=== PATIENT | female | born 1955 | race Caucasian/White ===

== ENCOUNTER 2017-06-29 10:12 | Day surgery (SDC) | payer BC ==
[~2017-06-29 10:12] MED LIST: ASPI81CH PO; ASPI81EC PO; AZIT250; Anaspaz0.125 MG PO; BENZ100A PO; BUPR150ER PO; Bentyl10 MG; D3-20002000 UNIT PO; DILT120 PO; DILT180 PO; DILTIAZEM 24HR180 MG PO; FOLI1 PO; HYDCHL12.5 PO; HYDCHL25 PO; HYDMOR2 PO; Hydromet Syrup473 ML; LISI5 PO; MELO7.5 PO; OMEP20ER PO; Omeprazole20 M1 PO; PRED20 PO; PROC10 PO; RXHYDMOR2 PO; SIMV40 PO
[2018-01-03] MEDS ORDERED: HYOS.125 (11:09)
[2018-01-03] MEDS ORDERED: Ranitidine HCl150 M1 (11:09)
== END 2017-06-29 11:58 | disposition home or self-care (01) ==
LOC: ATC 10:12
DX: G43.011 Migraine without aura, intractable, with status migrainosus (principal); N17.9 Acute kidney failure, unspecified; E83.52 Hypercalcemia; E66.9 Obesity, unspecified; R07.89 Other chest pain; I10 Essential (primary) hypertension; F17.210 Nicotine dependence, cigarettes, uncomplicated; Z79.899 Other long term (current) drug therapy; Z86.73 Personal history of transient ischemic attack (TIA), and cerebral infarction without residual deficits; Z91.040 Latex allergy status
CPT/HCPCS: 96374; 96375; J1200; J2765

== ENCOUNTER 2017-10-23 19:00 | Emergency (ER) | payer BC ==
[~2017-10-23] VITALS: Ht 162.6 cm; Wt 81.2 kg
[2017-10-23] MEDS ORDERED: HYDCHL25 PO (19:22)
[2017-10-23] MEDS ORDERED: ASPI81CH PO (19:22)
[2017-10-23] MEDS ORDERED: Omeprazole20 M1 PO (19:23)
[2017-10-23] MEDS ORDERED: CYAN500 PO (19:23)
[2017-10-23 19:24] LABS: BASOPHILS ABSOLUTE AUTO 0.05 K/mm3 (0.00-0.23); BASOPHILS PERCENT AUTO 0 % (0-2); EOSINOPHILS ABSOLUTE AUTO 0.24 K/mm3 (0.00-0.68); EOSINOPHILS PERCENT AUTO 2 % (0-6); Hematocrit 39.5 % (33.0-51.0); Hemoglobin 13.7 g/dL (11.5-16.0); IMMATURE GRAN ABSOLUTE AUTO 0.07 K/mm3 (0.00-0.10); IMMATURE GRAN PERCENT AUTO 1 % (0-1); LYMPHOCYTES ABSOLUTE AUTO 2.24 K/mm3 (0.84-5.20); LYMPHOCYTES PERCENT AUTO 20 % (21-46); MONOCYTES ABSOLUTE AUTO 1.11 K/mm3 (0.16-1.47); MONOCYTES PERCENT AUTO 10 % (4-13); Mean Corpuscular HGB 35.3 pg (26.0-34.0); Mean Corpuscular HGB Conc 34.7 g/dL (31.5-36.5); Mean Corpuscular Volume 102 fL (80-100); Mean Platelet Volume 11.9 fL (9.1-12.4); NEUTROPHILS ABSOLUTE AUTO 7.64 K/mm3 (1.96-9.15); NEUTROPHILS PERCENT AUTO 67 % (41-73); Platelet Count 274 K/mm3 (150-400); RDW Coefficient Variation 12.2 % (11.7-14.2); RDW Standard Deviation 45.8 fL (35.1-46.3); Red Blood Cell Count 3.88 M/mm3 (3.80-5.20); White Blood Cell Count 11.35 K/mm3 (4.00-11.30)
[2017-10-23] MEDS ORDERED: QUDEXY XR100 MG PO (19:24)
[2017-10-23] MEDS ORDERED: DILT180 PO (19:24)
[2017-10-23] MEDS ORDERED: TIZANIDINE HCL4 MG PO (19:24)
[2017-10-23] MEDS ORDERED: LISI5 PO (19:25)
[2017-10-23] MEDS ORDERED: VITAMIN D32000 UNIT PO (19:25)
[2017-10-23] MEDS ORDERED: FOLI400 PO (19:26)
[2017-10-23 19:44] LABS: Alanine Aminotransfer (ALT/SGP 151 U/L (12-78); Albumin, Blood 3.5 g/dL (3.4-5.0); Albumin/Globulin Ratio 1.1 (0.8-1.8); Alk Phos 84 U/L (50-136); Anion Gap 7 mmol/L (6-16); Aspartate Aminotrans (AST/SGOT 97 U/L (12-37); Bilirubin, Total 0.3 mg/dL (0.1-1.0); Blood Urea Nitrogen 32 mg/dL (8-24); Bun/Creatinine Ratio 21.5 (12.0-20.0); CO2, Blood 23 mmol/L (21-32); Calcium, Blood 10.1 mg/dL (8.5-10.1); Chloride, Blood 113 mmol/L (98-108); Creatinine, Blood 1.49 mg/dL (0.40-1.00); Globulin, Blood 3.3 g/dL (2.2-4.0); Glomerular Filtration Rate 38 (60-); Glucose, Blood 90 mg/dL (70-99); Potassium, Blood 3.5 mmol/L (3.5-5.5); Sodium, Blood 143 mmol/L (136-145); Total Protein, Blood 6.8 g/dL (6.4-8.2); Troponin I <0.015 ng/mL (0.000-0.040)
[2017-10-23] MEDS ORDERED: Percocet 7.5-31 EACH PO (21:56)
== END 2017-10-23 22:12 | disposition home or self-care (01) ==
LOC: ER 19:00
PROVIDERS: Emergency Medicine
DX: R07.81 Pleurodynia (principal); Z91.040 Latex allergy status; Z88.5 Allergy status to narcotic agent; Z79.899 Other long term (current) drug therapy; Z79.82 Long term (current) use of aspirin; I10 Essential (primary) hypertension; F17.210 Nicotine dependence, cigarettes, uncomplicated
CPT/HCPCS: 36415; 71046; 80053; 84484; 85025; 85379; 93005; 93010; 96374; 96375; 96376; 99284; J1885; J2405; J3010

== ENCOUNTER → 2018-06-07 | Outpatient (CLI) | payer BC ==
[~2018-06-07] MED LIST changes: +ALBU90OI6 INH; +CYAN500 PO; +FOLI400 PO; +HYOS.125; +LISI20 PO; +PANT40 PO; +PROBIOTIC1 EAC1 PO; +Percocet 7.5-31 EACH PO; +QUDEXY XR100 MG PO; +Ranitidine HCl150 M1; +TIZANIDINE HCL4 MG PO; +VITAMIN D32000 UNIT PO
[2018-06-07 11:29] LABS: BASOPHILS ABSOLUTE AUTO 0.03 K/mm3 (0.00-0.23); BASOPHILS PERCENT AUTO 0 % (0-2); EOSINOPHILS PERCENT AUTO 0 % (0-6); Hematocrit 41.1 % (33.0-51.0); Hemoglobin 14.4 g/dL (11.5-16.0); IMMATURE GRAN ABSOLUTE AUTO 0.08 K/mm3 (0.00-0.10); IMMATURE GRAN PERCENT AUTO 1 % (0-1); LYMPHOCYTES ABSOLUTE AUTO 0.18 K/mm3 (0.84-5.20); LYMPHOCYTES PERCENT AUTO 2 % (21-46); MONOCYTES ABSOLUTE AUTO 0.64 K/mm3 (0.16-1.47); MONOCYTES PERCENT AUTO 8 % (4-13); Mean Corpuscular Volume 100 fL (80-100); Mean Platelet Volume 11.5 fL (9.1-12.4); NEUTROPHILS ABSOLUTE AUTO 7.08 K/mm3 (1.96-9.15); NEUTROPHILS PERCENT AUTO 88 % (41-73); Platelet Count 229 K/mm3 (150-400); RDW Coefficient Variation 13.9 % (11.7-14.2); RDW Standard Deviation 50.8 fL (35.1-46.3); Red Blood Cell Count 4.12 M/mm3 (3.80-5.20); White Blood Cell Count 8.01 K/mm3 (4.00-11.30)
[2018-06-07 11:43] LABS: Albumin, Blood 3.4 g/dL (3.4-5.0); Bilirubin, Total 0.3 mg/dL (0.1-1.0); Bun/Creatinine Ratio 17.3 (12.0-20.0); Creatinine, Blood 1.04 mg/dL (0.40-1.00); Globulin, Blood 3.5 g/dL (2.2-4.0); Potassium, Blood 4.1 mmol/L (3.5-5.5); Total Protein, Blood 6.9 g/dL (6.4-8.2)
== END | disposition home or self-care (01) ==
LOC: LAB EV 11:17 → LAB SHORT 11:17
PROVIDERS: General Practice
DX: E86.0 Dehydration (principal)
CPT/HCPCS: 80053; 85025

== ENCOUNTER 2018-06-08 09:34 | Inpatient (IN) | payer BC ==
[~2018-06-08] VITALS: Ht 162.6 cm; Wt 68.8 kg
[~2018-06-08 09:34] MED LIST changes: -ALBU90OI6 INH; -PANT40 PO; -PROBIOTIC1 EAC1 PO
[2018-06-08] MEDS ORDERED: PANT40 PO (10:41)
[2018-06-08 10:59] LABS: Hematocrit 41.9 % (33.0-51.0); Hemoglobin 14.1 g/dL (11.5-16.0); Mean Corpuscular HGB 34.6 pg (26.0-34.0); Mean Corpuscular HGB Conc 33.7 g/dL (31.5-36.5); Mean Platelet Volume 11.7 fL (9.1-12.4); Platelet Count 157 K/mm3 (150-400); RDW Coefficient Variation 13.6 % (11.7-14.2); RDW Standard Deviation 51.8 fL (35.1-46.3); Red Blood Cell Count 4.07 M/mm3 (3.80-5.20); White Blood Cell Count 8.36 K/mm3 (4.00-11.30)
[2018-06-08 11:03] LABS: Mean Corpuscular Volume 103 fL (80-100)
[2018-06-08 11:33] LABS: BAND PERCENT MAN 4 % (0-8); BASOPHILS PERCENT MAN 0 % (0-2); EOSINOPHILS PERCENT MAN 0 % (0-6); LYMPHOCYTES % ATYPICAL MANUAL 3 % (0-0); LYMPHOCYTES ABSOLUTE MAN 0.33 K/mm3 (0.84-5.20); LYMPHOCYTES PERCENT MAN 1 % (21-46); MONOCYTES ABSOLUTE MAN 0.08 K/mm3 (0.16-1.47); MONOCYTES PERCENT MAN 1 % (4-13); NEUTROPHILS ABSOLUTE MAN 7.94 K/mm3 (1.96-9.15); SEG NEUTROPHILS PERCENT MAN 91 % (41-73); TOTAL CELLS COUNTED 100
[2018-06-08 11:52] LABS: Influenza A Positive (NEGATIVE); Influenza B Negative (NEGATIVE)
[2018-06-08] MEDS ORDERED: ALBU90OI6 INH (15:47)
[2018-06-08] MEDS ORDERED: PROBIOTIC1 EAC1 PO (15:47)
--- NOTE | 2018-06-08 19:32 | NUR ---
PHYSICIAN CORRESPONDENCE STATED HEADACHE RATED 8/10. GIVEN A DOSE OF TYLENOL @ 1634 AND TORADOL @ 1737 WHICH WAS RATED 5/10. APPEARS TO BE IN WORSE PAIN. DOES HAVE AN ALLERGY TO CODEINE. PHYSICIAN WILL PLACE NEW ORDERS.
--- NOTE | 2018-06-09 05:14 | NUR ---
0451 PHYSICIAN CORRESPONDENCE WAS MADE AWARE TO THIS NURSE BY ROSIBEL THAT SHE WAS UNABLE TO GET AN OXYGEN READING HIGHER THAN 81% THIS AM. WHEN EXAMINED BY THIS NURSE IT WAS APPARENT THAT SHE WAS HAVING A DIFFICULT TIME TAKING IN A DEEP BREATH; THIS WAS ALSO STATED DURING THE SHIFT ASSESSMENT AT WHICH TIME PT LUNG SOUNDS WHERE DIMINISHED IN ALL DO. DURING LUNG ASSESSMENT @ 0430 PT HAD MOIST CRACKLES AT THE BASES. ABLE TO SPEAK IN FULL SENTENCES AND DID NOT APPEAR ANXIOUS OR HAVE ANY PAIN/DISCOMFORT. PHYSICIAN ORDERED A STAT CXR AND TO DC FLUIDS. PHYSICIAN ALSO STATED THAT HE WOULD BE UP TO VISIT WITH PATIENT. RT GAVE A BREATHING TREATMENT AND PLACED PT ON 10L VIA OXYMIZER WHICH WAS INCREASED FROM 3L VIA NC. WCTM.
[2018-06-09 05:21] LABS: Hematocrit 40.9 % (33.0-51.0); Hemoglobin 13.6 g/dL (11.5-16.0); Mean Corpuscular HGB 33.9 pg (26.0-34.0); Mean Corpuscular HGB Conc 33.3 g/dL (31.5-36.5); Mean Corpuscular Volume 102 fL (80-100); Mean Platelet Volume 12.1 fL (9.1-12.4); Platelet Count 137 K/mm3 (150-400); RDW Coefficient Variation 13.5 % (11.7-14.2); RDW Standard Deviation 51.4 fL (35.1-46.3); Red Blood Cell Count 4.01 M/mm3 (3.80-5.20); White Blood Cell Count 7.83 K/mm3 (4.00-11.30)
--- NOTE | 2018-06-09 05:31 | NUR ---
PHYSICIAN UP TO VISIT WITH PT STATED WANTS TO BE CONTACTED AFTER CXR IS COMPLETED. PHYSICIAN AWARE THAT CXR MAY NOT BE COMPLETE PRIOR TO HIS SHIFT ENDING. X-RAY TECH CALLED THIS NURSE AND MADE AWARE THAT HE WAS BACKED UP IN THE ED AND DID NOT KNOW WHEN HE WOULD BE ABLE TO COMPLETE X-RAY. AFTER EXAMINING PT PHYSICIAN STATED THERE IS NOTABLE RHONCHI WITH CRACKLES TO THE BASES. NEW ORDER OF 1 DOSE OF SOLU-MEDROL 125 MG. WCTM.
[2018-06-09 05:46] LABS: BAND PERCENT MAN 11 % (0-8); BASOPHILS PERCENT MAN 0 % (0-2); EOSINOPHILS PERCENT MAN 0 % (0-6); LYMPHOCYTES ABSOLUTE MAN 0.15 K/mm3 (0.84-5.20); LYMPHOCYTES PERCENT MAN 2 % (21-46); MONOCYTES ABSOLUTE MAN 0.07 K/mm3 (0.16-1.47); MONOCYTES PERCENT MAN 1 % (4-13); NEUTROPHILS ABSOLUTE MAN 7.59 K/mm3 (1.96-9.15); SEG NEUTROPHILS PERCENT MAN 86 % (41-73); TOTAL CELLS COUNTED 100
--- NOTE | 2018-06-09 05:46 | NUR ---
SHIFT SUMMARY A/O X4, ABLE TO MAKE NEEDS KNOWN. COOPERATIVE WITH CARE. ANSWERS QUESTIONS APPROPRIATLEY. C/O PAIN THROUGHOUT SHIFT. RECEIVED NEW ORDER FOR NORCO Q6H PRN. MEDICATED PER EMAR FOR PAIN. INCREASED O2 NEED THIS AM (SEE PREV ANY NOTE). VSS/SLIGHT FEVER @ 99.0. INDEPENDENT IN THE ROOM. BED IN LOWEST POSITION. CALL LIGHT AND BELONGINGS WITHIN REACH. WCTM. REPOR TO ONCOMING RN.
[2018-06-09 06:07] LABS: Albumin, Blood 2.6 g/dL (3.4-5.0); Albumin/Globulin Ratio 0.9 (0.8-1.8); Bilirubin, Total 0.9 mg/dL (0.1-1.0); Bun/Creatinine Ratio 19.6 (12.0-20.0); Calcium, Blood 7.9 mg/dL (8.5-10.1); Creatinine, Blood 1.12 mg/dL (0.40-1.00); Globulin, Blood 2.9 g/dL (2.2-4.0); Magnesium, Blood 1.4 mg/dL (1.6-2.4); Potassium, Blood 4.1 mmol/L (3.5-5.5); Total Protein, Blood 5.5 g/dL (6.4-8.2)
--- NOTE | 2018-06-09 06:43 | NUR ---
IMAGING DOWN TO IMAGINING @ 5434; BACK @ 2678. IMAGE NOT READ YET.
--- NOTE | 2018-06-09 06:58 | NUR ---
4813 PHYSICIAN CORRESPONDENCE LET PHYSICIAN AWARE THAT X-RAY HAD BEEN COMPLETED BUT NO IMAGE OR IMPRESSION HAS BEEN MADE. INFORMED THIS NURSE THAT HE WAS THE ATTENDING PHYSICIAN TO BE NOTIFIED SOON POSSIBLE TO REVIEW THE IMAGE. WILL POSSIBLY START ON BROAD SPECTRUM ABX. POSSIBLY MOVE PATIENT TO PCU. PHYSICIAN IS SUSPICIOUS OF ARDS. DAY SHIFT RN AWARE.
--- NOTE | 2018-06-09 09:08 | NUR ---
PATIENT ARRIVED PER WHEELCHAIR TO ICU4. PATIENT IS PCU STATUS.' ANTIBIOTICS STARTED IVPB. VERY TIRED AND ASLEEP WHEN BACK IN BED. LUNGS VERY COARSE T/O AND DIM IN LOWER LOBE BASES. ON 10 OXYMIZER
[2018-06-09 10:16] LABS: PO2 Arterial 72.7 mmHg (80-100); pH Blood Arterial 7.32 (7.35-7.45)
--- NOTE | 2018-06-09 14:50 | NUR ---
1445: SPO2 DECREASED TO 87% ON 10L OXYGEN, UNABLE TO INCREASE SPO2 WITH INCREASED O2, RT NOTIFIED. HR 38, BP 69/56, MAP 61. PT STATES SHE FEELS TIRED AND MODERATELY SOB, LS COARSE IN BASES AND ON RIGHT SIDE, DIM IN KATHY. PATIENT DENIES DIZZINESS OR CHEST PAIN AT THIS TIME. BIPAP PLACED BY RT, RN'S AT BEDSIDE.
--- NOTE | 2018-06-09 17:03 | NUR ---
ECHO BEING DONE NOW. CATIE MCKEON, PATIENT'S SO CALLED WITH AN UPDATE ON HER CONDITION.
--- NOTE | 2018-06-09 17:27 | NUR ---
Echocardiogram completed.
[2018-06-09 18:00] LABS: Source, Urine Catheter
[2018-06-09 18:03] LABS: Bilirubin, Urine Neg (Neg); Blood, Urine 3+ (Neg); Glucose Qualitative, Urine 2+ (Neg); Ketones, Urine 1+ (Neg); Leukocyte Esterase, Urine 1+ (Neg); Nitrite, Urine Neg (Neg); Protein, Urine 3+ (Neg); Urobilinogen, Urine 1+ (Normal)
--- NOTE | 2018-06-09 18:09 | NUR ---
CHANGED HER TO AN ADULT NASAL BIPAP MASK. STATES IT IS MUCH MORE COMFORTABLE' DOWN TO 70% O2. 03/15 WITH BUR 12. #14 TODD CATH INSERTED WITH 150 DARK BROWN URINE. SPEC SENT OT LAB. REMAINS IN DROPLET ISOLATION. VERY SICK. MADE ICU STATUS.
[2018-06-09 18:20] LABS: Appearance, Urine Turbid (Clear); Color, Urine Yellow (P-Yellow)
[2018-06-09 18:27] LABS: Bacteria Mod /hpf; Red Blood Cells, Urine Not Seen /hpf (0-2); Squamous Epithelial Cells Few /hpf (Few)
[2018-06-09 19:14] LABS: PCO2 Arterial 34.4 mmHg (35-45); PO2 Arterial 66.2 mmHg (80-100)
[2018-06-09 19:15] LABS: pH Blood Arterial 7.28 (7.35-7.45)
--- NOTE | 2018-06-09 19:27 | NUR ---
START OF SHIFT: REPORT FROM MIKAELA YOUNG. PT LYING IN BED SUPINE SEMI-FOWLERS HOB 30'. PT AWAKE A+O BUT ANXIOUS. PT SAT UP TO HIGH FOWLERS WITH ASSIST. LS CLEAR BUT DIM IN BILATERAL UPPER LOBES; RML COARSE, RLL COARSE DIMINISHED; LLL COARSE DIM. HR BRADYCARDIA 34-42 bpm. PT BECAME ANXIOUS AND DEMANDED BIPAP OFF. OXYMIZER PLACED AND IS ON 15L. PT PRACTICED EFFECTIVE BREATHING WITH SATS GOING FROM 89% TO 93%. PT NEEDING COACHING WITH THIS T/O ASSESSMENT. PT C/O LÓPEZ PAIN OFF AND ON "SINCE THIS WHOLE THING STARTED THREE OR FOUR DAYS AGO". PT DESCRIBES LÓPEZ PAIN STARTING ABOVE THE RIGHT EYES AND SHOOTING DOWN TO RIGHT EAR. SKIN WARM, BACK SLIGHTLY MOIST, PULSES STRONG X4 EXT. PT DENIES NUMBNESS OR TINGLING. DENIES NAUSE CURRENLTY. PT S/O TO SIDE OF BED AND HAS TAKEN PT'S WEDDING RING AND GOLD ANCHOR NECKLACE AND STATED WILL TAKE THEM HOME. PT CURRENTLY SIPPING ON WATER AND CONVERSING ([id number] SENTENCES) TO S/O. SATS REMAINING 92-94%. HR GOING DOWN TO 35-40 DURING ASSESSMENT. PT DENYING CHEST PAIN, DIZZINESS, LIGHT HEADEDNESS, OR NAUSEA. ABD OBTAINED AT START OF SHIFT. RT AURE STATED SHOWN DR. SUTHERLAND (WHO IS IN DEPARTMENT) THE RESULTS. DAIRY FARMWORKER HAS BROUGHT THE ZOLL TO PT'S ROOM. PT TEACHING DONE. PT WITH VERBAL UNDERSTANDING.
--- NOTE | 2018-06-09 21:15 | NUR ---
TOLERATED FOOD WELL: PT REQEUSTED HER DINNER. PT GIVEN HALF SANDWICH, JUICE, AND FRUIT CUP. PT TOLERATED WELL. CURRENT VITAL BP 125/71, HR 52, RR 22, SATS 91-94% OXYMIZER 15L. PT WATCHING TV. S/O HAS GONE HOME. CALL LIGHT WITHIN REACH.
[2018-06-09 22:58] LABS: Magnesium, Blood 2.5 mg/dL (1.6-2.4)
[2018-06-09 23:01] LABS: Bun/Creatinine Ratio 18.6 (12.0-20.0); Calcium, Blood 8.4 mg/dL (8.5-10.1); Creatinine, Blood 2.04 mg/dL (0.40-1.00); Potassium, Blood 4.1 mmol/L (3.5-5.5)
--- NOTE | 2018-06-09 23:15 | NUR ---
DR. SUTHERLAND NOTIFIED: GIVEN 2230 LAB RESULTS. ALL QUESTIONS ANSWERED. NEW ORDER: ATIVAN 0.5mg IVP Q8' PRN FOR ANXIETY.
--- NOTE | 2018-06-09 23:19 | NUR ---
BIPAP ON: AURE MOCK PLACED PT ON BIPAP. PT TOLERATING WELL THUS FAR WITHOUT ATIVAN. WILL CONTINUE TO MONITOR.
--- NOTE | 2018-06-10 00:40 | NUR ---
ANXIOUS: AT APPROX 0012 PT TOOK OFF BIPAP WITHOUT USING CALL LIGHT. OXYMIZER 15L PLACED. PT AGREED TO USE OF ATIVAN TO HELP WITH ANXIETY. ATIVAN 0.5 mg IVP GIVEN. PT CURRENLTY TOLERATING BIPAP: 10/5 FiO2 TITRATED UP TO 65% TO KEEP SATS >92% SATS CURRENLTY AT 93%. PT FALLING IN AND OUT OF SLEEP WATCHING TV WHEN AWAKE. HR RHYTHM CURRENTLY JUNCTIONAL BRADYCARDIA IN THE LOW 40'S. PT ASYMPTOMATIC. WILL CONTINUE TO MONITOR.
--- NOTE | 2018-06-10 02:12 | NUR ---
0150 PT REQUESTED BIPAP OFF FOR BREAK. PT HAS BEEN AWAKE WATCHING TV AND ON CELL PHONE SINCE. PT CALM AND STATES IS COMFORTABLE. PT DESATS WITH ACTIVITY AND NEEDS COACHING FOR EFFECTIVE BREATHING. CURRENTLY PT SATS ARE 93% ON 15L VIA OXYMIZER. SEE VITALS. CALL LIGHT WITHIN REACH.
--- NOTE | 2018-06-10 02:26 | NUR ---
BIPAP ON. PT TRYING TO GO BACK TO SLEEP.
--- NOTE | 2018-06-10 03:29 | NUR ---
AGITATION: PT GROWING MORE AGITATED THIS AM. PT REQUESTED THAT BIPAP BE TAKEN OFF. PT ASKED WHEN THE CATHETER (TODD) CAN BE TAKEN OUT SO SHE COULD GET UP AND WALK. PT TEACHING RE: HYPOXIA WITH ACTIVITY AND REST UNTIL ATIVITY BETTER TOLERATED. PT CURRENLTY WITH OXYMIZER 15L ON, WATCHING TV AND ON CELL PHONE. RESEARCH SCIENTIST AT BEDSIDE.
[2018-06-10 03:48] LABS: BASOPHILS ABSOLUTE AUTO 0.03 K/mm3 (0.00-0.23); BASOPHILS PERCENT AUTO 0 % (0-2); EOSINOPHILS PERCENT AUTO 0 % (0-6); Hematocrit 40.1 % (33.0-51.0); Hemoglobin 13.8 g/dL (11.5-16.0); IMMATURE GRAN ABSOLUTE AUTO 0.07 K/mm3 (0.00-0.10); IMMATURE GRAN PERCENT AUTO 1 % (0-1); LYMPHOCYTES ABSOLUTE AUTO 0.39 K/mm3 (0.84-5.20); LYMPHOCYTES PERCENT AUTO 3 % (21-46); MONOCYTES ABSOLUTE AUTO 0.17 K/mm3 (0.16-1.47); MONOCYTES PERCENT AUTO 1 % (4-13); Mean Corpuscular HGB 34.4 pg (26.0-34.0); Mean Corpuscular HGB Conc 34.4 g/dL (31.5-36.5); Mean Corpuscular Volume 100 fL (80-100); Mean Platelet Volume 12.2 fL (9.1-12.4); NEUTROPHILS ABSOLUTE AUTO 13.04 K/mm3 (1.96-9.15); NEUTROPHILS PERCENT AUTO 95 % (41-73); Platelet Count 116 K/mm3 (150-400); RDW Coefficient Variation 12.9 % (11.7-14.2); RDW Standard Deviation 47.8 fL (35.1-46.3); Red Blood Cell Count 4.01 M/mm3 (3.80-5.20)
[2018-06-10 04:13] LABS: Albumin, Blood 2.3 g/dL (3.4-5.0); Albumin/Globulin Ratio 0.9 (0.8-1.8); Bilirubin, Total 0.8 mg/dL (0.1-1.0); Bun/Creatinine Ratio 18.3 (12.0-20.0); Calcium, Blood 7.8 mg/dL (8.5-10.1); Creatinine, Blood 2.18 mg/dL (0.40-1.00); Globulin, Blood 2.7 g/dL (2.2-4.0); Magnesium, Blood 2.2 mg/dL (1.6-2.4)
[2018-06-10 04:44] LABS: PCO2 Arterial 33.1 mmHg (35-45); PO2 Arterial 76.7 mmHg (80-100); pH Blood Arterial 7.28 (7.35-7.45)
--- NOTE | 2018-06-10 05:02 | NUR ---
PT ON BIPAP. PT TOLERATING FOR SHORT PERIODS OF TIME. PT C/O NOT ABLE TO GET TO SLEEP THIS NOC AND STATES WANTS TO SHOWER TODAY. PT DOES APPEAR TIRED. WILL CONTINUE TO MONIOR.
--- NOTE | 2018-06-10 05:40 | NUR ---
AUDITORY HALLUCINATIONS: PT AWAKENED AND PULLED HER BIPAP OFF STATING THAT SHE COULDN'T STAND IT ANY LONGER. PT STATED, "DID YOU HEAR THAT VOICE THAT KEPT SAYING, 'ARE YOU OKAY?'. IT MUST OF HAVE SAID IT FIFTY TIMES". PT, AGAIN, ON 15L VIA OXYMIZER.
--- NOTE | 2018-06-10 08:00 | NUR ---
AWAKE ALERT, POLO AT THIS TIME. HAS TAKEN OFF HER BIPAP MASK AND IS STATING IT IS JUST TOO CLAUSTRAPHOBIC. 16L OXYMIZER NOW ON. SOME NEW POSTERIOR BREATH SOUNDS PRESENT. STATES SHE WANTS TO LEAVE, THAT SHE CANNOT STAND IT HERE ANY LONGER. THREW HER BREAKFAST TRAY TO THE FLOOR. DR SMILEY WENT IN TO EXPLAIN TO PATIENT THAT IF SHE LEAVES THE HOSPITAL SHE MAY . AIRVO BEING SET UP FOR PATIENT AND PRECEDEX STARTED AT 0.7MICS/KG/HR. PATIENT TRYING TO REMAIN CALM.
[2018-06-10 09:36] LABS: CPK Creatine Kinase 242 U/L (26-193)
--- NOTE | 2018-06-10 11:00 | NUR ---
AIRVO DOWN FROM 80% TO 70% AND FLOW AT 50L. PRECEDEX DRIP DOWN TO 0.5MICS/KG/HOUR. SLEEPING QUIETLY.
[2018-06-10 16:33] LABS: Albumin, Blood 2.4 g/dL (3.4-5.0); Albumin/Globulin Ratio 0.8 (0.8-1.8); Bilirubin, Total 0.9 mg/dL (0.1-1.0); Bun/Creatinine Ratio 16.2 (12.0-20.0); Calcium, Blood 8.3 mg/dL (8.5-10.1); Creatinine, Blood 2.59 mg/dL (0.40-1.00); Globulin, Blood 3.1 g/dL (2.2-4.0); Potassium, Blood 4.2 mmol/L (3.5-5.5); Total Protein, Blood 5.5 g/dL (6.4-8.2)
--- NOTE | 2018-06-10 16:44 | NUR ---
DR SMILEY CALLED WITH LAB RESULTS. D5W WITH 150 MEQ OF SODIUM BICARB AT 100ML/HOUR. PATIENT DOES AWAKEN TO NAME. STILL ON PRECEDEX AT 0.3MICS/KG/MIN
--- NOTE | 2018-06-10 17:58 | NUR ---
PATIENT AWAKE. HAS PULLED OFF HER O2 AND BED ALARM RINGING. REPOSITIONED AGAIN AND PULLED UP IN BE. STILL HALLUCINATING. TRYING TO REACH FOR A COOKIE IN HER BED THAT IS NOT THERE. SPO2 DOWN TO 77%. AIRVO REAPPLIED AT 50L AND 60% O2. REFUSED ANY DINNER. PRECEDEX ELEVATED TO 0.5MICS/KG/MIN.
--- NOTE | 2018-06-10 19:15 | NUR ---
ASSUMED CARE REPORT AND ASSESSMENT COMPLETED. PT WAKES TO VOICE BUT IS CONFUSED TO ALL BUT SELF AND RESTLESS. PT REORIENTS BRIEFLY BUT IS ATTEMPTING TO GET OOB TO LOCATE THE PHONE BOOK AND STATES, "IT'S A SHAME ABOUT ALL THAT MONEY." CURRENT CIWA OF 18. HIGH FLOW HUMIDIFIED NC VIA AIRVO IN PLACE AT 50L/M AND FIO2 AT 88%. PER AM REPORT, IF PT REQUIRES INTUBATION, [facility] CONSULTED FOR POSSILBE ECMO. PRECEDEX AT 0.5MCG/KG/HR, D5W W/ BICARB AT 100ML/HR AND NS TKO. SBP ELEVATED, PLAN TO MEDICATE WITH ATIVAN, EKG SHOWS SR 50-53 AND O2 SATS 98-99%.
--- NOTE | 2018-06-10 21:03 | NUR ---
CALL TO DR SMILEY UPDATED ON PT BP SLOWLY INCREASING, PO ANTI-HYPERTENISIVES STOPPED D/T INITIAL LOW BP AND NOW HR IN THE 50'S. ORDER FOR HYDRALAZINE OBTAINED.
--- NOTE | 2018-06-11 | NUR ---
UPDATE PT CONTINUES TO MUMBLE WORDS WHEN AWAKE BUT HAS BEEN ABLE TO TOLERATE PRECEDEX AND DOWNWARD TITRATION OF FIO2 ON AIRVO TO 70% FROM 90%. PT HAS BEEN MEDICATED X 2 WITH ATIVAN D/T DIAPHORESIS AND AGITATION. ZOLL REMOVED FROM ROON, HR HAS CONSISTENTLY INCREASED TO LOW 60'S THROUGH SHIFT. UOP AT 650ML SO FAR. PRECEDEX CONTINUES AT 0.5, D5 W/ BICARB AT 100ML/HR.
[2018-06-11 03:48] LABS: BASOPHILS ABSOLUTE AUTO 0.04 K/mm3 (0.00-0.23); BASOPHILS PERCENT AUTO 0 % (0-2); EOSINOPHILS PERCENT AUTO 0 % (0-6); Hematocrit 41.2 % (33.0-51.0); Hemoglobin 14.6 g/dL (11.5-16.0); IMMATURE GRAN ABSOLUTE AUTO 0.21 K/mm3 (0.00-0.10); IMMATURE GRAN PERCENT AUTO 2 % (0-1); LYMPHOCYTES ABSOLUTE AUTO 0.68 K/mm3 (0.84-5.20); LYMPHOCYTES PERCENT AUTO 5 % (21-46); MONOCYTES ABSOLUTE AUTO 0.46 K/mm3 (0.16-1.47); MONOCYTES PERCENT AUTO 3 % (4-13); Mean Corpuscular HGB 34.6 pg (26.0-34.0); Mean Corpuscular HGB Conc 35.4 g/dL (31.5-36.5); Mean Corpuscular Volume 98 fL (80-100); Mean Platelet Volume 12.3 fL (9.1-12.4); NEUTROPHILS ABSOLUTE AUTO 12.58 K/mm3 (1.96-9.15); NEUTROPHILS PERCENT AUTO 90 % (41-73); Platelet Count 117 K/mm3 (150-400); RDW Coefficient Variation 12.8 % (11.7-14.2); Red Blood Cell Count 4.22 M/mm3 (3.80-5.20); White Blood Cell Count 13.97 K/mm3 (4.00-11.30)
[2018-06-11 04:01] LABS: International Normalized Ratio 1.09; Prothrombin Time Results 11.2 Sec (9.7-11.5)
[2018-06-11 04:11] LABS: Magnesium, Blood 2.4 mg/dL (1.6-2.4)
[2018-06-11 04:12] LABS: Albumin, Blood 2.2 g/dL (3.4-5.0); Albumin/Globulin Ratio 0.7 (0.8-1.8); Bilirubin, Total 0.8 mg/dL (0.1-1.0); Bun/Creatinine Ratio 15.9 (12.0-20.0); Creatinine, Blood 2.7 mg/dL (0.40-1.00); Globulin, Blood 3.1 g/dL (2.2-4.0); Phosphorus, Blood 3.1 mg/dL (2.5-4.9); Potassium, Blood 3.9 mmol/L (3.5-5.5); Total Protein, Blood 5.3 g/dL (6.4-8.2)
--- NOTE | 2018-06-11 06:37 | NUR ---
SHIFT SUMMARY PT REMAINS ON AIRVO AT 50L/M AND FIO2 TITRATED DOWN FROM 90% TO 72%. PT IS CONFUSED TO ALL BUT SELF AND OCCASIONALLY FOLLOWS COMMANDS. PT HAS BEEN INCREASINGLY MORE DIFFICULT TO UNDERSTAND VERBALLY. PT HAS MADE MULTIPLE ATTEMPTS TO SIT UP AND GET OOB. PRECEDEX AT 0.5MCG/KG/HR WITH FOUR 1MG DOSES OF ATIVAN GIVEN OVERNIGHT FOR INCREASED AGITATION/AIRVO INTOLERANCE. D5 W/ 3 AMPS BICARB AT 100ML/HR AND NS TKO. BP HAS BEEN ELEVATED AND TWO DOSES OF HYDRALAZINE GIVEN FOR SBP >160, HR INCREASED FROM LOW 50'S TO LOW 60'S NOW AND O2 SATS MAINTAINING 94-98%.
--- NOTE | 2018-06-11 07:41 | NUR ---
ASSUMED CARE ASSUMED CARE OF PATIENT. PATIENT RESTING. CURRENTLY ON AIRVO O2. PRECEDEX GTT INFUSING. PATIENT AROUSES WITH STIMULATION. CONFUSED AND PULLING AT THINGS WHEN AWAKE. EASILY AGITATED WHEN AWAKE. PLAN TO CONTINUE TO TITRATE PRECEDEX NEEDED. WILL CONTINUE TO MONITOR RESPITORY STATUS AND TITRATE FI02 NEEDED. WILL CONTINUE TO MEDICATE FOR PAIN NEEDED. WILL CONTINUE TO MONITOR CIWA AND MEDICATE PER ORDERS. WILL PROVIDE ORAL CARE AND SUCTIONING. WILL CONTINUE TO TURN PATIENT FREQUENTLY AND PROVIDE SKIN CARE. WILL NOTIFY PHYSICIANS OF ANY CHANGES.
[2018-06-11 10:06] LABS: Vancomycin, Trough 20.2 ug/mL (5.0-10.0)
--- NOTE | 2018-06-11 14:15 | NUR ---
TRANSFER OF CARE REPORT GIVEN TO OC YOUNG. PATIENT CONTINUES TO BE ON HIGH FLOW AIRVO O2. EASILY DESATING WHEN AWAKE. PATIENT CONFUSED AND AGITATED WHEN AWAKE.
--- NOTE | 2018-06-11 14:32 | NUR ---
REPORT TAKEN AND CARE OF PT ASSUMED
--- NOTE | 2018-06-11 15:18 | NUR ---
PT MEDICATED W ATIVAN 2MG FOR SEVERE AGITATION THAT CAUSED PT TO DESATURATE DOWN TO 85%. PRECEDEX AT 0.7MCG. RT AT BEDSIDE, HIGH FLOW INCREASED TO 60%. PT MUMBULING INCOHERENTLY
--- NOTE | 2018-06-11 16:05 | NUR ---
DR SMILEY CALLED AND GIVEN UPDATE ON PT. SATS RUNNING BETWEEN 87-92% ON 60L/FIO2 VARIES AROUND 80%. PT HTN AT 172/103, HYDRALAZINE IV GIVEN. FAMILY AT BEDSIDE; GIVEN UPDATE.
[2018-06-11 16:33] LABS: Creatinine, Blood 2.64 mg/dL (0.40-1.00); Vancomycin, Random 17.6 ug/mL
--- NOTE | 2018-06-11 17:07 | NUR ---
DR SMILEY IN TO SPEAK WITH PT'S FAMILY AND EVALUATE PT. OKAY TO HOLD PO MEDS TODAY, WILL HOLD PLACEMENT OF NG TUBE FOR NOW. PT MAY NEED TO BE INTUBATED IF O2 REQUIREMENTS CONT TO RISE.
--- NOTE | 2018-06-11 18:58 | NUR ---
RESP 40'S, SATS 87%. RT CALLED. FIO2 INCREASED TO 85. SATS NOW 91%, REPORT TO BE GIVEN TO ONCOMING RN
--- NOTE | 2018-06-11 19:15 | NUR ---
ASSUMED CARE ASSUMED CARE OF PATIENT. SEDATED WITH PRECEDEX @ 0.7MCG/KG/HR. OPENS EYES SLIGHTLY TO VERBAL STIMULI. BECOMES RESTLESS AND AGITATED WHEN AWAKE. MOANING, SPEECH IS INCOMPREHENSIBLE. NOT FOLLOWING COMMANDS AT THIS TIME, BUT MOVING ALL EXTREMITIES SPONTANEOUSLY. BILATERAL SOFT WRIST RESTRAINTS REMAIN IN PLACE D/T PT PULLING OUT IVs EARLIER. ELEN, 4MM. SCLERAL EDEMA NOTED. PT IS ON HFNC/AIRVO @ 60L/85-87% FIO2 AT THIS TIME. RESPIRATIONS ARE LABORED AND TACHYPNEIC, RATE 28-32. MONITOR SHOWS NSR, RATE 70s. ABBEY STABLE AT THIS TIME. TODD PATENT AND DRAINING CLEAR YELLOW URINE. NPO D/T SEDATION AND LEVEL OF RESPONSIVENESS. D5 WITH 3AMPS OF SODIUM BICARB INFUSING @ 100CC/HR PER ORDER. REMAINS IN DROPLET/CONTACT ISOLATION FOR POSITIVE INFLUENZA. SEE SHIFT ASSESSMENT FOR FULL ASSESSMENT.
--- NOTE | 2018-06-11 20:20 | NUR ---
AGITATION/DECREASED O2 SATS PT WITH INCREASED AGITATION AND RESTLESSNESS. PULLING AGAINST RESTRAINTS AND KICKING LEGS. YELLING OUT- SPEECH REMAINS DIFFICULT TO UNDERSTAND. NOT FOLLOWING ANY COMMANDS. O2 SATS DROPPED TO 70%, RESPIRATORY RATE INCREASED TO MID-40s. MEDICATED WITH ATIVAN 2MG IV AT THIS TIME. PRECEDEX CONTINUES @ 0.7MCG/KG/HR.
--- NOTE | 2018-06-11 20:30 | NUR ---
O2 SATS/AGITATION PT RESTING QUIETLY NOW AFTER ATIVAN. RESP RATE NOW 30-32. O2 SATS ARE 91%. CONTINUED USE OF ACCESSORY MUSCLES NOTED WITH BREATHING.
--- NOTE | 2018-06-11 20:45 | NUR ---
AGITATION/CALL TO PT WITH IMCREASED AGITATION. ATTEMPTING TO SIT UP AND CLIMB OUT OF BED. PULLING AGAINST RESTRAINTS. O2 SATS DECREASED TO 80%, RESP RATE 45-50. CALL TO DR. SMILEY FOR EVENT/STATUS UPDATE- NEW ORDERS RECEIVED.
--- NOTE | 2018-06-12 01:20 | NUR ---
DESATURATIONS DR. SMILEY NOTIFIED OF CONTINUED DESATURATIONS WITH ANY MOVEMENT/AGITATION. PT MEDICATED WITH ATIVAN 2-4MG IV APPROXIMATELY EVERY HOUR D/T INCREASED AGITATION AND RESTLESSNESS. SATS DECREASE TO LOW TO MID-80s AND TAKES APPROXIMATELY 15-20 MINUTES TO RECOVER AFTER MEDS GIVEN. NEW ORDERS RECEIVED FOR BIPAP 25/03 AT THIS TIME. IF BIPAP IS UNSUCCESSFUL, PLAN IS TO INTUBATE PATIENT.
[2018-06-12 04:09] LABS: BASOPHILS ABSOLUTE AUTO 0.05 K/mm3 (0.00-0.23); BASOPHILS PERCENT AUTO 1 % (0-2); EOSINOPHILS PERCENT AUTO 0 % (0-6); Hematocrit 39.3 % (33.0-51.0); Hemoglobin 13.9 g/dL (11.5-16.0); IMMATURE GRAN ABSOLUTE AUTO 0.69 K/mm3 (0.00-0.10); IMMATURE GRAN PERCENT AUTO 8 % (0-1); LYMPHOCYTES ABSOLUTE AUTO 0.86 K/mm3 (0.84-5.20); LYMPHOCYTES PERCENT AUTO 10 % (21-46); MONOCYTES ABSOLUTE AUTO 0.31 K/mm3 (0.16-1.47); MONOCYTES PERCENT AUTO 4 % (4-13); Mean Corpuscular HGB 34.1 pg (26.0-34.0); Mean Corpuscular HGB Conc 35.4 g/dL (31.5-36.5); Mean Corpuscular Volume 96 fL (80-100); Mean Platelet Volume 12.2 fL (9.1-12.4); NEUTROPHILS ABSOLUTE AUTO 7.03 K/mm3 (1.96-9.15); NEUTROPHILS PERCENT AUTO 79 % (41-73); NRBC ABSOLUTE 0.04 K/mm3 (0.00-0.02); NRBC Auto 0.4 /100 WBC (0.0-0.2); Platelet Count 134 K/mm3 (150-400); RDW Coefficient Variation 13.3 % (11.7-14.2); RDW Standard Deviation 47.5 fL (35.1-46.3); Red Blood Cell Count 4.08 M/mm3 (3.80-5.20); White Blood Cell Count 8.94 K/mm3 (4.00-11.30)
[2018-06-12 04:28] LABS: BAND PERCENT MAN 2 % (0-8); BASOPHILS PERCENT MAN 0 % (0-2); EOSINOPHILS PERCENT MAN 0 % (0-6); LYMPHOCYTES ABSOLUTE MAN 0.62 K/mm3 (0.84-5.20); LYMPHOCYTES PERCENT MAN 7 % (21-46); METAMYELOCYTE ABSOLUTE MAN 0.08 K/mm3 (0.00-0.00); METAMYELOCYTE PERCENT MAN 1 % (0-0); MONOCYTES ABSOLUTE MAN 0.44 K/mm3 (0.16-1.47); MONOCYTES PERCENT MAN 5 % (4-13); NEUTROPHILS ABSOLUTE MAN 7.77 K/mm3 (1.96-9.15); SEG NEUTROPHILS PERCENT MAN 85 % (41-73); TOTAL CELLS COUNTED 100
[2018-06-12 04:31] LABS: Albumin, Blood 1.9 g/dL (3.4-5.0); Albumin/Globulin Ratio 0.7 (0.8-1.8); Bilirubin, Total 0.7 mg/dL (0.1-1.0); Bun/Creatinine Ratio 13.3 (12.0-20.0); Creatinine, Blood 2.63 mg/dL (0.40-1.00); Globulin, Blood 2.9 g/dL (2.2-4.0); Magnesium, Blood 2.2 mg/dL (1.6-2.4); Phosphorus, Blood 2.7 mg/dL (2.5-4.9); Potassium, Blood 3.5 mmol/L (3.5-5.5); Total Protein, Blood 4.8 g/dL (6.4-8.2)
[2018-06-12 05:10] LABS: PO2 Arterial 65.7 mmHg (80-100)
[2018-06-12 05:11] LABS: pH Blood Arterial 7.48 (7.35-7.45)
--- NOTE | 2018-06-12 05:55 | NUR ---
SHIFT SUMMARY PT CHANGED FROM HFNC TO BIPAP AT APPROXIMATELY 0200. BIPAP 15/10, BUR 14, FIO2 NOW 90%. RESP RATE 22-28. MEDICATED WITH ATIVAN IV Q1-2 HOURS DURING NOC FOR AGITATION AND RESTLESSNESS. ALSO MEDICATED WITH FENTANYL IV X 2 AN ADJUNCT TO SEDATION. PRECEDEX INFUSED @ 0.7MCG/KG/HR T/O SHIFT. BILATERAL SOFT WRIST RESTRAINTS REMAIN IN PLACE D/T PT PULLING AT IV LINES/TODD/GOWN. PT OCCASIONALLY ATTEMPTS TO CLIMB OUT OF BED. ORIENTED TO SELF ONLY. DOES NOT FOLLOW DIRECTIONS. SPEECH IS MOSTLY INCOMPREHENSIBLE. MEDICATED WITH HYDRALAZINE X 1 DURING NOC FOR SBP >160. TODD PATENT AND DRAINING CLEAR YELLOW URINE. BICARB GTT CONTINUES AT 100CC/HR PER ORDER. REMAINS NPO UNTIL MORE AWAKE AND ALERT. DROPLET ISOLATION CONTINUES. WILL REPORT TO DAY SHIFT RN WHEN AVAILABLE.
--- NOTE | 2018-06-12 07:44 | NUR ---
Recieved report from Liborio Magana. Patient is currently resting on BIPAP 15/10 FiO2 90% with backup rate 14 and sats 94%. She arouses to painful stimuli and with turning and little response r/t seditive Precedex. She has 18ga IV LFA and 20ga IV LW, both dressings intact and sites WNL's. She also has 20ga IV RFA dressing intact and site WNL and is infusing D5 with bicarb at 100ml/hr and Precedex at 0.07 mg/kg/hr. Her 4t IV is in RH and drtessing intact and site WNL's infusing NS TKO. She has 14Fr Ramirez draining to gravity light maureen urine. He HR 69 systolic 133 with MAP >65, RR 30 and Temp 96.9. She is in restyraints and she was pulling at lines and tubes, restraints checked for skin and circulation and reapplied. Dr Cardenas is her and in room and evealuating patient. Dr Antonio wrote orders to change Fluids to D5LR. Dr Cardenas has requested Dobhoff tube be placed for medications.
--- NOTE | 2018-06-12 09:00 | NUR ---
Patient placed on AirVo during dobhoff procedure and dropped as low as 83% for several minutes, performed 2nd Oral care and place BIPAP back on, Notified Dr Cardenas of desat. She is currently back to 92%. Dobhoff went in pretty easy and is at 85cm in left nares. Running Banana bag at per Dr Cardenas will await to run D5LR until its done. Awaiting results chest xray to push meds.
--- NOTE | 2018-06-12 11:35 | NUR ---
She has been reduced to 80% FiO2 and sats 92-93% and continues to rest with Precedex at 0.07mg/kg/hr, VSS. Restraint remian in place. Dobhoff was verified by radiologist. No significant changes over the last few hours. Significant other called and gave update. Banana Bag continues at 200ml/hr.
--- NOTE | 2018-06-12 14:33 | NUR ---
FiO2 reduced again to 75% and remains 15/10 and sats 92%. Medicated for agitation and is resting currently. Started Vital high Protien TF at 20ml/hr with 30ml/Q4 flushes. Continue Oral care and repositioning. VSS
--- NOTE | 2018-06-12 15:33 | NUR ---
Patient continues to rest and no changes to BIPAP. Started new Precedex and D5LR and cleaned patient up a little. VSS Sats at current settings 91%.
--- NOTE | 2018-06-12 17:45 | NUR ---
Patient started to desat into the mid 80%'s ans increased FiO2 to 80% without success and called RT. They came and gave updraft and she started to increase slowly and is currently 90%. and resting quietly. Her VSS with RR 37. She has maureen urine and had 550 out for shift and Discussed all with Dr Cardenas and no new orders.
--- NOTE | 2018-06-12 20:24 | NUR ---
START OF SHIFT: BEDSIDE REPORT FROM CRISTIANA YOUNG. PT QUIET AND CALM AT THAT TIME. PT ON BIPAP 15/10, 14, FiO2 80% AT THAT TIME. VSS. DURING INITIAL ASSESSMENT, PT BECAME RESTLESS AND AGITATED TRYING TO REACH UP WITH HANDS AND RR UP INTO THE 40'S SATS DROPPED DOWN TO 86-88%. PT MEDICATED WITH FENTANYL AND FiO2 INCREASED TO 90%. CURRENTLY PT REMAINS CALM WITH SATS 90-92%. THIS SEEMS COMPARIBLE TO PREVIOUS NOC SHIFT. NOTED WAS NURSES NOTE REGARDING INTUBATION. WILL NOTIFY DR. SMILEY THIS SHIFT IF PT DECLINES.
--- NOTE | 2018-06-12 21:27 | NUR ---
PT WAS PLACED IN HIGH FOWLERS. OXYMIZER 15L PLACED AFTER REMOVING BIPAP MASK. PT TRIED OPENING EYES AT THAT TIME BUT WOULD NOT FOLLOW COMMANDS. ORAL CARE PROVIDED. PT DESAT TO 85%. BIPAP PLACED BACK ONTO PT. PT REPOSITIONED TO RIGHT SIDE WITH SATS UP TO 94% REDUCED FiO2 TO 85%. WILL CONTINUE TO MONITOR.
--- NOTE | 2018-06-12 21:30 | NUR ---
TF FLUSHED WITH 30mL H2O. RATE INCREASED PER ORDER BY 15mL/hr AND IS NOW AT 35mL/HOUR. GOAL 45mL/HOUR.
--- NOTE | 2018-06-13 01:00 | NUR ---
2325 PT REPOSITIONED TO SUPINE AND HIGH FOWLERS. PT BECAME VERY RESTLESS AND RR UP TO 50. PT WAS MEDICATED WITH ATIVAN 2mg PRIOR BUT APPEARED TO BE VERY UNCOMFORTABLE ON HER BACK. PT REPOSITIONED TO THE LEFT AND MEDICATED WITH FENTANYL 50mcg AND SINCE HAS BEEN RESTING QUIETLY WITH RR 28-34 SATS 91% ON 85% FiO2. BP AND HR STABLE.
--- NOTE | 2018-06-13 01:13 | NUR ---
MEDICATED WITH FENTANYL 50mcg. ORAL CARE PROVIDED WITH OXYMIZER 15L PLACED PRIOR TO ORAL CARE, HOWEVER, PT DESAT TO 79% BEFORE COMPLETE ORAL CARE DONE. BIPAP PLACED BACK ON PT. 15/10, 14, 85%. WILL CONTINUE TO MONITOR.
[2018-06-13 03:10] LABS: HBSAG SCREEN Negative (Negative); HEP A AB, IGM Negative (Negative); HEP B CORE AB, IGM Negative (Negative); HEP C VIRUS AB <0.1 (0.0-0.9)
[2018-06-13 04:09] LABS: Hematocrit 35.2 % (33.0-51.0); Hemoglobin 11.9 g/dL (11.5-16.0); Mean Corpuscular HGB 34.3 pg (26.0-34.0); Mean Corpuscular HGB Conc 33.8 g/dL (31.5-36.5); Mean Platelet Volume 11.9 fL (9.1-12.4); NRBC ABSOLUTE 0.05 K/mm3 (0.00-0.02); NRBC Auto 0.5 /100 WBC (0.0-0.2); Platelet Count 115 K/mm3 (150-400); RDW Coefficient Variation 13.8 % (11.7-14.2); RDW Standard Deviation 51.1 fL (35.1-46.3); Red Blood Cell Count 3.47 M/mm3 (3.80-5.20); White Blood Cell Count 9.88 K/mm3 (4.00-11.30)
[2018-06-13 04:10] LABS: Mean Corpuscular Volume 101 fL (80-100)
[2018-06-13 04:32] LABS: BAND PERCENT MAN 6 % (0-8); BASOPHILS PERCENT MAN 0 % (0-2); EOSINOPHILS PERCENT MAN 0 % (0-6); LYMPHOCYTES ABSOLUTE MAN 0.39 K/mm3 (0.84-5.20); LYMPHOCYTES PERCENT MAN 4 % (21-46); METAMYELOCYTE ABSOLUTE MAN 0.09 K/mm3 (0.00-0.00); METAMYELOCYTE PERCENT MAN 1 % (0-0); MONOCYTES ABSOLUTE MAN 0.19 K/mm3 (0.16-1.47); MONOCYTES PERCENT MAN 2 % (4-13); MYELOCYTE ABSOLUTE MAN 0.29 K/mm3 (0.00-0.00); MYELOCYTE PERCENT MAN 3 % (0-0); NEUTROPHILS ABSOLUTE MAN 8.89 K/mm3 (1.96-9.15); SEG NEUTROPHILS PERCENT MAN 84 % (41-73); TOTAL CELLS COUNTED 100
[2018-06-13 04:36] LABS: Albumin, Blood 1.6 g/dL (3.4-5.0); Albumin/Globulin Ratio 0.6 (0.8-1.8); Alk Phos 163 U/L (50-136); Anion Gap 8 mmol/L (6-16); Aspartate Aminotrans (AST/SGOT 368 U/L (12-37); Bilirubin, Total 0.8 mg/dL (0.1-1.0); Blood Urea Nitrogen 36 mg/dL (8-24); Bun/Creatinine Ratio 14.7 (12.0-20.0); CO2, Blood 29 mmol/L (21-32); Calcium, Blood 7.9 mg/dL (8.5-10.1); Chloride, Blood 107 mmol/L (98-108); Creatinine, Blood 2.45 mg/dL (0.40-1.00); Globulin, Blood 2.9 g/dL (2.2-4.0); Glomerular Filtration Rate 21 (60-); Glucose, Blood 164 mg/dL (70-99); Phosphorus, Blood 1.8 mg/dL (2.5-4.9); Potassium, Blood 3.6 mmol/L (3.5-5.5); Sodium, Blood 144 mmol/L (136-145); Total Protein, Blood 4.5 g/dL (6.4-8.2); Vancomycin, Random 17.8 ug/mL
[2018-06-13 04:41] LABS: Alanine Aminotransfer (ALT/SGP 1324 U/L (12-78)
[2018-06-13 04:46] LABS: PCO2 Arterial 45.4 mmHg (35-45); pH Blood Arterial 7.44 (7.35-7.45)
[2018-06-13 04:47] LABS: PO2 Arterial 63.5 mmHg (80-100)
--- NOTE | 2018-06-13 05:01 | NUR ---
PT FOLLOWING COMMANDS. TRIES TO OPEN EYES WHEN ASKED TO AND MUMBLES, "UH-HUH" WHEN ASKED IF SHE CAN OPEN HER EYES. PT GRUNTING WITH BREATHS AND RR UP TO THE 40'S. PT MEDICATED WITH ATIVAN 2mg. PT CURRENTLY CALM AND RESTING. VSS.
--- NOTE | 2018-06-13 07:55 | NUR ---
ASSUMED CARE OF PT PT. CURRENTLY ON BIPAP 15, RR HIGH 30S, SPO2 91%. PT. ATTEMPTS TO OPEN EYES TO VERBAL STIMULI, DOES NOT FOLLOW COMMANDS. MODERATE AMOUNT OF SCLERAL EDEMA MAKING IT DIFFICULT FOR PT TO OPEN EYES. PT. MED FREQUENTLY WITH FENTANYL AND ATIVAN T/O NIGHT FOR AGGITATION. PT. LS CRACKLES T/O. PT. HAS DOPHOFF IN PLACE WITH TF RUNNING AT 45ML/HR AT GOAL. PT. ABD SOFT. PT. HAS TODD IN PLACE DRAINING TO GRAVITY. BILAT WRIST RESTRAINTS IN PLACE TO PROTECT TUBES AND LINES. VSS THIS AM.
--- NOTE | 2018-06-13 09:32 | NUR ---
PROVIDER AT BEDSIDE IV FLUIDS STOPPED AT THIS TIME. BIPAP SETTINGS CHANGED TO 15/12, 75% FIO2. PT SPO2 90% AT THIS TIME.
--- NOTE | 2018-06-13 14:46 | NUR ---
ORAL CARE/ UPDATE PT. CLAMPS MOUTH SHUT WHEN ATTEMPTING ORAL CARE. ABLE TO GET SPONGE SWAB IN ONCE; HOWEVER PT CONTINUES TO CLOSE MOUTH TIGHTLY WHEN ATTEMPTING ORAL CARE. PT BECOMES RESTLESS IN BED WITH REPOSITIONING, RR INCREASES TO 40S. PT REMAINS ON BIPAP 15/12 AT 75% FIO2. SPO2 MAINTAINING AT 91%. GOOD OUTPUT POST LASIX ADMIN
--- NOTE | 2018-06-13 17:50 | NUR ---
SHIFT SUMMARY PT. RESPONDING TO PAINFUL STIMULI T/O SHIFT. OCCASIONALLY ATTEMPTS TO OPEN EYES TO STIMULI; HOWEVER HAS MODERATE SCLERAL EDEMA. PT. REMAINS BIPAP DEPENDENT, CLAMPING MOUTH DOWN WHEN ATTEMPTING ORAL CARE T/O SHIFT. PT. CURRENT BIPAP SETTINGS 15/12, 75% FIO2. PT. TOLERATING WELL. DOBHOFF REMAINS IN PLACE, TF INCREASED TO 60ML/HR THIS SHIFT, WHICH IS GOAL. PT. CONTINUES WITH TODD IN PLACE, DRAINING TO GRAVITY. GOOD URINE OUTPUT THIS SHIFT POST LASIX ADMIN. PT. REMAINS ON PRECEDEX GTT AT 0.7MCG/KG/MIN. VSS T/O SHIFT. REPORT TO ONCOMING RN.
--- NOTE | 2018-06-14 00:26 | NUR ---
CARE ASSUMED ASSUMED CARE AT 1900. PT ON BIPAP, SEE RESP ASSESSMENT FOR SETTINGS. O2 SAT IN 90'S. BP/HR STABLE. PT AFEBRILE. SEE FLOWSHEET. PT MINIMALLY RESPONSIVE. NOT FOLLOWING COMMANDS. DOES AROUSE AND BEGIN REACHING/PULLING AT LINES AND CORDS. BILAT WRIST RESTRAINTS FOR LINE/CORD PROTECTION. PT ALSO BEGINS MOANING LOUDLY BUT UNABLE TO COMMUNICATE NEEDS. MEDICATED FOR PAIN/ANXIETY PER EMAR AND PT RELAXES. SEE ASSESSMENTS.
[2018-06-14 04:12] LABS: Hematocrit 31.2 % (33.0-51.0); Hemoglobin 10.5 g/dL (11.5-16.0); Mean Corpuscular HGB 34.2 pg (26.0-34.0); Mean Corpuscular HGB Conc 33.7 g/dL (31.5-36.5); Mean Corpuscular Volume 102 fL (80-100); Mean Platelet Volume 11.8 fL (9.1-12.4); NRBC ABSOLUTE 0.02 K/mm3 (0.00-0.02); NRBC Auto 0.2 /100 WBC (0.0-0.2); Platelet Count 104 K/mm3 (150-400); RDW Coefficient Variation 13.8 % (11.7-14.2); RDW Standard Deviation 51.8 fL (35.1-46.3); Red Blood Cell Count 3.07 M/mm3 (3.80-5.20); White Blood Cell Count 11.25 K/mm3 (4.00-11.30)
--- NOTE | 2018-06-14 04:12 | NUR ---
ORAL CARE PT TOLERATING ORAL CARE WITH USE OF TONGUE DEPRESSOR AND ARVO AT 45%. PT DID DESATURATE TO 82% AFTER A FEW MINUTES OF CARE. PT NOTED TO HAVE DRIED BLOOD AROUND BACK OF THROAT. ABLE TO CLEAN OFF PARTIALLY WITH ORAL CARE.
[2018-06-14 04:31] LABS: Bun/Creatinine Ratio 15.3 (12.0-20.0); Calcium, Blood 8.3 mg/dL (8.5-10.1); Creatinine, Blood 2.48 mg/dL (0.40-1.00); Magnesium, Blood 1.7 mg/dL (1.6-2.4); Potassium, Blood 3.5 mmol/L (3.5-5.5)
[2018-06-14 05:05] LABS: BAND PERCENT MAN 1 % (0-8); BASOPHILS PERCENT MAN 0 % (0-2); EOSINOPHILS PERCENT MAN 0 % (0-6); LYMPHOCYTES ABSOLUTE MAN 0.67 K/mm3 (0.84-5.20); LYMPHOCYTES PERCENT MAN 6 % (21-46); MONOCYTES ABSOLUTE MAN 0.56 K/mm3 (0.16-1.47); MONOCYTES PERCENT MAN 5 % (4-13); MYELOCYTE ABSOLUTE MAN 0.11 K/mm3 (0.00-0.00); MYELOCYTE PERCENT MAN 1 % (0-0); SEG NEUTROPHILS PERCENT MAN 87 % (41-73); TOTAL CELLS COUNTED 100
--- NOTE | 2018-06-14 06:13 | NUR ---
SUMMARY PT'S VITAL SIGNS CONTINUE TO BE STABLE. PT CONTINUES TO AROUSE INTERMITTENTLY, REACHING FOR CORDS/LINES AND MOANING. MEDICATED PER EMAR. TOLERATING REPOSITIONING. PT NOTED TO BE FEBRILE, BLANKETS REMOVED. SEE REPEAT ASSESSMENTS. SEE VITALS FLOWSHEET.
--- NOTE | 2018-06-14 07:52 | NUR ---
ASSUMED CARE THIS AM PT. REACHING UP WITH ARMS AND MOVING LEGS IN BED. GRUNTING INTO BIPAP MASK. PT DOES NOT FOLLOW COMMANDS, APPEARS THOUGH ATTEMPTING TO OPEN EYES; HOWEVER UNABLE TO DUE TO MODERATE AMOUNT OF SCLERAL EDEMA. PT. DOES NOT SQUEEZE HANDS TO COMMANDS. PT. REMAINS ON BIPAP THIS AM SETTINGS OF 1512, 75%. LS COARSE T/O. CONTINUES TO HAVE RR IN THE 30S. PT.CONTINUES ON PRECEDEX GTT AT 0.7MCG/KG/MIN. PT. HAS TEMP OF 101.5 THIS AM. TYLENOL GIVEN PER DOBHOFF AND FAN PLACED AT BEDSIDE. PT. TF RUNNING AT GOAL OF 60ML/HR VIA DOBHOFF, VITAL HIGH PROTEIN. PT. HAS TODD IN PLACE DRAINING TO GRAVITY. VSS AT THIS TIME.
--- NOTE | 2018-06-14 08:52 | NUR ---
PICC NURSES AT BEDSIDE TO PLACE LINE DUE TO POOR PERIPHERAL IV ACCESS
[2018-06-14 11:49] LABS: Vancomycin, Random 11.3 ug/mL
--- NOTE | 2018-06-14 15:32 | NUR ---
PICC LINE INSERTED TO LEFT UPPER ARM. 3CM EXPOSED. PLACEMENT VERIFIED VIA CHEST XRAY.
--- NOTE | 2018-06-14 17:51 | NUR ---
SHIFT SUMMARY PT. REMAINS ON BIPAP T/O SHIFT WITH VERY SHORT BREAKS FOR ORAL CARE. PT. CONTINUES TO NOT FOLLOW COMMANDS BUT DOES OPEN EYES WHEN REPOSITIONED, DOES NOT TRACK, ONEAL. PT. REMAINS IN BILAT WRIST RESTRAINTS FOR SAFETY. PT. CONTINUES ON TUBE FEEDING AT 60ML/HR GOAL. PT. MED FREQUENTLY FOR PAIN AND AGGITATION TODAY. PICC LINE PLACED TODAY TO SHAQ. PT. CONTINUES WITH TODD IN PLACE DRAINING TO GRAVITY. VSS T/O SHIFT. REMAINS ON PRECEDEX GTT AND NS TKO. REPORT TO ONCOMING RN.
--- NOTE | 2018-06-14 21:24 | NUR ---
CARE ASSUMED REPORT RECEIVED, CARE ASSUMED. PT CONTINUES TO BE ON BIPAP. FIO2 NEEDS DECREASED. SEE SHIFT ASSESSMENT. PT CONTINUES TO BE MINIMALLY RESPONSIVE. DID WAKE UP APPROX 2000 GRUNTING, MOVING ARMS AND LEGS, PULLING AT RESTRAINTS WITH ELEVATED RESPIRATIONS. MEDICATED PER EMAR FOR ANXIETY/PAIN/AGITATION. PRECEDEX CONTINUES TO INFUSE. PICC LINE TO LEFT UPPER ARM INFUSING. VITALS STABLE. SEE FLOWSHEET.
[2018-06-15 03:43] LABS: BASOPHILS ABSOLUTE AUTO 0.02 K/mm3 (0.00-0.23); BASOPHILS PERCENT AUTO 0 % (0-2); EOSINOPHILS ABSOLUTE AUTO 0.14 K/mm3 (0.00-0.68); EOSINOPHILS PERCENT AUTO 1 % (0-6); Hematocrit 28.4 % (33.0-51.0); Hemoglobin 9.3 g/dL (11.5-16.0); IMMATURE GRAN ABSOLUTE AUTO 0.62 K/mm3 (0.00-0.10); IMMATURE GRAN PERCENT AUTO 6 % (0-1); LYMPHOCYTES ABSOLUTE AUTO 0.84 K/mm3 (0.84-5.20); LYMPHOCYTES PERCENT AUTO 8 % (21-46); MONOCYTES ABSOLUTE AUTO 0.46 K/mm3 (0.16-1.47); MONOCYTES PERCENT AUTO 4 % (4-13); Mean Corpuscular HGB 33.6 pg (26.0-34.0); Mean Corpuscular HGB Conc 32.7 g/dL (31.5-36.5); Mean Corpuscular Volume 103 fL (80-100); Mean Platelet Volume 11.5 fL (9.1-12.4); NEUTROPHILS ABSOLUTE AUTO 8.71 K/mm3 (1.96-9.15); NEUTROPHILS PERCENT AUTO 81 % (41-73); Platelet Count 101 K/mm3 (150-400); RDW Coefficient Variation 13.9 % (11.7-14.2); Red Blood Cell Count 2.77 M/mm3 (3.80-5.20); White Blood Cell Count 10.79 K/mm3 (4.00-11.30)
[2018-06-15 03:59] LABS: Albumin, Blood 1.3 g/dL (3.4-5.0); Albumin/Globulin Ratio 0.3 (0.8-1.8); Bilirubin, Total 0.8 mg/dL (0.1-1.0); Bun/Creatinine Ratio 18.6 (12.0-20.0); Calcium, Blood 8.7 mg/dL (8.5-10.1); Creatinine, Blood 2.58 mg/dL (0.40-1.00); Magnesium, Blood 1.7 mg/dL (1.6-2.4); Potassium, Blood 3.5 mmol/L (3.5-5.5); Total Protein, Blood 5.3 g/dL (6.4-8.2)
[2018-06-15 05:03] LABS: PCO2 Arterial 46.9 mmHg (35-45); PO2 Arterial 62.8 mmHg (80-100); pH Blood Arterial 7.48 (7.35-7.45)
--- NOTE | 2018-06-15 06:10 | NUR ---
SUMMARY PT CONTINUES TO BE ON BIPAP THROUGHOUT NIGHT, FIO2 TITRATED PER O2 SATURATIONS. SEE ASSESSMENTS. NEURO STATUS CONSISTENT THROUGHOUT NIGHT, PT NOT FOLLOWING COMMANDS OR TRACKING. PT DOES OCCASIONALLY OPEN EYES SPTONATEOUSLY. PT HAS FREQUENT PERIODS OF MOANING AND RESTLESSNESS, MEDICATED FOR ANXIETY/AGITATION/PAIN PER ORDERS. SEE EMAR. PT CONTINUES TO HAVE GENERALIZED EDEMA. URINE OUTPUT ADEQUATE. BP/HR STABLE. PT AFEBRILE THROUGHOUT NIGHT. BOWEL CARE PER EMAR.
--- NOTE | 2018-06-15 07:31 | NUR ---
ASSUMED CARE OF PT THIS AM PT REMAINS ON BIPAP AT THIS TIME SETTINGS OF 15/12, FIO2 75%, RR MID 20S-30S. PT. BECOMES RESTLESS WITH LEGS AND ARMS IN BED AT TIMES. WILL OPEN EYES TO PAIN OR WITH REPOSITIONING BUT DOES NOT FOLLOW COMMANDS, OR TRACK WITH EYES. PT. REMAINS IN BILAT WRIST RESTRAINTS TO PROTECT TUBES AND LINES. PT. CONTINUES WITH TF AT GOAL OF 60ML/HR OF VITAL HIGH PROTEIN. PT. AFEBRILE THIS AM. WITH TODD DRAINING TO GRAVITY. VSS THIS AM.
--- NOTE | 2018-06-15 09:10 | NUR ---
SETTINGS CHANGED ON BIPAP TO CPAP 12, 75% FIO2, PT TOLERATING WELL AT THIS TIME. PER DR. GORDON THE GOAL IS TO TITRATE PT DOWN TO CPAP OF 10 IF TOLERATED TODAY.
[2018-06-15 11:13] LABS: Vancomycin, Random 20.4 ug/mL
--- NOTE | 2018-06-15 13:20 | NUR ---
BRADYCARDIA/INTUBATION PT HR NOTED TO 40'S AND DROPPING QUICKLY IN A JUNCTIONAL RHYTHM, RN AT BEDSIDE, PT. HR 37, PULSE PRESENT, PT DESATING TO THE 80S, BAG OBTAINED AND HOOKED TO OXYGEN WHEN PT BEGAN TAKING TVS IN THE 500S, BIPAP SETTINGS INCREASED TO 100% AND SWITCHED BACK TO BIPAP 15/12. PT. RR 30S, ADDITIONAL RN AT BEDSIDE. PT. DIAPHORETIC, HR REBOUNDED TO THE 130S IRREGULAR THEN QUICKLY CONVERTED TO NSR IN THE 80S. DR. GORDON CALLED; EKG OBTAINED. RT AT BEDSIDE. PT SPO2 MID 80S DESPITE 100% FI02. RSI KIT AND PT PREPARED FOR INTUBATION. 1335- DR. GORDON AT BEDSIDE. PER ORDER 40MG ETOMIDATE AND 100MG ROCURONIUM DRAWN UP. RT AT BEDSIDE TO ASSIST. MEDS GIVEN AT 1340. THICK DRIED BLOOD NOTED IN AIRWAY WITH GLIDESCOPE; 2 ATTEMPTS FOR INTUBATION BY DR. GORDON, CODE CALLED FOR RAPID RESPONSE BY ER DOC FOR INTUBATION. 1400- DR. AGUILAR AT BEDSIDE FROM ER WITH SUCCESSFUL INTUBATION, POSITIVE COLOR CHANGE AND POSITIVE BREATH SOUNDS BILAT. ETT 7.5, 21@ THE LIP. OG TUBE INSERTED PER DR. GORDON AND CHEST XRAY OBTAINED FOR TUBE PLACEMENT. PT. VENT SETTINGS AC 16, TV 350, 100% PEEP 12. PT VSS AT THIS TIME. FAMILY AT BEDSIDE AND UPDATED ON PT CONDITION.
[2018-06-15 15:22] LABS: PCO2 Arterial 64.2 mmHg (35-45); PO2 Arterial 106 mmHg (80-100); pH Blood Arterial 7.34 (7.35-7.45)
--- NOTE | 2018-06-15 16:27 | NUR ---
HYPOTENSION CALL TO DR. GORDON REGARDING HYPOTENSION POST INTUBATION. PER DR. GORDON START LEVOPHED GTT AND TITRATE FOR MAP >65. ORDER PLACED.
--- NOTE | 2018-06-15 17:00 | NUR ---
BLOOD WITH ORAL CARE SOME CLOTS AND BRIGHT RED BLOOD NOTED WITH ORAL CARE AND DEEP SUCTIONING.
--- NOTE | 2018-06-15 17:20 | NUR ---
PALLIATIVE CARE CONSULT PLACED PT. FAMILY REQUESTED MEETING WITH PALLIATIVE CARE TOMORROW AT 0900. SPOKE WITH SILVA IN PALLIATIVE CARE REGARDING CONSULT AND PLAN FOR MEETING.
--- NOTE | 2018-06-15 18:48 | NUR ---
SHIFT SUMMARY PT. INTUBATED THIS SHIFT. CURRENTLY ON AC 16, TV 350, 90%, PEEP 12. SEE PREVIOUS NOTE FOR INTUBATION. PT. CURRENTLY ON PROPOFOL GTT AT 25MCG/KG/MIN. PRECEDEX GTT OFF DURING INTUBATION. LEVOPHED STARTED POST INTUBATED TO SUPPORT BP. CURRENTLY AT 5MCG/KG/MIN. OG PLACED,TUBE FEED RESTARTED THROUGH OG TUBE. PT. HAS TODD IN PLACE DRAINING TO GRAVITY. VSS AT THIS TIME. REPORT TO ONCOMING RN.
--- NOTE | 2018-06-15 19:15 | NUR ---
ASSUMED CARE OF PT PT IS SEDATED ON PROPOFOL 25 MCG/KG/MIN AND INTUBATED WITH VENT SETTINGS AC 16/350/12/90%. PT IS UNRESPONSIVE TO VERBAL STIMULI BUT GRIMACES WITH PAINFUL STIMULI. VHP RUNNING AT GOAL RATE OF 60 ML/HR WITH 30 ML FLUSH Q6. VSS. SEE FULL SHIFT ASSESSMENT.
--- NOTE | 2018-06-16 02:47 | NUR ---
PT HAD 500 ML RESIDUALS WITH SCANT AMOUNT OF DRIED BLOOD NOTED. REINSTILLED 250 ML AND TURNED FEEDING OFF FOR AN HOUR.
[2018-06-16 03:47] LABS: Hematocrit 30.1 % (33.0-51.0); Hemoglobin 9.9 g/dL (11.5-16.0); Mean Corpuscular HGB 34.4 pg (26.0-34.0); Mean Corpuscular HGB Conc 32.9 g/dL (31.5-36.5); Mean Corpuscular Volume 105 fL (80-100); Platelet Count 113 K/mm3 (150-400); RDW Coefficient Variation 14.4 % (11.7-14.2); RDW Standard Deviation 54.8 fL (35.1-46.3); Red Blood Cell Count 2.88 M/mm3 (3.80-5.20); White Blood Cell Count 10.73 K/mm3 (4.00-11.30)
[2018-06-16 04:06] LABS: Albumin, Blood 1.3 g/dL (3.4-5.0); Albumin/Globulin Ratio 0.3 (0.8-1.8); Bilirubin, Total 0.8 mg/dL (0.1-1.0); Creatinine, Blood 2.91 mg/dL (0.40-1.00); Globulin, Blood 4.2 g/dL (2.2-4.0); Magnesium, Blood 1.7 mg/dL (1.6-2.4); Potassium, Blood 3.9 mmol/L (3.5-5.5); Total Protein, Blood 5.5 g/dL (6.4-8.2)
[2018-06-16 04:30] LABS: BASOPHILS PERCENT MAN 0 % (0-2); EOSINOPHILS PERCENT MAN 1 % (0-6); LYMPHOCYTES % ATYPICAL MANUAL 1 % (0-0); LYMPHOCYTES ABSOLUTE MAN 1.07 K/mm3 (0.84-5.20); LYMPHOCYTES PERCENT MAN 9 % (21-46); METAMYELOCYTE PERCENT MAN 1 % (0-0); MONOCYTES ABSOLUTE MAN 0.75 K/mm3 (0.16-1.47); MONOCYTES PERCENT MAN 7 % (4-13); MYELOCYTE ABSOLUTE MAN 0.21 K/mm3 (0.00-0.00); MYELOCYTE PERCENT MAN 2 % (0-0); NEUTROPHILS ABSOLUTE MAN 8.47 K/mm3 (1.96-9.15); SEG NEUTROPHILS PERCENT MAN 79 % (41-73); TOTAL CELLS COUNTED 100
--- NOTE | 2018-06-16 04:48 | NUR ---
TUBE FEED RESIDUALS 70 ML, RESTARTED TF AT 1/2 RATE, 30 ML/HR PER PROTOCOL
[2018-06-16 05:17] LABS: PCO2 Arterial 49.7 mmHg (35-45); PO2 Arterial 63.4 mmHg (80-100); pH Blood Arterial 7.47 (7.35-7.45)
--- NOTE | 2018-06-16 06:14 | NUR ---
SHIFT SUMMARY PT INTUBATED AND SEDATED. PROPOFOL 30 MCG/KG/HR. VENT SETTINGS AC 18/350/12/85%. PT'S PUPILS SLUGGISH AND POINTED UP BILATERALLY WITH NO MOVEMENT. PT FAILS TO FOLLOW COMMANDS AND HAS NO PURPOSEFUL MOVEMENT. PT'S VITALS SIGNS HAVE REMAINED STABLE WITH EXCEPTION TO MOMENTS OF TACHYCARDIA. LEVOPHED WAS PLACED ON STANDBY AT 0600. VITAL TANJA PROTEIN RUNNING AT 30 ML/HR (1/2 THE GOAL RATE). WILL REPORT TO DAYSHIFT NURSE.
--- NOTE | 2018-06-16 08:00 | NUR ---
FEMALE PATIENT WITH ORAL ET TO VENT, TV 350. AC 18, PEEP 12, AND FIO2 85%. LUNGS COARSE T/O. SUCTIONONG MOD AMTS OF PALE PALE YELLOW MUCOUS. HAS THRUSH AND DR ROBLES NOTIFIED. S.O. HERE AND WENT WITH PALLIATIVE CARE FOR A LONG DISCUSSION. HAD A LARGE LIQ BROWN STOOL. LARGE OG RESIDUAL AND DR WOULD LIKE THE FEEDINGS HELD TODAY. TURNED TO LEFT SIDE. BP DOWN TO 70S AND LEVOPHED RESTARTED. TRYING SLOWLY TO DECREASE THE FIO2. STILL VERY EDEMATOUS. REMAINS IN DROPLET ISOLATION.
--- NOTE | 2018-06-16 10:00 | NUR ---
TIME SPENT WITH PT'S SPOUSE, CATIE AND HER FAMILY FRIEND, LYSSA IN PRIVATE CONSULT ROOM TO ALLOW THEM TO ASK QUESTIONS AND DISCUSS OVERALL PLAN OF CARE FOR SANJAY WHO IS CURRENTLY ON A VENTILATOR SINCE YESTERDAY, SEDATED AND NONRESPONSIVE. CATIE UNDERSTANDS THAT THE DRS ARE HOPEFUL FOR SOME IMPROVEMENT IN THE NEXT 24-48 HOURS AND THAT WE ARE IN A WAITING PERIOD. MUCH ENCOURAGEMENT AND SUPPORT OFFERED TO FAMILY. REVIEWED CONVERSATION WITH PT'S RN, HOSPITALIST AND TIRE ROOM SUPERVISOR AFTERWARDS. SPENT TIME IN PT'S ROOM WITH FAMILY AND ENCOURAGED THEM TO CONTINUE TALKING TO SANJAY, PLAY MUSIC OR TV SHOWS SHE LIKED AND TO TAKE BREAKS FOR REST/RESPITE FOR THEMSELVES WHEN NEEDED. WILL PLAN FOR PALLIATIVE CARE TO SEE FAMILY DAILY IF POSSIBLE. THEY WILL CONTINUE TO NEED SUPPORT AND INFORMATION ABOUT THE PROCESS REGARDLESS OF WHETHER PT IMPROVES OR DECLINES. CATIE HAD QUESTIONS ABOUT ADDICTION REHAB, DC PLANNING, PT AND PHYSICAL REHAB, INSURANCE COVERAGE OF MEDICAL AND CARE NEEDS AND WE TOUCHED BRIEFLY ON ALL OF THAT BUT I ENCOURAGED THEM TO FOCUS MORE ON SANJAY'S HEALTH AND THEIR OWN FOR TODAY. WILL REQUEST CARE MANAGEMENT FOLLOW UP LATER IN THE WEEK PT'S NEEDS BECOME MORE CLEAR.
[2018-06-16 13:15] LABS: Hematocrit 26.2 % (33.0-51.0); Hemoglobin 8.6 g/dL (11.5-16.0)
[2018-06-16 13:36] LABS: Vancomycin, Random 25.5 ug/mL
--- NOTE | 2018-06-16 18:19 | NUR ---
CONTS TO BE SEDATED WITH PROPOFOL. GRIMACES ONLY WHEN SUCTIONED OR TURNED.COARSE BREATH SOUNDS ORA. PEEP STILL ELEVATED AT 12 AND FIO2 AT 70% NOW. GOOD URINE O/P IN TODD CATH. TF RESIDUALS DECREASING SINCE OG CLAMPED THIS AM.
--- NOTE | 2018-06-16 19:15 | NUR ---
ASSUMED CARE OF PT PT INTUBATED AND SEDATED. VENT SETTINGS AC 18/350/12/65%. PROPOFOL AT 30 MCG/KG/MIN, LEVOPHED AT 1 MCG/MIN, AND NS TKO. PT IS FAILS TO FOLLOW COMMANDS, PUPILS SLUGGISH WITH NYSTAGMUS, FACIAL GRIMACING WHEN COUGHING. PT HAS HAD MULTIPLE LOOSE STOOLS DURING DAYSHIFT. TODD PATENT AND DRAINING. SEE FULL SHIFT ASSESSMENT.
[2018-06-17 05:12] LABS: PCO2 Arterial 47.2 mmHg (35-45); PO2 Arterial 57.9 mmHg (80-100); pH Blood Arterial 7.49 (7.35-7.45)
[2018-06-17 05:47] LABS: BASOPHILS ABSOLUTE AUTO 0.02 K/mm3 (0.00-0.23); BASOPHILS PERCENT AUTO 0 % (0-2); EOSINOPHILS ABSOLUTE AUTO 0.36 K/mm3 (0.00-0.68); EOSINOPHILS PERCENT AUTO 3 % (0-6); Hematocrit 24.1 % (33.0-51.0); Hemoglobin 7.9 g/dL (11.5-16.0); IMMATURE GRAN PERCENT AUTO 3 % (0-1); LYMPHOCYTES ABSOLUTE AUTO 0.86 K/mm3 (0.84-5.20); LYMPHOCYTES PERCENT AUTO 8 % (21-46); MONOCYTES ABSOLUTE AUTO 0.82 K/mm3 (0.16-1.47); MONOCYTES PERCENT AUTO 7 % (4-13); Mean Corpuscular HGB 34.3 pg (26.0-34.0); Mean Corpuscular HGB Conc 32.8 g/dL (31.5-36.5); Mean Corpuscular Volume 105 fL (80-100); Mean Platelet Volume 11.4 fL (9.1-12.4); NEUTROPHILS ABSOLUTE AUTO 8.81 K/mm3 (1.96-9.15); NEUTROPHILS PERCENT AUTO 79 % (41-73); Platelet Count 161 K/mm3 (150-400); RDW Coefficient Variation 14.6 % (11.7-14.2); RDW Standard Deviation 56.1 fL (35.1-46.3); White Blood Cell Count 11.17 K/mm3 (4.00-11.30)
--- NOTE | 2018-06-17 06:07 | NUR ---
SHIFT SUMMARY NO ACUTE CHANGES OVERNIGHT. PT SEDATED ON 25 MCG/KG/MIN PROPOFOL AND INTUBATED WITH VENT SETTINGS AC 18/350/12/65%. LEVOPHED HAS BEEN PLACED ON STANDBY SINCE 444 AND PT HAS MAINTAINED APPROPRIATE BP. PT HAS BEEN UNABLE TO FOLLOW COMMANDS OR MAKE ANY PURPOSEFUL MOVEMENTS. DURING SEDATION VACATION PT PARTIALLY OPENED EYES IN RESPONSE TO STERNAL RUB. NYSTAGMUS NOTED. OG TUBE REMAINS CLAMPED. TODD AND RECTAL TUBE PATENT AND DRAINING. WILL REPORT TO DAYSHIFT NURSE.
[2018-06-17 06:11] LABS: Alanine Aminotransfer (ALT/SGP 176 U/L (12-78); Albumin, Blood 1.3 g/dL (3.4-5.0); Albumin/Globulin Ratio 0.3 (0.8-1.8); Alk Phos 112 U/L (50-136); Anion Gap 7 mmol/L (6-16); Aspartate Aminotrans (AST/SGOT 36 U/L (12-37); Bilirubin, Total 0.8 mg/dL (0.1-1.0); Blood Urea Nitrogen 65 mg/dL (8-24); Bun/Creatinine Ratio 21.5 (12.0-20.0); CO2, Blood 34 mmol/L (21-32); Chloride, Blood 107 mmol/L (98-108); Creatinine, Blood 3.03 mg/dL (0.40-1.00); Globulin, Blood 4.2 g/dL (2.2-4.0); Glomerular Filtration Rate 17 (60-); Glucose, Blood 94 mg/dL (70-99); Phosphorus, Blood 3.4 mg/dL (2.5-4.9); Potassium, Blood 3.9 mmol/L (3.5-5.5); Sodium, Blood 148 mmol/L (136-145); Total Protein, Blood 5.5 g/dL (6.4-8.2); Vancomycin, Random 21.1 ug/mL
--- NOTE | 2018-06-17 07:50 | NUR ---
ASSUMED CARE: PT INTUBATION, PROPOFOL AT 25 MCG/KG. SEE ASSESSMENT FOR VENT SETTINGS. DOES NOT APPEAR TO BE IN ANY ACUTE DISTRESS AT THIS TIME
--- NOTE | 2018-06-17 09:15 | NUR ---
DR SMILEY IN ROOM, CHANGING VENT SETTINGS. DURING SEDATION VACATION, MUSCLES AROUND EYES MOVED, DID NOT FOLLOW COMMANDS, APPEARED TO BE COUGHING SOME. NO FURTHER RESPONSE. DR SMILEY AWARE. PROPOFOL OFF AT THIS TIME.
--- NOTE | 2018-06-17 18:38 | NUR ---
pt weaning on vent. marline follow up
--- NOTE | 2018-06-17 18:38 | NUR ---
SHIFT SUMMARY: PT HAS BEEN OFF PROPOFOL SINCE THIS AM. SHE WILL MOVE ARMS AND WINCE FACIALLY. SHE ALSO MOVES JAW AND TONGUE AROUND ET TUBE. DOES NOT FOLLOW INSTRUCTIONS. RECTAL TUBE IN PLACE, SCANT OUTPUT THROUGH IT. VISITOR AT BEDSIDE AT THIS TIME. NO FURTHER NEEDS OR CONCERNS NOTED
--- NOTE | 2018-06-17 19:10 | NUR ---
ASSUMED CARE BEDSIDE REPORT RECIEVED. UPON ENTERING ROOM PT IS FOUND TO BE HYPERTENSIVE SBP 180-200'S AND TACHY WITH HR 130'S. PT APPEARS RESTLESS AND IS ATTEMPTING TO REACH FOR ETT. DAY SHIFT RN RECIEVED ORDERS FOR LABETALOL IV. PT IS HAS NOT BEEN ON ANY SEDATION THROUGHOUT THE DAY. PT IS NOT OPENING EYES TO VERBAL STIMULI, BUT PT IS WITHDRAWING TO NOXIOUS STIMULI AND COUGH/GAG IS PRESENT. PT MEDICATED WITH ATIVAN AND LABETALOL PER EMAR, AND PROPOFOL RESTARTED AT 10 MCG/KG/MIN THEN INCREASED TO 20 MCG/KG/MIN. AFTER SOME TIME PT APPEARS MUCH MORE CALM AND HR AND BP HAVE DECREASED. VENT SETTINGS AC 18, TV 350, PEEP 12, FIO2 50%. PICC TO SHAQ C/D/I, NS INFUSING TKO. OGT IN PLACE WITH TF AT 30 ML/HR. TODD IN PLACE WITH YELLOW OUTPUT NOTED. RECTAL TUBE IN PLACE WITH BROWN LIQUID OUTPUT NOTED. SBW RESTRAINTS IN PLACE. CALL PLACED TO DR. SMILEY TO INFORM OF PT BEING PLACED BACK ON SEDATION DUE TO VITAL SIGNS/AGITATION. WILL CONTINUE TO MONITOR.
--- NOTE | 2018-06-17 19:19 | NUR ---
NOTED THAT PT'S BP TRENDING UP AND HR INCREASING. DISCUSSED WITH DR JULIO SINCE HYDRALAZINE IS ALL THAT WAS CURRENTLY ORDERED. SEE NEW ORDERS. ALSO AWARE THAT S.O. STATES THAT HOME SMELLS LIKE PROPANE AND WAS CURIOUS IF SHE MAY HAVE CARBON MANOXIDE OR PROPANE POISENING. DISCUSSED WITH METAL TREATER TO PASS ON. METAL TREATER AWARE OF NEW BP MEDS AVAILABLE. RN IN ROOM WITH PT NOW.
[2018-06-18 04:08] LABS: BASOPHILS ABSOLUTE AUTO 0.04 K/mm3 (0.00-0.23); BASOPHILS PERCENT AUTO 0 % (0-2); EOSINOPHILS ABSOLUTE AUTO 0.31 K/mm3 (0.00-0.68); EOSINOPHILS PERCENT AUTO 2 % (0-6); Hematocrit 26.2 % (33.0-51.0); Hemoglobin 8.5 g/dL (11.5-16.0); IMMATURE GRAN ABSOLUTE AUTO 0.25 K/mm3 (0.00-0.10); IMMATURE GRAN PERCENT AUTO 2 % (0-1); LYMPHOCYTES ABSOLUTE AUTO 0.96 K/mm3 (0.84-5.20); LYMPHOCYTES PERCENT AUTO 6 % (21-46); MONOCYTES ABSOLUTE AUTO 0.96 K/mm3 (0.16-1.47); MONOCYTES PERCENT AUTO 6 % (4-13); Mean Corpuscular HGB 34.6 pg (26.0-34.0); Mean Corpuscular HGB Conc 32.4 g/dL (31.5-36.5); Mean Corpuscular Volume 107 fL (80-100); Mean Platelet Volume 11.5 fL (9.1-12.4); NEUTROPHILS ABSOLUTE AUTO 12.48 K/mm3 (1.96-9.15); NEUTROPHILS PERCENT AUTO 83 % (41-73); Platelet Count 216 K/mm3 (150-400); RDW Coefficient Variation 14.5 % (11.7-14.2); Red Blood Cell Count 2.46 M/mm3 (3.80-5.20)
[2018-06-18 04:35] LABS: Anion Gap 7 mmol/L (6-16); Blood Urea Nitrogen 66 mg/dL (8-24); Bun/Creatinine Ratio 23.3 (12.0-20.0); CO2, Blood 32 mmol/L (21-32); Calcium, Blood 9.5 mg/dL (8.5-10.1); Chloride, Blood 110 mmol/L (98-108); Creatinine, Blood 2.83 mg/dL (0.40-1.00); Glomerular Filtration Rate 18 (60-); Glucose, Blood 123 mg/dL (70-99); Phosphorus, Blood 3.6 mg/dL (2.5-4.9); Potassium, Blood 3.6 mmol/L (3.5-5.5); Sodium, Blood 149 mmol/L (136-145)
[2018-06-18 04:41] LABS: Vancomycin, Random 14.7 ug/mL
--- NOTE | 2018-06-18 05:55 | NUR ---
SHIFT SUMMARY NO ACUTE CHANGES THIS SHIFT. PT REMAINS ON LIGHT SEDATION ON VENT. SETTINGS AC 18, TV 350, PEEP 12, FIO2 55%. PROPOFOL HAS REMAINED AT 30 MCG/KG/MIN WITH GOOD EFFECT. PT HAS REMAINED CALM AND VITAL SIGNS HAVE REMAINED STABLE WITHOUT NEED FOR FURTHER ANTIHYPERTENSIVES THIS SHIFT. OGT REMAINS IN PLACE WITH TF AT 30 ML/HR. TODD REMAINS IN PLACE WITH GOOD URINE OUTPUT THIS SHIFT. RECTAL TUBE REMAINS IN PLACE WITH LOOSE BROWN OUTPUT NOTED. SBW RESTRAINTS REMAIN IN PLACE. WILL CONTINUE TO MONITOR AND REPORT OFF TO ONCOMING RN.
--- NOTE | 2018-06-18 07:58 | NUR ---
ASSUMED CARE: PT RESTING IN BED, PROPOFOL RUNNING AT 30 MCG/KG/HR. VSS. TUBE FEED RUNNING. RESTRAINTS IN PLACE. VENT SETTINGS 18/350/12/50%. NO FURTHER NEEDS OR CONCERNS AT THIS TIME
--- NOTE | 2018-06-18 08:50 | NUR ---
SEDATION VACATION ATTEMPTED. PT DID NOT FOLLOW INSTRUCTIONS BUT WAS NOTED TO START COUGHING AND STRUGGLING AGAINST RESTRAINTS MORE. PROPOFOL RESTARTED AFTER 20 MINUTES. FRIENDS AT BEDSIDE. NO FURTHER NEEDS NOTED AT THIS TIME
--- NOTE | 2018-06-18 10:33 | NUR ---
DR SMILEY ENTERED ROOM TO SEE PT AND INFORMED FAMILY OF PROGRESS. INSTRUCTED THIS RN TO TURN PROPOFOL OFF DURING THE DAY ABLE. VSS. FAMILY JUST LEFT. NO FURTHER NEEDS OR CONCERNS AT THIS TIME
--- NOTE | 2018-06-18 10:50 | NUR ---
PT REMAINS WITHOUT PURPOSEFUL MOVEMENT. SHE DOES WORK THE ET TUBE WITH HER TONGUE AND ATTEMPT TO BITE AT IT. HR INCREASING SINCE PROPOFOL OFF. DOSE OF ATIVAN GIVEN TO ASSIST WITH RELAXATION. VSS AT THIS TIME. FIO2 TURNED DOWN TO 45% PER DR SMILEY
--- NOTE | 2018-06-18 13:15 | NUR ---
REPORT GIVEN TO HECTOR ASCENCIO. ENTERED ROOM WITH PT LIFTING ARMS. PT OPENED EYES SLIGHTLY WHEN ASKED AND WIGGLED TOES OF RIGHT FOOT. DID NOT SQUEEZE FINGERS WHEN ASKED. NO FURTHER NEEDS OR CONCERNS AT THIS TIME
--- NOTE | 2018-06-18 13:34 | NUR ---
ASSUMED CARE ASSUMED CARE OF PT. REPORT RECEIVED FROM HECTOR OCHOA. PT INTUBATED, SEDATION ON STANDBY. PT APPEARS RESTLESS IN BED, TURNING HEAD SIDE TO SIDE, PULLING AGAINST RESTRAINTS, RR 30-40'S. PT DOES WIGGLE TOES TO COMMANDS X1, HAS NOT FOLLOWED ANY ADDITIONAL COMMANDS. VENT SETTINGS AC 18, TV 350, PEEP 12, FiO2 45%, SPO2 90%. LUNG SOUNDS COARSE IN BASES, DIMINISHED. MONITOR SHOWS SINUS TACH, HR 105. BP STABLE AT THIS TIME. PT HAS OG TUBE IN PLACE WITH VITAL HP AT 40ML/HR. PLAN TO ADVANCE TO GOAL OF 45ML/HR. PT HAS TODD CATH IN PLACE DRAINING DARK YELLOW URINE TO GRAVITY. RECTAL TUBE IN PLACE DRAINING TO GRAVITY. PT HAS PICC TO SHAQ WITH NS TKO. ORA SOFT WRIST RESTRAINTS IN PLACE TO PROTECT LINES, ET TUBES. WILL CONTINUE TO MONITOR PT.
--- NOTE | 2018-06-18 14:15 | NUR ---
TUBE FEED CHANGED TO PIVOT 1.5 AT 45ML/HR PER ORDERS. H2O FLUSH 150ML Q4H.
--- NOTE | 2018-06-18 15:49 | NUR ---
PT AGITATED, RESP RATE UP TO 40'S, HR AND BP ELEVATED. PULLING AGAINST RESTRAINTS. MED c 1MG ATIVAN TO NO EFFECT. MED c 50MCG FENTANYL. PT BEGINS TO CALM, RESP 22 CURRENTLY. WILL CONTINUE TO MONITOR.
--- NOTE | 2018-06-18 17:28 | NUR ---
PEEP/SEDATION PEEP DECREASED FROM 12 TO 1O BY RT. PT MAINTAINING SPO2 >90% AT THIS TIME. PT AGITATED, HOWEVER, RR UP TO HIGH 30'S, HR AND BP ELEVATED, PT COUGHING AND PULLING AGAINST RESTRAINTS. PT HAS RECEIVED FENTANYL AND ATIVAN IVP. PROPOFOL RE-STARTED AT 15MCG/KG AT THIS TIME. WILL CONTINUE TO MONITOR.
--- NOTE | 2018-06-18 18:48 | NUR ---
SHIFT SUMMARY PT REMAINS INTUBATED, VENT SETTINGS AC 18, TV 350, PEEP 10, FIO2 50%. SPO2 MID 90'S. PT MORE CALM WITH PROPOFOL AT 15MCG. PT TOLERATING TUBE FEED, AT GOAL OF 45ML/HR. FREE WATER INCREASED THIS SHIFT TO 150ML Q4H. RECTAL TUBE REMAINS IN PLACE DRAINING LIQUID STOOL TO GRAVITY. ORA SOFT WRIST RESTRAINTS REMAIN IN PLACE TO PROTECT LINES, TUBES. WILL GIVE HANDOFF REPORT TO ONCOMING RN WHEN AVAILABLE.
--- NOTE | 2018-06-18 19:15 | NUR ---
ASSUMED PT CARE PT IS INTUBATED WITH VENT SETTINGS: AC 18; TV 350; FIO2 50%; PEEP 10 WITH OXYGEN SATURATIONS MAINTAINING MID 90'S. PT IS SEDATED ON 15MCG OF PROPOFOL, BUT CONTINUES TO PULL ON BILATERAL WRIST RESTRAINTS; PER REPORT PT HAS BEEN MEDICATED WITH BOTH PRN ATIVAN AND FENTANYL FOR AGITATION/RESTLESSNESS. PT IS IN SINUS TACH WITH HR 105; BP ELEVATED WITH SBP >160. RESP RATE 25-30'S. TUBE FEEDING CURRENTLY INFUSING CONTINUOUSLY WITH PIVOT 1.5 AT GOAL OF 45MLS/HR WITH WATER FLUSHES Q4HRS OF 150CC.
[2018-06-19 03:39] LABS: BASOPHILS ABSOLUTE AUTO 0.02 K/mm3 (0.00-0.23); BASOPHILS PERCENT AUTO 0 % (0-2); EOSINOPHILS ABSOLUTE AUTO 0.38 K/mm3 (0.00-0.68); EOSINOPHILS PERCENT AUTO 3 % (0-6); Hematocrit 22.3 % (33.0-51.0); Hemoglobin 7.1 g/dL (11.5-16.0); IMMATURE GRAN ABSOLUTE AUTO 0.29 K/mm3 (0.00-0.10); IMMATURE GRAN PERCENT AUTO 2 % (0-1); LYMPHOCYTES ABSOLUTE AUTO 1.41 K/mm3 (0.84-5.20); LYMPHOCYTES PERCENT AUTO 12 % (21-46); MONOCYTES PERCENT AUTO 7 % (4-13); Mean Corpuscular HGB Conc 31.8 g/dL (31.5-36.5); Mean Corpuscular Volume 107 fL (80-100); Mean Platelet Volume 11.7 fL (9.1-12.4); NEUTROPHILS ABSOLUTE AUTO 9.35 K/mm3 (1.96-9.15); NEUTROPHILS PERCENT AUTO 76 % (41-73); Platelet Count 278 K/mm3 (150-400); RDW Coefficient Variation 14.6 % (11.7-14.2); RDW Standard Deviation 56.5 fL (35.1-46.3); Red Blood Cell Count 2.09 M/mm3 (3.80-5.20); White Blood Cell Count 12.25 K/mm3 (4.00-11.30)
[2018-06-19 03:54] LABS: Bun/Creatinine Ratio 26.7 (12.0-20.0); Calcium, Blood 9.5 mg/dL (8.5-10.1); Creatinine, Blood 2.47 mg/dL (0.40-1.00); Magnesium, Blood 2.3 mg/dL (1.6-2.4); Phosphorus, Blood 3.7 mg/dL (2.5-4.9); Potassium, Blood 3.7 mmol/L (3.5-5.5)
[2018-06-19 03:58] LABS: PCO2 Arterial 47.2 mmHg (35-45); PO2 Arterial 71.3 mmHg (80-100); pH Blood Arterial 7.46 (7.35-7.45)
--- NOTE | 2018-06-19 04:23 | NUR ---
SEDATION VACATION PROPOFOL TURNED OFF AT 0330 AND REMAINED OFF FOR 45 MINUTES. PT ATTEMTPED TO OPEN EYES WHEN ASKED, BUT WASN'T ABLE TO FOLLOW ANY COMMANDS. PROPOFOL RESTARTED AT 15MCG/MIN
--- NOTE | 2018-06-19 05:52 | NUR ---
END OF SHIFT SUMMARY PT REMAINS INTUBATED WITH VENT SETTINGS: AC 18; TV 350; FIO2 50%; PEEP 10 WITH OXYGEN SATURATIONS 93%. SEDATED WITH PROPOFOL INFUSING AT 15MCG VIA LEFT UPPER ARM PICC LINE. PT DOES NOT FOLLOW COMMANDS AND ONLY OPENS EYES TO PRESSURE/PAINFUL STIMULI; WITHDRAWALS FROM PAIN. PT HAS BEEN TITRATED UP AND DOWN ON PROPOFOL T/O NIGHT; D/T RESP RATE IN 40'S WITH HIGH PEAK PRESSURES. PT WAS EVENTUALLY ABLE TO BE TITRATED OFF THE PROPOFOL AND ABLE TO TOLERATE SEDATION VACATION FOR 45 MINUTES. LUNG SOUNDS REMAIN CLEAR TO BILATERAL UPPER LOBES WITH CRACKLES NOTED TO BILATERAL LOWER LOBES. PT HAS BEEN IN NSR WELL SINUS TACH T/O NIGHT. TF RESIDUALS WERE >200 ALL SHIFT; TF TURNED OFF AT 0400 AND REMAINS OFF D/T 0500 RESIDUAL CHECK REMAINING AT 225. PT APPEARS COMFORTABLE AT THIS TIME; RESP RATE 20-30'S WITH PROPOFOL AT 15MCG
--- NOTE | 2018-06-19 07:44 | NUR ---
ASSUMED CARE: PT RESTING IN BED, LIFTING ARMS AGAINST RESTRAINTS. TACHYCARDIC AND BP SLIGHTLY ELEVATED. PROPOFOL GTT AT 15 MKG/KG/MIN. VENT SETTINGS AT 18/350/10/50%. WILL MEDICATE FOR FURTHER COMFORT.
--- NOTE | 2018-06-19 08:26 | NUR ---
ATIVAN GIVEN TO HELP WITH ANXIOUSNESS. PT WINCES AROUND EYES WITH PRESSURE AND PULLS AT RESTRAINTS. MOVES HEAD BACK AND FORTH AT TIMES. NO PURPOSEFUL MOVEMENT NOTED HOWEVER, DOES NOT FOLLOW INSTRUCTIONS AT THIS TIME
--- NOTE | 2018-06-19 11:21 | NUR ---
PT CONTINUES TO APPEAR AGGITATED, WRITHING IN BED, BENDING NECK BACKWARD, PULLING AT RESTRAINTS. PROPOFOL CURRENTLY AT 20 MCG/KG/MIN. DISCUSSED WITH ASH WORKER AND DR GORDON. DR GORDON CHANGED FENTANYL ORDER AND DISCOURAGES ATIVAN. FEELS PT IS STILL ENCEPHALOPATHIC. WILL ATTEMPT TO KEEP PROPOFOL DOWN AND USE OTHER OPTIONS. WILL ALSO ATTEMPT FURTHER MOVEMENT AND REPOSITIONING TO ASSIST WITH DISCOMFORT AND STRENGTH BUILDING.
--- NOTE | 2018-06-19 13:00 | NUR ---
PT HAS BEEN UP IN CHAIR FOR AN HOUR. PT IS STARTING TO FOLLOW DIRECTIONS. OPENS EYES WHEN ASKED, WIGGLES TOES WHEN ASKED BUT DOES NOT SQUEEZE FINGERS. APPEARS TO BE NODDING HEAD WHEN ASKED QUESTIONS. SEDATION OFF AT THIS TIME TO ATTEMPT TO SEE IF PT CAN WAKE FURTHER
--- NOTE | 2018-06-19 16:10 | NUR ---
PT'S HR INCREASING AND BP STARTING TO INCREASE WELL. PROPOFOL RESTARTED. PEEP TURNED DOWN TO 8. BACK IN BED AT THIS TIME
--- NOTE | 2018-06-19 16:14 | NUR ---
pt back in bed on sedation. review with nursing of progress. family has not been in yet today.
--- NOTE | 2018-06-19 18:30 | NUR ---
SHIFT SUMMARY: PT RESTING IN BED AT THIS TIME. PROPOFOL BACK ON DUE TO INCREASE IN HR AND BP. RESTING QUIETLY. MEDICATED A FEW TIMES WITH FENTANYL FOR COMFORT. SEEMS 100MCG FENTANYL WORKED BETTER FOR RELAXATION. DR GORDON REQUESTS TO AVOID ATIVAN. PT HAD MORE PURPOSEFUL MOVEMENT WHILE UP IN CHAIR. CURRENTLY VENT SETTINGS 18/350/8/45%. PROPOFOL GTT AT 20MCG/KG/MIN. NO FURTHER NEEDS OR CONCERNS AT THIS TIME
--- NOTE | 2018-06-19 19:15 | NUR ---
ASSUMED CARE OF PT. PT SEDATED AND INTUBATE. VENT SETTINGS AC 18/350/8/45%. PROPOFOL 20 MCG/KG/MIN RUNNING FOR SEDATION. PT IS UNABLE TO FOLLOW DIRECTIONS, PUPILS 3MM BILATERALLY AND SLUGGISH WITH NYSTAGMUS. PT PULLING ON BUE SOFT RESTRAINTS. PIVOT 1.5 AT GOAL RATE OF 45/HR. TODD AND RECTAL TUBE PATENT AND DRAINING. SEE FULL SHIFT ASSESSMENT.
--- NOTE | 2018-06-19 23:09 | NUR ---
PT THRASHING HEAD BACK AND FORTH AND ARCHING BACK WITH RESPIRATORY RATE IN THE MID 40'S. INCREASED SEDATION TO 30 MCG/KG/MIN AND GAVE FENTANYL PER PHYSICIAN ORDER FOR ADJUNCT TO SEDATION.
[2018-06-20 04:11] LABS: Bun/Creatinine Ratio 30.3 (12.0-20.0); Calcium, Blood 9.2 mg/dL (8.5-10.1); Creatinine, Blood 2.31 mg/dL (0.40-1.00)
--- NOTE | 2018-06-20 04:38 | NUR ---
HIGH TUBE FEED RESIDUALS. 320 ML RESIDUALS, 250 ML REFED. TUBE FEED TURNED OFF. WILL RECHECK RESIDUALS IN ONE HOUR.
--- NOTE | 2018-06-20 06:48 | NUR ---
SHIFT SUMMARY PT INTUBATED WITH VENT SETTINGS AC 18/350/8/45%. PROPOFOL @30 MCG/KG/MIN. PT OPENS EYES TO VERBAL AND PAINFUL STIMULI BUT FAILS TO FOLLOW COMMANDS. PT CONTINUES TO PULL AT RESTRAINTS AND MOVE HER LEGS RESTLESSLY. PT HAD HIGH RESIDUALS, TUBE FEED TURNED OFF FOR 1 HOUR AND RESTARTED AT 25 ML. WILL REPORT TO DAYSALFT NURSE.
--- NOTE | 2018-06-20 08:20 | NUR ---
ASSUMED CARE OF PT THIS AM PT. REMAINS SEDATED AND INTBUATED. OPENES EYES WITH REPOSITIONING HOWEVER DOES NOT TRACK. PT. HAS COUGH WITH DEEP SUCTION AND GAG WITH ORAL CARE. PT. VENT SETTINGS CURRENTLY AC 18, TV 350, PEEP 8, 45%. PT. APPEARS TO BE RESTING COMFORTABLY CNVI 0. PT. HAS TUBE FEEDING PIVOT 1.5 RUNNING WITH RESIDUAL OF 110 REINSTILLED. TF CURRENTLY RUNNING AT 25ML/HR WIHT 250 FLUSH Q4. PT. HAS RECTAL TUBE AND TODD IN PLACE, DRAINING TO GRAVITY. VSS AT THIS TIME.
--- NOTE | 2018-06-20 12:03 | NUR ---
UPDATE PT. UP TO BEDSIDE CHAIR WITH LIFT. DR. GORDON AT BEDSIDE. PT PLACED ON SPONT BREATHING MODE FOR 30 MIN, WITH PRESSURE SUPPORT OF 10. DISCUSSED HIGH RESIDUALS AND REGLAN TO BE ORDERED BY DR. GORDON. PT. TOLERATED SPONT. WELL, WITH VOLUMES OF 350S, RR 30S. NADN. VSS.
--- NOTE | 2018-06-20 13:50 | NUR ---
SEDATION VACATION PROPOFOL PLACED ON STAND BY AT THIS TIME. FAMILY AT BEDSIDE.
--- NOTE | 2018-06-20 14:29 | NUR ---
PT TOLERATED SEDATION VACATION WELL OPENING EYES SPONT. TRACKING WITH EYES. PT NOT FOLLOWING COMMANDS. REMAINED CALM, BUT DID BECOME RESTLESS. FAMILY AT BEDSIDE. PLACED BACK ON 35MCG/KG/MIN OF PROPOFOL.
--- NOTE | 2018-06-20 17:58 | NUR ---
SHIFT SUMMARY PT. REMAINS SEDATED AND INTBUATED.PER DR. GORDON PEEP TITRATED DOWN TO 5 THIS SHIFT. PT TOLERATED WELL. PT UP IN CHAIR FOR MAJORITY OF THE DAY. TOLERATED SEDATION VACATION WELL, PT. CONTINUES WITH TODD AND RECTAL TUBE DRAINING TO GRAVITY. VSS. REPORT TO ONCOMING RN.
--- NOTE | 2018-06-20 18:45 | NUR ---
ASSUMED CARE OF PT. PT SEDATED AND INTUBATED. PT DOES NOT FOLLOW COMMANDS BUT HAS FACIAL GRIMACING WITH NOXIOUS STIMULI. PT PULLS AT RESTRAINTS AND MOVES LEGS WHEN RESTLESS. TODD PATENT AND DRAINIG. RECTAL TUBE PATENT WITH LITTLE OUTPUT. PIVOT 1.5 RUNNING AT 25 ML/HR WITH 250 ML Q4 FLUSHES. PROPOFOL RUNNING AT 40 MCG/KG/MIN AND NS TKO. SEE FULL SHIFT ASSESSMENT.
--- NOTE | 2018-06-20 22:00 | NUR ---
SPOKE WITH DR GORDON REGARDING PT'S CONTINUED HIGH RESIDUALS. INPUT ORDERS TO START 5 MG REGLAN QID.
--- NOTE | 2018-06-21 04:52 | NUR ---
SEDATION PLACED ON STANBY FOR 45 MINS FOR SBT. PT WAS TRACKING MOVEMENT AND WAS ABLE TO FOLLOW COMMANDS BY SQUEEZING WITH HER RIGHT HAND. WHEN RT ASKED IF HER NAME WAS SANJAY, PT NODDED HEAD YES IN RESPONSE. SEDATION TURNED BY ON AFTER 10 MINUTES OF SPONTANEOUS BREATHING TRIAL.
[2018-06-21 05:33] LABS: Bun/Creatinine Ratio 32.2 (12.0-20.0); Calcium, Blood 9.6 mg/dL (8.5-10.1); Creatinine, Blood 2.27 mg/dL (0.40-1.00); Potassium, Blood 4.5 mmol/L (3.5-5.5)
--- NOTE | 2018-06-21 06:02 | NUR ---
SHIFT SUMMARY PT SEDATED AND INTUBATED. VENT SETTINGS AC 18/350/5/45%. PROPOFOL AT 40 MCG/KG/MIN. TODD AND RECTAL TUBE PATENT AND DRAINING. PIVOT 1.5 RUNNING AT 25 ML/HR WITH 250 ML FLUSH Q 4. PT'S RESIDUALS HAVE BEEN DECREASING SINCE STARTING REGLAN. VITAL SIGNS REMAINED STABLE THROUGHOUT SHIFT. PT EXHIBITED PURPOSEFUL MOVEMENT DURING SEDATION VACATION. PT SQUEEZED HER RIGHT HAND ON COMMAND AND PUSHED BACK WITH HER RIGHT LEG. PT WAS ABLE TO TRACK MOVEMENT AND NOD HEAD IN RESPONSE TO QUESTIONS. WILL REPORT TO DAYSHIFT NURSE.
--- NOTE | 2018-06-21 07:48 | NUR ---
ASSUMED CARE PT. REMAINS ON SEDATED AND INTUBATED. PT VENT SETTINGS OF AC 18, TV 350, 45%, PPEP 5. PT. RR INCREASES WITH SIMULATION. PT. OPENS EYES TO VERBAL STIMULI AND IS NOW TRACKING WITH EYES. ONEAL. OCCASIONALLY LEGS BECOME RESTLESS IN BED AND PT PULLS AT BILAT WRIST RESTRAINTS. PT VSS THIS AM. TF REMAINS AT 25ML/HR WITH 250 Q4 FLUSH. RESIDUAL THIS AM OF 50ML. REGLAN STARTED LAST NOC. PT. CONTINUES WITH RECTAL TUBE DRAINING TO GRAVITY WELL TODD CATHETER. NADN. VSS.
--- NOTE | 2018-06-21 09:27 | NUR ---
SEDATION VACATION PROPOFOL PLACED ON SB AT THIS TIME. PLANS FOR SPONT BREATHING TRIAL THIS AM PT TOLERATES. VSS AT THIS TIME.
--- NOTE | 2018-06-21 10:44 | NUR ---
SPONT. BREATHING TRIAL PT. SEDATION TURNED OFF AT 0930 AND WAS PLACED ON SPONT. PRESSURE SUPPORT 10, PEEP 5. PT ABLE TO TOLERATE FOR 1 HOUR, THEN BECAME INCREASINGLY AGGITATED AND DIFFICULT TO REDIRECT. WITH SEDATION OFF PT FOLLOWING SOME COMMANDS PT. ABLE TO TRACK WITH EYES THIS RN MOVED AROUND ROOM. PT. KIMMY. PULLING AT RESTRAINTS AND KICKING LEGS IN BED. PT RR IN THE 40S, WITH HR IN LOW 100S, PT SWITCHED BACK TO PREVIOUS VENT SETTINGS AND PLACED ON SEDATION.
--- NOTE | 2018-06-21 11:55 | NUR ---
UPDATE PT. RESTING COMFORTABLY BACK ON AC SETTINGS ON VENT AND ON 40 MCG/KG/MIN OF SEDATION. OCCASIONALLY BECOMES RESTLESS WITH GRIMACE AND KICKS LEGS IN BED, MED FOR PAIN VIA DR. VIDAL. PT RESIDUAL OF 20ML REINSTILLED AND TF INCREASED TO 35ML/HR AT THIS TIME. LASIX GIVEN THIS AM, GOOD RESPONSE. 850ML OF URINE OUT. VSS.
--- NOTE | 2018-06-21 12:44 | NUR ---
AGGITATION DIFFICUTLY GETTING PT COMFORTABLE AND SEDATED. PROPOFOL TITRATED UP TO 50MCG/KG/MIN, PT RR IN THE 30S-40S, WITH FACIAL GRIMACE. DR. GORDON NOTIFIED, PRECEDEX GTT TO BE RESTARTED.
--- NOTE | 2018-06-21 17:15 | NUR ---
review with nursing pt progress. Will have chaplian help with supportive plan for family and discharge.
--- NOTE | 2018-06-21 18:20 | NUR ---
SHIFT SUMMARY PT. REMAINS SEDATED AND INTUBATED, PRECEDEX GTT STARTED IN ADDITION TO PROPOFOL FOR SEDATION. PT. DID SPONT. BREATHING TRIAL FOR 1 HOUR TODAY, BEFORE BECOMING AGGITATED AND RESTLESS IN BED, WITH RR IN THE 40S. NO ACUTE CHANGES T/O SHIFT. REPORT TO ONCOMING RN
--- NOTE | 2018-06-21 19:02 | NUR ---
ASSUMED PT CARE PT REMAINS INTUBATED WITH VENT SETTINGS:AC 18; TV 350; FIO2 45%; PEEP 5. SEDATED WITH PRECEDEX INFUSING AT 0.5MCG/KG/HR, AND PROPOFOL INFUSING AT 40MCG/KG/MIN. NS TKO. PICC LINE TO LEFT UPPER EXTREMITY. TF PIVOT 1.5 INFUSING AT 35MLS/HR WITH H20 FLUSHES AT 250MLS Q4HRS. BILATERAL WRIST RESTRAINTS CONTINUE. PT APPEARS COMFORTABLE AT THIS TIME.
[2018-06-22 04:38] LABS: BASOPHILS ABSOLUTE AUTO 0.05 K/mm3 (0.00-0.23); BASOPHILS PERCENT AUTO 1 % (0-2); EOSINOPHILS ABSOLUTE AUTO 0.43 K/mm3 (0.00-0.68); EOSINOPHILS PERCENT AUTO 5 % (0-6); Hematocrit 21.4 % (33.0-51.0); Hemoglobin 6.9 g/dL (11.5-16.0); IMMATURE GRAN PERCENT AUTO 2 % (0-1); LYMPHOCYTES ABSOLUTE AUTO 1.47 K/mm3 (0.84-5.20); LYMPHOCYTES PERCENT AUTO 15 % (21-46); MONOCYTES ABSOLUTE AUTO 0.47 K/mm3 (0.16-1.47); MONOCYTES PERCENT AUTO 5 % (4-13); Mean Corpuscular HGB 33.8 pg (26.0-34.0); Mean Corpuscular HGB Conc 32.2 g/dL (31.5-36.5); Mean Corpuscular Volume 105 fL (80-100); Mean Platelet Volume 11.6 fL (9.1-12.4); NEUTROPHILS ABSOLUTE AUTO 6.98 K/mm3 (1.96-9.15); NEUTROPHILS PERCENT AUTO 73 % (41-73); Platelet Count 402 K/mm3 (150-400); RDW Coefficient Variation 14.1 % (11.7-14.2); RDW Standard Deviation 54.2 fL (35.1-46.3); Red Blood Cell Count 2.04 M/mm3 (3.80-5.20)
[2018-06-22 04:56] LABS: Albumin, Blood 1.6 g/dL (3.4-5.0); Albumin/Globulin Ratio 0.3 (0.8-1.8); Bilirubin, Total 0.6 mg/dL (0.1-1.0); Bun/Creatinine Ratio 32.6 (12.0-20.0); Calcium, Blood 9.5 mg/dL (8.5-10.1); Creatinine, Blood 2.33 mg/dL (0.40-1.00); Globulin, Blood 4.7 g/dL (2.2-4.0); Magnesium, Blood 2.5 mg/dL (1.6-2.4); Phosphorus, Blood 5.3 mg/dL (2.5-4.9); Potassium, Blood 4.7 mmol/L (3.5-5.5); Total Protein, Blood 6.3 g/dL (6.4-8.2)
--- NOTE | 2018-06-22 05:00 | NUR ---
SEDATION VACATION/SBT MAINTAINED PT ON PRECEDEX 0.5MCG WHILE PLACING PROPOFOL ON STANDBY, WELL ADMINISTERING 50MCG OF FENTANYL. PT WAS ABLE TO OPEN EYES UPON VERBAL STIMULI; FOLLOW COMMANDS, WELL TRACK WITH EYES. PT MAINTAINED RESP RATE 30-35'S WITH OCCASIONAL EPISODES OF ANXIETY AND RAPID BREATHING >35. TV MAINTAINED GREATER THAN 300. PT WAS ABLE TO LISTEN TO COMMANDS WELL WHEN SHE WAS TOLD TO SLOW DOWN HER BREATHING; QUICK TO RECOVER FROM A HIGH RESP RATE BACK TO HER BASELINE OF 30. PT TOLERATED WELL FOR THE FIRST 15 MINUTES OF THE TRIAL AND PT BECAME VERY AGITATED WITH RESTLESS LEGS, AND MAKING PURPOSEFUL MOVEMENT TO THE TUBE; PT WAS ABLE TO BE TALKED DOWN, BUT ALSO INCREASED PRECEDEX TO 0.7MCG AND ADMINISTERED ANOTHER DOSE OF FENTANYL 50MCG.
--- NOTE | 2018-06-22 06:39 | NUR ---
END OF SHIFT SUMMARY VENT SETTINGS REMAIN WITH AC 18; TV 350; PEEP 5; FIO2 45% WITH OXYGEN SATURATIONS >91%. PT REMAINS SEDATED WITH PRECEDEX AT 0.5MCG, AND PROPOFOL AT 35MCG. SEE NOTED REGARDING MENTATION DURING SEDATION VACATION. NS INFUSING TKO. PIVOT 1.5 INITIALLY WAS INFUSING AT 35MLS/HR; AT 200 RESIDUALS WERE 100CC; REINSTILLED. AT APPROXIMATELY 2100 TF WAS INCREASED TO GOAL OF 45MLS/HR. AT 0000 RESIDUALS WERE 250CC; REINSTILLED. TURNED TF OFF FOR APPROXIMATELY AN HOUR AND A HALF; RESTARTED AT 35MLS/HR; INFUSED FOR APPROXIMATELY AN HOUR. SOAKERS SUPERVISOR STATED TO TURN TF DOWN TO 25MLS/HR. AT 0400 RESIDUALS WERE GREATER THAN 300. TURNED TF OFF COMPLETELY FOR ONE HOUR; CHECKED RESIDUALS AGAIN AT 0500 MEASURING 125CC OF RESIDUAL; REINSTILLED AND STARTED TF AT 25MLS/HR. PT CONTINUES ON 5MG OF REGLAN QID. TODD CATH IS PATENT AND DRAINING CLEAR, YELLOW URINE WITH A TOTAL OF 800 OUT THIS SHIFT. RECTAL TUBE ALSO REMAINS PATENT AND DRAINING TO GRAVITY WITH A TOTAL OF 100CC OUT THIS SHIFT. PT APPEARS COMFORTABLE AT THIS TIME.
--- NOTE | 2018-06-22 07:34 | NUR ---
ASSUMED CARE THIS AM PT. REMAINS SEDATED AND INTUBATED. PT. VSS T/O NOC. REMAINS ON PROPFOL AND PRECEDEX FOR SEDATION. PT. CONTINUES WITH TUBE FEEDING AT 25ML/HR WITH THE 250ML Q4 FLUSH. RESIDUAL OF 100ML THIS AM REINSTILLED. PT. ONEAL. BILAT WRIST RESTRAINTS REMAIN IN PLACE. TODD AND RECTAL TUBE DRAINING TO GRAVITY.
--- NOTE | 2018-06-22 09:23 | NUR ---
SEDATION PLACED ON SB WILL SWITCH TO PRESSURE SUPPORT WHEN MORE ALERT.
--- NOTE | 2018-06-22 10:48 | NUR ---
DR. SUTHERLAND AT BEDSIDE TO ASSESS PT. PT CURRENTLY ON PS 10, PEEP 5, 40%. PT. SIGNIFICANT OTHER AT BEDSIDE. UPDATED ON PT. CONDITION. ASSISTING IN KEEPING PT CALM DURING SPONT BREATHING TRIAL. PLANS TO DECREASE FREE WATER TO 125ML Q4H. VSS.
--- NOTE | 2018-06-22 11:51 | NUR ---
PT SWITCHED BACK TO AC MODE AND SEDATION RESTARTED PT. TOLERATED SEDATION VACATION BETTER TODAY. REDIRECTABLE AND FOLLOWING COMMANDS. ROM DONE, PT ABLE TO LIFT AND MOVE ALL EXTREMITIES. PT. RR UP TO THE 50S AND BECOMING INCREASINGLY AGGITATED AT THIS TIME AND WAS SWITCHED BACK TO PREVIOUS VENT SETTINGS AND PROPOFOL STARTED AT 40MCG/KG/MIN TO BE TITRATED. VSS AT THIS TIME.
--- NOTE | 2018-06-22 18:00 | NUR ---
SHIFT SUMMARY PT. REMAINS UP IN BEDSIDE CHAIR THIS AFTERNOON. PT. REMAINS SEDATED AND INTUBATED. TOLERATED PS 10, PEEP 5 FOR LONGER TODAY AND WAS ABLE TO DO SOME ROM DURING SPONT. BREATHING TRIAL. PT. VSS T/O SHIFT. NO ACUTE CHANGES. REPORT TO ONCOMING RN.
--- NOTE | 2018-06-22 19:15 | NUR ---
ASSUMED PT CARE PT UP IN CHAIR. VENTILATOR SETTINGS REMAIN AT AC 18; TV 350; PEEP 5; FIO2 45%; WITH RR 30'S. SEDATION CONTINUES WITH PRECEDEX AT 0.6MCG AND PROPOFOL AT 45MCG. PIVOT 1.5 TF CONTINUOUSLY INFUSING AT 30MLS/HR WITH WATER FLUSHES 125CC Q4HRS. BILATERAL SOFT WRIST RESTRAINTS IN PLACE. TODD CATH IS PATENT AND DRAINING TO GRAVITY, WELL RECTAL TUBE. PT APPEARS COMFORTABLE AT THIS TIME; WILL ASSIST BACK TO BED IN A COUPLE HOURS.
--- NOTE | 2018-06-22 22:00 | NUR ---
PT BACK TO BED FROM CHAIR FOR BED BATH. UTILIZED THE ASSISTANCE OF RESPIRATORY THERAPY, HAND CIGAR MAKER, AND THIS RN.
--- NOTE | 2018-06-23 00:23 | NUR ---
PAIN MED PT AGITATED, RESP RATE 38-40. PULLIING ON RESTRAINTS. MED WITH FENTANYL 50MCQ
[2018-06-23 04:01] LABS: Base Excess Venous 2.2 mmol/L; Bicarbonate Venous 26.1 mmol/L (24.0-30.0); PCO2 Venous 41.6 mmHg (38-42); PO2 Venous 52.6 mmHg (38-42); pH Blood Venous 7.42 (7.34-7.37)
[2018-06-23 04:09] LABS: BASOPHILS ABSOLUTE AUTO 0.07 K/mm3 (0.00-0.23); BASOPHILS PERCENT AUTO 1 % (0-2); EOSINOPHILS ABSOLUTE AUTO 0.47 K/mm3 (0.00-0.68); EOSINOPHILS PERCENT AUTO 5 % (0-6); Hematocrit 23.8 % (33.0-51.0); Hemoglobin 7.7 g/dL (11.5-16.0); IMMATURE GRAN ABSOLUTE AUTO 0.19 K/mm3 (0.00-0.10); IMMATURE GRAN PERCENT AUTO 2 % (0-1); LYMPHOCYTES ABSOLUTE AUTO 1.08 K/mm3 (0.84-5.20); LYMPHOCYTES PERCENT AUTO 11 % (21-46); MONOCYTES ABSOLUTE AUTO 0.47 K/mm3 (0.16-1.47); MONOCYTES PERCENT AUTO 5 % (4-13); Mean Corpuscular HGB Conc 32.4 g/dL (31.5-36.5); Mean Corpuscular Volume 102 fL (80-100); NEUTROPHILS ABSOLUTE AUTO 7.85 K/mm3 (1.96-9.15); NEUTROPHILS PERCENT AUTO 78 % (41-73); Platelet Count 466 K/mm3 (150-400); RDW Standard Deviation 59.9 fL (35.1-46.3); Red Blood Cell Count 2.33 M/mm3 (3.80-5.20); White Blood Cell Count 10.13 K/mm3 (4.00-11.30)
[2018-06-23 04:50] LABS: Bun/Creatinine Ratio 35.5 (12.0-20.0); Calcium, Blood 9.7 mg/dL (8.5-10.1); Creatinine, Blood 2.14 mg/dL (0.40-1.00); Magnesium, Blood 2.5 mg/dL (1.6-2.4); Phosphorus, Blood 5.9 mg/dL (2.5-4.9); Potassium, Blood 5.2 mmol/L (3.5-5.5)
--- NOTE | 2018-06-23 05:30 | NUR ---
SBT/SEDATION VACATION TURNED OFF PROPOFOL; LEFT PRECEDEX AT 0.7MCG. PT ALREADY HAD RESP RATE HIGH 30'S PRIOR TO SBT; ADMINISTERED PRN FENTANYL 50MCG. PT ABLE TO OPEN EYES SPONTANEOUSLY, AND FOLLOW COMMANDS. VENT CHANGED FROM AC TO SPONTANEOUS 12/13; PT MAINTAINED TV GREATER THAN 300 WITH RESP RATE MID 30'S WITH MULTIPLE TIMES RESP RATE >40. UNABLE TO TALK PT DOWN; RESP RATE GOT UP TO 50'S AFTER ABOUT 10 MINUTES INTO SBT; PROPOFOL TURNED BACK ON TO 10MCG; RELAXED PT TEMPORARILY AND THEN RESP RATE INCREASED OVER 40 AGAIN. AT THAT TIME SBT WAS STOPPED AND PT WAS PLACED BACK ON PROPOFOL 35MCG.
--- NOTE | 2018-06-23 06:22 | NUR ---
END OF SHIFT SUMMARY VENT SETTINGS AC 18; TV 350; PEEP 5; FIO2 40% WITH OXYGEN SATURATIONS 92%. PT REMAINS SEDATED WITH PRECEDEX AT 0.7MCG, PROPOFOL AT 50MCG, WELL FENTANYL PRN Q1HR. HOWEVER AFTER SBT PT CONTINUES TO BE AGITATED. PER REPORT FROM HECTOR RUDD; DR. GORDON WANTED TO AVOID GIVING ATIVAN. HOWEVER, PT IS THRASHING HEAD BACK IN FORTH IN BED, WELL HAS RESTLESS LEGS. WILL HAVE DAY RN VERIFY WITH REGARDING ATIVAN ADMINISTRATION IT IS STILL AVAILABLE ON THE EMAR. LUNG SOUNDS REMAIN COARSE RHONCHI T/O. NSR WITH HR 79. PIVOT 1.5 REMAINS TO INFUSE AT 30MLS/HR WITH RESIDUALS AROUND 100-150CC. WATER FLUSHES AT 125CC Q4HRS. TODD CATH IS PATENT AND DRAINING TO GRAVITY DARK, YELLOW/GREEN URINE. RECTAL TUBE PATENT AND DRAINING TO GRAVITY AT WELL. WILL REPORT OFF TO ONCOMING RN.
--- NOTE | 2018-06-23 08:09 | NUR ---
CARE ASSUMED CARE AND REPORT ASSUMED FROM SUDHA YOUNG. PT INTUBATED AND SEDATED. VENT AC 18, 350, PEEP 5, FIO2 40%. RR 40, VENTILATOR CONTINUALLY ALARMING PT IS BREATHING RAPIDLY. APPEARS AGITATED WITH RESTLESSNESS AND GRIMACING. ATIVAN 1 MG IVP GIVEN AND NO IMPROVEMENT OF SYMPTOMS OR RR. PROPOFOL GTT AT 50 MCG AND PRECEDEX GTT AT 0.7 MG. FENTANYL 100 MCG IVP GIVEN AND PT NOW RELAXED WITH LESS GRIMACING, LOWER HR AND RR 20. WILL CONTINUE TO MONITOR RR, PAIN LEVEL, AND HR. LUNG SOUNDS COARSE ON R SIDE; SCANT SECRETIONS FROM ETT AT THIS TIME. TOLERATING TF; 40 CC RESIDUAL. PIVOT 1.5 TF INCREASED TO 40 ML/HR; WILL MONITOR. BUE RESTRAINED TO PROTECT ETT AND LINES. NSR, HR 100-110. BP STABLE. HOB ELEVATED. AFEBRILE. WILL CONTINUE TO MONITOR.
--- NOTE | 2018-06-23 10:42 | NUR ---
BEDSIDE SEDATION OFF FOR 45 MINUTES. MD SUTHERLAND BEDSIDE TO EXAMINE PT. BEDSIDE, HOLDING PTS HAND, AND IS EFFECTIVE WITH CONSOLING HER. PT OPENS EYES SPONTANEOUSLY AND FOLLOWS COMMANDS. C/O PAIN; WILL ADMINISTER PAIN MEDICATIONS.
--- NOTE | 2018-06-23 12:29 | NUR ---
REASSESSMENT PT NOW IN CHAIR AND SEDATED ON VENTILATOR. VSS. SIGNIFICANT OTHER BEDSIDE. TOELRATING TF AT 45 ML/HR WITH 30 ML RESIDUAL. WILL CONTINUE TO MONITOR.
--- NOTE | 2018-06-23 16:13 | NUR ---
REASSESSMENT PT BACK TO BED FROM RECLINER CHAIR. VSS. HR 95-105, BP STABLE. AFEBRILE. CONTINUES TO TOLERATE TF WITH MINIMAL RESIDUAL AT GOAL RATE, 45 ML/HR. PROPOFOL GTT AT 50 MCG/KG/MIN. PRECEDEX GTT AT 0.7 MCG/KG/HR. BUE RESTRAINED. PT APPEARS COMFORTABLE AND CALM AT THIS TIME WITH NO S/S PAIN. WILL CONTINUE TO MONITOR.
--- NOTE | 2018-06-23 18:06 | NUR ---
SHIFT SUMMARY PT HAD SEDATION VACATION WITH AT BEDSIDE. OPENED EYES SPONTANEOUSLY AND WAS ABLE TO FOLLOW COMMANDS. DID EASILY BECOME ANXIOUS AND HAD HIGH RESP RATE. ONCE RESEDATED, PTS HR AND RR DECRASED AND PT WAS LIFTED WITH CEILING LIFT INTO RECLINER CHAIR. TOLERATED SITTING IN CHAIR FOR APPROX 5 HOURS. FENTNAYL IVP GIVNE FEW TIMES DURING SHIFT FOR SIGNS OF PAIN. ATIVAN 1 MG IVP GIVEN X1 IN AM. BP STABLE ENTIRE SHIFT. NSR 80S AT THIS TIME. LUNG SOUNDS COARSE AND CRACKLY MOST OF DAY. TOLERATED TF WITH MINIMAL RESIDUAL EXCEPT FOR LAST ASSESSMENT OF 200 ML. TF UP TO GOAL 1200. BUE REMAIN REMAIN IN RESTRAINTS. WILL GIVE BEDSIDE, HANDOFF REPORT TO EMILY YOUNG.
--- NOTE | 2018-06-23 19:15 | NUR ---
ASSUMED PT CARE PT REMAINS INTUBATED WITH VENT SETTINGS: AC 18; TV 350; PEEP 5; FIO2 40%. SEDATIONS CONTINUES WITH PRECEDEX AT 0.7MCG AND PROPOFOL AT 50MCG WITH PRN FENTANYL. TF PIVOT 1.5 INFUSING AT 45MLS/HR AT GOAL WITH 30CC WATER FLUSHES Q4HRS. TODD IS PATENT AND DRAINING CLEAR, YELLOW URINE. RECTAL TUBE IS PATENT AND DRAINING TO GRAVITY, BROWN, PASTY STOOL NOTED. PT CONTINUES TO BE EDEMATOUS TO BILATERAL HANDS AND FEET/ANKLES. PT APPEARS TO BE COMFORTABLE AT THIS TIME AND DOES NOT APPEAR TO BE AGITATED.
[2018-06-24 03:42] LABS: BASOPHILS ABSOLUTE AUTO 0.07 K/mm3 (0.00-0.23); BASOPHILS PERCENT AUTO 1 % (0-2); EOSINOPHILS ABSOLUTE AUTO 0.28 K/mm3 (0.00-0.68); EOSINOPHILS PERCENT AUTO 3 % (0-6); Hematocrit 23.1 % (33.0-51.0); Hemoglobin 7.5 g/dL (11.5-16.0); IMMATURE GRAN ABSOLUTE AUTO 0.39 K/mm3 (0.00-0.10); IMMATURE GRAN PERCENT AUTO 4 % (0-1); LYMPHOCYTES ABSOLUTE AUTO 1.27 K/mm3 (0.84-5.20); LYMPHOCYTES PERCENT AUTO 13 % (21-46); MONOCYTES ABSOLUTE AUTO 0.52 K/mm3 (0.16-1.47); MONOCYTES PERCENT AUTO 5 % (4-13); Mean Corpuscular HGB 33.6 pg (26.0-34.0); Mean Corpuscular HGB Conc 32.5 g/dL (31.5-36.5); Mean Corpuscular Volume 104 fL (80-100); Mean Platelet Volume 11.5 fL (9.1-12.4); NEUTROPHILS ABSOLUTE AUTO 7.15 K/mm3 (1.96-9.15); NEUTROPHILS PERCENT AUTO 74 % (41-73); Platelet Count 514 K/mm3 (150-400); RDW Coefficient Variation 15.5 % (11.7-14.2); RDW Standard Deviation 58.1 fL (35.1-46.3); Red Blood Cell Count 2.23 M/mm3 (3.80-5.20); White Blood Cell Count 9.68 K/mm3 (4.00-11.30)
[2018-06-24 03:45] LABS: Base Excess Venous 2.2 mmol/L; Bicarbonate Venous 26.2 mmol/L (24.0-30.0); PCO2 Venous 37.6 mmHg (38-42); PO2 Venous 80.8 mmHg (38-42); pH Blood Venous 7.45 (7.34-7.37)
[2018-06-24 03:57] LABS: Bun/Creatinine Ratio 33.6 (12.0-20.0); Calcium, Blood 9.7 mg/dL (8.5-10.1); Creatinine, Blood 2.23 mg/dL (0.40-1.00); Magnesium, Blood 2.5 mg/dL (1.6-2.4); Phosphorus, Blood 4.9 mg/dL (2.5-4.9); Potassium, Blood 4.7 mmol/L (3.5-5.5)
--- NOTE | 2018-06-24 05:52 | NUR ---
SBT/SEDATION VACATION PROPOFOL TURNED OFF AT 0425; PRECEDEX REMAINED AT 0.7MCG. PT WAS ABLE TO OPEN EYES SPONTANEOUSLY AND FOLLOW COMMANDS OFF AND ON ABOUT 5 MINUTES AFTER TURNING OFF SEDATION; HOWEVER, PT WAS STILL DROWSY AND WASN'T CONSISTENTLY FOLLOWING COMMANDS. SBT INTIATED APPROXIMATELY AT 0445 WITH PRESSURE SUPPORT 7/5; TV >300; HOWEVER RESPIRATORY RATE MAINTAINED >35 FOR MOST OF THE TRIAL. PT WAS ABLE TO FOLLOW COMMANDS, BUT UNABLE TO SLOW RESP RATE AND INCREASE TIDAL VOLUMES CONSISTENTLY WHEN INSTRUCTED TO. SBT LASTED APPROXIMATELY 20 MINUTES. PT HAD MULTIPLE PERIODS OF RESTLESSNESS AND APPEARED UNCOMFORTABLE; FENTANYL 100MCG TOTAL WAS GIVEN T/O SBT, BUT IN 25MCG INTERVALS FOR AGITATION/RESTLESSNESS; APPEARED EFFECTIVE AT FIRST, BUT THEN PT WOULD START RESTLESSNESS AGAIN. ROM WAS PERFORMED, PT WAS REPOSITIONED, AND BILATERAL FEET WERE MASSAGED WITH LOTION TO ATTEMPT TO CALM PT AND MAKE HER MORE COMFORTABLE; AGAIN, EFFECTIVE FOR A SHORT TIME PERIOD, BUT THEN RESTLESSNESS AND RESP RATE WOULD INCREASE AGAIN. PT WAS ASKED TO NOD HEAD YES/NO TO QUESTIONS; UNABLE TO CONSISTENTLY NOD HEAD UNLESS VERBALLY DIRECTED TO DO SO. UNSURE IF TYPICAL BODY ACHES AND ANXIETY ARE BOTH CONTRIBUTING TO INCREASED RESP RATE >40'S. PT PLACED BACK ON PROPOFOL 35MCG AFTER TRIAL; RESP RATE STILL MAINTAINED >35; THEN INCREASED TO 45MCG; RESP RATE STILL MAINTAINED >35; TITRATED AGAIN TO 50MCG AND ANOTHER 50MCG OF FENTANYL ADMINISTERED; EFFECTIVE RESP RATE <35.
--- NOTE | 2018-06-24 06:25 | NUR ---
END OF SHIFT SUMMARY VENT SETTINGS: AC 18; TV 350; PEEP 5; FIO2 40%. SEDATION REMAINS WITH PRECEDEX AT 0.7MCG AND PROPOFOL AT 50MCG; ATTEMTED DECREASING PROPOFOL TO 35MCG AFTER SBT; HOWEVER, PT RESP RATE MAINTAINED IN THE 40'S; THEREFORE, PROPOFOL IS AT 50MCG CURRENTLY WITH RESP RATE MAINTAINING IN THE 30'S. TF, PIVOT 1.5, CONTINUOUSLY INFUSING AT 45MLS/HR WITH RESIDUALS 100-200CC; REINSTILLED T/O SHIFT. TODD CATH IS PATENT AND DRAINING TO GRAVITY; CLEAR, YELLOW URINE. RECTAL TUBE IS PATENT AND DRAINING TO GRAVITY. SEE SBT NOTE REGARDING SEDATION VACATION. PT APPEARS COMFORTABLE AT THIS TIME.
--- NOTE | 2018-06-24 08:38 | NUR ---
CARE ASSUMED CARE AND REPORT ASSUMED FROM SUDHA YOUNG. PT INTUBATED AND SEDATED. VENT AC 18, TV 350, PEEP 5, FIO2 40%. LUNG SOUNDS CLEAR AT THIS TIME. NO S/S PAIN CURRENTLY. NSR 80S AND BP STABLE. AFEBRILE. PT TURNED, HOB ELEVATED, AND ROM EXERCISES PERFORMED IN ALL EXTREMITIES. PRECEDEX GTT INFUSING AT 0.7 MCG/KG/HR. PROPOFOL GTT INFUSING AT 50 MCG/KG/MIN. BUE RESTRAINED. RECTAL TUBE SECURED AND PATENT. TODD CATH SECURED AND PATENT. TF AT GOAL RATE, 45 ML/HR. RESIDUAL 250 CC; WILL MONITOR CLOSELY. WILL CONTINUE TO MONITOR PT.
--- NOTE | 2018-06-24 12:12 | NUR ---
REASSESSMENT PT SAT IN CHAIR POSITION FOR 2 HOURS AND SEDATION WAS OFF FOR APPROX 90 MINUTES WHILE WAS BEDSIDE. PT WAS QUITE ALERT, TRACKING AROUND ROOM, FOLLOWING COMMANDS, AND EVEN ATTEMPTING TO TALK OVER ETT AND PULLING AGAINST RESTRAINTS. PROPOFOL AND PRECEDEX GTT NOW BACK ON AND PT TURNED ONTO L SIDE. VENT REMAINS ON AC MODE. VSS. NSR 90S AND BP STABLE. DISCUSSED TF WITH POLYSOMNOGRAPHIC TECHNICIAN AND RATE CHANGED TO 35 ML/HR. ATIVAN PO CRUSHED AND GIVEN DOWN OGT PER MD PETERSON. REMAINS IN BUE RESTRAINTS. WILL CONTINUE TO MONITOR.
--- NOTE | 2018-06-24 15:42 | NUR ---
Visit to pt in ICU #4. , Marci at bedside. Pt awake, alert, tracking and nodding when I introduce myself. Marci is very excited about changes and improvements for past 5 days. She stated Ladan is starting to get more agitated and anxious. She remains vented with og tube feedings and medical economics consultant. She is getting sedation vacations and vent weaning attempts. Spoke with RN and passed on Marci's request for sedation to be resumed. Discussed care and status with Dr and Design Leader. Pt will need extensive physical rehab and etoh rehab after she leaves ICU and hospital. Will remain available for s/s mangement support and advanced care planning as indicated.
--- NOTE | 2018-06-24 16:22 | NUR ---
REASSESSMENT PT REMAINS SITTING UP IN CHAIR POSITION IN BED. BUE RESTRAINED. SEDATED ON PROPOFOL AND PRECEDEX. VSS. NSR 70S. TOLERATING TF AT 35 ML/HR WITH 220 ML RESIDUAL. WILL CONTINUE TO MONITOR.
--- NOTE | 2018-06-24 16:45 | NUR ---
ASSUMED CARE OF PT PT SEDATED ON PROPOFOL 45 MCG/KG/MIN WITH PRECEDEX 0.7 MCG/KG/MIN. VENT SETTINGS AC 18/350/5/35%/ PIVOT 1.5 TF RUNNING AT GOAL RATE OF 35 ML/HR WITH Q4 30 ML FLUSH. RECTAL TUBE AND TODD PATENT AND DRAINING. SEE FULL SHIFT ASSESSMENT.
--- NOTE | 2018-06-24 17:56 | NUR ---
SHIFT SUMMARY PT AWAKE FOR APPROX 90 MINUTES TODAY WHILE WAS AT BEDSIDE. PT ABLE TO FOLLOW COMMANDS, WAS TRACKING AROUND ROOM, BUT DID BECOME ANXIOUS. VSS ENTIRE SHIFT. FENTANYL IVP GIVEN NEEDED FOR S/S PAIN. REMAINS IN BUE. BED IN CHAIR POSITION FOR MULTIPLE HOURS TODAY. REMAINS ON AC MODE WITH PROPOFOL GTT AT 45 MCG/KG/MIN AND PRECEDEX GTT AT 0.7 MCG/KG/HR. WILL GIVE BEDSIDE, HANDOFF REPORT TO NOC RN.
[2018-06-25 04:31] LABS: BASOPHILS ABSOLUTE AUTO 0.11 K/mm3 (0.00-0.23); BASOPHILS PERCENT AUTO 1 % (0-2); EOSINOPHILS ABSOLUTE AUTO 0.45 K/mm3 (0.00-0.68); EOSINOPHILS PERCENT AUTO 4 % (0-6); Hematocrit 24.2 % (33.0-51.0); Hemoglobin 7.6 g/dL (11.5-16.0); IMMATURE GRAN ABSOLUTE AUTO 0.56 K/mm3 (0.00-0.10); IMMATURE GRAN PERCENT AUTO 5 % (0-1); LYMPHOCYTES ABSOLUTE AUTO 1.58 K/mm3 (0.84-5.20); LYMPHOCYTES PERCENT AUTO 14 % (21-46); MONOCYTES ABSOLUTE AUTO 0.91 K/mm3 (0.16-1.47); MONOCYTES PERCENT AUTO 8 % (4-13); Mean Corpuscular HGB 32.2 pg (26.0-34.0); Mean Corpuscular HGB Conc 31.4 g/dL (31.5-36.5); Mean Corpuscular Volume 103 fL (80-100); Mean Platelet Volume 11.2 fL (9.1-12.4); NEUTROPHILS ABSOLUTE AUTO 8.09 K/mm3 (1.96-9.15); NEUTROPHILS PERCENT AUTO 69 % (41-73); Platelet Count 539 K/mm3 (150-400); RDW Standard Deviation 56.1 fL (35.1-46.3); Red Blood Cell Count 2.36 M/mm3 (3.80-5.20)
[2018-06-25 04:48] LABS: Albumin, Blood 1.6 g/dL (3.4-5.0); Anion Gap 8 mmol/L (6-16); Blood Urea Nitrogen 84 mg/dL (8-24); Bun/Creatinine Ratio 39.3 (12.0-20.0); CO2, Blood 25 mmol/L (21-32); Chloride, Blood 111 mmol/L (98-108); Creatinine, Blood 2.14 mg/dL (0.40-1.00); Glomerular Filtration Rate 25 (60-); Glucose, Blood 106 mg/dL (70-99); Phosphorus, Blood 4.9 mg/dL (2.5-4.9); Potassium, Blood 5.1 mmol/L (3.5-5.5); Sodium, Blood 144 mmol/L (136-145)
--- NOTE | 2018-06-25 06:29 | NUR ---
SHIFT SUMMARY PT SEDATED ON PROPOFOL 45MCG/KG/MIN. VENT SETTINGS AC 18/350/5/40%. PT'S VSS THROUGHOUT SHIFT. TODD AND RECTAL TUBE PATENT AND DRAINING. PT ABLE TO TRACK MOVEMENT/FOLLOW COMMANDS/NOD HEAD DURING SEDATION VACATION AND SBT. WILL REPORT TO DAYSHIFT NURSE.
--- NOTE | 2018-06-25 08:00 | NUR ---
INITIAL ASSESSMENT PATIENT RESTING QUIETLY IN BED UPON ENTERING ROOM. PATIENT INTUBATED AND SEDATED. PATIENT RESPONDS TO VERBAL STIMULI BY OPENING EYES. PATIENT LOCALIZING MOVEMENTS. PATIENT WEAK. PATIENT AFEBRILE. NO SIGNS OF PAIN OR DISCOMFORT AT THIS TIME. PATIENT SATTING WELL ON VENT SETTINGS OF AC 18, TV 350, PEEP 5, 40% FIO2. LUNGS ARE COARSE THROUGHOUT, DIMINISHED IN LOWER LOBES. SCANT AMOUNT OF THIN, CLEAR SPUTUM SUCTIONED FROM ETT. PATIENT IN SR, HR IN THE 70S. BP STABLE. PULSES STRONG. TRACE EDEMA NOTED IN BLES. 1+ EDEMA NOTED IN BUES. OG IN PLACE. PIVOT 1.5 INFUSING AT GOAL RATE OF 35 MLS/ HOUR WITH 30 ML H20 FLUSH Q4H. RESIDUAL OF 175 ML OBTAINED AND REINSTILLED. RECTAL TUBE IN PLACE, DRAINING SOFT/ LIQUID, BROWN BM. TODD DRAINING YELLOW URINE. SCATTERED BRUISING NOTED T/O BODY, MEDS BEING GIVEN FOR ORAL THRUSH. PROPOFOL INFUSING AT 45 MCG/ KG/ MINUTE, PRECEDEX INFUSING AT 0.7 MCG/ KG/ HOUR. BED LOW, CALL LIGHT IN REACH. WILL CONTINUE TO MONITOR PATIENT FREQUENTLY THROUGHOUT SHIFT.
--- NOTE | 2018-06-25 11:44 | NUR ---
PATIENT RESTING QUIETLY IN BED WITH NO SIGNS OF PAIN OR DISCOMFORT. VENT SETTINGS REMAIN THE SAME. PATIENT IN NSR, HR IN THE 70S. BP STABLE. ABDOMEN MILDLY DISTENDED, HYPERACTIVE BS NOTED. RESIDUAL OF 80 MLS OBTAINED AND REINSTILLED. NO OTHER CHANGES TO NOTE ON AT THIS TIME. SIGNIFICANT OTHER VISITED FOR A WHILE. BED LOW, CALL LIGHT IN REACH. WILL CONTINUE TO MONITOR.
--- NOTE | 2018-06-25 16:06 | NUR ---
PATIENT RESTING QUIETLY IN BED. PATIENT GIVEN PRN PAIN MEDICATION FOR OCCASIONAL FROWNING AND INCREASED RR. PATIENT REMAINS SATTING WELL ON SAME VENT SETTINGS. PT IN SR, HR IN THE 80S. BP STABLE. TF RESIDUAL OF 140 MLS OBTAINED AND REINSTILLED. NO OTHER CHANGES TO REPORT ON AT THIS TIME. WILL CONTINUE TO MONITOR.
--- NOTE | 2018-06-25 18:17 | NUR ---
SHIFT SUMMARY PATIENT REMAINED INTUBATED AND SEDATED THROUGHOUT SHIFT. PATIENT CONTINUED TO RESPOND TO VERBAL STIMULI AND LOCALIZE MOVEMENT. PATIENT GIVEN SCHEDULED ATIVAN TO HELP WITH AGITATION. PATIENT ALSO GIVEN PRN PAIN MEDICATION. PATIENT REMAINED AFEBRILE. PATIENT REMAINED SATTING WELL ON AC 18, TV 350, PEEP 5, 40% FIO2. LUNGS REMAINED COARSE THROUGHOUT AND DIMINISHED IN LOWER LOBES. PATIENT HAD SCANT AMOUNT OF THIN, CLEAR SPUTUM SUCTIONED THROUGH ETT. PATIENT TACHYPNEIC AT TIMES. PATIENT REMAINED IN SR, HR 70S TO 80S. BP REMAINED STABLE. ABDOMEN MILDLY DISTENDED, SOFT, WITH HYPERACTIVE BS. PATIENT TOLERATING TF AT GOAL RATE OF 35 MLS/ HOUR WITH 30 ML H20 FLUSH Q4H. RESIDUALS 80 TO 175 MLS T/O DAY. RECTAL TUBE DRAINED 130 ML OF LOOSE, BROWN STOOL. TODD REMAINS DRAINING YELLOW URINE- GOOD OUTPUT NOTED. NO CHANGE TO SKIN. PROPOFOL REMAINS INFUSING AT 45 MCG/ KG/ MINUTE AND PRECEDEX AT 0.7 MCG/ KG/ HOUR. SIGNIFICANT OTHER IN THIS AM TO SEE PATIENT. NO OTHER CHANGES TO NOTE ON AT THIS TIME. NO SIGNS OF PAIN CURRENTLY. BED LOW, CALL LIGHT IN REACH. WILL CONTINUE TO MONITOR PATIENT FREQUENTLY UNTIL REPORT GIVEN TO ONCOMING TOOLROOM MACHINIST NURSE SHORTLY.
--- NOTE | 2018-06-25 19:15 | NUR ---
ASSUMED CARE BEDSIDE REPORT RECIEVED. PT IS SEDATED ON VENT. VENT SETTINGS AC 18, TV 350, PEEP 5, FIO2 40%. PICC TO SHAQ C/D/I WITH PROPOFOL AT 45 MCG/KG/MIN, AND PRECEDEX AT 0.7 MCG/KG/MIN. PT APPEARS COMFORTABLE AT THIS TIME. PT GRIMMACES TO ORAL CARE AND MOVES HEAD TO VERBAL STIMULI. VITAL SIGNS STABLE. OGT IN PLACE WITH TF AT 35 ML/HR GOAL RATE. TODD IN PLACE WITH CLEAR YELLOW OUTPUT NOTED. RECTAL TUBE IN PLACE WITH LIQUID BROWN OUTPUT NOTED. SBW RESTRAINTS IN PLACE. NO FAMILY IN ROOM. WILL CONTINUE TO MONITOR.
[2018-06-26 04:29] LABS: BASOPHILS ABSOLUTE AUTO 0.11 K/mm3 (0.00-0.23); BASOPHILS PERCENT AUTO 1 % (0-2); EOSINOPHILS ABSOLUTE AUTO 0.52 K/mm3 (0.00-0.68); EOSINOPHILS PERCENT AUTO 5 % (0-6); Hematocrit 24.5 % (33.0-51.0); Hemoglobin 7.6 g/dL (11.5-16.0); IMMATURE GRAN ABSOLUTE AUTO 0.59 K/mm3 (0.00-0.10); IMMATURE GRAN PERCENT AUTO 5 % (0-1); LYMPHOCYTES ABSOLUTE AUTO 1.53 K/mm3 (0.84-5.20); LYMPHOCYTES PERCENT AUTO 13 % (21-46); MONOCYTES ABSOLUTE AUTO 0.82 K/mm3 (0.16-1.47); MONOCYTES PERCENT AUTO 7 % (4-13); Mean Corpuscular HGB 32.8 pg (26.0-34.0); Mean Platelet Volume 11.2 fL (9.1-12.4); NEUTROPHILS ABSOLUTE AUTO 7.98 K/mm3 (1.96-9.15); NEUTROPHILS PERCENT AUTO 69 % (41-73); Platelet Count 634 K/mm3 (150-400); RDW Coefficient Variation 14.6 % (11.7-14.2); Red Blood Cell Count 2.32 M/mm3 (3.80-5.20); White Blood Cell Count 11.55 K/mm3 (4.00-11.30)
[2018-06-26 04:38] LABS: Mean Corpuscular Volume 106 fL (80-100)
[2018-06-26 04:53] LABS: BAND PERCENT MAN 1 % (0-8); BASOPHILS ABSOLUTE MAN 0.34 K/mm3 (0.00-0.23); BASOPHILS PERCENT MAN 3 % (0-2); EOSINOPHILS ABSOLUTE MAN 0.57 K/mm3 (0.00-0.68); EOSINOPHILS PERCENT MAN 5 % (0-6); LYMPHOCYTES ABSOLUTE MAN 1.03 K/mm3 (0.84-5.20); LYMPHOCYTES PERCENT MAN 9 % (21-46); MONOCYTES PERCENT MAN 7 % (4-13); MYELOCYTE ABSOLUTE MAN 0.11 K/mm3 (0.00-0.00); MYELOCYTE PERCENT MAN 1 % (0-0); NEUTROPHILS ABSOLUTE MAN 8.43 K/mm3 (1.96-9.15); PROMYELOCYTE ABSOLUTE MAN 0.23 K/mm3 (0.00-0.00); PROMYELOCYTE PERCENT MAN 2 % (0-0); SEG NEUTROPHILS PERCENT MAN 72 % (41-73); TOTAL CELLS COUNTED 100
[2018-06-26 05:15] LABS: Albumin, Blood 1.6 g/dL (3.4-5.0); Anion Gap 7 mmol/L (6-16); Blood Urea Nitrogen 92 mg/dL (8-24); Bun/Creatinine Ratio 43.2 (12.0-20.0); CO2, Blood 26 mmol/L (21-32); Calcium, Blood 10.2 mg/dL (8.5-10.1); Chloride, Blood 111 mmol/L (98-108); Creatinine, Blood 2.13 mg/dL (0.40-1.00); Glomerular Filtration Rate 25 (60-); Glucose, Blood 127 mg/dL (70-99); Phosphorus, Blood 5.2 mg/dL (2.5-4.9); Potassium, Blood 4.8 mmol/L (3.5-5.5); Sodium, Blood 144 mmol/L (136-145)
--- NOTE | 2018-06-26 05:54 | NUR ---
SHIFT SUMMARY NO ACUTE CHANGES THIS SHIFT. PT HAS REMAINED SEDATED ON VENTILATOR. VENT SETTINGS UNCHANGED. PRECEDEX REMAINS AT 0.7 MCG/KG/MIN AND PROPOFOL AT 45 MCG/KG/MIN. PT DID WELL DURING SBT THIS AM. PROPOFOL TURNED OFF AND PRECEDEX REDUCED TO 0.4 MCG/KG/MIN. PT ABLE TO OPEN EYES AND FOLLOW COMMANDS. PT NEEDED FREQUENT COACHING TO REDUCE RR. SEDATION RESUMED TO PREVIOUS SETTINGS AT THIS TIME. OGT REMAINS IN PLACE WITH TF AT 35 ML/HR GOAL RATE. LARGE RESIDUALS AT BEGINNING OF SHIFT, MINIMAL RESIDUALS THIS AM. TODD IN PLACE WITH GOOD OUTPUT. RECTAL TUBE REMAINS IN PLACE WITH LIQUID BROWN OUTPUT NOTED. SBW RESTRAINTS REMAIN IN PLACE. VITAL SIGNS HAVE REMAINED STABLE. WILL CONTINUE TO MONITOR AND REPORT OFF TO ONCOMING RN.
--- NOTE | 2018-06-26 09:08 | NUR ---
SEDATION TURNED OFF AT THIS TIME ATTEMPTING MORNING SEDATION VACATION FOR POSSIBLE EXTUBATION THIS AM. TUBE FEEDING PLACED ON HOLD. PRECEDEX GTT TITRATED TO 0.5MCG/KG/MIN
--- NOTE | 2018-06-26 09:09 | NUR ---
ASSUMED CARE PT. REMAINS SEDATED AND INBUTATED THIS AM. NO S/S OF DISTRESS NOTED. PT. CURRENTLY RESTING QUIETLY. BILAT WRIST RESTRAINTS IN PLACE FOR SAFETY. TUBE FEEDING RUNNING AT GOAL THROUGH OG TUBE AT 35ML/HR. RECTAL TUBE AND TODD IN PLACE, DRAINING TO GRAVITY. VSS THIS AM.
[2018-06-26 09:16] LABS: Percent Saturation 15.1 % (15.0-50.0)
--- NOTE | 2018-06-26 10:00 | NUR ---
Brief visit to pt in ICU 4. Pt awake and alert. Nods yes, when I ask her if she remembers me from visit yesterday. Pt's Resp Rate accelerated and RN coached her to slow breath down, which she was able to do. Update on current status obtained from RN and review of EMR. Cont. attempts to wean pt from vent planned for today. Will cont to follow for support as needed. No family present today but I was able to touch bases with them earlier in the week.
--- NOTE | 2018-06-26 10:45 | NUR ---
PT PLACED ON PRESSURE SUPPORT OF 5, WITH PEEP OF 5. TOLERATING WELL.
--- NOTE | 2018-06-26 12:11 | NUR ---
PT RESTARTED ON PREVIOUS AC VENT SETTINGS AND RESEDATED VIA PROPOFOL AT 45MCG/KG/MIN. PT. RR IN THE 30S-40S, BP ELVATED TO 160S SYSTOLIC AND HR INCREASED TO LOW 100S. PER DR. GORDON SWITCH PT BACK TO AC 18, TV 350, PEEP 5, 40%. PT ABLE TO ANSWER YES AND NO TO QUESTIONS BY SHAKING HEAD WHILE OFF OF SEDATION. ONEAL. PT PULLING AGAINST RESTRAINTS WHILE AWAKE.
--- NOTE | 2018-06-26 18:42 | NUR ---
SHIFT SUMMARY PT. REMAINS SEDATED AND INTUBATED. TOLERATED SEDATION VACATION WITH PS 5, PEEP 5 TODAY FOR APPROX 90MIN BEFORE BECOMING AGGITATED. NO ACUTE CHANGES T/O SHIFT. REPORT TO ONCOMING RN.
--- NOTE | 2018-06-27 00:52 | NUR ---
TITRATING PROPOFOL AND PRECEDEX DOWN. ORAL CARE FOLLOWED BY [facility]STAT[facility] SWAB. VSS.
[2018-06-27 04:44] LABS: Hematocrit 24.3 % (33.0-51.0); Hemoglobin 7.6 g/dL (11.5-16.0); Mean Corpuscular HGB 32.6 pg (26.0-34.0); Mean Corpuscular HGB Conc 31.3 g/dL (31.5-36.5); Mean Corpuscular Volume 104 fL (80-100); Mean Platelet Volume 10.8 fL (9.1-12.4); Platelet Count 656 K/mm3 (150-400); RDW Coefficient Variation 14.3 % (11.7-14.2); RDW Standard Deviation 54.4 fL (35.1-46.3); Red Blood Cell Count 2.33 M/mm3 (3.80-5.20); White Blood Cell Count 10.94 K/mm3 (4.00-11.30)
--- NOTE | 2018-06-27 04:54 | NUR ---
SEDATION OFF AT 0430. PT BECAME AGITATED PULLING AT RESTRAINTS. PRECEDEX RESTARTED AT 0.2 mcg/kg/hr.
[2018-06-27 05:04] LABS: Albumin, Blood 1.6 g/dL (3.4-5.0); Anion Gap 6 mmol/L (6-16); Blood Urea Nitrogen 87 mg/dL (8-24); Bun/Creatinine Ratio 43.7 (12.0-20.0); CO2, Blood 25 mmol/L (21-32); Calcium, Blood 10.4 mg/dL (8.5-10.1); Chloride, Blood 112 mmol/L (98-108); Creatinine, Blood 1.99 mg/dL (0.40-1.00); Glomerular Filtration Rate 27 (60-); Glucose, Blood 124 mg/dL (70-99); Magnesium, Blood 2.4 mg/dL (1.6-2.4); Phosphorus, Blood 4.7 mg/dL (2.5-4.9); Potassium, Blood 4.6 mmol/L (3.5-5.5); Sodium, Blood 143 mmol/L (136-145)
[2018-06-27 05:44] LABS: BASOPHILS PERCENT MAN 1 % (0-2); EOSINOPHILS ABSOLUTE MAN 0.43 K/mm3 (0.00-0.68); EOSINOPHILS PERCENT MAN 4 % (0-6); LYMPHOCYTES ABSOLUTE MAN 0.87 K/mm3 (0.84-5.20); LYMPHOCYTES PERCENT MAN 8 % (21-46); METAMYELOCYTE ABSOLUTE MAN 0.21 K/mm3 (0.00-0.00); METAMYELOCYTE PERCENT MAN 2 % (0-0); MONOCYTES ABSOLUTE MAN 0.76 K/mm3 (0.16-1.47); MONOCYTES PERCENT MAN 7 % (4-13); MYELOCYTE PERCENT MAN 1 % (0-0); NEUTROPHILS ABSOLUTE MAN 8.42 K/mm3 (1.96-9.15); SEG NEUTROPHILS PERCENT MAN 77 % (41-73); TOTAL CELLS COUNTED 100
--- NOTE | 2018-06-27 05:44 | NUR ---
BREATHING TRIAL FINISHED AT 0515. PT WAS AGITATED T/O TRIAL. PROPOFOL AND PRECEDEX TITRATED FOR PT COMFORT. VSS. CURRENTLY PRECEDEX 0.7mcg/kg/hr AND PROPOFOL AT 45mcg/kg/min. WILL CONTINUE TO MONITOR AND REDUCE IF TOLERATED BY PT.
--- NOTE | 2018-06-27 08:00 | NUR ---
ASSUMED CARE PT. REMAINS SEDATED AND INTUBATED AT THIS TIME. NO ACUTE CHANGES OVERNIGHT PER FAMILY MEDICINE RESIDENT RN. PT. CONTINUES ON PROPOFOL AT 40MCG/KG/MIN AND PRECEDEX AT 0.5MCG/KG/MIN. PT. HAS TUBE FEED INFUSING AT GOAL OF 35ML/HR WITH Q4H FLUSH OF 30ML. PT VSS THIS AM. RECTAL TUBE AND TODD DRAINING TO GRAVITY.
--- NOTE | 2018-06-27 08:30 | NUR ---
UPDATE PT. REPOSITIONED IN BED, RECTAL TUBE REPLACED AT THIS TIME. PT. PROPOFOL PLACED ON STAND BY AT THIS TIME FOR SEDATION VACATION. DR. PETERSON AT BEDSIDE TO ASSESS PT. PLANS FOR SEDATION VACATION WITH GOAL OF EXTUBATION TODAY. PT. VSS AT THIS TIME.
--- NOTE | 2018-06-27 10:04 | NUR ---
[facility] CALLED PER FAMILY REQUEST WITH QUESTIONS REGARDING POA.
--- NOTE | 2018-06-27 10:29 | NUR ---
EXTUBATION PT ALERT AND FOLLOWING COMMANDS. EXTUBATED PER DR. PETERSON. PT. PLACED ON 4LNC. PT. RR IN THE HIGH 30S-40S AND RESTLESS IN BED, FACIAL GRIMACE AND BRACING. PT HAS STRONG COUGH AND COUGHS TO COMMAND HOWEVER RR REMAINS ELEVATED. SPO2 96% ON 4LNC. PT PLACED ON BIPAP DUE TO WOB WITH SETTINGS OF 12/6, 30%. PT. TOLERATING WELL. BILAT WRIST RESTRAINTS REMOVED AT TIME OF EXTUBATION, PT ONEAL. PT. MED FOR PAIN PER DR. VIDAL; POST PAIN MEAT COOLER PT CALMED IN BED, LESS RESTLESS AND RR DECREASED TO LOW 30S. REMAINS ON PRECEDEX GTT AT THIS TIME.
--- NOTE | 2018-06-27 12:47 | NUR ---
UPDATE PT. REMAINS ON BIPAP AT THIS TIME, 05/16, 35%. PT. RR REMAINS IN THE 30S, BECOMES RESTLESS AND AGGITATED IN BED AT TIMES. PT ANSWERING SOME QUESTIONS AND FOLLOWING SIMPLE COMMANDS. PT. PUT ON 4LNC FOR BREAKS FOR ORAL CARE. DISCUSSED WITH DR. PETERSON REGARDING RR. PER DR. PETERSON CONTINUE TO MEDICATE FOR PAIN AND PRECEDEX GTT CAN BE INCREASED TO 1.4 MCG/KG/MIN.
--- NOTE | 2018-06-27 15:06 | NUR ---
DR. PETERSON AT BEDSIDE PT. BP REMAINS ELVATED. PT. LESS RESPONSIVE AT THIS TIME, ONLY OPENING EYES TO PAINFUL STIMULI. RR REMAINS IN THE HIGH 30S, ACCESSORY MUSCLE USE. ABG DONE AT THIS TIME. ATTEMPT TO CALL [facility] (PT ). PRECEDEX PLACED ON SB AT THIS TIME.
--- NOTE | 2018-06-27 15:20 | NUR ---
INTUBATION ABG RESULTS OBTAINED WITH CRITICAL PH. DR. PETERSON AT BEDSIDE. PT. WAS BAGGED AND 8MG OF VERSED GIVEN PER DR. VIDAL WELL 50MG OF PROPOFOL GIVEN. PT INTUBATED BY DR. PETERSON WITH ETT 7.5, 23 AT THE TEETH. POSITIVE COLOR CHANGE AND BILAT BREATH SOUNDS NOTED. PT. VSS T/O PROCEDURE. PT. RESTARTED ON PROPOFOL GTT PER DR. PETERSON AT 30MCG/KG/MIN. OG TUBE PLACED PER DR. VIDAL. CHEST XRAY OBTAINED TO COMFIRM PLACEMENT. VENT SETTINGS OF AC 18, TV 350, 55%, PEEP 8. PT VSS AT THIS TIME.
--- NOTE | 2018-06-27 15:25 | NUR ---
pt family notified by nichole nevarez. pt intubated. will follow up with family after plan presented.
[2018-06-27 16:43] LABS: PCO2 Arterial 46.3 mmHg (35-45); PO2 Arterial 90.3 mmHg (80-100); pH Blood Arterial 7.33 (7.35-7.45)
--- NOTE | 2018-06-27 18:14 | NUR ---
SHIFT SUMMARY PT WAS EXTUBATED THEN RE INTUBATED THIS SHIFT. SEE NN FOR DETAILS. PT. CURRENTLY SEDATED WITH 45MCG/KG/MIN OF PROPOFOL. VENT SETTINGS OF AC 18,350,45%,PEEP 8. NEW OG TUBE PLACED THIS SHIFT. VSS AT THIS TIME. OTDD AND RECTAL TUBE DRAINING TO GRAVITY. REPORT TO ONCOMING RN.
--- NOTE | 2018-06-28 04:35 | NUR ---
SEDATION OFF AT 0430
[2018-06-28 04:36] LABS: BASOPHILS ABSOLUTE AUTO 0.14 K/mm3 (0.00-0.23); BASOPHILS PERCENT AUTO 1 % (0-2); EOSINOPHILS ABSOLUTE AUTO 0.38 K/mm3 (0.00-0.68); EOSINOPHILS PERCENT AUTO 3 % (0-6); Hemoglobin 8.2 g/dL (11.5-16.0); IMMATURE GRAN ABSOLUTE AUTO 0.57 K/mm3 (0.00-0.10); IMMATURE GRAN PERCENT AUTO 5 % (0-1); LYMPHOCYTES ABSOLUTE AUTO 1.51 K/mm3 (0.84-5.20); LYMPHOCYTES PERCENT AUTO 12 % (21-46); MONOCYTES ABSOLUTE AUTO 0.88 K/mm3 (0.16-1.47); MONOCYTES PERCENT AUTO 7 % (4-13); Mean Corpuscular HGB 32.8 pg (26.0-34.0); Mean Corpuscular HGB Conc 31.5 g/dL (31.5-36.5); Mean Corpuscular Volume 104 fL (80-100); Mean Platelet Volume 10.6 fL (9.1-12.4); NEUTROPHILS ABSOLUTE AUTO 8.79 K/mm3 (1.96-9.15); NEUTROPHILS PERCENT AUTO 72 % (41-73); Platelet Count 729 K/mm3 (150-400); RDW Coefficient Variation 13.8 % (11.7-14.2); RDW Standard Deviation 53.1 fL (35.1-46.3); White Blood Cell Count 12.27 K/mm3 (4.00-11.30)
[2018-06-28 04:55] LABS: Albumin, Blood 1.8 g/dL (3.4-5.0); Anion Gap 10 mmol/L (6-16); Blood Urea Nitrogen 87 mg/dL (8-24); Bun/Creatinine Ratio 45.5 (12.0-20.0); CO2, Blood 23 mmol/L (21-32); Calcium, Blood 10.8 mg/dL (8.5-10.1); Chloride, Blood 115 mmol/L (98-108); Creatinine, Blood 1.91 mg/dL (0.40-1.00); Glomerular Filtration Rate 28 (60-); Glucose, Blood 89 mg/dL (70-99); Phosphorus, Blood 4.6 mg/dL (2.5-4.9); Potassium, Blood 4.3 mmol/L (3.5-5.5); Sodium, Blood 148 mmol/L (136-145)
--- NOTE | 2018-06-28 07:36 | NUR ---
Received report and assumed care of patient. She is intubated and sedated at this time. Propofol at 30, Precedex at 0.4. Vent settings at AC: 18/350/8/35%. Ramirez and Rectal tubes are patent and draining to gravity. Plan to meet with significant other and palliative care staff to discuss regional intermodal truck driver options and possible trach placement.
--- NOTE | 2018-06-28 14:00 | NUR ---
PT'S SIGNIFICANT OTHER AT BEDSIDE. TALKING TO DR. PETERSON REGARDING PLANS OF TRACHEOSTOMY AND PEG PLACEMENT.
--- NOTE | 2018-06-28 16:00 | NUR ---
PT OPENING EYES SPONTANEOUSLY, WENT TO BEDSIDE AND SPOKE TO HER, SHE OPENS EYES AND FOLLOWED SIMPLE INSTRUCTIONS SQUEEZED HAND AND BLINKED ON COMMAND.
--- NOTE | 2018-06-28 17:20 | NUR ---
TUBE FEEDS HAVE BEEN RESUMED AND SET UP PER ORDER. PIVOT 1.5 AT 25 ML/HOUR WITH 30 ML FLUSHES Q4. WILL GIVE INFORMATION TO NOC NURSE TO BE INCREASED TO GOAL OF 35 ML/HOUR AT 0145 ON 06/29.
--- NOTE | 2018-06-28 18:07 | NUR ---
brief meeting with spouse and nursing to review plan of care for patient my need vibra and trach and peg. supportive care given to family.
--- NOTE | 2018-06-28 18:22 | NUR ---
PT CONTINUES TO BE INTUBATED AND SEDATED THROUGHOUT THE SHIFT. PROPOFOL RUNNING AT 30 MCG/KG/HOUR AND PRECEDEX AT 0.4 MCG/KG/HOUR. VENT SETTINGS HAVE STAYED THE SAME TODAY AC: 18/350/8/35%. ALBINA AND A FRIEND CAME TODAY TO VISIT WITH DR. PETERSON AND GET AN UPDATE ON HER CONDITION AND THE PLAN TO PLACE A TRACH AND PEG TUBE ON SUNDAY. RECTAL AND TODD TUBES ARE PATENT AND DRAINING TO GRAVITY. RECTAL TUBE IRRIGATED TODAY FOR PATENCY, 300 ML OF WARM WATER CLEARED TUBE FOR INCREASED FLOW. WILL CONTINUE TO MONITOR AND GIVE REPORT TO NOC RN.
--- NOTE | 2018-06-28 19:45 | NUR ---
ASSUMED CARE REPORT RECIEVED. PT RESTING QUIETLY, SEDATED, ON VENT. VENT AC 18, TV 350, PEEP 8, FIO2 35%. PICC LINE TO SHAQ C/D/I WITH PROPOFOL AT 30 MCG/KG/MIN AND PRECEDEX AT 0.4 MCG/KG/MIN. PT INTERMITENTLY RESPONDS TO VERBAL STIMULI AND FOLLOWS COMMANDS. PT GRIMMACES AND SHAKES HEAD WITH ORAL CARE. PT APPEARS COMFORTABLE OTHERWISE. SBW RESTRAINTS IN PLACE. OGT IN PLACE WITH TF AT 25 ML/HR. WILL INCREASE TO GOAL RATE TOLERATED. TODD IN PLACE WITH YELLOW OUTPUT NOTED. RECTAL TUBE IN PLACE WITH BROWN LIQUID OUTPUT. NO FAMILY AT BEDSIDE. WILL CONTINUE TO MONITOR.
[2018-06-29 04:13] LABS: BASOPHILS ABSOLUTE AUTO 0.18 K/mm3 (0.00-0.23); BASOPHILS PERCENT AUTO 2 % (0-2); EOSINOPHILS ABSOLUTE AUTO 0.78 K/mm3 (0.00-0.68); EOSINOPHILS PERCENT AUTO 8 % (0-6); Hemoglobin 8.4 g/dL (11.5-16.0); IMMATURE GRAN PERCENT AUTO 4 % (0-1); LYMPHOCYTES PERCENT AUTO 16 % (21-46); MONOCYTES ABSOLUTE AUTO 0.79 K/mm3 (0.16-1.47); MONOCYTES PERCENT AUTO 8 % (4-13); Mean Corpuscular HGB 32.8 pg (26.0-34.0); Mean Corpuscular HGB Conc 31.1 g/dL (31.5-36.5); Mean Corpuscular Volume 106 fL (80-100); Mean Platelet Volume 10.3 fL (9.1-12.4); NEUTROPHILS PERCENT AUTO 63 % (41-73); Platelet Count 695 K/mm3 (150-400); RDW Coefficient Variation 13.9 % (11.7-14.2); Red Blood Cell Count 2.56 M/mm3 (3.80-5.20); White Blood Cell Count 10.15 K/mm3 (4.00-11.30)
[2018-06-29 04:28] LABS: Albumin, Blood 1.9 g/dL (3.4-5.0); Anion Gap 9 mmol/L (6-16); Blood Urea Nitrogen 86 mg/dL (8-24); CO2, Blood 25 mmol/L (21-32); Calcium, Blood 10.8 mg/dL (8.5-10.1); Chloride, Blood 115 mmol/L (98-108); Creatinine, Blood 1.79 mg/dL (0.40-1.00); Glomerular Filtration Rate 31 (60-); Glucose, Blood 109 mg/dL (70-99); Sodium, Blood 149 mmol/L (136-145)
--- NOTE | 2018-06-29 05:43 | NUR ---
SHIFT SUMMARY NO ACUTE CHANGES THIS SHIFT. PT REMAINS SEDATED ON VENT. VENT SETTINGS AC 18, TV 350, PEEP 8, AND FIO2 30%. VITAL SIGNS HAVE REMAINED STABLE. PT IS ABLE TO SQUEEZE HANDS UPON COMMAND. PROPOFOL INFUSING AT 40 MCG/KG/MIN, AND PRECEDEX AT 0.6 MCG/KG/HR. PICC TO SHAQ C/D/I. OGT IN PLACE WITH TF AT 35 ML/HR GOAL RATE. TODD REMAINS IN PLACE WITH GOOD URINE OUTPUT. RECTAL TUBE REMAINS IN PLACE WITH LIQUID BROWN OUTPUT NOTED. SBW RESTRAINTS REMAIN IN PLACE. WILL CONTINUE TO MONITOR AND REPORT OFF TO ONCOMING RN.
--- NOTE | 2018-06-29 07:20 | NUR ---
ASSUMED CARE OF PATIENT; SEE ASSESSMENT CHARTING FOR DETAILS. PATIENT REMAINS INTUBATED AND ON SEDATIVE MEDS: PROPOFOL AT 40MCG/KG/MIN AND PRECEDEX AT 0.6MCG/KG/MIN.; PATIENT OPENS EYES TO TACTILE/PAINFUL STIMULI; AND WITH LOUD VOICE PATIENT WILL SOMETIMES TWITCH FINGERS; NO SPONT. MOVEMENTS NOTED. VENT. SETTINGS: A/C 18, TV 350, PEEP 8 AND FIO2 30% WITH BIOX. OF 100%. REMAINS WITH COARSE BREATH SOUNDS T/O BUT MINIMAL SECRETIONS WHEN ET SUCTIONED. GAG AND COUGH REFLEX NOTED WHEN ORAL CARE AND SUCTIONING DONE. TODD DRAINING MOD. AMOUNTS OF MED. YELLOW URINE. FLEXISEAL (RECTAL TUBE) DRAINING LIQUID BROWN FLUID; ACTIVE BOWEL TONES. OGT INFUSING WITH PIVOT 1.5 AT 35ML/HR; RESIDUAL 200ML (COLOR OF TUBE FEEDING). PO MEDS. GIVEN AND FLUSHED WITH WATER. WILL INFORM PHYSICIAN RE: RESIDUAL CONCERN. TENTATIVE PLAN IS FOR PATIENT TO HAVE TRACH. AND PEG TUBE PLACED ON SUNDAY BUT D/T HOLIDAY ON SUNDAY PROCEDURES MAY BE DEFERRED TIL ?SUNDAY.
--- NOTE | 2018-06-29 08:15 | NUR ---
DR. MERCHANT (HOSPITALIST) HERE; NO NEW ORDERS.
--- NOTE | 2018-06-29 08:30 | NUR ---
DR. PETERSON (NONPROFIT FUNDRAISER) HERE; SEE ORDERS. WANTS SBT'S DONE DAILY, EVEN IF PEEP SETTING IS AT 8; WANTS TRIAL DONE TODAY.
--- NOTE | 2018-06-29 09:38 | NUR ---
PROPOFOL AND PRECEDEX DRIPS PLACED ON STANDBY AND THEN PATIENTS' VENT. PLACED ON P/S SETTINGS.
--- NOTE | 2018-06-29 10:10 | NUR ---
SBT COMPLETED (DONE FOR 30/MIN); BP MAINTAINED STABLE; RR WENT FROM TEENS TO MID/HIGH 20'S AND HR WENT FROM 69 TO MID 80'S; TOLERATED WELL. ABLE TO FOLLOW COMMANDS WHEN SEDATIN HELD; WIGGLED TOES, SQUEEZED RN'S FINGERS, EYES TRACKED PER COMMAND, ETC. NODDED YES/NO APPROPRIATELY TO SPECIFIC QUESTIONS. SEDATION RESUMED AND PATIENT PLACED BACK ON A/C VENT SETTINGS PER PREVIOUS.
--- NOTE | 2018-06-29 11:00 | NUR ---
REGLAN 10MG IV GIVEN RECENTLY, PER ORDER OF DR. PETERSON; ABD. SOFT, ETC.; HOPEFUL REGLAN WILL ENCOURAGE MOTILITY.
--- NOTE | 2018-06-29 12:30 | NUR ---
RESIDUAL 195ML AT THIS TIME; NO CHANGES MADE ON RATE ETC; RETURNED ALL OF RESIDUAL. SEE ORDERS RE: RESIDUALS 250 OR >.
--- NOTE | 2018-06-29 18:01 | NUR ---
SUMMARY: NO ACUTE CHANGES; SEDATION TURNED DOWN SLIGHTLY OVER THE PAST 2 HOURS. SBP 90'S TO LOW 100'S THIS AFTERNOON. AFEBRILE; FEELS WARMER THAN TEMP. READS. D5W INFUSING AT 75/HR; PROPOFOL GTT AT 30MCG/KG/MIN AND PRECEDEX GTT AT 0.6 MCG/KG/MIN. VENT. SETTINGS UNCHANGED. 100CC OF LIQUID STOOL FROM RECTAL TUBE. RESIDUALS T/O DAY WERE 200ML/195ML/AND 250ML AT 1600; 1/2 OF RESIDUAL OUTPUT RETURNED TO PATIENT AND THE OTHER HALF (125ML) EMPTIED OUT. RATE OF FEEDING CUT BACK TO 20ML/HR FROM 35ML/HR.; SEE MIXER LEVER OPERATOR ORDERS RE: RESIDUAL AMOUNTS ETC.
--- NOTE | 2018-06-29 20:38 | NUR ---
PT INTUBATED AND SEDATED WITH PROPOFOL AND PRECEDEX. SEE FLOWSHEET. PT WILL TRY TO OPEN EYE'S TO VOICE AND TRYS TO MOUTH WORDS. PT HAD BEEN HAVING HIGH RESIDUALS FROM OG TUBE DURING DAY SHIFT. TF WAS BACKED TO 20ML/HR. WILL KEEP IT AT 20ML FOR NOW AND REASSESS IN 4HRS. NO SIGN OF DISTRESS. SEE ASSESSMENT.
[2018-06-30 04:21] LABS: BASOPHILS PERCENT AUTO 2 % (0-2); EOSINOPHILS ABSOLUTE AUTO 0.98 K/mm3 (0.00-0.68); EOSINOPHILS PERCENT AUTO 8 % (0-6); Hematocrit 25.9 % (33.0-51.0); Hemoglobin 8.2 g/dL (11.5-16.0); IMMATURE GRAN ABSOLUTE AUTO 0.58 K/mm3 (0.00-0.10); IMMATURE GRAN PERCENT AUTO 5 % (0-1); LYMPHOCYTES ABSOLUTE AUTO 1.75 K/mm3 (0.84-5.20); LYMPHOCYTES PERCENT AUTO 15 % (21-46); MONOCYTES ABSOLUTE AUTO 0.87 K/mm3 (0.16-1.47); MONOCYTES PERCENT AUTO 7 % (4-13); Mean Corpuscular HGB 32.7 pg (26.0-34.0); Mean Corpuscular HGB Conc 31.7 g/dL (31.5-36.5); Mean Platelet Volume 10.2 fL (9.1-12.4); NEUTROPHILS PERCENT AUTO 63 % (41-73); NRBC ABSOLUTE 0.02 K/mm3 (0.00-0.02); NRBC Auto 0.2 /100 WBC (0.0-0.2); Platelet Count 637 K/mm3 (150-400); RDW Coefficient Variation 13.5 % (11.7-14.2); RDW Standard Deviation 51.8 fL (35.1-46.3); Red Blood Cell Count 2.51 M/mm3 (3.80-5.20); White Blood Cell Count 11.68 K/mm3 (4.00-11.30)
[2018-06-30 04:23] LABS: Mean Corpuscular Volume 103 fL (80-100)
[2018-06-30 04:42] LABS: Albumin, Blood 1.8 g/dL (3.4-5.0); Anion Gap 10 mmol/L (6-16); Blood Urea Nitrogen 83 mg/dL (8-24); Bun/Creatinine Ratio 53.5 (12.0-20.0); CO2, Blood 23 mmol/L (21-32); Calcium, Blood 10.1 mg/dL (8.5-10.1); Chloride, Blood 112 mmol/L (98-108); Creatinine, Blood 1.55 mg/dL (0.40-1.00); Glomerular Filtration Rate 36 (60-); Glucose, Blood 121 mg/dL (70-99); Phosphorus, Blood 4.5 mg/dL (2.5-4.9); Potassium, Blood 4.1 mmol/L (3.5-5.5); Sodium, Blood 145 mmol/L (136-145)
--- NOTE | 2018-06-30 06:04 | NUR ---
SUMMARY PT INTUBATED AND SEDATED WITH PROPOFOL AND PRECEDEX. DID SEDATION VACATION AND SBT THIS AM. PT WAS IRRITATED AND PULLING ON RESTRAINTS. DENIES PAIN JUST SEEMS IRRITATED WITH BEING RESTRAINED AND INTUBATED. PLACED BACK ON SEDATION. ABLE TO INCREASE TF TO 35ML DURING THE NIGHT. RESIDUALS DOWN TO 5ML AT 0400. NO OTHER CHANGES.
--- NOTE | 2018-06-30 07:30 | NUR ---
ASSUMED CARE OF PATIENT; SEE ASSESSMENT CHARTING FOR DETAILS. PATIENT REMAINS INTUBATED (ETT) WITH VENT SETTINGS: A/C 18, TV 350, PEEP 8 AND FIO2 30%; BIOX MAINTAINING > 97%. LUNGS LESS COARSE THAN YESTERDAY; SMALL AMOUNT OF SECRETIONS SUCTIONED. SEDATION IN PLACE WITH PROPOFOL GTT AT 35MCG/KG/MIN AND PRECEDEX GTT AT 0.6MCG/KG/MIN--GARRETT'S SCALE ABOUT 3. EYES OPEN INTERMITTENTLY TO VERBAL AND TACTILE STIMULI; CLOSE WHEN LEFT ALONE/QUIET. OGT INFUSING WITH PIVOT 1.5 AT 35ML/HR; RESIDUAL 20ML. RECTAL TUBE WITHOUT RECENT OUTPUT; BUT FLATUS "SMELLED". ABD. SOFT AND NON-TENDER TO PALPATION. TODD DRAINING MOD. AMOUNTS OF MED. YELLOW URINE. VSS/AFEBRILE; REMAINS NSR TO ST WITH ISOLATED ECTOPY.
--- NOTE | 2018-06-30 09:15 | NUR ---
DR. MERCHANT HERE; NO NOTED ORDERS.
--- NOTE | 2018-06-30 09:30 | NUR ---
PATIENTS' SPOUSE HERE; RN UPDATED HER ON STATUS AND THEN SPOUSE SAT QUIETLY FOR ABOUT AN HOUR.
--- NOTE | 2018-06-30 10:00 | NUR ---
DR. PETERSON HERE; SEE ORDERS.
--- NOTE | 2018-06-30 12:30 | NUR ---
RESIDUAL (OGT) 185ML; RN RETURNED ALL OF RESIDUAL TO PATIENT AND RESUMED FEEDING AT GOAL RATE, 35ML/HR.
--- NOTE | 2018-06-30 14:38 | NUR ---
NO ACUTE CHANGES; PRECEDEX AND PROPOFOL DRIPS REMAIN PER PREVIOUS SETTINGS.
--- NOTE | 2018-06-30 17:00 | NUR ---
RESIDUAL (OGT) 270ML; RN RETURNED 135ML TO PATIENT AND WASTED REMAINING RESIDUAL; TF RATE REDUCED TO 20ML/HR; UTILITIES AND MAINTENANCE SUPERVISOR TO RECHECK AT 1999.
--- NOTE | 2018-06-30 18:36 | NUR ---
SUMMARY: NO ACUTE CHANGES; OVERALL STATUS UNCHANGED. CONTINUES WITH ISSUES RELATED TO TF TOLERANCE; RESIDUAL WAS 20ML AT 0800 AND MOST RECENT RESIDUAL WAS 270ML. ABD. SOFT WITH ACTIVE BOWEL TONES HEARD. LUNGS CLEARER TODAY; SCANT TO NO SECRETIONS FROM ETT; VENT SETTINGS UNCHANGED. REMAINS ON PROPOFOL DRIP AT 35MCG/KG/MIN AND PRECEDEX DRIP OF 0.6MCG/KG/HR.; RIKERS SCALE STAYING AROUND 3. U.O. 1250ML; NO NOTED DRAINAGE FROM RECTAL TUBE.
--- NOTE | 2018-06-30 20:20 | NUR ---
PT INTUBATED AND SEDATED WITH PROPOFOL AND PRECEDEX SEE FLOWSHEET. PT WILL OPEN EYE'S TO VERBAL, PULLS ON WRIST RESTRAINTS, AND MOVES AWAY FROM NOXIOUS STIMULUS. TF WAS SLOWED TO 20ML/HR DUE TO HIGH RESIDUALS DURING DAY SHIFT. RESIDUAL 150ML REFED TONIGHT. WILL KEEP TF AT 20ML/HR THEN REASSESS IN 4 HR. SEE ASSESSMENT. NO SIGN OF DISTRESS.
[2018-07-01 04:39] LABS: BASOPHILS ABSOLUTE AUTO 0.13 K/mm3 (0.00-0.23); BASOPHILS PERCENT AUTO 1 % (0-2); EOSINOPHILS ABSOLUTE AUTO 0.88 K/mm3 (0.00-0.68); EOSINOPHILS PERCENT AUTO 7 % (0-6); Hematocrit 25.9 % (33.0-51.0); Hemoglobin 8.4 g/dL (11.5-16.0); IMMATURE GRAN ABSOLUTE AUTO 0.65 K/mm3 (0.00-0.10); IMMATURE GRAN PERCENT AUTO 5 % (0-1); LYMPHOCYTES ABSOLUTE AUTO 1.73 K/mm3 (0.84-5.20); LYMPHOCYTES PERCENT AUTO 14 % (21-46); MONOCYTES ABSOLUTE AUTO 0.76 K/mm3 (0.16-1.47); MONOCYTES PERCENT AUTO 6 % (4-13); Mean Corpuscular HGB 32.4 pg (26.0-34.0); Mean Corpuscular HGB Conc 32.4 g/dL (31.5-36.5); Mean Platelet Volume 10.4 fL (9.1-12.4); NEUTROPHILS ABSOLUTE AUTO 8.05 K/mm3 (1.96-9.15); NEUTROPHILS PERCENT AUTO 66 % (41-73); Platelet Count 627 K/mm3 (150-400); RDW Coefficient Variation 13.4 % (11.7-14.2); RDW Standard Deviation 49.6 fL (35.1-46.3); Red Blood Cell Count 2.59 M/mm3 (3.80-5.20)
[2018-07-01 04:50] LABS: Mean Corpuscular Volume 100 fL (80-100)
[2018-07-01 04:53] LABS: Albumin, Blood 1.9 g/dL (3.4-5.0); Anion Gap 8 mmol/L (6-16); Blood Urea Nitrogen 71 mg/dL (8-24); CO2, Blood 24 mmol/L (21-32); Calcium, Blood 10.2 mg/dL (8.5-10.1); Chloride, Blood 109 mmol/L (98-108); Creatinine, Blood 1.45 mg/dL (0.40-1.00); Glomerular Filtration Rate 39 (60-); Glucose, Blood 114 mg/dL (70-99); Phosphorus, Blood 3.6 mg/dL (2.5-4.9); Potassium, Blood 4.1 mmol/L (3.5-5.5); Sodium, Blood 141 mmol/L (136-145)
--- NOTE | 2018-07-01 06:12 | NUR ---
SUMMARY PT INTUBATED AND SEDATED WITH PROPOFOL AND PRECEDEX. PT WILL OPEN EYE'S SPONTANEOUSLY. WOKE EASILY FOR SEDATION VACATION AND FOLLOWED COMMANDS DURING SBT. GETS IRRITABLE DURING SBT. HAS BEEN HAVING HIGH RESIDUALS FROM 150-200ML WITH TF AT 20ML/HR. NO OTHER CHANGES.
--- NOTE | 2018-07-01 13:47 | NUR ---
No family or friends present at time of visit. Ladan appears well cared-for. I will continue to attempt to meet with family i coming days.
--- NOTE | 2018-07-01 18:15 | NUR ---
PT REMAINS UP IN CHAIR ON CURRENT PS -12 SETTINGS AND RR IS 25-3O WITH TV'S 270-300. SATS REMAIN STABLE. PT REMAINS ON PRECEDEX GTT AT 0.5MCG AND PROPOFOL GTT AT 30MCG. PT CONT TO TOERATE T.F. AT 30ML AND RESUDUIALS HAVE BEEN 25, 75, 30 ON THIS SHIFT. PT CONT TO HAVE NO STOOL AFTER R.T. WAS REMOVED. THERE IS YET NO SCHEDULED TIME FOR TRACH OR PEG TUBES THAT ARE ORDERED. I/O IS NOTED.
--- NOTE | 2018-07-01 20:54 | NUR ---
ASSUMING CARE RECEIVED PT REPORT FROM HECTOR RODRIGUES. PT IS VENTED AT THIS TIME. AT THE TIME OF SHIFT REPORT PT IS ON PRESSURE SUPPORT OF 10. AT 1954 PT WAS CHANGED BACK TO AC FOR THE NIGHT. PT VENT SETTINGS AT THIS TIME ARE AC 16, TV 350, FIO2 25%, AND PEEP 8. PT IS MAINTAINING SPO2 IN THE MID 90'S AT THIS TIME. PT LUNG SOUNDS ARE COARSE AND DIMINISHED IN THE BASES. COARSNESS APPEARS TO CLEAR UP WITH SUCTIONING. PT IS ON PROPOFOL FOR SEDATION AT A RATE OF 30MCG/KG/MIN. PT IS ALSO RECEIVING PRECEDEX AT A RATE OF 0.5 MCG/KG/MR. PT IS AROUSABLE AND ABLE TO FOLLOW COMMANDS. PT IS CALM AND DOES NOT APPEAR TO BE IN ANY DISTRESS AT THIS TIME. PT HAS A TODD CATH IN PLACE THAT IS CURRENTLY PATENT AND DRAINING CLEAR YELLOW URINE. RECTAL TUBE WAS REMOVED ON PREVIOUS SHIFT PER REPORT. PT IS RECEIVING TUBE FEEDING OF PIVOT SOLUTION AT A RATE OF 30ML/HR. GOAL RATE OF 35ML/HR WILL MONITOR RESIDUALS AND INCREASE TO GOAL APPROPRIATE. PT BEDBATH WAS PERFORMED ON DAY SHIFT PER REPORT. PT TRANSFERED FROM CHAIR TO BED AT APPROX 0 AND LINENS CHANGED. ASSUMING CARE OF PT AT THE TIME OF SHIFT REPORT. WILL CONTINUE TO MONITOR PT.
[2018-07-02 03:25] LABS: BASOPHILS ABSOLUTE AUTO 0.14 K/mm3 (0.00-0.23); BASOPHILS PERCENT AUTO 1 % (0-2); EOSINOPHILS ABSOLUTE AUTO 0.68 K/mm3 (0.00-0.68); EOSINOPHILS PERCENT AUTO 5 % (0-6); Hemoglobin 8.5 g/dL (11.5-16.0); IMMATURE GRAN ABSOLUTE AUTO 0.71 K/mm3 (0.00-0.10); IMMATURE GRAN PERCENT AUTO 6 % (0-1); LYMPHOCYTES ABSOLUTE AUTO 1.67 K/mm3 (0.84-5.20); LYMPHOCYTES PERCENT AUTO 13 % (21-46); MONOCYTES ABSOLUTE AUTO 0.77 K/mm3 (0.16-1.47); MONOCYTES PERCENT AUTO 6 % (4-13); Mean Corpuscular HGB 32.1 pg (26.0-34.0); Mean Corpuscular HGB Conc 31.5 g/dL (31.5-36.5); Mean Corpuscular Volume 102 fL (80-100); Mean Platelet Volume 10.4 fL (9.1-12.4); NEUTROPHILS ABSOLUTE AUTO 8.96 K/mm3 (1.96-9.15); NEUTROPHILS PERCENT AUTO 69 % (41-73); Platelet Count 602 K/mm3 (150-400); RDW Coefficient Variation 13.7 % (11.7-14.2); RDW Standard Deviation 51.3 fL (35.1-46.3); Red Blood Cell Count 2.65 M/mm3 (3.80-5.20); White Blood Cell Count 12.93 K/mm3 (4.00-11.30)
[2018-07-02 03:27] LABS: Base Excess Venous -0.9 mmol/L; Bicarbonate Venous 23.7 mmol/L (24.0-30.0); PCO2 Venous 38.9 mmHg (38-42); PO2 Venous 135 mmHg (38-42)
[2018-07-02 03:42] LABS: BAND PERCENT MAN 1 % (0-8); BASOPHILS ABSOLUTE MAN 0.25 K/mm3 (0.00-0.23); BASOPHILS PERCENT MAN 2 % (0-2); EOSINOPHILS ABSOLUTE MAN 0.51 K/mm3 (0.00-0.68); EOSINOPHILS PERCENT MAN 4 % (0-6); LYMPHOCYTES ABSOLUTE MAN 1.55 K/mm3 (0.84-5.20); LYMPHOCYTES PERCENT MAN 12 % (21-46); METAMYELOCYTE ABSOLUTE MAN 0.51 K/mm3 (0.00-0.00); METAMYELOCYTE PERCENT MAN 4 % (0-0); MONOCYTES ABSOLUTE MAN 0.64 K/mm3 (0.16-1.47); MONOCYTES PERCENT MAN 5 % (4-13); NEUTROPHILS ABSOLUTE MAN 9.43 K/mm3 (1.96-9.15); SEG NEUTROPHILS PERCENT MAN 72 % (41-73); TOTAL CELLS COUNTED 100
[2018-07-02 03:43] LABS: Albumin, Blood 1.9 g/dL (3.4-5.0); Anion Gap 9 mmol/L (6-16); Blood Urea Nitrogen 66 mg/dL (8-24); Bun/Creatinine Ratio 47.5 (12.0-20.0); CO2, Blood 24 mmol/L (21-32); Calcium, Blood 10.2 mg/dL (8.5-10.1); Chloride, Blood 111 mmol/L (98-108); Creatinine, Blood 1.39 mg/dL (0.40-1.00); Glomerular Filtration Rate 41 (60-); Glucose, Blood 120 mg/dL (70-99); Phosphorus, Blood 3.4 mg/dL (2.5-4.9); Potassium, Blood 4.1 mmol/L (3.5-5.5); Sodium, Blood 144 mmol/L (136-145)
--- NOTE | 2018-07-02 05:48 | NUR ---
SHIFT SUMMARY NOTE PT HAS REMAINED VENTED THROUGH THE NIGHT. AFTER CHANGING VENT OVER TO AC AT APPROX 1955 PT VENT SETTINGS HAVE REMAINED UNCHANGED. PT REMAINS EASILY AROUSABLE AND IS ABLE TO FOLLOW COMMANDS. PT REMAINS ON PROPOFOL AT 30MCG/KG/MIN. PT CONTINUES ON PRECEDEX AT 0.5MCG/KG/HR. PT HAS APPEARED TO REMAINED COMFORTABLE AND EASILY AROUSABLE AT CURRENT GTT RATES AND CHANGES WERE NOT MADE TO GTT RATES THROUGH THE NIGHT. PT CONTINUES TO HAVE TODD CATH IN PLACE AT THIS TIME. TODD IS CURRENTLY PATENT AND DRAINING CLEAR YELLOW URINE TO GRAVITY. PT REMAINS ON TUBE FEEDING. TUBE FEEDING RATE WAS INCREASED TO 35ML/HR. PT HAS HAD APPROX 50ML OF RESIDUALS. PT VITALS HAVE REMAINED STABLE THROUGH THE NIGHT. WILL REPORT OFF TO [facility] DAY SHIFT NURSE.
--- NOTE | 2018-07-02 08:19 | NUR ---
PT IS RESTNG WELL ON PS 10/5 PEEP WITH TV 320-370 AND RR 28-32. PT IS AWAKE AND FOLLOWING COMMANDS, SOMEWHAT TEARFUL, SED REMAINS UNCHANGED FOR NOW DUE TO SEVERE HX OF ANXIETY. RESIDUAL 80 NOW. NO STOOLING NOTED AT THIS TIME.
--- NOTE | 2018-07-02 11:17 | NUR ---
DR SUTHERLAND HAS BEEN IN ROOM AND EXPLAINING TRACH PROCEDURE TO S.O. PT CONT. TO TOLERATE PROPOFOL AT 20MCG AND PRECEDEX AT 0.5MCG.
--- NOTE | 2018-07-02 12:10 | NUR ---
PT RETURNED TO AC 18,350,25%,5 PEEP. PT HR, RR AND AGITAION LEVELS WERE RISING. PLAN TO REST AND THEN GET PT UP TO CHAIR FOR PS TRIAL. CONT TO TOLERATE T.F. AT GOAL RATE.
--- NOTE | 2018-07-02 17:12 | NUR ---
[address] UP IN CHAIR WITH CEILING LIFT. TOLERATING CHAIR AND WILL GIVE TIME TO RELAX BEFORE FURTHER CHANGES. VS HAVE BEEN STABLE AND RR 24-28 AT THIS TIME.
--- NOTE | 2018-07-02 17:41 | NUR ---
PT PLACED ON PS 10/5. WILL MONITOR FOR PT TOLERANCE TO VENT CHANGES.
--- NOTE | 2018-07-02 18:00 | NUR ---
PT REMAINS ON PS-/ WITH TV 270+ AND IN NO CURRENT DISTRESS. WILL MONITOR WITH RT FOR FEW MORE MINUTES. NO DISTRESS NOTED WITH HR 76 AND RR29-31.
--- NOTE | 2018-07-02 18:43 | NUR ---
ATTEMPTS TO RAISE TV BY DECREASING PROPOFOL. AFTER 10-20MINUTES AFTER DECRESE, TV SL ELEVATED BUT REMAIN 270-285 MOST OF TIME. WILL RETURN TO AC FOR NOW RT NOTIFIED.
--- NOTE | 2018-07-02 20:23 | NUR ---
START OF SHIFT: BEDSIDE REPORT FROM RAVI RN. PT SITTING IN CHAIR WITH EYES OPEN APPEARING TO BE WATCHING TV AND TRACKS SEEMINGLY TO WATCH RNS AT CHAIR SIDE. VSS. PT LS COARSE T/O RIGHT AND L UPPER; VENT ON AC OF 18; Vt 350; PEEP 5; FiO2 25%. SEE CHART FOR FULL ASSESSMENT. TF AT GOAL OF 35%; RESIDUAL 85cc REINSTILLED; ABDOMEN SOFT AND APPEARS TO BE NON-TENDER TO PALP AND WITH ACTIVE BT X4 QUAD. PT REPOSITIONED, ORAL CARE PROVIDED. PT BECAME SLIGHTLY AGITATTED WITH ORAL CARE BUT CALMED. PT REMAINS IN CHAIR WATCING TV (APPEARS TO BE). PT CONTINUES TO TURN HEAD AND LOOKS AT PERSON WALKING INTO ROOM. WILL CONTINUE TO MONITOR.
[2018-07-03 03:41] LABS: BASOPHILS PERCENT AUTO 1 % (0-2); EOSINOPHILS ABSOLUTE AUTO 0.56 K/mm3 (0.00-0.68); EOSINOPHILS PERCENT AUTO 4 % (0-6); Hematocrit 26.8 % (33.0-51.0); Hemoglobin 8.7 g/dL (11.5-16.0); IMMATURE GRAN ABSOLUTE AUTO 0.56 K/mm3 (0.00-0.10); IMMATURE GRAN PERCENT AUTO 4 % (0-1); LYMPHOCYTES ABSOLUTE AUTO 1.84 K/mm3 (0.84-5.20); LYMPHOCYTES PERCENT AUTO 13 % (21-46); MONOCYTES ABSOLUTE AUTO 0.97 K/mm3 (0.16-1.47); MONOCYTES PERCENT AUTO 7 % (4-13); Mean Corpuscular HGB 32.7 pg (26.0-34.0); Mean Corpuscular HGB Conc 32.5 g/dL (31.5-36.5); Mean Corpuscular Volume 101 fL (80-100); Mean Platelet Volume 10.4 fL (9.1-12.4); NEUTROPHILS ABSOLUTE AUTO 9.99 K/mm3 (1.96-9.15); NEUTROPHILS PERCENT AUTO 71 % (41-73); Platelet Count 537 K/mm3 (150-400); RDW Coefficient Variation 13.5 % (11.7-14.2); RDW Standard Deviation 50.2 fL (35.1-46.3); Red Blood Cell Count 2.66 M/mm3 (3.80-5.20); White Blood Cell Count 14.02 K/mm3 (4.00-11.30)
[2018-07-03 04:02] LABS: Alanine Aminotransfer (ALT/SGP 13 U/L (12-78); Albumin/Globulin Ratio 0.4 (0.8-1.8); Alk Phos 68 U/L (50-136); Anion Gap 8 mmol/L (6-16); Aspartate Aminotrans (AST/SGOT 10 U/L (12-37); Bilirubin, Direct 0.2 mg/dL (0.0-0.3); Bilirubin, Indirect 0.2 mg/dL (0.1-0.7); Bilirubin, Total 0.4 mg/dL (0.1-1.0); Blood Urea Nitrogen 67 mg/dL (8-24); Bun/Creatinine Ratio 51.5 (12.0-20.0); CO2, Blood 25 mmol/L (21-32); Calcium, Blood 10.7 mg/dL (8.5-10.1); Chloride, Blood 111 mmol/L (98-108); Glomerular Filtration Rate 44 (60-); Glucose, Blood 105 mg/dL (70-99); Phosphorus, Blood 3.7 mg/dL (2.5-4.9); Potassium, Blood 4.1 mmol/L (3.5-5.5); Sodium, Blood 144 mmol/L (136-145)
--- NOTE | 2018-07-03 06:49 | NUR ---
Called Pt's to inform of needed informed consent for Dr. Maria Del Carmen hardwick. Nelly stated that she was told by day Rn that it could be verbal over the phone. Will pass on to day RN.
--- NOTE | 2018-07-03 06:51 | NUR ---
Shift Summary: PT WITH NO EVENTS T/O NOC. PT AWAKENED EASILY EACH TIME RN AT BEDSIDE. SEDATION INCREASED T/O NOC FOR PT COMFORT AND REST. VITALS REMAINED STABLE T/O NOC. PT CURRENTLY RESTING QUIETLY WITH EYES CLOSED. VSS. WILL GIVE REPORT TO ONCOMING RN.
--- NOTE | 2018-07-03 08:00 | NUR ---
INITIAL ASSESSMENT PATIENT INTUBATED AND ON SEDATION. PATIENT FOLLOWING COMMANDS AND ANSWERING YES AND NO QUESTIONS WITH NODDING AND SHAKING OF HEAD. PATIENT WEAK. PATIENT AFEBRILE. PATIENT DENIES PAIN. PATIENT SATTING WELL ON AC 18, TV 350, PEEP 5, 25% FIO2. LUNGS CLEAR THROUGHOUT. PATIENT HAS OCCASIONAL COUGH. SMALL AMOUNT OF CLEAR, THIN SPUTUM BEING SUCTIONED FROM ETT. PATIENT IN SR, HR IN THE 80S. BP STABLE. PULSES STRONG. NO EDEMA NOTED. OG IN PLACE- CLAMPED. 0 RESIDUAL. ABDOMEN SOFT, NONTENDER, WITH NORMOACTIVE BS. LAST BM ON THE . TODD DRAINING YELLOW URINE. SCATTERED BRUISES NOTED, OTHERWISE SKIN C/D/I. PROPOFOL INFUSING AT 35 MCG/ KG/ MINUTE, PRECEDEX AT 0.5 MCG/ KG/ HOUR, NS TKO. BED LOW, CALL LIGHT IN REACH. WILL CONTINUE TO MONITOR PATIENT FREQUENTLY THROUGHOUT SHIFT.
--- NOTE | 2018-07-03 08:10 | NUR ---
DR. SUTHERLAND AND DR. MERCHANT IN TO SEE PATIENT.
--- NOTE | 2018-07-03 08:18 | NUR ---
CALLED AND INFORMED TO BE HERE AT [address] BRAGA ABOUT TRACH PROCEDURE. ALSO CALLED DR. SMILEY TO UPDATE ON PATIENT AND TRACH PROCEDURE. STATED THAT IF HE DOES THE PEG TUBE THAT IT WOULD PROBABLY BE TOMORROW OR THE DAY AFTER.
--- NOTE | 2018-07-03 10:32 | NUR ---
, CATIE, CALLED TO INFORM THAT TRACH PLACEMENT PROCEDURE WENT WELL. APPRECIATIVE AND STATED SHE WILL CALL LATER TO CHECK UP ON PATIENT AGAIN.
--- NOTE | 2018-07-03 10:58 | NUR ---
[address]30 DR[address] AND DR[address] BRAGA IN ROOM TO BEGIN TRACH PLACEMENT PROCEDURE. RT IN ROOM WELL NURSES ASSISTING DR. BRAGA. 0944 100 MCG FENTANYL GIVEN, 2 MG VERSED GIVEN AND PROPOFOL INCREASED TO 60 MCG/ KG/ MINUTE PER DR. SUTHERLAND INSTRUCTION. OG TUBE REMOVED BY DR. SUTHERLAND. 0949 2 MG VERSED GIVEN, 100 MCG FENTANYL GIVEN, 3 MG VECURONIUM GIVEN, 500 MG NS BOLUS STARTED PER DR. SUTHERLAND INSTRUCTION. 1031 250 NS BOLUS STARTED. PROPOFOL DECREASED TO 35 MCG/ KG/ MINUTE PER DR. SUTHERLAND INSTRUCTION. 0958 TRACH PLACEMENT PROCEDURE COMPLETE. 6.0 NONFENESTRATED, CUFFED TRACH IN PLACE.
--- NOTE | 2018-07-03 11:05 | NUR ---
07/03/18 1105 Franco Cisneros History, Chart, Medications and Allergies reviewed before start of procedure.MONITOR INTACT WITH CONTINUOUS PULSE OXIMETRY AND INTERMITTENT BP.3-LEAD EKG REVIEWED WITH PHYSICIAN PRIOR TO START OF PROCEDURE.NPO status.PT VENTILATED AND SEDATED WITH PROPOFOL GTT.
--- NOTE | 2018-07-03 11:55 | NUR ---
PATIENT RESTING QUIETLY IN BED. PATIENT INTUBATED AND SEDATED. PATIENT RESPONDING TO NURSING CARE AND PAINFUL STIMULI. PATIENT SATTING WELL ON SAME VENT SETTINGS ATTACHED TO NEW TRACH. SITE WNL. SMALL AMOUNT OF THIN, PINK SPUTUM BEING SUCTIONED FROM ETT. PATIENT IN SR, HR IN THE 70S. BP STABLE. NO SIGNS OF PAIN NOTED AT THIS TIME. WILL CONTINUE TO MONITOR.
--- NOTE | 2018-07-03 13:31 | NUR ---
NG PLACED. DR. SUTHERLAND LOOKED AT CHEST XRAY AND STATED THAT NG IS GOOD TO USE.
--- NOTE | 2018-07-03 15:24 | NUR ---
PATIENT'S BACK IN TO VISIT.
--- NOTE | 2018-07-03 16:26 | NUR ---
pt tolerated trach. ng in place family in to visit. will continue as resource to family for supportive care and monitor pt symptoms ans she rehabs. pt will need and advance directive.
--- NOTE | 2018-07-03 16:39 | NUR ---
PATIENT RESTING IN BED QUIETLY, WATCHING TV. PATIENT RESPONDS TO VERBAL COMMAND AND FOLLOWS SIMPLE DIRECTIONS. PATIENT SHAKES HEAD "NO" WHEN ASKED IF IN ANY PAIN. PATIENT AGITATED WITH ORAL/ NURSING CARE. PATIENT TRACHEALLY INTUBATED- REMAINS SATTING WELL ON SAME VENT SETTINGS. PATIENT REMAINS IN SR, HR IN THE 90S. BP STABLE. PATIENT REMAINS ON SEDATION AND PRECEDEX. NO OTHER ACUTE CHANGES TO NOTE ON AT THIS TIME. WILL CONTINUE TO MONITOR.
[2018-07-03 17:45] LABS: Source, Urine Catheter
[2018-07-03 17:54] LABS: Bilirubin, Urine Neg (Neg); Blood, Urine Neg (Neg); Glucose Qualitative, Urine Neg (Neg); Ketones, Urine Neg (Neg); Leukocyte Esterase, Urine 1+ (Neg); Nitrite, Urine Pos (Neg); Protein, Urine Neg (Neg); Urobilinogen, Urine NORM (Normal)
--- NOTE | 2018-07-03 18:20 | NUR ---
SHIFT SUMMARY PATIENT REMAINED INTUBATED AND SEDATED THROUGHOUT SHIFT. PATIENT FOLLOWING COMMANDS AND RESPONDS TO VERBAL STIMULI. ANSWERING QUESTIONS WITH NODDING AND SHAKING OF HEAD. PATIENT REMAINS WEAK. AFEBRILE. 6.0 CUFFED, NONFENESTRATED TRACH INSERTED THIS AM AROUND 1000- PATIENT HAS REMAINED SATTING WELL ON AC 18, TV 350, PEEP 5, FIO2 25%. LUNGS HAVE BEEN CLEAR THROUGHOUT. PATIENT HAD CLEAR SPUTUM THIS MORNING; AFTER PROCEDURE, MODERATE AMOUNT OF THIN, PINK SPUTUM BEING SUCTIONED THROUGH TRACH. PATIENT HAS REMAINED IN SR, HR 70S TO 90S. BP HAS REMAINED STABLE. DOBHOFF INSERTED THIS AFTERNOON. JEVITY 1.5 INFUSING AT 35 MLS/ HOUR WITH 30 ML WATER FLUSH Q4H. ABDOMEN REMAINS SOFT WITH NORMOACTIVE BS. TODD REMAINS DRAINING ADEQUATE AMOUNT OF YELLOW URINE. URINE CULTURE SENT TO LAB. NO CHANGE TO SKIN. PROPOFOL INFUSING AT 40 MCG/ KG/ MINUTE, PRECEDEX INFUSING AT 0.5 MCG/ KG/ HOUR, AND NS TKO. NO SIGNS OF PAIN NOTED AT THIS TIME. BED LOW, CALL LIGHT IN REACH. WILL CONTINUE TO MONITOR PATIENT FREQUENTLY UNTIL REPORT GIVEN TO ONCOMING FRONT EDGER NURSE SHORTLY.
[2018-07-03 18:42] LABS: Appearance, Urine Hazy (Clear); Color, Urine Yellow (P-Yellow)
[2018-07-03 18:49] LABS: Amorphous Light ({null, 0-Heavy}); Bacteria Many /hpf; Red Blood Cells, Urine 0-2 /hpf (0-2); Squamous Epithelial Cells Few /hpf (Few)
--- NOTE | 2018-07-03 19:45 | NUR ---
ASSUMED CARE BEDSIDE REPORT RECIEVED. PT IS RESTING QUIETLY, SEDATED WITH NEW TRACH ON VENT. VENT SETTINGS AC 18, TV 350, PEEP 5, FIO2 25%. NEW TRACH IS C/D/I, SMALL AREAS OF DRYED BLOOD NOTED TRACH COLLAR. SWELLING PRESENT AROUND NEW TRACH SITE. PT WITH THICK, FROTHY, PINK SECRETIONS SUCTIONED FROM TRACH. PT SEDATED WITH PROPOFOL AT 40 MCG/KG/MIN AND PRECEDEX AT 0.5 MCG/KG/HR. PT AWAKENS TO VERBAL STIMULI AND IS ABLE TO FOLLOW COMMANDS APPROPRIATELY. PICC TO SHAQ C/D/I. DOBHOFF IN PLACE WITH TF AT 35 ML/HR GOAL RATE. TODD IN PLACE WITH YELLOW OUTPUT NOTED. SBW RESTRAINTS IN PLACE. VITAL SIGNS STABLE AT THIS TIME. WILL CONTINUE TO MONITOR.
[2018-07-04 04:14] LABS: BASOPHILS ABSOLUTE AUTO 0.11 K/mm3 (0.00-0.23); BASOPHILS PERCENT AUTO 1 % (0-2); EOSINOPHILS ABSOLUTE AUTO 0.26 K/mm3 (0.00-0.68); EOSINOPHILS PERCENT AUTO 1 % (0-6); Hematocrit 27.4 % (33.0-51.0); Hemoglobin 8.6 g/dL (11.5-16.0); IMMATURE GRAN ABSOLUTE AUTO 0.48 K/mm3 (0.00-0.10); IMMATURE GRAN PERCENT AUTO 3 % (0-1); LYMPHOCYTES ABSOLUTE AUTO 1.57 K/mm3 (0.84-5.20); LYMPHOCYTES PERCENT AUTO 8 % (21-46); MONOCYTES ABSOLUTE AUTO 1.17 K/mm3 (0.16-1.47); MONOCYTES PERCENT AUTO 6 % (4-13); Mean Corpuscular HGB 31.4 pg (26.0-34.0); Mean Corpuscular HGB Conc 31.4 g/dL (31.5-36.5); Mean Corpuscular Volume 100 fL (80-100); Mean Platelet Volume 10.9 fL (9.1-12.4); NEUTROPHILS ABSOLUTE AUTO 15.29 K/mm3 (1.96-9.15); NEUTROPHILS PERCENT AUTO 81 % (41-73); Platelet Count 502 K/mm3 (150-400); RDW Coefficient Variation 13.7 % (11.7-14.2); Red Blood Cell Count 2.74 M/mm3 (3.80-5.20); White Blood Cell Count 18.88 K/mm3 (4.00-11.30)
[2018-07-04 04:36] LABS: Bun/Creatinine Ratio 51.2 (12.0-20.0); Calcium, Blood 10.7 mg/dL (8.5-10.1); Creatinine, Blood 1.27 mg/dL (0.40-1.00); Potassium, Blood 3.9 mmol/L (3.5-5.5)
[2018-07-04 04:59] LABS: PCO2 Arterial 28.8 mmHg (35-45); PO2 Arterial 65.4 mmHg (80-100); pH Blood Arterial 7.47 (7.35-7.45)
--- NOTE | 2018-07-04 06:09 | NUR ---
SHIFT SUMMARY NO ACUTE CHANGES THIS SHIFT. PT REMAINS ON VENT TO TRACH. VENT SETTINGS UNCHANGED. TRACH REMAINS C/D/I, SCANT BLEEDING AT TRACH SITE THROUGHOUT THE SHIFT. PT HAS REMAINED ALERT AND ORIENTED WITH PROPOFOL AT 35 MCG/KG/MIN AND PRECEDEX AT 0.5 MCG/KG/HR. PICC TO SHAQ C/D/I. NS TKO. DOBHOFF REMAINS IN PLACE WITH TF AT 35 ML/HR GOAL RATE. SBW RESTRAINTS REMAIN IN PLACE. PT PULLING AT RESTRAINTS AT TIMES. PT MED FOR PAIN WITH FENTANYL PRN, PT ABLE TO NOD HEAD YES OR NO TO PAIN. TODD IN PLACE WITH GOOD URINE OUTPUT. VITAL SIGNS HAVE REMAINED STABLE. WILL CONTINUE TO MONITOR AND REPORT OFF TO ONCOMING RN.
--- NOTE | 2018-07-04 07:45 | NUR ---
INITIAL ASSESSMENT PATIENT INTUBATED AND ON SEDATION. PATIENT FOLLOWING SIMPLE COMMANDS AND NODS/ SHAKES HEAD TO ANSWER YES AND NO QUESTIONS. PATIENT IS ANXIOUS AT TIMES WELL AGITATED WITH NURSING CARE. PATIENT AFEBRILE. PRN PAIN MEDICATION GIVEN FOR COMPLAINT OF PAIN. PATIENT WEAK BUT ABLE TO MOVE ALL EXTREMITIES. PATIENT TRACHEALLY INTUBATED, SATTING WELL ON AC 18, TV 350, PEEP 5, 25% FIO2. LUNG SOUNDS COARSE THROUGHOUT. SMALL AMOUNT OF THIN, CLEAR SPUTUM SUCTIONED FROM TRACH. RR 30S BEFORE PAIN MEDICATION; NOW IN 20S. PATIENT IN SR TO ST, HR 90S TO LOW 100S. BP STABLE. PULSES STRONG. NO EDEMA NOTED. ABDOMEN SOFT, NONTENDER, WITH NORMOACTIVE BS. JEVITY 1.5 INFUSING AT GOAL RATE OF 35 MLS/ HOUR WITH 100 ML WATER FLUSH Q4H. PATIENT TOLERATING WELL. TODD DRAINING YELLOW URINE. PATIENT HAS SOME SCATTERED BRUISES. TRACH SITE SLIGHTLY REDDENED, TENDER, WITH SMALL AMOUNT OF SANGUINEOUS DRAINAGE. SUTURES INTACT. PROPOFOL INFUSING AT 35 MCG/ KG/ MINUTE, PRECEDEX INFUSING AT 0.7 MCG/ KG/ HOUR, NS TKO. BED LOW, CALL LIGHT IN REACH. WILL CONTINUE TO MONITOR PATIENT FREQUENTLY THROUGHOUT SHIFT.
--- NOTE | 2018-07-04 08:00 | NUR ---
DR. MERCHANT IN TO SEE PATIENT.
--- NOTE | 2018-07-04 10:00 | NUR ---
DR. SUTHERLAND IN TO SEE PATIENT. INFORMED ABOUT NITRITES, LEUKOCYTES AND BACTERIA PRESENT ON URINE CULTURE LAB.
--- NOTE | 2018-07-04 12:05 | NUR ---
PATIENT SITTIN IN CHAIR WATCHING TV. PATIENT DENIED PAIN WHEN ASKED. PATIENT AGITATED SO 1 MG PRN ATIVAN GIVEN- EFFECTIVE. PATIENT AFEBRILE. PATIENT SATTING WELL ON PS 8/5, 25% FIO2. LUNGS CLEAR IN UPPER LOBES AND COARSE IN LOWER LOBES. RR IN THE 30S. PATIENT IN SR, HR 80S TO 90S. BP STABLE. SEDIMENT NOTED IN URINE. BLOOD SUGAR OF 139. NO OTHER ACUTE CHANGES TO NOTE ON AT THIS TIME. CALL LIGHT IN REACH. WILL CONTINUE TO MONITOR.
--- NOTE | 2018-07-04 14:38 | NUR ---
SHIFT SUMMARY PATIENT REMAINED FOLLOWING SIMPLE COMMANDS. PATIENT REMAINS AGITATED WITH NURSING CARE. PATIENT BEING GIVEN PRN PAIN MEDICATIONS FOR SIGNS OF PAIN. PATIENT REMAINED AFEBRILE. PATIENT UP TO CHAIR WITH LIFT FROM 0800 TO 1400. PATIENT CHANGED OVER FROM AC TO SPONTANEOUS PS 8/5, 25% AND CONTINUES TO DO WELL ON. PATIENT HAS REMAINED SR TO ST, HR 80S TO LOWS 100S. BP HAS REMAINED STABLE. TF REMAINS INFUSING AT GOAL. DOCUSATE GIVEN PT THIS AM PATIENT HAS NOT HAD BM IN SEVERAL DAYS. TODD REMOVED AND ATTENDS PLACED. NO CHANGE TO SKIN. PROPOFOL AT 15 MCG/ KG/ MINUTE, PRECEDEX AT 0.7 MCG/ KG/ HOUR AND NS TKO. ZOSYN STARTED PER DR. SUTHERLAND. PATIENT RESTING QUIETLY WITH NO SIGNS OF PAIN AT THIS TIME. BED LOW, CALL LIGHT IN REACH. REPORT GIVEN TO ASSUMING NURSE, DON CONNOR.
--- NOTE | 2018-07-04 15:06 | NUR ---
ASSUMED CARE: PT RESTING IN BED WITH PROPOFOL AT 15 MCG/KG/HR AND PRECEDEX AT 0.7 MCG/KG/HR. PT NOT FOLLOWING COMMANDS WITH THIS. VENT ON SPONTANEOUS AT TF 350, FIO2 25%, PEEP OF 5. RESTRAINTS IN PLACE. TRACH NOTED WITH SCANT BLOOD. NO FURTHER NEEDS OR CONCERNS AT THIS TIME
--- NOTE | 2018-07-04 18:11 | NUR ---
SHIFT SUMMARY: PT BACK ON AC, SETTINGS 18/350/25%/5. RESTING QUIETLY. PROPOFOL AND PRECEDEX DRIPS CONTINUE. FAMILY CAME BY TO VISIT ONCE THIS SHIFT. PLAN IS TO WAIT FOR 1-2 DAYS FOR FURTHER IMPROVEMENT AND CONSIDER PEG TUBE. NO FURTHER NEEDS OR CONCERNS AT THIS TIME
--- NOTE | 2018-07-04 19:31 | NUR ---
ASSUMED CARE BEDSIDE REPORT RECIEVED. PT IS LAYING IN BED RESTING QUIELTY AT THIS TIME. PT OPENS EYES TO VERBAL STIMULI AND SHAKES HEAD YES OR NO TO QUESTIONS. PT SEDATED WITH PROPOFOL AT 30 MCG/KG/MIN AND PRECEDEX AT 0.5 MCG/KG/HR. ZOSYN INFUSING WELL. PICC TO SHAQ C/D/I. PT WITH RECENT TRACH PLACEMENT, SITE IS C/D/I, SCANT DRAINAGE NOTED AT BASE OF SITE. VENT SETTINGS AC 18, TV 350, PEEP 5, FIO2 25%. VITAL SIGNS STABLE. DOBHOFF IN PLACE WITH TF AT 35 ML/HR GOAL RATE. SBW RESTRAINTS IN PLACE. PEYTON WEBBER'D DURING DAY SHIFT, PT INCONTINENT AND WITH ATTENDS IN PLACE AT THIS TIME. WILL CONTINUE TO MONITOR.
[2018-07-05 03:38] LABS: BASOPHILS ABSOLUTE AUTO 0.08 K/mm3 (0.00-0.23); BASOPHILS PERCENT AUTO 1 % (0-2); EOSINOPHILS ABSOLUTE AUTO 0.53 K/mm3 (0.00-0.68); EOSINOPHILS PERCENT AUTO 4 % (0-6); Hematocrit 31.5 % (33.0-51.0); Hemoglobin 10.1 g/dL (11.5-16.0); IMMATURE GRAN ABSOLUTE AUTO 0.25 K/mm3 (0.00-0.10); IMMATURE GRAN PERCENT AUTO 2 % (0-1); LYMPHOCYTES ABSOLUTE AUTO 0.79 K/mm3 (0.84-5.20); LYMPHOCYTES PERCENT AUTO 6 % (21-46); MONOCYTES ABSOLUTE AUTO 0.53 K/mm3 (0.16-1.47); MONOCYTES PERCENT AUTO 4 % (4-13); Mean Corpuscular HGB 32.3 pg (26.0-34.0); Mean Corpuscular HGB Conc 32.1 g/dL (31.5-36.5); Mean Corpuscular Volume 101 fL (80-100); Mean Platelet Volume 10.8 fL (9.1-12.4); NEUTROPHILS ABSOLUTE AUTO 12.08 K/mm3 (1.96-9.15); NEUTROPHILS PERCENT AUTO 85 % (41-73); Platelet Count 398 K/mm3 (150-400); RDW Coefficient Variation 13.7 % (11.7-14.2); RDW Standard Deviation 50.2 fL (35.1-46.3); Red Blood Cell Count 3.13 M/mm3 (3.80-5.20); White Blood Cell Count 14.26 K/mm3 (4.00-11.30)
[2018-07-05 03:54] LABS: Albumin, Blood 1.8 g/dL (3.4-5.0); Anion Gap 8 mmol/L (6-16); Blood Urea Nitrogen 61 mg/dL (8-24); Bun/Creatinine Ratio 47.7 (12.0-20.0); CO2, Blood 22 mmol/L (21-32); Calcium, Blood 10.7 mg/dL (8.5-10.1); Chloride, Blood 115 mmol/L (98-108); Creatinine, Blood 1.28 mg/dL (0.40-1.00); Glomerular Filtration Rate 45 (60-); Glucose, Blood 147 mg/dL (70-99); Phosphorus, Blood 2.6 mg/dL (2.5-4.9); Potassium, Blood 3.8 mmol/L (3.5-5.5); Sodium, Blood 145 mmol/L (136-145)
--- NOTE | 2018-07-05 05:42 | NUR ---
SHIFT SUMMARY NO ACUTE CHANGES THIS SHIFT. PT REMAINS SEDATED ON VENT TO TRACH. PT SEDATED WITH PRECEDEX AT 0.6 MCG/KG/HR AND PROPOFOL AT 30 MCG/KG/MIN. PICC TO SHAQ C/D/I. VENT SETTINGS AC 18, TV 350, PEEP 5, FIO2 25%. PT SWITCHED TO PRESSURE SUPPORT OF 10/5, FIO2 25% AT THIS TIME. PT TOLERATING WELL. PT HAS CONTINUED TO OPEN EYES SPONTANEOUSLY AND TO VERBAL COMMANDS. PT REMAINS IN SBW RESTRAINTS. DOBHOFF REMAINS IN PLACE WITH TF AT 35 ML/HR GOAL RATE. ATTENDS IN PLACE, PT INCONTINENT OF URINE MULTIPLE TIMES THIS SHIFT. VITAL SIGNS HAVE REMAINED STABLE. WILL CONTINUE TO MONITOR AND REPORT OFF TO ONCOMING RN.
--- NOTE | 2018-07-05 07:30 | NUR ---
ASSUMED CARE PT. OPENS EYES TO VERBAL STIMULI. FOLLOWS SOME COMMANDS, AND ANSWERS SOME QUESTIONS BY SHAKING HEAD YES AND NO. TRACH IN PLACE. PT CURRENTLY ON PS 10, PEEP 5, 25%. PT. TOLERATING WELL AT THIS TIME. WITH STIMULATION RR INCREASES TO 30S. PT. SHAKES HEAD NO TO PAIN THIS AM. CURRENTLY ON LOW DOSE OF PROPOFOL AT 30MCG/KG/MIN AND PRECEDEX AT 0.5MCG/KG/MIN. PT. HAS DOBHOFF IN PLACE WITH TF RUNNING AT 35ML/HR, Q4HR 100ML FLUSH. PT. VSS THIS AM. BILAT WRIST RESTRAINTS REMAIN IN PLACE TO PROTECT TUBES AND LINES.PT. ATTENDS CDI.
--- NOTE | 2018-07-05 10:53 | NUR ---
SWITCHED BACK TO AC AC 18, 350, 25%, PEEP5. PT. TVS 240S ON SPONT WITH RR 35-40. WILL ATTEMPT PS AGAIN THIS AFTERNOON.
--- NOTE | 2018-07-05 11:45 | NUR ---
SEDATION PLACED ON STAND BY AT THIS TIME PRECEDEX GTT DISCONTINUED
--- NOTE | 2018-07-05 14:00 | NUR ---
SPONT MODE, PS 10, PEEP 5, 25% FIO2 PT MORE ALERT AND FOLLOWING COMMANDS AT THIS TIME. MOUTHING WORDS AND FOLLOWING COMMANDS. PT. TO REMAIN OFF SEDATION TOLERATED. VSS.
--- NOTE | 2018-07-05 18:01 | NUR ---
SHIFT SUMMARY PT. REMAINED ON SPONT. T/O REMAINDER OF SHIFT. C/O PAIN FREQUENTLY, KICKING LEGS WITH GRIMACE, WHEN ASKED LOCATIONS PT. SHAKES HEAD YES TO BACK. PT. ANSWERING QUESTIONS WITH SHAKING HEAD YES AND NO. FOLLOWING COMMANDS. PT HAD MULTIPLE BM WITH LARGE AMOUNT OF INCONT. VOIDING T/O DAY. ATTENDS CHECKED AND CHANGED FREQUENTLY. PT. PUSHES AGAINST STAFF WHEN TRYING TO ROLL. PT ORDERED FOR EVAL. VSS T/O SHIFT. PRECEDEX GTT DC'D. REPORT TO ONCOMING RN.
--- NOTE | 2018-07-05 21:25 | NUR ---
ASSUMED PT CARE AT 1915 PT SLEEPING SOUNDLY. TF RUNNING VIA DOBHOFF AT 35MLS/HR WITH WATER FLUSHES 100CC Q4HRS. NS RUNNING TKO. PICC LINE NOTED TO LEFT UPPER ARM. PT HAS ATTENDS ON AND HAS BEEN NOTED TO BE INCONTINENT PER REPORTING RN. VENT SETTINGS: SPONTANEOUS PRESSURE SUPPORT OF 10/5; FIO2 25% WITH TV MAINTAINING GREATER THAN 300.
--- NOTE | 2018-07-05 21:40 | NUR ---
PT HAS BEEN RESTLESS C/O PAIN TO BACK AND RIGHT SHOULDER. RELEASED FROM RESTRAINT AND PERFORMED ROM AND ALLOW PT TO STRETCH ARM; PT UNDERSTANDING TO NOT REACH TOWARD TUBE. PT SCRATCHED FACE AND WAS ABLE TO BE CALM AND COOPERATIVE WITH CARE ONCE SHE WAS ABLE TO BE RELEASED FROM RESTRAINTS. PT ASKED IF SHE COULD GET UP; UP TO CHAIR. WITH ASSISTANCE PT WAS TRANSFERRED TO CHAIR. PT CONTINUES TO BE RESTLESS AND STATE SHE IS IN PAIN; CALLED DR. SMILEY AND RECEIVED ORDERS FOR FENTANYL PATCH 25MCG, WELL INCREASED FREQUENCY OF FENTANYL 25-50MCG PRN FROM Q2HRS TO Q1HR. DR. SMILEY ALSO STATED HE WOULD LIKE HER TO REST TONIGHT BECAUSE THEY ARE PLACING A TRACH COLLAR IN THE MORNING; THEREFORE, HE STATED LOW DOSE SEDATION CAN BE PLACED BACK ON FOR TONIGHT IF PT DOESN'T GET ANY REST/RELIEF FROM NEW FENTANYL ORDERS.
[2018-07-06 03:50] LABS: BASOPHILS ABSOLUTE AUTO 0.09 K/mm3 (0.00-0.23); BASOPHILS PERCENT AUTO 1 % (0-2); EOSINOPHILS ABSOLUTE AUTO 1.13 K/mm3 (0.00-0.68); EOSINOPHILS PERCENT AUTO 8 % (0-6); Hematocrit 24.9 % (33.0-51.0); Hemoglobin 7.9 g/dL (11.5-16.0); IMMATURE GRAN ABSOLUTE AUTO 0.26 K/mm3 (0.00-0.10); IMMATURE GRAN PERCENT AUTO 2 % (0-1); LYMPHOCYTES ABSOLUTE AUTO 1.18 K/mm3 (0.84-5.20); LYMPHOCYTES PERCENT AUTO 8 % (21-46); MONOCYTES ABSOLUTE AUTO 0.94 K/mm3 (0.16-1.47); MONOCYTES PERCENT AUTO 6 % (4-13); Mean Corpuscular HGB 31.3 pg (26.0-34.0); Mean Corpuscular HGB Conc 31.7 g/dL (31.5-36.5); Mean Corpuscular Volume 99 fL (80-100); Mean Platelet Volume 10.9 fL (9.1-12.4); NEUTROPHILS ABSOLUTE AUTO 11.15 K/mm3 (1.96-9.15); NEUTROPHILS PERCENT AUTO 76 % (41-73); Platelet Count 450 K/mm3 (150-400); RDW Coefficient Variation 13.8 % (11.7-14.2); RDW Standard Deviation 49.8 fL (35.1-46.3); Red Blood Cell Count 2.52 M/mm3 (3.80-5.20); White Blood Cell Count 14.75 K/mm3 (4.00-11.30)
[2018-07-06 04:04] LABS: Creatinine, Blood 1.13 mg/dL (0.40-1.00); Phosphorus, Blood 2.4 mg/dL (2.5-4.9); Potassium, Blood 3.6 mmol/L (3.5-5.5)
--- NOTE | 2018-07-06 05:10 | NUR ---
RESTLESS JUST SWITCHED PT BACK TO SPONTANEOUS WITH PRESSURE SUPPORT 10/5 WITH FIO2 AT 25% AND TV GREATER THAN 300. ORDERS FROM DR. SMILEY TO PLACE PT ON LOW DOSE SEDATION IF PT CONTINUED TO BE RESTLESS AND AGITATED AFTER NEW FENTANYL ORDERS. PT WAS PLACED ON AC MODE AROUND 2330 WITH LOW DOSE PROPOFOL STARTED D/T RESTLESSNESS/AGITATION. PROPOFOL SLOWLY INCREASED TO 30MCG WITH NO CHANGE IN MENTATION. PROPOFOL TURNED OFF AT 0500 AND PT PLACED BACK ON SPONTANEOUS D/T PROPOFOL BEING UNEFFECTIVE R/T RESTLESSNESS/AGITATION. PT HAS BEEN NON-STOP UNABLE TO STOP MOVING HER LEGS; THRASHING AROUND IN BED; AND TEARFUL. PT HAS BEEN REPOSITIONED EVERY HOUR AND ASSESSED FOR ATTENDS CHANGES FREQUENTLY. PT HAS BEEN MEDICATED WITH PRN FENTANYL ORDERED, WELL HAS FENTANYL PATCH IN PLACE.
--- NOTE | 2018-07-06 06:07 | NUR ---
END OF SHIFT SUMMARY PT REMAINS WITH VENTILATOR SETTINGS ON SPONTANEOUS WITH PRESSURE SUPPORT 10/5; FIO2 25%; AND TV GREATER THAN 300. SEE PREVIOUS NOTE REGARDING SWITCHING TO AC MODE AND STARTING PROPOFOL. PT HAS REMAINED ALERT AND ORIENTED; ABLE TO FOLLOW COMMANDS. VERY AGITATED AND RESTLESS T/O MOST OF NIGHT. WHEN ASKED IF PT IS IN PAIN; SHE SHAKES HER HEAD NO. SHE STATES, "EVERYWHERE BOTHERS HER." PT IS GENERALLY UNCOMFORTABLE. GOT PT UP TO CHAIR AT BEGINNING OF SHIFT FOR A COUPLE OF HOURS, WHICH TENDED TO HELP A LITTLE. RECEIVED ORDERS FROM DR. SMILEY ON FENTANYL PATCH, WELL INCREASING FREQUENCLY OF PRN FENTANYL TO Q1HR. DOESN'T SEEM TO BE EFFECTIVE IN THE SLIGHTEST. PT GENERALLY APPEARS TO HAVE RESTLESS LEGS; NON-STOP MOVING T/O ENTIRE SHIFT. AT ONE POINT PT WAS TEARFUL AND STATED, "I CAN'T DO THIS ANYMORE". PT APPEARS TO BE GENERALLY UNCOMFORTABLE WITH NO RELIEF. LUNG SOUNDS CLEAR/ DIMINISHED T/O WITH RESP RATE 30-40'S. NSR TO SINUS TACH WITH HR 90-105. TF CONTINUES AT 35MLS/HR WITH WATER FLUSHES 100CC Q4HRS. PT REMAINS INCONTINENT OF BOWEL AND BLADDER; REQUIRING CHANGES EVERY 3-4 HOURS. PT IS UNCOMFORTABLE AT THIS TIME PULLING ON RESTRAINTS, THRASHING IN BED, AND TEARFUL. PRN FENTANYL WAS UNEFFECTIVE.
--- NOTE | 2018-07-06 08:45 | NUR ---
NURSING SUMMARY ALERT, ANXIOUS, MEDICATED WITH ATIVAN 2MG WITH MINIMAL RELIEF, FORGETFUL, INTERMITTENTLY ANSWERS YES/NO QUESTIONS WITH SHAKING HER HEAD, INTERMITTENTLY FOLLOWS COMMANDS. SINUS TACH ON MONITOR, HR 120'S, BP 177/88, MEDICATED WITH HYDRALAZINE 10 MG, BP 159/74. ADVISED DR. TELLO REGARDING SEVERE ANXIETY AND RESTLESS LEGS PT HAD NOW AND THROUGHOUT THE BOOSTER PLANT OPERATOR. ALSO ADIVSED ON ELEVATED HR AND BLOOD PRESSURE, TEMP 99.8, COOLING MEASURES STARTED, REMOVED BLANKETS. NEW ORDERS PROVIDED FOR REQUIP AND REMERON. WILL GIVE THIS AM. BILATERAL SOFT WRIST RESTRAINTS IN PLACE. PT ATTEMPTS TO REACH UP AND PULL AT HER TRACH/VENTILATOR TUBING AND DOBHOFF TUBING. VENTILATOR SETTINGS AT 10/5 AND FIOD OF 25%, TV OVER 300 SPONTANEOUS. PT INCONTINENT OF URINE AND STOOL, MYSELF AND CRISTIANA/RN, CLEANED PT, CHANGED HER ATTENDS, AND REPOSITIONED HER TO HER RIGHT SIDE WITH PILLOWS. NOTED REDDENED SPOTS ON RIGHT INNER BUTTOCK, APPLIED CREAM. BILATERAL HANDS MILDLY EDEMETOUS, ELEVATED ON PILLOWS. PROVIDED ORAL CARE PER ORDERS. NPO, DOBHOFF FEEDINGS OF PIVOT 1.5 AT 35 ML/HR WHICH IS GOAL RATE. BRUISING THROUGHOUT BODY AND ABDOMEN (LOVENOX INJECTIONS). DENIES PAIN AND DOES NOT APPEAR TO BE EXPERIENCING PAIN.. LEFT UPPER ARM PICC LINE TRIPLE INFUSING NS AT TKO AND ZOSYN.
--- NOTE | 2018-07-06 09:30 | NUR ---
PHYSICAL THERAPY AT BEDSIDE TO WORK WITH PT. PT REMAINS MILDLY ANXIOUS, HR 120'S, BP 157/87, WITH RESTLESS LEGS. MEDICATING WITH NEWLY ORDERED REMERON AND REQUIP AND FENTANYL FOR C/O RIGH SHOULDER PAIN WITH ROM EXERCISES.
--- NOTE | 2018-07-06 10:15 | NUR ---
TEMP 100.8, MEDICATED WITH TYLENOL. RESTLESS LEGS AND ANXIETY REDUCED.
--- NOTE | 2018-07-06 11:00 | NUR ---
NURSING SUMMARY PT IN AFIB WITH RVR, HR 180'S - 200, HAD PT BEAR DOWN WITHOUT RESULTS, CALLED DR. MERCHANT, NEW ORDER FOR CARDIZEM GTT.
--- NOTE | 2018-07-06 11:05 | NUR ---
NURSING SUMMARY AFIB WITH RVR, HR 170'S - 200, NEW ORDER FROM DR. MERCHANT FOR EKG AND CARDIZEM GTT. EKG CONFIRMED AFIB WITH RVR. AWAITING CARDIZEM TO START.
--- NOTE | 2018-07-06 11:20 | NUR ---
DR. SMILEY AT BEDSIDE FOR EVALUATION, CHANGED VENTILATOR SETTINGS TO 18/7/350-25%, NEW ORDER TO TRACH TRIAL, KATRINA FROM RESPIRATORY THERAPY AWARE, AWAITING STABILIZATION OF HEART RATE AND WILL TRY TRACH TRIAL.
--- NOTE | 2018-07-06 11:23 | NUR ---
CARDIZEM GTT STARTED AT 5 MG/HR.
--- NOTE | 2018-07-06 11:23 | NUR ---
PT REMAINS IN AFIB WITH RVR, HR 170'S, STARTED CARDIZEM GTT AT 15 MG/HR.
--- NOTE | 2018-07-06 11:28 | NUR ---
CONVERTED TO SINUS TACH IN 130'S, REDUCED CARDIZEM RATE TO 10 MG/HR. VSS.
--- NOTE | 2018-07-06 12:00 | NUR ---
SINUS TACH, HR 106-117, REDUCED CARDIZEM GTT RATE TO 5 MG/HR.
--- NOTE | 2018-07-06 14:58 | NUR ---
CALLED DR. MERCHATN TO REPORT SINUS RHYTHM 90'S AND ASKED IF WE COULD DC THE CARDIZEM GTT AND START PER DOBHOFF TUBE. NEW ORDERS PROVIDED.
[2018-07-06 17:10] LABS: Hemoglobin 8.2 g/dL (11.5-16.0)
--- NOTE | 2018-07-06 17:55 | NUR ---
NURSING SUMMARY SR-ST 95-110, CARDIZEM GTT DC'D, STARTED CARDIZEM PER DOBHOFF TUBE. REMOVED PT FROM TRACH VENTILATOR TO TRACH COLLAR AT 35% FIO2, SATS 98%, RR 22, VSS. PT SLEEPY, WAKES TO VOICE, INTERMITTENTLY FOLLOWS COMMANDS AND ATTEMPTS TO SHAKE HER HEAD YES/NO TO QUESTIONS, ATTEMPTS TO REACH UP TO THE DOBHOFF AND COLLAR WHEN RESTRAINTS REMOVED TO REPOSITION PT. ATTENDS DRY AT THIS TIME. APPEARS COMFORTABLE AND NO LONGER WITH RESTLESS LEG MOVEMENTS. GAVE ATIVAN FOR AGITATION X 2 TODAY. GAVE FENTANYL FOR PAIN X 2 TODAY. BLOOD SUGARS Q6H WNL.
--- NOTE | 2018-07-06 18:18 | NUR ---
CALLED DR. SMILEY WITH LAB RESULTS
--- NOTE | 2018-07-06 19:33 | NUR ---
ASSUMED PT CARE AT 1915 PT RESTING COMFORTABLY IN BED; NO RESTLESS LEGS OR AGITATION NOTED. PT ABLE TO OPEN EYES TO VERBAL STIMULI, TRACK WITH EYES, AND FOLLOW SIMPLE COMMANDS. PT IS ON AIRVO WITH FIO2 AT 28% VIA TRACH COLLAR. OXYGEN SATURATIONS ARE 97%. NSR WITH HR 96. BP 119/73. RR 24. NS INFUSING TKO VIA SHAQ PICC. TF CONTINUES VIA DOBHOFF: PIVOT 1.5 REMAINS AT GOAL OF 35MLS/HR WITH 100CC WATER FLUSHES Q4HRS. DOBHOFF MEASURES 55CM AT THE NARE. PT APPEARS COMFORTABLE AT THIS TIME.
--- NOTE | 2018-07-06 23:04 | NUR ---
RESPIRATORY THERAPY PLACING PT BACK ON VENTILATOR ON AC MODE. PT TOLERATED AIRVO WITH FIO2 AT 28% WITH OXYGEN SATURATIONS 97% AND RESP RATE 25. BILATERAL SOFT WRIST RESTRAINTS REMAIN IN PLACE
[2018-07-07 03:33] LABS: BASOPHILS ABSOLUTE AUTO 0.12 K/mm3 (0.00-0.23); BASOPHILS PERCENT AUTO 1 % (0-2); EOSINOPHILS ABSOLUTE AUTO 0.91 K/mm3 (0.00-0.68); EOSINOPHILS PERCENT AUTO 6 % (0-6); Hematocrit 25.1 % (33.0-51.0); Hemoglobin 7.8 g/dL (11.5-16.0); IMMATURE GRAN PERCENT AUTO 2 % (0-1); LYMPHOCYTES ABSOLUTE AUTO 1.65 K/mm3 (0.84-5.20); LYMPHOCYTES PERCENT AUTO 11 % (21-46); MONOCYTES ABSOLUTE AUTO 1.02 K/mm3 (0.16-1.47); MONOCYTES PERCENT AUTO 7 % (4-13); Mean Corpuscular HGB 31.2 pg (26.0-34.0); Mean Corpuscular HGB Conc 31.1 g/dL (31.5-36.5); Mean Corpuscular Volume 100 fL (80-100); Mean Platelet Volume 10.9 fL (9.1-12.4); NEUTROPHILS ABSOLUTE AUTO 10.98 K/mm3 (1.96-9.15); NEUTROPHILS PERCENT AUTO 73 % (41-73); Platelet Count 448 K/mm3 (150-400); RDW Standard Deviation 51.4 fL (35.1-46.3); White Blood Cell Count 14.98 K/mm3 (4.00-11.30)
[2018-07-07 03:49] LABS: Bun/Creatinine Ratio 47.5 (12.0-20.0); Calcium, Blood 11.2 mg/dL (8.5-10.1); Creatinine, Blood 1.01 mg/dL (0.40-1.00); Potassium, Blood 3.7 mmol/L (3.5-5.5)
--- NOTE | 2018-07-07 04:07 | NUR ---
CHANGED PT BACK TO AIRVO D/T VENTILATOR BECOMING DISLODGED FROM TRACH SITE AND LANDING ON THE GROUND. NOTIFIED RT OF VENT TUBING NEEDING REPLACED.
--- NOTE | 2018-07-07 05:55 | NUR ---
END OF SHIFT SUMMARY PT HAS BEEN ABLE TO REST COMFORTABLY T/O NIGHT. RESPIRATORY THERAPY SWITCHED PT BACK TO VENTILATOR AT 2305 WITH PRESSURE SUPPORT 7/5 WITH FIO2 25% TO MONITOR TV MORE CLOSELY T/O NIGHT. PT MAINTAINED GREATER THAN 300 TV UNTIL PT WAS BEING REPOSITIONED FOR ATTENDS MANAGEMENT AROUND 0000 AND VENTILATOR TUBING KEPT COMING DISCONNECTED. PT THEN BECAME VERY ANXIOUS WITH INCREASED RESPIRATORY RATE AND BARELY PULLING GREATER THAN 250 TV; PT THEN SWITCHED BACK TO AC MODE OF 18; TV 350; FIO2 25%; PEEP 5. OXYGEN SATURATIONS HAVE MAINTAINED GREATER THAN 91% T/O ENTIRE SHIFT. AROUND 0400 PT WAS SWITCHED BACK TO AIRVO WITH FIO2 OF 28% D/T VENTILATOR TUBING COMING DISCONNECTED AGAIN, BUT FALLING TO THE FLOOR; RT NOTIFIED TO CHANGE OUT VENTILATOR TUBING. PT APPEARS MORE COMFORTABLE ON AIRVO THAN ON VENTILATOR. PT CONTINUES TO BE ANXIOUS/RESTLESS DURING REPOSITIONING AND ATTEND CHANGES. AYDEE/BUTTOCK REGION IS VERY TENDER; CALAZIME CREAM APPLIED AFTER EACH INCONTINENT EPISODE. PT WAS GIVEN 1MG OF ATIVAN, WELL 50MCG OF FENTANYL AROUND 0500 D/T PT THRASHING IN BED AND CONSTANT RESTLESSNESS; APPEARED TO BE EFFECTIVE. LUNG SOUNDS REMAIN CLEAR TO BILATERAL UPPERS AND DIMINISHED TO BILATERAL LOWER LOBES. PT HAS REMAINED IN NSR TO SINUS TACHYCARDIA T/O ENTIRE SHIFT; NO RUNS OF AFIB WITH RVR. DOBHOFF REMAINS PATENT; HOWEVER, BANANA FLAKES WERE HELD D/T POTENTIAL CLOGGING OF DOBHOFF SINCE FLAKES DIDN'T DISSOLVE ALL THE WAY; WILL REPORT OFF TO ONCOMING RN TO SEE ABOUT CHANGING TO SOMETHING THAT DISSOLVES BETTER. PT HAS BEEN INCONTINENT OF BLADDER X3 THIS SHIFT; AND INCONTINENT OF STOOL X1 THIS SHIFT. PT HAS HAD A LOW GRADE FEVER OF 99 WITH A TMAX THIS SHIFT OF 99.8. PT HAS BEEN MEDICATED PRN FOR PAIN WITH 50MCG OF FENTANYL ORDERED. TRACH CARE PERFORMED AND SUCTIONING NEEDED. PT APPEARS COMFORTABLE AT THIS TIME; CALL LIGHT IN REACH WITH SOFT MUSIC PLAYING IN THE BACKGROUND.
--- NOTE | 2018-07-07 10:10 | NUR ---
USED CEILING LIFT TO GET PT OUT OF BED INTO THE BEDSIDE RECLINER. TOLERATED WELL. REMAINS ON TRACH COLLAR HUMIDIFED OXYGEN AT 7L/28% FIO2, RR 24, SATS 97-99%. RESTRAINTS REMOVED. STARTED UNIT OF PRBC'S.
--- NOTE | 2018-07-07 10:27 | NUR ---
PT SITTING IN RECLINER DOING ROM EXERCISES INDEPENDENTLY. PT IS NOT PULLING AT HER LINES AND TUBES, DOES OCCASSIONALLY REACH UP TO SCRATCH HER FACE, INSTRUCTED TO BE CAREFUL SOMETIMES HER FINGERS CATCH ON THE DOBHOFF. ASSURED DOBHOFF SECURED WELL AND WILL CONTINUE TO REINFORCE EDUCATION.
--- NOTE | 2018-07-07 10:30 | NUR ---
CATIE, PT'S , AT BEDSIDE FOR A VISIT.
--- NOTE | 2018-07-07 12:45 | NUR ---
AMADOU, FRIEND, AT BEDSIDE FOR A VISIT.
--- NOTE | 2018-07-07 15:27 | NUR ---
BP ELEVATED 172/90, MEDICATED WITH HYDRALAZINE 10 MG IVP, BP DECREASED TO 146/85, HR REMAINED IN THE 80'S.
--- NOTE | 2018-07-07 18:12 | NUR ---
NURSING SUMMARY ALERT, ANXIOUS, MEDICATING WITH PRN ATIVAN, NON-VERBAL, OCCASSIONALLY WILL SHAKE HEAD YES/NO TO QUESTIONS, FOLLOWS WITH HER EYES, DOES NOT FOLLOW COMMANDS MOST OF THE TIME. SR ON MONITOR, HR IN THE 80'S & 90'S, ELEVATED BP'S, MEDICATED ONCE WITH HYDRALAZINE FOR SUSTAINED SBP IN THE 170'S. LUNGS WITH CRACKLES, MODERATE AMOUNT OF SPUTUM PT COUGHING OUT VIA TRACH TUBE WELL TRACH SUCTIONING. TRACH COLLAR IN PLACE AT 28% FIO2. HAS NOT NEEDED TO USE THE VENTILATOR TODAY. SATS REMAINING IN THE HIGH 90%'S. DOBHOFF TO RIGHT NARES INFUSING JEVITY 1.5 HC AT 35 ML/HR. GOAL RATE IS 45 ML/HR. FEEDINGS CAN BE INCREASED TO 45 ML/HR AT 1999. FREE WATER FLUSHES INCREASED TO 200 ML EVERY 4 HOURS. INCONTINENT OF URINE AND STOOL MULTIPLE TIMES TODAY. LAST CHANGED AND REPOSITIONED AT 1810. REMOVED BILATERAL SOFT WRIST RESTRAINTS TODAY AT 1000. PT DOES REACH UP TO HER FACE AND STRETCHES HER ARMS HERSELF FOR ROM BUT DOES NOT PULL AT HER TUBES. USED THE CEILING LIFT AND GOT PT OUT OF BED TO THE RECLINER TODAY FOR 4 HOURS. CATIE, PT'S , CAME TO VISIT TODAY. SHAQ PICC TRIPLE LUMEN SALINE LOCKED. PATIENT RECEIVED 1 UNIT OF PRBC'S TODAY.
--- NOTE | 2018-07-07 21:11 | NUR ---
ASSUMED PT CARE AT 1915 PT RESTING IN BED COMFORTABLY WITH TRACH COLLAR IN PLACE WITH AIRVO AT 25% FIO2; OXYGEN SATURATIONS >93%. PT ABLE TO RESPOND TO YES/NO QUESTIONS BY NODDING HEAD; HOWEVER, PT HAS BEEN CHOOSING NOT TO PARTICPATE IN CARE; THEREFORE, DIFFICULT TO ASSESS BASELINE MENTATION AT THIS TIME. PT REMAINS INCONTINENT OF BOWEL AND BLADDER WITH ATTENDS MANAGEMENT AND SKIN CARE PERFORMED AFTER EACH EPISODE. AYDEE/GROIN/BUTTOCK REGION ARE BECOMING RED, INFLAMED, AND VERY TENDER; CALAZIME CREAM IS BEING USED FOR SKIN PROTECTION. PT CONTINUES TO HAVE LOOSE STOOL. PER REPORT PT WAS CHANGED FROM PIVOT 1.5 TO JEVITY 1.5 WITH NO FIBER SUBSTITUTES NEEDED PER RECREATION COUNSELOR. PER REPORTING RN; PT RECEIVED ONE UNIT OF PRBC'S TODAY AND A GUAIAC STOOL SAMPLE WAS SENT TO LAB; RESULTS ARE STILL PENDING. DOBHOFF IN PLACE WITH TAPE AT 64CM. TF: JEVILY 1.5 INFUSING AT 35MLS/HR AT START OF SHIFT; INCREASED TO 45MLS/HR AT 1999. FREE WATER FLUSHES ARE AT 200ML Q4HRS. BOWEL TONES REMAIN ACTIVE. PT APPEARS COMFORTABLE AT THIS TIME; NO NONVERBAL S/SX OF PAIN.
[2018-07-08 04:09] LABS: BASOPHILS PERCENT AUTO 1 % (0-2); EOSINOPHILS PERCENT AUTO 2 % (0-6); Hematocrit 30.2 % (33.0-51.0); Hemoglobin 9.7 g/dL (11.5-16.0); IMMATURE GRAN ABSOLUTE AUTO 0.29 K/mm3 (0.00-0.10); IMMATURE GRAN PERCENT AUTO 2 % (0-1); LYMPHOCYTES ABSOLUTE AUTO 2.38 K/mm3 (0.84-5.20); LYMPHOCYTES PERCENT AUTO 12 % (21-46); MONOCYTES ABSOLUTE AUTO 1.31 K/mm3 (0.16-1.47); MONOCYTES PERCENT AUTO 7 % (4-13); Mean Corpuscular HGB 31.8 pg (26.0-34.0); Mean Corpuscular HGB Conc 32.1 g/dL (31.5-36.5); Mean Corpuscular Volume 99 fL (80-100); Mean Platelet Volume 10.7 fL (9.1-12.4); NEUTROPHILS ABSOLUTE AUTO 15.43 K/mm3 (1.96-9.15); NEUTROPHILS PERCENT AUTO 77 % (41-73); Platelet Count 461 K/mm3 (150-400); RDW Standard Deviation 54.5 fL (35.1-46.3); Red Blood Cell Count 3.05 M/mm3 (3.80-5.20); White Blood Cell Count 19.91 K/mm3 (4.00-11.30)
[2018-07-08 04:29] LABS: Alanine Aminotransfer (ALT/SGP 39 U/L (12-78); Albumin, Blood 2.1 g/dL (3.4-5.0); Albumin/Globulin Ratio 0.4 (0.8-1.8); Alk Phos 179 U/L (50-136); Anion Gap 8 mmol/L (6-16); Aspartate Aminotrans (AST/SGOT 16 U/L (12-37); Bilirubin, Total 0.7 mg/dL (0.1-1.0); Blood Urea Nitrogen 43 mg/dL (8-24); Bun/Creatinine Ratio 48.5 (12.0-20.0); CO2, Blood 24 mmol/L (21-32); Calcium, Blood 11.7 mg/dL (8.5-10.1); Chloride, Blood 113 mmol/L (98-108); Creatinine, Blood 0.89 mg/dL (0.40-1.00); Globulin, Blood 5.2 g/dL (2.2-4.0); Glomerular Filtration Rate >60 (60-); Glucose, Blood 113 mg/dL (70-99); Potassium, Blood 3.9 mmol/L (3.5-5.5); Sodium, Blood 145 mmol/L (136-145); Total Protein, Blood 7.3 g/dL (6.4-8.2)
[2018-07-08 04:48] LABS: PCO2 Arterial 37.1 mmHg (35-45); pH Blood Arterial 7.42 (7.35-7.45)
--- NOTE | 2018-07-08 05:28 | NUR ---
END OF SHIFT SUMMARY PT HAS REMAINED CALM AND COOPERATIVE T/O ENTIRE SHIFT; NO NEED FOR PRN ATIVAN OR FENTANYL. VERY DROWSLY, BUT EASILY AROUSED BY VERBAL STIMULI. PT IS ABLE TO ANSWER YES/NO QUESTIONS BY NODDING HEAD; HOWEVER, TONIGHT PT HAS BEEN VERY RESISTANCE TO PARTICIPATING IN HER CARE. PT REMAINS ON AIRVO VIA TRACH COLLAR AT 28% FIO2; OXYGEN SATURATIONS HAVE MAINTAINED GREATER THAN 91%. LUNG SOUNDS ARE COARSE AT TIMES, BUT CLEAR WITH COUGH; BILATERAL LOWER LOBES ARE DIMINISHED. PT HAS PRODUCTIVE COUGH WITH MODERATE AMOUNTS OF THICK, CLEAR SPUTUM. TRACH CARE PERFORMED USING STERILE TECHNIQUE. PT WAS ALSO DEEP SUCTIONED USING STERILE TECHNIQUE MULITPLE TIMES T/O SHIFT. HOWEVER, PT IS ABLE TO COUGH MOST SECRETIONS UP ON HER OWN. DOBHOFF CONTINUES WITH JEVITY 1.5 TF AT GOAL OF 45MLS/HR. 200CC FREE WATER FLUSHES CONTINUE Q4HRS. PT HAS HAD MULTIPLE LIQUID, LOOSE STOOLS, WELL MULTIPLE INCONTINENT/UNMEASURED VOIDS. SKIN CARE PERFORMED AFTER EACH EPISODE. BUTTOCKS CONTINUE TO HAVE REDDENED AREAS WITH MOISTURE ASSOCIATED SKIN DAMAGE NOTED TO RIGHT INNER BUTTOCK; CALAZIME CREAM APPLIED. ROM PERFORMED; PT VERY CONTRACTED AND TENSE. PT NOTED TO HAVE FACIAL GRIMACING NOTED WITH EACH ROM EXERCISE PERFORMED. PT IS ABLE TO ONEAL, BUT IS VERY WEAK. PT APPEARS COMFORTABLE AT THIS TIME. NO NONVERBAL S/SX OF PAIN NOTED. NO RESTLESSNESS NOTED THIS SHIFT.
--- NOTE | 2018-07-08 07:30 | NUR ---
NURSING SUMMARY SLEEPING, WAKES EASILY TO VOICE, MORE ALERT TODAY, FOLLOWING COMMANDS. AGREEABLE TO LETTING [facility] CHANGE MANAGEMENT COORDINATOR, BE IN THE ROOM AND ASSIST WITH CARE. LUNGS COARSE UPPER/DIMINISHED LOWER, ON AIRVO HEATED OXYGEN AT 28% FIO2, TRACH COLLAR, SUCTIONED VIA TRACH AND MOUTH FOLLOWING AM MOUTH CARE. ST ON MONITOR, R 107, VSS, AFEBRILE. DOBHOFF WITH JEVITY 1.5 AT 45 ML/HR AND WATER FLUSHES 200 CC EVERY 4 HOURS, HYPERACTIVE BOWEL SOUNDS, INCONTINENT OF URINE AND STOOL, ATTENDS CURRENTLY DRY. REPOSITIONED PT FOR COMFORT. DENIES PAIN AND DOES NOT APPEAR TO BE IN ANY DISTRESS, MILD ANXIETY NOTED. CATIE, AT BEDSIDE. SHAQ PICC TRIPLE LUMEN.
[2018-07-08 12:19] LABS: Stool Occult Blood Guaiac 1 Neg (Neg)
--- NOTE | 2018-07-08 13:00 | NUR ---
STRAIGHT CATH TO COLLECT URINE CULTURE AND DRAINED 400 CC CLEAR YELLOW URINE.
[2018-07-08 13:32] LABS: Source, Urine Catheter
[2018-07-08 13:36] LABS: Appearance, Urine Clear (Clear); Bilirubin, Urine Neg (Neg); Blood, Urine Neg (Neg); Color, Urine Yellow (P-Yellow); Glucose Qualitative, Urine Neg (Neg); Ketones, Urine Neg (Neg); Leukocyte Esterase, Urine Neg (Neg); Nitrite, Urine Neg (Neg); Protein, Urine 2+ (Neg); Specific Gravity, Urine 1.015 (1.003-1.022); Urobilinogen, Urine NORM (Normal)
[2018-07-08 14:14] LABS: Bacteria Few /hpf; Calcium Oxalate Crystals Rare /hpf; Red Blood Cells, Urine 0-2 /hpf (0-2); Squamous Epithelial Cells Few /hpf (Few); White Blood Cells, Urine 0-2 /hpf (0-5)
[2018-07-08 16:07] LABS: A/G RATIO 0.6 (0.7-1.7); ALBUMIN 2.1 g/dL (2.9-4.4); ALPHA-1-GLOBULIN 0.5 g/dL (0.0-0.4); GAMMA GLOBULIN 1.4 g/dL (0.4-1.8); GLOBULIN, TOTAL 3.8 g/dL (2.2-3.9); M-SPIKE Not Observed g/dL (Not Observed); PROTEIN, TOTAL, SERUM 5.9 g/dL (6.0-8.5)
--- NOTE | 2018-07-08 17:50 | NUR ---
NURSING SUMMARY ALERT, ORIENTED X4, ATTEMPTING TO TALK WITH TRACH NOW, ANSWERING QUESTIONS AND SHAKING HEAD TO YES/NO QUESTIONS, MUCH MORE INTERACTIVE TODAY. SR - ST, HR 80'S - 110, VSS, AFEBRILE. LUNGS COARSE UPPER, COUGHING, TRACH WITH TRACH COLLAR AIRVO AT 7L/28% FIO2, SUCTIONING. INCONTINENT OF URINE AND STOOL, WEARING ATTENDS, ATTENDS DRY AT THIS TIME. STRAIGHT CATH DONE TO COLLECT URINE CULTURE AND DRAINED 400 CC YELLOW URINE. TURNING Q2H. DOBHOFF TO RIGHT NARES FEEDING JEVITY 1.5 AT 45 ML/HR WHICH IS GOAL RATE. TRACE EDEMA TO HANDS MUCH BETTER THAN THE LAST COUPLE OF DAYS. C/O ALL OVER BODY PAIN, MEDICATD WITH FENTANYL 50 MCG. SHAQ PICC TRIPLE LUMEN INFUSING NS AT TKO AND ANTIBIOTICS.
--- NOTE | 2018-07-08 19:00 | NUR ---
ASSUMED CARE OF PT TRACH PLACED, AIRVO 28%. PT COUGHING MODERATE AMOUNT OF THICK CLEAR SECRETIONS. JEVITY 1.5 RUNNING AT GOAL RATE OF 40 ML/HR WITH 200 ML FLUSH Q4 TO DOBHOFF. PT INCONTINENT OF URINE/BOWEL WITH ATTENDS IN PLACE. SEE FULL SHIFT ASSESSMENT.
--- NOTE | 2018-07-08 20:00 | NUR ---
NEURO CHANGE PT ALERT AND MOUTHING QUESTIONS ABOUT HER SITUATION. PT WANTED TO KNOW HOW LONG SHE HAD BEEN AT [facility] AND WHAT HAPPENED. PT GIVEN POINTER BOARD, PAPER AND A MARKER TO FACILITATE COMMUNICATION AND WAS ABLE TO WRITE THE FIRST 4 NUMBERS OF A PHONE NUMBER AND MOUTHED THE WORDS "". I ASKED THE PT IF SHE WANTED ME TO CALL HER AND SHE NODDED YES. PT CONTINUES TO MOUTH WORDS AND USE POINTER BOARD TO COMMUNICATE NEEDS. ADDITIONALLY PT ABLE TO FOLLOW COMMANDS AND IS ASSISTING IN REPOSITIONING SELF IN BED.
--- NOTE | 2018-07-08 20:30 | NUR ---
PT'S AT BEDSIDE. PT COMMUNICATING WITH SPOUSE BY MOUTHING WORDS, USING POINTER BOARD AND ANSWERING YES/NO QUESTIONS.
--- NOTE | 2018-07-09 02:37 | NUR ---
MIDSHIFT ASSESSMENT PT IS ALERT AND ABLE TO APPROPRIATELY RESPOND TO QUESTIONS AND COMMANDS. PT ATTEMPTING TO ASSIST IN CARE BY USING TISSUE TO WIPE UP SPUTUM, ASSISTING WITH REPOSITIONING, LIFTING HIPS TO ADJUST ATTENDS, AND MOVING ARMS TO PUT ON GOWN.
[2018-07-09 03:47] LABS: BASOPHILS ABSOLUTE AUTO 0.04 K/mm3 (0.00-0.23); BASOPHILS PERCENT AUTO 0 % (0-2); EOSINOPHILS ABSOLUTE AUTO 0.11 K/mm3 (0.00-0.68); EOSINOPHILS PERCENT AUTO 1 % (0-6); Hematocrit 19.8 % (33.0-51.0); Hemoglobin 6.2 g/dL (11.5-16.0); IMMATURE GRAN ABSOLUTE AUTO 0.31 K/mm3 (0.00-0.10); IMMATURE GRAN PERCENT AUTO 1 % (0-1); LYMPHOCYTES ABSOLUTE AUTO 2.75 K/mm3 (0.84-5.20); LYMPHOCYTES PERCENT AUTO 12 % (21-46); MONOCYTES ABSOLUTE AUTO 1.25 K/mm3 (0.16-1.47); MONOCYTES PERCENT AUTO 6 % (4-13); Mean Corpuscular HGB Conc 31.3 g/dL (31.5-36.5); Mean Corpuscular Volume 99 fL (80-100); Mean Platelet Volume 10.7 fL (9.1-12.4); NEUTROPHILS ABSOLUTE AUTO 17.95 K/mm3 (1.96-9.15); NEUTROPHILS PERCENT AUTO 80 % (41-73); Platelet Count 464 K/mm3 (150-400); RDW Coefficient Variation 14.5 % (11.7-14.2); RDW Standard Deviation 52.8 fL (35.1-46.3); White Blood Cell Count 22.41 K/mm3 (4.00-11.30)
[2018-07-09 04:08] LABS: Albumin, Blood 1.9 g/dL (3.4-5.0); Anion Gap 7 mmol/L (6-16); Blood Urea Nitrogen 42 mg/dL (8-24); CO2, Blood 25 mmol/L (21-32); Calcium, Blood 11.1 mg/dL (8.5-10.1); Chloride, Blood 111 mmol/L (98-108); Creatinine, Blood 0.86 mg/dL (0.40-1.00); Glomerular Filtration Rate >60 (60-); Glucose, Blood 125 mg/dL (70-99); Phosphorus, Blood 2.5 mg/dL (2.5-4.9); Potassium, Blood 3.8 mmol/L (3.5-5.5); Sodium, Blood 143 mmol/L (136-145)
--- NOTE | 2018-07-09 05:00 | NUR ---
CALL PLACED TO DR MEADOWS REGARDING PT'S LOW H&H. ORDER TO INFUSE 1 UNIT PRBC.
--- NOTE | 2018-07-09 06:26 | NUR ---
SHIFT SUMMARY PT SLEPT WELL LAST NIGHT, WAS EASILY AROUSED, AND ABLE TO COMMUNICATE NEEDS. PT HAS BEEN ABLE TO HOLD TISSUE IN HER HAND TO WIPE SPUTUM FROM TRACH AREA, ABLE TO REACH UP AND SCRATCH HER HEAD/NOSE, AND WAS ABLE TO BEND BOTH LEGS AT THE KNEE TO ASSIST IN CHANGING HER ATTENDS BY LIFTING HER HIPS. PT'S VITAL SIGNS HAVE BEEN STABLE THROUGHOUT THE SHIFT WITH O2 SATS IN THE MID 90'S AND RR IS THE 20'S. PT HAS CONTINUED TO BE INCONTINENT OF STOOL/URINE BUT ABLE TO COMMUNICATE THE NEED TO GO. PT WAS GIVEN THE CHOICE TO USE BEDPAN BUT SHE DECLINED. PT GIVEN 3 DOSES OF FENTANYL FOR PAIN MANAGEMENT AND 2 DOSES OF ATIVAN NEEDED FOR ANXIETY. PT'S DURAGESIC PATCH LOCATED ON SHAQ. PT SWITCHED FROM JEVITY 1.2 TO JEVITY 1.5 DUE TO SHORTAGE OF TF BAGS, WILL LET DAYSHIFT KNOW.
--- NOTE | 2018-07-09 08:00 | NUR ---
INITIAL ASSESSMENT PATIENT RESTING QUIETLY IN BED, WATCHING TV UPON ENTERING ROOM. PATIENT IS NONVERBAL. FLAT AFFECT NOTED. PATIENT GESTURES WITH HANDS, NODS/ SHAKES HEAD TO QUESTIONS, ATTEMPTS TO MOUTH SOME WORDS. PATIENT IS ORIENTED TO SELF, FAMILY AND SURROUNDINGS. PATIENT FOLLOWS SIMPLE COMMANDS. PATIENT WEAK BUT MOVES ALL EXTREMITIES. PATIENT AFEBRILE. PATIENT HAS NO COMPLAINTS OF PAIN AT THIS TIME. PATIENT HAS TRACH- SUTURED TO SKIN- NO REDNESS OR SWELLING NOTED AT THIS TIME. AIRVO VIA TRACH COLLAR AT 28% FIO2. RUL CLEAR, CRACKLES NOTED IN ALL OTHER LUNG LOBES. PATIENT HAS OCCASIONAL COUGH. SMALL AMOUNT OF THICK, CLEAR SPUTUM SUCTIONED FROM TRACH. PATIENT IN SR, HR 70S TO 80S. BP STABLE. PULSES STRONG. NO EDEMA NOTED. ABDOMEN MILDLY DISTENDED, SOFT, TENDER TO TOUCH, WITH HYPERACTIVE BS. MANAGER [employer] SALES NURSE REPORTED THAT PATIENT HAVING LOOSE STOOLS. ATTENDS IN PLACE FOR INCONTINENCE. DOBHOFF NOTED. JEVITY 1.5 INFUSING AT GOAL RATE OF 45 MLS/ HOUR WITH 200 ML WATER FLUSH Q4H. PATIENT INCONTINENT OF URINE. PATIENT HAS SCATTERED BRUISING. REDDENED SPOT NOTED ON R INNER BUTTOCK. NS INFUSING TKO. BED LOW, CALL LIGHT IN REACH. WILL CONTINUE TO MONITOR PATIENT FREQUENTLY THROUGHOUT SHIFT.
--- NOTE | 2018-07-09 09:40 | NUR ---
DR. PETERSON IN TO SEE PATIENT.
[2018-07-09 11:13] LABS: Hematocrit 29.3 % (33.0-51.0); Hemoglobin 9.4 g/dL (11.5-16.0)
--- NOTE | 2018-07-09 12:04 | NUR ---
PATIENT RESTING QUIETLY IN CHAIR, WATCHING TV. PATIENT HAS NO COMPLAINTS OF PAIN AT THIS TIME. PATIENT AFEBRILE. PATIENT REMAINS SATTING WELL ON SAME AIRVO SETTINGS. LUNGS COARSE THROUGHOUT. SMALL AMOUNT OF THIN, PALE YELLOW SECRETIONS BEING SUCTIONED FROM TRACH. PATIENT IN SR, HR IN THE 70S. BP STABLE. TONGUE IS WHITE. INFORMED DR. PETERSON. DR. OTT IN ROOM TO SEE PATIENT. HEMOGLOBIN NOW OVER 9.0. DR. PETERSON INFORMED. NO OTHER ACUTE CHANGES TO NOTE ON AT THIS TIME. WILL CONTINUE TO MONITOR.
--- NOTE | 2018-07-09 13:52 | NUR ---
PALLIATIVE CARE IN TO SEE PATIENT.
--- NOTE | 2018-07-09 16:33 | NUR ---
PATIENT REMAINS WATCHING TV IN CHAIR. PATIENT AFEBRILE. PATIENT DOES NOT HAVE ANY COMPLAINTS OF PAIN. PATIENT COMMUNICATED THAT SHE WOULD LIKE TO STAY IN CHAIR INSTEAD OF GETTING INTO BED AT THIS TIME. PATIENT REMAINS SATTING WELL ON SAME AIRVO SETTINGS. PATIENT IN SR, HR IN THE 90S. BP STABLE. TRACH CLEANED WITH STERILE TECHNIQUE. NO OTHER CHANGES TO NOTE ON AT THIS TIME. WILL CONTINUE TO MONITOR.
--- NOTE | 2018-07-09 18:44 | NUR ---
SHIFT SUMMARY PATIENT UP IN CHAIR MOST OF THE DAY. PATIENT IS FOLLOWING COMMANDS AND ANSWERING QUESTIONS WITH NODDING/ SHAKING OF HEAD, MOUTHING OF WORDS, AND HAND GESTURING. PATIENT REMAINS AFEBRILE. PATIENT'S PAIN SEEMS TO BE IMPROVING. PATIENT REMAINS WEAK BUT IS IMPROVING IN STRENGTH. PATIENT LUNG SOUNDS COARSE T/O MUCH OF THE SHIFT. PATIENT REMAINED SATTING WELL ON AIRVO WITH TRACH COLLAR AT 28% FIO2. PATIENT CONTINUES TO COUGH UP MODERATE AMOUNT OF THIN, LIGHT YELLOW SPUTUM. PATIENT HAS REMAINED IN SR, OCCASIONAL PACS NOTED. HR 70S TO 90S. BP HAS REMAINED MOSTLY STABLE. PRN HYDRALAZINE GIVEN ONCE FOR HTN. PATIENT REMAINS TOLERATING TF AT GOAL. PATIENT DID NOT HAVE BM THIS SHIFT. PATIENT INCONTINENT OF URINE AND STOOL- ATTENDS IN PLACE. PATIENT VOIDING YELLOW COLORED URINE. NO CHANGES TO SKIN. TRACH SITE SUTURES REMAIN INTACT, NO REDNESS NOTED. NS INFUSING TKO. PHYSICAL THERAPY WORKED WITH PATIENT TODAY. BED LOW, CALL LIGHT IN REACH. NO COMPLAINTS AT THIS TIME. WILL CONTINUE TO MONITOR PATIENT FREQUENTLY UNTIL REPORT GIVEN TO ONCOMING PASSENGER TRAIN BRAKER NURSE SHORTLY.
--- NOTE | 2018-07-09 20:00 | NUR ---
ASSUMED CARE BEDSIDE REPORT RECIEVED. PT IS LAYING IN BED RESTING QUIETLY AT THIS TIME. PT OPENS EYES TO VERBAL STIMULI AND IS ABLE TO FOLLOW COMMANDS. WEAKNESS NOTED. PT IS ABLE TO MOUTH WORDS TO SPEAK AND SHAKES HEAD YES OR NO TO QUESTIONS. PT WITH TRACH SUTURED IN PLACE, TRACH COLLAR AT 28% FIO2. VITAL SIGNS STABLE. PICC TO SHAQ C/D/I, NS TKO. DOBHOFF IN PLACE WITH TF AT GOAL RATE. PT WITH ATTENDS IN PLACE. NO FAMILY AT BEDSIDE. PT DENIES PAIN AT THIS TIME. WILL CONTINUE TO MONITOR.
[2018-07-10 04:14] LABS: BASOPHILS ABSOLUTE AUTO 0.08 K/mm3 (0.00-0.23); BASOPHILS PERCENT AUTO 0 % (0-2); EOSINOPHILS PERCENT AUTO 1 % (0-6); Hematocrit 30.8 % (33.0-51.0); Mean Corpuscular HGB 31.1 pg (26.0-34.0); Mean Corpuscular HGB Conc 32.5 g/dL (31.5-36.5); Mean Platelet Volume 11.4 fL (9.1-12.4); Platelet Count 458 K/mm3 (150-400); RDW Coefficient Variation 14.5 % (11.7-14.2); RDW Standard Deviation 50.7 fL (35.1-46.3); Red Blood Cell Count 3.22 M/mm3 (3.80-5.20); White Blood Cell Count 18.15 K/mm3 (4.00-11.30)
[2018-07-10 04:20] LABS: IMMATURE GRAN PERCENT AUTO 2 % (0-1); LYMPHOCYTES ABSOLUTE AUTO 3.13 K/mm3 (0.84-5.20); LYMPHOCYTES PERCENT AUTO 17 % (21-46); MONOCYTES ABSOLUTE AUTO 1.18 K/mm3 (0.16-1.47); MONOCYTES PERCENT AUTO 7 % (4-13); Mean Corpuscular Volume 96 fL (80-100); NEUTROPHILS ABSOLUTE AUTO 13.26 K/mm3 (1.96-9.15); NEUTROPHILS PERCENT AUTO 73 % (41-73)
[2018-07-10 04:42] LABS: Albumin, Blood 2.1 g/dL (3.4-5.0); Anion Gap 8 mmol/L (6-16); Blood Urea Nitrogen 40 mg/dL (8-24); CO2, Blood 24 mmol/L (21-32); Calcium, Blood 11.1 mg/dL (8.5-10.1); Chloride, Blood 109 mmol/L (98-108); Glomerular Filtration Rate >60 (60-); Glucose, Blood 97 mg/dL (70-99); Phosphorus, Blood 1.9 mg/dL (2.5-4.9); Potassium, Blood 4.1 mmol/L (3.5-5.5); Sodium, Blood 141 mmol/L (136-145)
--- NOTE | 2018-07-10 05:35 | NUR ---
SHIFT SUMMARY NO ACUTE CHANGES THIS SHIFT. PT HAS BEEN AWAKE THROUGHOUT MOST OF THE NIGHT. PT IS ALERT AND ORIENTED, WITH PERIODS OF CONFUSION AND PULLING AT THINGS IN BED. PT HAS DENIED PAIN THROUGHOUT THE NIGHT. VITAL SIGNS HAVE REMAINED STABLE. PT CONTINUES WITH OXYGEN VIA TRACH COLLAR AT 28% FIO2. PT WITH SECRETIONS FROM TRACH NEEDING FREQUENT SUCTION. PICC TO SHAQ REMAINS C/D/I, NS TKO. ATTENDS IN PLACE, PT INCONTINENT OF URINE. PT MOVING AND REPOSITIONING SELF IN BED INDEPENDENTLY. DOBHOFF REMAINS IN PLACE WITH TF AT 45 ML/HR GOAL RATE. WILL CONTINUE TO MONITOR AND REPORT OFF TO ONCOMING RN.
--- NOTE | 2018-07-10 08:32 | NUR ---
INITIAL ASSESSMENT PATIENT IN BED, WATCHING TV UPON ENTERING ROOM. PATIENT ANXIOUS AND MOUTHING THE WORDS " I WANT TO GO HOME". PATIENT CONTINUES TO GESTURE, MOUTH WORDS AND NOD/ SHAKE HEAD TO COMMUNICATE. PATIENT ORIENTED TO SELF, FAMILY, FOLLOWING DIRECTIONS AND SURROUNDINGS. PATIENT WEAK BUT ABLE TO MOVE ALL EXTREMITIES. PATIENT DENIES PAIN AT THIS TIME. PATIENT AFEBRILE. PATIENT SATTING WELL ON AIRVO VIA TRACH COLLAR AT 28% FIO2. LUNG SOUNDS COARSE THROUGHOUT. PATIENT HAS FREQUENT COUGH- MODERATE AMOUNT OF THIN, WHITE SPUTUM FROM TRACH. PATIENT IN SR, HR IN THE 80S. BP STABLE. NO EDEMA NOTED. ABDOMEN MILDLY DISTENDED, SOFT, NONTENDER, WITH NORMOACTIVE BS NOTED. ATTENDS IN PLACE PATIENT INCONTINENT OF URINE AND STOOL. DOCUSATE GIVEN DOCUMENTED THAT PATIENT HAS NOT HAD BM SINCE THE . DOBHOFF NOTED. JEVITY 1.5 INFUSING AT GOAL RATE OF 45 MLS/ HOUR WITH 200 ML WATER FLUSH Q4H. PATIENT URINE YELLOW IN COLOR. NO REDNESS NOTED AT TRACH SITE. CRUSTY, BROWN DRAINAGE NOTED AT SITE. PATIENT HAS SCATTERED BRUISING. RED SPOT TO R INNER BUTTOCKS. NS INFUSING TKO. BED LOW, CALL LIGHT IN REACH. WILL CONTINUE TO MONITOR PATIENT FREQUENTLY THROUGHOUT SHIFT.
--- NOTE | 2018-07-10 09:11 | NUR ---
DR. PETERSON IN TO SEE PATIENT.
--- NOTE | 2018-07-10 09:16 | NUR ---
INFORMED DR. PETERSON OF PHOSPHORUS LEVEL OF 1.9 THIS AM. ORDER RECEIVED.
--- NOTE | 2018-07-10 10:02 | NUR ---
PHYSICAL THERAPY IN WORKING WITH PATIENT.
--- NOTE | 2018-07-10 10:23 | NUR ---
DR. OTT IN ROOM TO SEE PATIENT.
--- NOTE | 2018-07-10 10:33 | NUR ---
FAMILY HERE TO VISIT PATIENT.
--- NOTE | 2018-07-10 11:41 | NUR ---
SPEECH THERAPY IN WORKING WITH PATIENT.
--- NOTE | 2018-07-10 12:50 | NUR ---
PATIENT BACK TO BED FROM SITTING IN CHAIR. PATIENT TIRED AFTER BEING SEEN BY PHYSICAL THERAPY, SPEECH THERAPY AND HAVING MULTIPLE VISITORS IN ROOM. PATIENT ANXIOUS WHILE AND OTHER VISITORS IN ROOM. PATIENT RESTING QUIETLY IN BED AT THIS TIME WITH NO COMPLAINTS. PATIENT AFEBRILE. PATIENT REMAINS SATTING WELL ON SAME AIRVO SETTINGS. PATIENT REMAINS IN SR, HR IN THE 80S. BP STABLE. SPEECH THERAPY SPOKE TO DR. PETERSON AND ORDER PLACED TO HAVE RT DEFLATE PATIENT'S CUFF 3 TIMES PER SHIFT FOR ONE HOUR INCREMENTS. RT INFORMED. NO OTHER ACUTE CHANGES TO NOTE ON AT THIS TIME. WILL CONTINUE TO MONITOR.
--- NOTE | 2018-07-10 15:40 | NUR ---
DR. PETERSON STATED DOBHOFF OKAY TO USE AFTER VIEWING CHEST XRAY.
--- NOTE | 2018-07-10 15:52 | NUR ---
PATIENT PULLED DOBHOFF OUT. PATIENT VERY AGITATED EARLIER AND WAS PULLING EVERYTHING OFF OF HER. DOBHOFF INSERTED. READ AND NEEDED PULLED OUT 10-15 CC MORE. PULLED OUT MORE. NEW CHEST XRAY PERFORMED. POSITION OKAY'D BY DR. PETERSON. PATIENT GIVEN PRN ZYPREXA.
--- NOTE | 2018-07-10 16:05 | NUR ---
DR. PETERSON, CARE MANAGEMENT, PATIENT ADVOCATE AND PRIMARY NURSE IN PATIENT ROOM WITH PATIENT'S AND A GOOD FRIEND. MEETING IS TO UPDATE FAMILY OF PATIENT'S CARE AND FUTURE CARE/ NEEDS.
--- NOTE | 2018-07-10 16:24 | NUR ---
PATIENT'S AND GOOD FRIEND IN ROOM WITH HER. ALL 3 STILL SPEAKING WITH CASH ON DELIVERY CLERK AND PATIENT ADVOCATE. PATIENT HAS CALMED DOWN MUCH SINCH PRN ZYPREXA GIVEN. NO COMPLAINTS OF PAIN. VSS. WILL CONTINUE TO MONITOR.
--- NOTE | 2018-07-10 17:32 | NUR ---
SHIFT SUMMARY PATIENT ANXIOUS AND AGITATED OFF AND ON THROUGHOUT SHIFT. PATIENT PULLED DOBHOFF OUT THIS SHIFT. DOBHOFF REINSERTED, PATIENT PLACED IN RESTRAINTS AND INFORMED THAT IT IS DANGEROUS TO PULL LINES AND CORDS, AND ZYPREXA ORDERED. PATIENT DOES SEEM MORE RELAXED NOW. PATIENT RESTING IN BED, WATCHING TV. NO SIGNS OF PAIN. PATIENT GIVEN PRN PAIN MEDICATIONS DURING SHIFT FOR COMPLAINT OF PAIN IN TRACH AREA. PATIENT HAS REMAINED AFEBRILE. PATIENT CONTINUES TO COMMUNICATE VIA GESTURES, MOUTHING WORDS AND NODDING/ SHAKING OF HEAD. PATIENT WEAK BUT STRENGTH IMPROVING. PATIENT WORKED WITH PT TODAY. PATIENT ALSO WORKED WITH SPEECH THERAPY TODAY. PATIENT REMAINED SATTING WELL ON AIRVO AT 28% FIO2. LUNGS REMAINED COARSE T/O. PATIENT HAD FREQUENT COUGH, PRODUCING MODERATE AMOUNT OF THIN, WHITE SPUTUM. PATIENT REMAINED IN SR, HR 80S. BP STABLE. TF REMAINS AT GOAL. PATIENT GIVEN COLACE HAS NOT HAD BM SINCE THE . PATIENT REMAINS INCONTINENT AND VOIDING YELLOW COLORED URINE. NO CHANGE TO SKIN. TRACH CARE PERFORMED. NS INFUSING TKO. PATIENT OOB TO CHAIR MOST OF DAY. PATIENT HAD BED BATH. PATIENT HAD 30 MM KPHOS THIS AM FOR LOW PHOSPHORUS LEVEL THIS AM. BED LOW, CALL LIGHT IN REACH. WILL CONTINUE TO MONITOR PATIENT FREQUENTLY UNTIL REPORT GIVEN TO ONCOMING OPERATER NURSE SHORTLY.
--- NOTE | 2018-07-10 17:50 | NUR ---
CHECKED ON PATIENT. HAD LONG CONVERSATION WITH PATIENT. PATIENT MOUTHS THE WORDS " I AM DONE". PATIENT ASKED IF SHE WAS HAPPY BEFORE COMING TO THE HOSPITAL AND SHE MOUTHS "YES". PATIENT THEN MOUTHS " IT'S NOT THE SAME". NURSE LISTENED TO PATIENT AND TRIED TO REASSURE. ALSO SPOKE TO PATIENT ABOUT RESTRAINTS AND PATIENT AGREED THAT IF THEY WERE TAKEN OFF THAT SHE WOULD NOT PULL ANY LINES OR CORDS. RESTRAINTS REMOVED AT THIS TIME. WILL CONTINUE TO MONITOR.
--- NOTE | 2018-07-10 23:10 | NUR ---
ASSUMING CARE RECEIVED PT REPORT FROM HECTOR LOPEZ. PT HAS TRACH COLAR WITH AIRVO. FIO2 IS 25%. PT SPO2 IS MAINTAINING IN THE MID TO HIGH 90'S AT THIS TIME. PT APPEARS TO BE ANXIOUS AND IS PULLING AT GOWN AND SHEETS. PT IS NOT PULLING AT LINES OR TUBES AT THIS TIME. PT PROVIDED FENTANYL AND ZYPREXA SHORTLY AFTER CARE ASSUMED. PT LUNG SOUNDS ARE COARSE THROUGHOUT. PT IS COUGHING UP THIN WHITE TO CLEAR SECRETIONS FROM TRACH. TRACH SUCTIONED WITH SMALL AMOUNT OF SECRETIONS REMOVED. PT IS RECEIVING NS AT TKO. PT IS RECEIVING TUBE FEEDING VIA DOBHOFF. PT IS RECEIVING JEVITY 1.5 TF SOLUTION AT GOAL RATE OF 45ML/HR WITH Q4 200ML H2O FLUSHES. PT APPEARS TO BE ABLE TO ANSWER QUESTIONS APPROPRIATELY. PT WILL ATTEMPT TO MOUTH WORDS IN RESPONSE TO QUESTIONS BUT PT WILL MOUTH WORDS VERY QUICKLY AND IS DIFFICULT TO UNDERSTAND. PT HAS HAD TO BE REMINDED FREQUENTLY TO NOD "YES/NO" IN RESPONSE TO SIMPLE QUESTIONS. PT WILL FOLLOW COMMANDS BUT WILL FREQUENTLY STIFFEN AND/OR PUSH AGAINST TURNS. PT HAS ATTENDS IN PLACE DUE TO INCONTINENCE. ASSUMING CARE OF PT AT THE TIME OF SHIFT REPORT. WILL CONTINUE TO MONITOR PT.
[2018-07-11 04:56] LABS: BASOPHILS ABSOLUTE AUTO 0.09 K/mm3 (0.00-0.23); BASOPHILS PERCENT AUTO 1 % (0-2); EOSINOPHILS ABSOLUTE AUTO 0.26 K/mm3 (0.00-0.68); EOSINOPHILS PERCENT AUTO 2 % (0-6); Hematocrit 29.9 % (33.0-51.0); Hemoglobin 9.7 g/dL (11.5-16.0); IMMATURE GRAN ABSOLUTE AUTO 0.28 K/mm3 (0.00-0.10); IMMATURE GRAN PERCENT AUTO 2 % (0-1); LYMPHOCYTES PERCENT AUTO 19 % (21-46); MONOCYTES ABSOLUTE AUTO 1.36 K/mm3 (0.16-1.47); MONOCYTES PERCENT AUTO 9 % (4-13); Mean Corpuscular HGB 31.2 pg (26.0-34.0); Mean Corpuscular HGB Conc 32.4 g/dL (31.5-36.5); Mean Corpuscular Volume 96 fL (80-100); Mean Platelet Volume 10.5 fL (9.1-12.4); NEUTROPHILS ABSOLUTE AUTO 10.48 K/mm3 (1.96-9.15); NEUTROPHILS PERCENT AUTO 68 % (41-73); Platelet Count 426 K/mm3 (150-400); RDW Coefficient Variation 14.2 % (11.7-14.2); RDW Standard Deviation 49.5 fL (35.1-46.3); Red Blood Cell Count 3.11 M/mm3 (3.80-5.20); White Blood Cell Count 15.47 K/mm3 (4.00-11.30)
--- NOTE | 2018-07-11 05:29 | NUR ---
SHIFT SUMAMRY NOTE PT CONTINUES TO HAVE AIRVO MASK IN PLACE OVER TRACH. PT CONTINUES TO RECEIVE 25% FIO2 WITH HUMIDITY THROUGH AIRVO. PT HAS MAINTAINED SPO2 IN THE 90'S THROUGHOUT THE NIGHT. PT HAS HAD A COUGH AND HAS BEEN COUGHING UP THIN CLEAR TO WHITE SECRETIONS FROM TRACH. SUCTION PERFORMED ON MULTIPLE OCCASIONS FOR MANAGEMENT OF SECRETIONS. PT HAS REMAINED AGITATED THROUGHOUT THE NIGHT. PT ATTEMPTED TO CRAWL OUT OF THE BED APPROX 3 TIMES OVERNIGHT, STATING THAT SHE WANTED TO GET OUT OF BED. PT WAS INSTRUCTED THAT SHE COULD NOT GET OUT OF BED PROPER STAFF FOR SAFELY GETTING HER OUT OF BED WAS NOT AVAILABLE AT NIGHT. PT CONTINUES TO MOUTH WORDS AT A VERY FAST RATE AND IS DIFFICULT TO UNDERSTAND. PT BECAME FRUSTRATED WHEN ASKED TO WRITE. PT WAS OBSERVED TO PULL AT BEDSHEETS AND RAILS. PT MOVING SELF IN BED THROUGHOUT THE NIGHT. PT PROVIDED ZYPREXA X1 AND FENTANYL X2 FOR AGITATION. PT HAS BEEN INCONTINENT OF BLADDER THROUGHOUT THE NIGHT. PT HAS NOT CALLED TO BE CHANGED BUT WILL NOD YES WHEN ASKED IF SHE NEEDS HER ATTENDS CHANGED. PT CONTINUES TO RECEIVE NS AT TKO. PT CONTINUES TO RECEIVE TUBE FEEDING AT GOAL RATE OF 45ML/HR. PT HR HAS REMAINED STABLE THROUGHOUT THE NIGHT. PT WAS HYPERTENSIVE THROUGH PERIODS OF AGITATION. WILL REPORT OFF TO [facility] DAY SHIFT NURSE.
[2018-07-11 05:42] LABS: Albumin, Blood 2.1 g/dL (3.4-5.0); Anion Gap 7 mmol/L (6-16); Blood Urea Nitrogen 34 mg/dL (8-24); Bun/Creatinine Ratio 42.8 (12.0-20.0); CO2, Blood 26 mmol/L (21-32); Calcium, Blood 10.5 mg/dL (8.5-10.1); Chloride, Blood 107 mmol/L (98-108); Glomerular Filtration Rate >60 (60-); Glucose, Blood 96 mg/dL (70-99); Phosphorus, Blood 2.8 mg/dL (2.5-4.9); Sodium, Blood 140 mmol/L (136-145)
--- NOTE | 2018-07-11 12:31 | NUR ---
REASSESSMENT: PT GOT UP TO THE CHAIR THIS MORNING AND HAS BEEN UP FOR ABOUT AN HOUR AND A HALF. SHE WORKED WITH PHYSICAL THERAPY, ATTEMPTED TO STAND TWICE, BUT UNABLE TO AND UNWILLING TO KEEP TRYING. HER TRACH WAS CHANGED OUT BY RT ACCORDING TO DR. BRAGA'S ORDERS. LUNGS REMAIN COARSE AND PT HAS A FREQUENT, IRRITATED SEEMING COUGH THAT BRINGS UP SMALL BITS OF SPUTUM. SUCTIONED PT ONCE, BUT UNABLE TO GET ANYTHING ADDITIONAL TO WHAT PT IS COUGHING UP. PT CONTINUES TO BE VERY ANXIOUS, WIGGLING HER LEGS ALMOST CONSTANTLY. SHE ASKS WHAT SHE IS SUPPOSED TO BE DOING BECAUSE SHE IS BORED. ENCOURAGEMENT ADN REASSURANCE PROVIDED.
--- NOTE | 2018-07-11 16:26 | NUR ---
SHIFT SUMMARY: OTHER THAN GETTING HER TRACH CHANGED OUT TODAY PT HAD NO ACUTE CHANGES. SHE WORKED WITH SPEECH THERAPY BEFORE THE TRACH WAS CHANGED AND HAD SOME DIFFICULTY SPEAKING, BUT AFTER THE TRACH CHANGE SHE HAS BEEN ABLE TO SPEAK EASILY WHEN THE TRACH IS BRIEFLY OCCLUDED BY Jeff GORDON. LUNGS REMAIN COARSE AND PT CONTINUES TO HAVE HER FREQUENT, IRRITATED COUGH. STILL CLEARING HER OWN SECRETIONS. SR, BPS TABLE. INCONTINENT IN THE ATTENDS, BUT CONTINENT OF BOWELS THIS AFTERNOON. CONTINUING TO MONITOR.
--- NOTE | 2018-07-11 23:14 | NUR ---
ASSUMING CARE RECEVIED PT REPORT FROM HECTOR DUONG. PT IS ALERT AND ORIENTED AT THE TIME CARE WAS ASSUMED. PT IS AGITATED AND IS MOVING SELF IN BED AND PULLING AT GOWN AND SHEETS. PT HAS NOT BEEN OBSERVED TO PULL AT LINES OR DOBHOFF. PT HAS TRACH IN PLACE. PT TRACH WAS CHANGED TO 6.0 FENESTRATED WITHOUT A CUFF, PER REPORT. PT HAS AIRVO IN PLACE OVER TRACH AT 25% FIO2 WITH HUMIDITY. PT IS COUGHING MODERATELY THIN SECRETIONS FROM TRACH. SECRETIONS ARE WHITE TO CLEAR. DEEP SUCTIONING PERFORMED WITH ONLY SCANT AMOUNTS OF SECRETIONS REMOVED. PT IS RECEIVING TUBE FEEDING OF JEVITY 1.5 AT GOAL RATE OF 45ML/HR. PT IS RECEIVING 200ML H2O BOLUSES Q4. PT HAS ATTENDS IN PLACE. PT HAS BEEN ABLE TO REQUEST THE USE OF BED MORRISON SO FAR THROUGH THE NIGHT. PT IS ABLE TO REPOSITION SELF IN BED, WILL PROVIDE ASSISTANCE NEEDED. PT IS RECEIVING NS AT TKO AT THIS TIME. ASSUMING CARE OF PT AT THE TIME OF SHIFT REPORT. WILL CONTINUE TO MONITOR PT.
--- NOTE | 2018-07-12 01:21 | NUR ---
CONFUSION PT WAS AWOKEN FOR 0000 ORAL CARE AND TURNING. PT WAS PLACED ON BEDPAN PER REQUEST. PT BEGAN TO ATTEMPT TO CLIMB OUT OF BED. PT WAS REMOVED FROM BEDPAN AND WAS POSITIONED FOR COMFORT. PT THEN BEGAN TO PULL AT SHEETS AND DISROBE. PT BEGAN TO CLIMB OUT OF BED AGAIN. PT WAS ASKED WHERE SHE WAS TRYING TO GO AND STATED THAT SHE "WAS TRYING TO GET READY TO GO." PT WAS ASKED IF SHE REMEMBERED THAT SHE WAS IN THE HOSPITAL. PT STATED THAT SHE DID. PT APPEARED TO TAKE A MOMENT TO THINK AND STATED THAT SHE WAS CONFUSED. PT WAS REPOSITIONED AND WAS REMINDED THAT IT WAS THE MIDDLE OF THE NIGHT AND THAT PT WOULD BE ABLE TO GET HER OUT OF BED IN THE AM. PT IS CALM AND LYING IN BED AT THIS TIME. WILL CONTIUE TO MONITOR PT.
[2018-07-12 03:37] LABS: BASOPHILS ABSOLUTE AUTO 0.06 K/mm3 (0.00-0.23); BASOPHILS PERCENT AUTO 1 % (0-2); EOSINOPHILS ABSOLUTE AUTO 0.32 K/mm3 (0.00-0.68); EOSINOPHILS PERCENT AUTO 2 % (0-6); Hematocrit 30.1 % (33.0-51.0); Hemoglobin 9.6 g/dL (11.5-16.0); IMMATURE GRAN ABSOLUTE AUTO 0.36 K/mm3 (0.00-0.10); IMMATURE GRAN PERCENT AUTO 3 % (0-1); LYMPHOCYTES ABSOLUTE AUTO 2.64 K/mm3 (0.84-5.20); LYMPHOCYTES PERCENT AUTO 20 % (21-46); MONOCYTES ABSOLUTE AUTO 0.97 K/mm3 (0.16-1.47); MONOCYTES PERCENT AUTO 7 % (4-13); Mean Corpuscular HGB 31.4 pg (26.0-34.0); Mean Corpuscular HGB Conc 31.9 g/dL (31.5-36.5); Mean Corpuscular Volume 98 fL (80-100); Mean Platelet Volume 10.2 fL (9.1-12.4); NEUTROPHILS ABSOLUTE AUTO 8.73 K/mm3 (1.96-9.15); NEUTROPHILS PERCENT AUTO 67 % (41-73); Platelet Count 394 K/mm3 (150-400); RDW Standard Deviation 50.4 fL (35.1-46.3); Red Blood Cell Count 3.06 M/mm3 (3.80-5.20); White Blood Cell Count 13.08 K/mm3 (4.00-11.30)
[2018-07-12 03:56] LABS: Anion Gap 6 mmol/L (6-16); Blood Urea Nitrogen 34 mg/dL (8-24); Bun/Creatinine Ratio 40.3 (12.0-20.0); CO2, Blood 28 mmol/L (21-32); Calcium, Blood 10.4 mg/dL (8.5-10.1); Chloride, Blood 107 mmol/L (98-108); Creatinine, Blood 0.84 mg/dL (0.40-1.00); Glomerular Filtration Rate >60 (60-); Glucose, Blood 94 mg/dL (70-99); Potassium, Blood 4.2 mmol/L (3.5-5.5); Sodium, Blood 141 mmol/L (136-145)
--- NOTE | 2018-07-12 06:11 | NUR ---
SHIFT SUMMARY NOTE PT CONTINUES TO HAVE AIRVO TO TRACH. AIRVO IS AT 25% FIO2 WITH HUMIDITY. PT CONTINUES TO HAVE WHITE TO CLEAR SECRETIONS FROM TRACH. PT HAS MAINTAINED SPO2 THROUGH THE NIGHT. PT HAS BEEN BETTER ABLE TO ASSIST WITH TURNS AND REPOSITIONING THROUGH THE NIGHT. PT WAS FOUND TO HAVE TURNED SELF ON OCCASION THROUGH THE NIGHT WELL. PT HAS BEEN INTERMITTENTLY CONFUSED. AND HAS ATTEMPTED TO PULL AT SHEETS AND DISROBE. PT HAS NOT BEEN OBSERVED TO PULL AT IV LINES OR DOBHOFF WHICH REMAINS IN PLACE AT THIS TIME. PT HAS BEEN ABLE TO STATE WHEN SHE NEEDS TO BE PLACED ON BEDPAN MOST TIMES THAT PT HAS NEEDED TO VOID. PT CONTINUES TO RECEIVE TUBE FEEDING AT GOAL RATE OF 45ML/HR VIA DOBHOFF. PT IS RECEIVING NS AT TKO. PT VITAL SIGNS HAVE REMAINED STABLE THROUGH THE NIGHT. [facility]
--- NOTE | 2018-07-12 09:10 | NUR ---
INITIAL ASSESSMENT PATIENT SITTING UP IN CHAIR. PATIENT HAS ALREADY HAD AM CARE AND BED BATH. PATIENT IS ABLE TO SPEAK WHEN ASSISTED TO COVER UP TRACH. PATIENT IS ALERT AND ORIENTED TO ALL QUESTIONS EXCEPT TO EVENT LEADING TO HOSPITALIZATION AND THE EXACT DATE. PATIENT IS CALM AND COOPERATIVE. PATIENT ABLE TO FOLLOW COMMANDS WELL. PATIENT DENIES PAIN AT THIS TIME. PATIENT HAS TEMP OF 99.6 DEGREES FAHRENHEIT BUT ALSO COVERED BY SEVERAL BLANKETS BY THAT IS IN ROOM. PATIENT SATTING WELL WITH AIRVO ATTACHED TO TRACH COLLAR AT 28% FIO2. PATIENT HAS 6.0, FENESTRATED, NON-CUFFED TRACH. LUNG SOUNDS ARE COARSE THROUGHOUT. PATIENT IS COUGHING UP SMALL AMOUNTS OF THICK, WHITE PHLEGM FROM TRACH TUBE. PATIENT IN SR, HR IN THE 80S. BP STABLE. PULSES STRONG. NO EDEMA NOTED. ABDOMEN SOFT, NONTENDER, WITH NORMOACTIVE BS. TF INFUSING AT GOAL RATE WITH 200 ML H20 FLUSH Q4H. PATIENT HAS ATTENDS ON IS INCONTINENT OF STOOL AND URINE AT TIMES. RECEIVED REPORT THAT PATIENT DOES OCCASIONALLY ASK TO USE BED MORRISON AND DOES BECOME AGITATED AND RESTLESS WHEN NEEDS TO VOID. TRACH SITE WNL. SCATTERED BRUISING NOTED. REDDENED AREA ON BUTTOCK. NS INFUSING TKO. CALL LIGHT IN REACH. WILL CONTINUE TO MONITOR PATIENT FREQUENTLY THROUGHOUT SHIFT.
--- NOTE | 2018-07-12 10:40 | NUR ---
PT/OT IN WORKING WITH PATIENT. REMAINS IN ROOM.
--- NOTE | 2018-07-12 10:47 | NUR ---
DR. OTT IN ROOM TO SEE PATIENT.
--- NOTE | 2018-07-12 11:56 | NUR ---
PATIENT RESTING QUIETLY IN BED. NO COMPLAINTS. AFEBRILE. PATIENT REMAINS ALERT AND ORIENTED. PATIENT REMAINS SATTING WELL ON SAME AIRVO SETTINGS. EXPIRATORY WHEEZE NOTED IN RUL, ALL OTHER LOBES DIMINISHED. PATIENT IN SR, HR IN THE 70S. BP STABLE. NO OTHER ACUTE CHANGES TO NOTE ON AT THIS TIME. WILL CONTINUE TO MONITOR.
--- NOTE | 2018-07-12 12:45 | NUR ---
SPEECH THERAPY IN TO SEE PATIENT.
--- NOTE | 2018-07-12 12:59 | NUR ---
REPORT GIVEN TO ASSUMING NURSE, SYMONE FRIEDMAN.
--- NOTE | 2018-07-12 17:23 | NUR ---
Transfer: Pt transferred at approx 1700. VSS. In no apparent sign of distress. Pt sent with all belongings, chart and medications. Report given to receiving RN Marisel YOUNG. Pt denies any acute events/complaints t/o the day. Denied any further questions or concerns at time of transfer.
--- NOTE | 2018-07-12 20:01 | NUR ---
SHIFT SUMMARY Assumed care of pt at 1635 from Brenda YOUNG. Telephone report received prior to pt arrival. Assessment completed. Bed in lowest position. Call light in reach. Report given to oncoming RNBelle.
--- NOTE | 2018-07-13 05:20 | NUR ---
SHIFT SUMMARY PT A&O X4, CALM AND COOPERATIVE W/ EPISODES OF IRRITABILITY. PT'S AT BEDSIDE BEGINNING OF THIS SHIFT, UPLIFTING AND ENCOURAGING PT. PT LUNG SOUNDS COARSE T/O, SPO2 > 92% ON 8L TRACH COLLAR. PT NPO. SPEECH THERAPY TO SEE PT 07/13/18. JEVITY 1.5 INFUSING CONTINUOUSLY VIA NGT AT GOAL RATE OF 45 ML/HR W/ 200 ML FLUSH Q4H. PT HOB ELEVATED 30-45 DEGREES. PT INCONTINENT, WEARING ATTENDS. PRN AYDEE CARE/ATTENDS CHANGES PROVIDED. WILL CONTINUE TO MONITOR AND PROVIDE CARE UNTIL REPORT OFF TO DAY SHIFT RN.
--- NOTE | 2018-07-13 08:09 | NUR ---
AM NOTE. ASSUMED CARE OF PT APROX 0700. PT IS A&Ox4 PLEASENT AND COOPERATIVE WITH CARE. PT WAS ADMITTED DUE TO FLU. PT IS NO LONGER FLU POSITIVE AT THIS TIME. PT'S TRACH COLLAR/DRESSING IS C/D/I, PT IS >90% ON 7L AND 28%. TELE INTACT, SR IN THE 70'S PER HAT MODEL, PT'S BP 130/73. NO EDEMA NOTED ON ASSESSMENT. L/S COARSE W/WHEEZES T/O, RESPERS EVEN AND UNLABORED. BT PRESENT AND HYPOACTIVE, ABD IS SOFT AND NONTENDER TO PALP. CALL LIGHT IN REACH, BED IS LOCKED AND LOW WITH BEDALARM ON, WILL CONTINUE TO MONITOR.
--- NOTE | 2018-07-13 11:24 | NUR ---
PT UPDATE. SPEECH THERAPIST SAW PT THIS AM, PT PASSED SWALLOW EVAL AND WAS CHANGED FROM NPO TO PUREE W/NECTAR THICK FLUIDS AND 100% SUPERVISION. MEDS ARE TO BE CRUSHED W/PUDDING OR CUSTARD, PT DOES NOT LIKE APPLE SAUCE. WAITING FOR ORDERS TO D/C THE DOBHOFF.
--- NOTE | 2018-07-13 18:26 | NUR ---
SHIFT SUMMARY. NO ACUTE CHANGED NOTED WITH PT THIS SHIFT. PT HAD A SWALLOW EVAL AND WAS CHANGED FROM NPO TO PUREE W/NECTAR THICK FLUIDS AND 100% SUPERVISON WHILE EATING. PT IS TOLERATING PO INTAKE VERY WELL. STEFFEN [employer]SE SUPERVISOR WAS AT THE BEDSIDE THIS AFTERNOON, PT'S INNER CANNULA OF HER TRACH WAS REMOVED AND A BUTTON WAS PLACED OVER THE TRACH, PT HAS TOLERATED THIS WELL. PT'S STATS ARE >90% ON RA AT THIS TIME. PROVIDER WANTS TRACH COLLAR PUT BACK ON WHEN PT IS SLEEPING TONIGHT AND WILL REEVALUATE NEED FOR THE TRACH COLLAR IN THE AM. PROVIDER ALSO ORDERED TO HAVE THE DOBHOFF REMOVED AT THE TIME WELL. DOBOFF WAS REMOVED AT APROX 1600. PT ATE 75% OF HER DINNER AND 120MLS. CALL LIGHT IN REACH, BED IS LOCKED AND LOW WILL CONTINUE TO MONITOR UNTIL REPORT IS GIVEN TO ONCOMING RN.
--- NOTE | 2018-07-14 00:20 | NUR ---
UPDATE PT PREVIOUSLY ON RA W/ TRACH BUTTON IN PLACE. UPON ENTRY TO PT ROOM LATER IN SHIFT, PT'S TRACH SEEN ON FLOOR. WHEN ASKED HOW TRACH CAME OUT PT STATES "I HAVE NO CLUE." PT TOLERATING ABSENCE OF TRACH W/ SPO2 > 92% ON RA. RT CALLED TO ROOM W/ INTENT OF PUTTING TRACH BACK IN. PT REFUSING TRACH REINSERTION. CALL TO MD MEADOWS W/ FIRST STATING TO REINSERT TRACH, THEN UPON ACKNOWLEDGEMENT OF PT REFUSAL MD GAVE ORDERS TO COMPLY W/ WHAT THE PT WANTED. PT REMAINS W/OUT TRACH. WILL CONTINUE TO MONITOR AND PROVIDE CARE.
--- NOTE | 2018-07-14 04:57 | NUR ---
SHIFT SUMMARY PT A&O X4, CALM AND COOPERATIVE W/ EPISODES OF AGITATION AND WORRY. PT CALMED BY PT'S AND MYSELF. PT ANXIOUS ABOUT HER TRACH AT BEGINNING OF SHIFT. TRACH COLLAR WELL FASTENED IN PLACE T/O TIME SPENT W/ PT. TRACH COLLAR AND TRACH THEN FOUND ON FLOOR UPON RENTRY TO PT ROOM WHILE ROUNDING IN EVENING. PT STATES "I HAVE NO CLUE" WHEN ASKED HOW TRACH CAME OUT. CALL TO MD MEADOWS W/ PERMISSION TO NOT REINSERT TRACH. PT TOLERATING RA WELL, SPO2 > 92%. MONITOR SHOWS NSR, HR 60'S-80'S. BED ALARM ON PT D/T PT BEING VERY WEAK AND ATTEMPTING TO GET UP TO USE THE RESTROOM W/OUT USING THE CALL LIGHT. PT MINIMALLY ABLE TO STAND AND PIVOT TO BSC. LEGS STRONGER THAN PREVIOUS SHIFT ATTEMPT TO STAND. PT CURRENTLY IN BED SLEEPING W/ BED IN LOWEST POSITION, SIDE RAILS UP X2, BED ALARM ON AND CALL LIGHT IN REACH. WILL CONTINUE TO MONITOR AND PROVIDE CARE UNTIL REPORT OFF TO DAY SHIFT RN.
[2018-07-14 06:07] LABS: BASOPHILS ABSOLUTE AUTO 0.06 K/mm3 (0.00-0.23); BASOPHILS PERCENT AUTO 0 % (0-2); EOSINOPHILS ABSOLUTE AUTO 0.17 K/mm3 (0.00-0.68); EOSINOPHILS PERCENT AUTO 1 % (0-6); Hematocrit 32.5 % (33.0-51.0); Hemoglobin 10.4 g/dL (11.5-16.0); IMMATURE GRAN ABSOLUTE AUTO 0.28 K/mm3 (0.00-0.10); IMMATURE GRAN PERCENT AUTO 2 % (0-1); LYMPHOCYTES ABSOLUTE AUTO 3.37 K/mm3 (0.84-5.20); LYMPHOCYTES PERCENT AUTO 22 % (21-46); MONOCYTES ABSOLUTE AUTO 0.77 K/mm3 (0.16-1.47); MONOCYTES PERCENT AUTO 5 % (4-13); Mean Corpuscular HGB 30.8 pg (26.0-34.0); Mean Corpuscular Volume 96 fL (80-100); Mean Platelet Volume 10.2 fL (9.1-12.4); NEUTROPHILS ABSOLUTE AUTO 10.38 K/mm3 (1.96-9.15); NEUTROPHILS PERCENT AUTO 69 % (41-73); Platelet Count 418 K/mm3 (150-400); RDW Coefficient Variation 13.7 % (11.7-14.2); RDW Standard Deviation 48.6 fL (35.1-46.3); Red Blood Cell Count 3.38 M/mm3 (3.80-5.20); White Blood Cell Count 15.03 K/mm3 (4.00-11.30)
[2018-07-14 06:22] LABS: Anion Gap 6 mmol/L (6-16); Blood Urea Nitrogen 30 mg/dL (8-24); Bun/Creatinine Ratio 36.2 (12.0-20.0); CO2, Blood 28 mmol/L (21-32); Calcium, Blood 10.9 mg/dL (8.5-10.1); Chloride, Blood 106 mmol/L (98-108); Creatinine, Blood 0.83 mg/dL (0.40-1.00); Glomerular Filtration Rate >60 (60-); Glucose, Blood 81 mg/dL (70-99); Potassium, Blood 4.3 mmol/L (3.5-5.5); Sodium, Blood 140 mmol/L (136-145)
--- NOTE | 2018-07-14 18:11 | NUR ---
SHIFT SUMMARY PT RESTING IN BED THROUGHOUT THE DAY. VSS. ALERT AND ORIENTED X3. C/O 12/18 RIGHT SHOULDER PAIN, MEDICATED WITH PRN PAIN MEDS, SEE EMAR, AQUA K PAD APPLIED TO RIGHT SHOULDER, PT STATES IT IS HELPING. LUNG SOUNDS CLEAR, DIMINISHED BASES. UP TO BEDSIDE COMMODE WITH 1 PERSON ASSIST. PT CONTINUE TO BE WEAK. STATES SHE WANTS TO GO HOME, BUT NEEDS TO GET STRONGER. WILL CONTINUE TO MONITOR.
[2018-07-15 06:17] LABS: BASOPHILS ABSOLUTE AUTO 0.08 K/mm3 (0.00-0.23); BASOPHILS PERCENT AUTO 1 % (0-2); EOSINOPHILS PERCENT AUTO 2 % (0-6); Hematocrit 31.6 % (33.0-51.0); Hemoglobin 10.2 g/dL (11.5-16.0); IMMATURE GRAN ABSOLUTE AUTO 0.22 K/mm3 (0.00-0.10); IMMATURE GRAN PERCENT AUTO 2 % (0-1); LYMPHOCYTES ABSOLUTE AUTO 2.93 K/mm3 (0.84-5.20); LYMPHOCYTES PERCENT AUTO 24 % (21-46); MONOCYTES ABSOLUTE AUTO 0.67 K/mm3 (0.16-1.47); MONOCYTES PERCENT AUTO 6 % (4-13); Mean Corpuscular HGB 31.5 pg (26.0-34.0); Mean Corpuscular HGB Conc 32.3 g/dL (31.5-36.5); Mean Corpuscular Volume 98 fL (80-100); Mean Platelet Volume 10.6 fL (9.1-12.4); NEUTROPHILS ABSOLUTE AUTO 8.06 K/mm3 (1.96-9.15); NEUTROPHILS PERCENT AUTO 66 % (41-73); Platelet Count 406 K/mm3 (150-400); RDW Coefficient Variation 13.6 % (11.7-14.2); RDW Standard Deviation 48.6 fL (35.1-46.3); Red Blood Cell Count 3.24 M/mm3 (3.80-5.20); White Blood Cell Count 12.16 K/mm3 (4.00-11.30)
--- NOTE | 2018-07-15 07:46 | NUR ---
SHIFT SUMMARY PT A&O X4 W/ EPISODES OF CONFUSION. PT STATES BEING "LOST" WHEN SHE WAKES UP, NOT KNOWING WHERE SHE IS, BUT THEN REALIZES. PT CALM AND COOPERATIVE W/ EPISODES OF AGITATION AND ANXIETY. PT EASILY CONSOLABLE W/ TIME SPENT CONVERSING W/ PT. PT EXPRESSES READINESS TO BE "OUT OF HERE." PT GETTING STRONGER W/ GETTING UP TO BSC AND CHAIR, TAKING STEPS, STANDING MORE STRONGLY. PT LUNG SOUNDS CLEAR, SPO2 > 92% ON RA. MONITOR SHOWS NSR, HR 60'S-90'S. EPISODE OF INCONTINENCE THIS SHIFT. PT DENIES WETNESS IN BED TO BE URINE. TIME SPENT ENCOURAGING PT THROUGH HER ILLNESS AND ENCOURAGEMENT TOWARDS RETURNING TO HER BASELINE. PT STILL CONTINUES TO BE WITHDRAWN AT THIS TIME. PT IN BED W/ CALL LIGHT IN REACH. PT STATES WILL BE COMING IN SOON. REPORT OFF TO DAY SHIFT DONE.
--- NOTE | 2018-07-15 16:49 | NUR ---
Called to meet with pt at RN's request. Pt had verbalized to her BEEHIVE KILN CHARCOAL BURNER that she was feeling depressed. Reviewed EMR, Care Mgmt note, PT, ST and DR Progress notes prior to visit. Pt alone in room, side-lying position away from door way. Shades were drawn. I spoke to pt about her current progress and plans. She is alert and oriented, describes disorientation upon waking at night and not knowing where she is. This is anxiety producing to her. I adjusted blinds to her liking that she could see out and see kassidy a little easier. We talked about her dog and the possibility of a visit. Her Marci, has said she will bring her in at some point. Pt denies pain or nausea. She said she has her usual shoulder ache and is getting tylenol for that. Pt states she spoke with a rn transitional care today who is going to check on SNF placement locally, which she is very grateful for. She did not want to go to [place] for rehab. She was up with PT and did very well, walked to door twice and transferred twice this am. She declined PT in the afternoon, feeling very worn out after the morning session. She also did well with ST and was d/c's from ST services. We reviewed the progress she's made in leaps and bounds since 3-4 weeks ago. She stated she wants to get to Rehab as soon as possible and home again. She is very motivated toward that goal. She was encouraged and supported for all that she has been thru since becoming ill with the flu. Pt acknowledged other issues that complicated her recovery. Pt declined anything I could bring her and stated she'd like to nap. Set her up for nap with lights out, music on. Report given to pt's RN on my visit. VM left for rn transitional care to inquire re: dc planning. I will f/u with them tomorrow also.
--- NOTE | 2018-07-15 17:11 | NUR ---
Addendum to prev note: Reviewed med list again. Pt is taking zoloft for depression and has a duragesic patch for bodily pain. Pt is also on Ambien at HS for sleep. This may be contributing to pt's confusion and anxiety at waking up disoriented in the night. Suggested to RN to try holding ambien at hs if pt agreeable. If pt unable to sleep suggested requesting order for OTC dose of Melatonin as a sleep aid instead. Ni Sandoval RN, Palliative Care
--- NOTE | 2018-07-15 17:20 | NUR ---
DISCHARGE NOTE PT STABLE FOR DISCHARGE. IV REMOVED. DISCHARGE MEDICATIONS AND DISCHARGE INSTRUCTIONS REVIEWED WITH PT. PT VERBALIZES UNDERSTANDING AND DENIES QUESTIONS. PERSONAL BELONGINGS RETURNED TO PT FROM SECURITY. PT TO [place]AXI FOR DISCHARGE VIA WHEELCHAIR WITH BELONGINGS.
--- NOTE | 2018-07-15 19:01 | NUR ---
SHIFT SUMMARY PT RESTING IN BED THROUGHOUT THE DAY. VSS. ALERT AND ORIENTED X3 WITH MOMENTS OF CONFUSION. C/O 7/10 RIGHT SHOULDER PAIN, MEDICATED WITH PRN PAIN MEDS. LUNG SOUNDS CLEAR, HEART TONES REGULAR. NSR RATE 49-60s THROUGHOUT THE DAY. UP TO BEDSIDE COMMODE WITH 1 PERSON ASSIST AND FWW. UP TO CHAIR FOR BREAKFAST AND LUNCH. PT WORKED WITH PHYSICAL THERAPY AND AMBULATED TO DOOR TWICE, TOLERATED WELL, BUT WAS EXHAUSTED THIS AFTERNOON. FAMILY AT BEDSIDE THROUGHOUT THE DAY. WILL CONTINUE TO MONITOR.
--- NOTE | 2018-07-15 19:30 | NUR ---
ASSUMED CARE PT RESTING IN ROOM W/ SPOUSE AT BEDSIDE. PT IS AOX4 BRIGHT AFFECT. DENIES PAIN AT THIS TIME. PER DAY SHIFT PT WAS RECENT ICU TRASNFER W/ TRACH. PT NOW ON RA W/ SATS >92%. SOME DYSPNEA W/ AMBULATION. PT IS DECONDITIONED AND NEEDS 2 PERSON SBA TO USE BSC. RESP EVEN UNLBAORED ON RA. SKIN IS PWD. PT HAS GAUZE DRESSING OVER TRACH INSERTION SITE. REPORTS NO PAIN TO SITE. PT REQUESTS BR LIGHT AND DOPOR TO BE LEFT ON AND OPEN T/O NIGHT, REPORTS WHEN SHE WAKES UP IN THE DARK SHE IS DISORIENTED. CALL LIGHT IS IN REACH.
--- NOTE | 2018-07-16 06:15 | NUR ---
SHIFT SUMMARY PT SLEEPING IN ROOM COMFORTABLY. PT HAD NO ACUTE CHANGES IN STATUS T/O NIGHT. PT WOKE TWICE TO USE RESTROOM, PT WAS AOX4 UPON WAKING. REPORTS FEELS MORE ORIENTED WITH BATHROOM LIGHT ON IN ROOM. PT WAS ABLE TO AMBULATE TO RR WITH 4WW. SOME DYSPNEA WITH AMBULATION. RESP EVEN UNLABORED ON RA SATS >93%. SKIN PWD. CALL LIGHT IN REACH. BED ALARM ON FOR SAFETY.
--- NOTE | 2018-07-16 18:46 | NUR ---
END OF SHIFT SUMNMARY; PT FELL TODAY WHEN TRYING TO GET UP IN THE BATHROOM FROM THE TOILET. SHE BRUISED HER LEFT MEI. WAS NOTIFIED AND IRIS WAS FILLED OUT. PT HAS BED ALARM ON BED AT THIS TIME AND YELLOW FALL RISK GOWN ON. PT IS ANXIOUS AND IS WANTING TO GO HOME TOMORROW. HER VITAL SIGNS ARE STABLE AND NO BLEEDING OR DRAINAGE IS NOTED FROM TRACH SITE. SHE IS AO X 4 DURING DAY SHIFT. WILL CONTINUE TO MONITOR THIS PATIENT UNTIL REPORT AND HAND OFF TO NOC SHIFT RN.
[2018-07-17 04:22] LABS: Hematocrit 31.2 % (33.0-51.0); Mean Corpuscular HGB 31.5 pg (26.0-34.0); Mean Corpuscular HGB Conc 32.1 g/dL (31.5-36.5); Mean Corpuscular Volume 98 fL (80-100); Mean Platelet Volume 10.3 fL (9.1-12.4); Platelet Count 366 K/mm3 (150-400); RDW Coefficient Variation 13.6 % (11.7-14.2); RDW Standard Deviation 49.4 fL (35.1-46.3); Red Blood Cell Count 3.17 M/mm3 (3.80-5.20); White Blood Cell Count 12.39 K/mm3 (4.00-11.30)
[2018-07-17 04:38] LABS: Albumin, Blood 2.4 g/dL (3.4-5.0); Anion Gap 6 mmol/L (6-16); Blood Urea Nitrogen 20 mg/dL (8-24); Bun/Creatinine Ratio 22.5 (12.0-20.0); CO2, Blood 27 mmol/L (21-32); Calcium, Blood 10.7 mg/dL (8.5-10.1); Chloride, Blood 107 mmol/L (98-108); Creatinine, Blood 0.89 mg/dL (0.40-1.00); Glomerular Filtration Rate >60 (60-); Glucose, Blood 82 mg/dL (70-99); Phosphorus, Blood 2.3 mg/dL (2.5-4.9); Potassium, Blood 4.1 mmol/L (3.5-5.5); Sodium, Blood 140 mmol/L (136-145)
--- NOTE | 2018-07-17 05:07 | NUR ---
SHIFT SUMMARY PT A&O X4. SBA W/ FWW TO BATHROOM. PT WEARING YELLOW FALL GOWN D/T FALL 07/16/18 DAY SHIFT. PT HAS BRUISE ON L ANTERIOR LOWER LEG THAT SHE STATES TO BE FROM THE FALL. PT ABLE TO SLEEP MAJORITY OF SHIFT. MONITOR SHOWS NSR/SB, HR 50'S-70'S. LUNG SOUNDS CLEAR T/O, DIM IN BASES. SPO2 > 92% ON RA. TRACH SITE DRESSED W/ GAUZE. PT IN BED W/ CALL LIGHT IN REACH, BED ALARM ON. WILL CONTINUE TO MONITOR AND PROVIDE CARE UNTIL REPORT OFF TO DAY SHIFT RN.
--- NOTE | 2018-07-17 19:08 | NUR ---
END OF SHIFT; NO ACUTE CHANGES IN CONDITION NOTED TODAY. PT WALKED WITH PT AROUND UNIT X 1 TODAY. RETURNED TO ROOM SAT IN RECLINER FOR 2 HOURS THEN BACK TO BED. PT VERY ANXIOIUS AND CONCERNED ABOUT GOING TO SNF FACILITY. WOULD LIKE TO GO "RIGHT NOW" WAS TALKING ABOUT GOING AMA TOMORROW IF NOT TRANSFERRED TO SNF.
[2018-07-18 04:53] LABS: BASOPHILS ABSOLUTE AUTO 0.06 K/mm3 (0.00-0.23); BASOPHILS PERCENT AUTO 0 % (0-2); EOSINOPHILS ABSOLUTE AUTO 0.65 K/mm3 (0.00-0.68); EOSINOPHILS PERCENT AUTO 5 % (0-6); Hematocrit 30.7 % (33.0-51.0); Hemoglobin 9.9 g/dL (11.5-16.0); IMMATURE GRAN ABSOLUTE AUTO 0.16 K/mm3 (0.00-0.10); IMMATURE GRAN PERCENT AUTO 1 % (0-1); LYMPHOCYTES ABSOLUTE AUTO 3.54 K/mm3 (0.84-5.20); LYMPHOCYTES PERCENT AUTO 26 % (21-46); MONOCYTES ABSOLUTE AUTO 0.59 K/mm3 (0.16-1.47); MONOCYTES PERCENT AUTO 4 % (4-13); Mean Corpuscular HGB 31.5 pg (26.0-34.0); Mean Corpuscular HGB Conc 32.2 g/dL (31.5-36.5); Mean Corpuscular Volume 98 fL (80-100); Mean Platelet Volume 11.1 fL (9.1-12.4); NEUTROPHILS ABSOLUTE AUTO 8.72 K/mm3 (1.96-9.15); NEUTROPHILS PERCENT AUTO 64 % (41-73); Platelet Count 372 K/mm3 (150-400); RDW Coefficient Variation 13.6 % (11.7-14.2); RDW Standard Deviation 48.5 fL (35.1-46.3); Red Blood Cell Count 3.14 M/mm3 (3.80-5.20); White Blood Cell Count 13.72 K/mm3 (4.00-11.30)
[2018-07-18 05:10] LABS: Albumin, Blood 2.4 g/dL (3.4-5.0); Anion Gap 7 mmol/L (6-16); Blood Urea Nitrogen 21 mg/dL (8-24); Bun/Creatinine Ratio 22.4 (12.0-20.0); CO2, Blood 26 mmol/L (21-32); Calcium, Blood 10.4 mg/dL (8.5-10.1); Chloride, Blood 108 mmol/L (98-108); Creatinine, Blood 0.94 mg/dL (0.40-1.00); Glomerular Filtration Rate >60 (60-); Glucose, Blood 79 mg/dL (70-99); Phosphorus, Blood 1.9 mg/dL (2.5-4.9); Potassium, Blood 4.3 mmol/L (3.5-5.5); Sodium, Blood 141 mmol/L (136-145)
--- NOTE | 2018-07-18 05:31 | NUR ---
SHIFT SUMMARY PT A&O X4 NOW CALLING APPROPRIATELY FOR ASSISTANCE TO THE BATHROOM. PT WEARING YELLOW "FALL" GOWN D/T RECENT FALL. PT ABLE TO SLEEP MUCH OF NIGHT. PT TX'D W/ TYLENOL X1 PER EMAR FOR HEADACHE AND BACK PAIN. PT CONTINUES TO EXPRESS READINESS TO DISCHARGE. TIME SPENT ENCOURAGING PT. WILL CONTINUE TO MONITOR AND PROVIDE CARE UNTIL REPORT OFF TO DAY SHIFT RN.
--- NOTE | 2018-07-18 08:09 | NUR ---
Assumed Care: Assumed care of pt at approx 0700. VSS. In no apparent sign of distress. Pt is A&Ox4. Calls appropriately. Denies any pain at this time. Skin is overall CDI. Pt up in chair this AM. States "I will not be staying in the hospital another day". Pt states that she is feeling so much better and feels ready to go home. Plans to work with PT today. Pt currently sitting up and eating breakfast. See shift assessment for detailed assessment. Denies any further questions, complaints or requests at this time.
--- NOTE | 2018-07-18 11:48 | NUR ---
Update: Plan to discharge pt. Pt refuses to wait until [place] consult, and to transfer to SNF for rehab. Dr. Noonan updated and aware and plan is to discharge home with HH. Notified DC inventory control planner. Pt advocate called, because pt called to let her know that pt is discharging home, and was unsure if pt was confused or not. Pt is A&Ox4, and will call her to update. Pt currently resting in bed with call light within reach. Pt has been up and walking in the room today while supervised, and has been tolerating that activity well. Pt denies any further questions, complaints or requests at this time. Will continue to monitor.
[2018-07-18] MEDS ORDERED: METO25 PO (11:56)
[2018-07-18] MEDS ORDERED: MELA3 PO (11:57)
[2018-07-18] MEDS ORDERED: PRED10 PO (11:59)
[2018-07-18] MEDS ORDERED: Zoloft25 MG PO (12:00)
[2018-07-18] MEDS ORDERED: ROPI.25 PO (12:00)
--- NOTE | 2018-07-18 17:50 | NUR ---
Discharge: Pt discharged at approx 1530. VSS. In no apparent sign of distress. Pt discharged via wheelchair with all belongings and DC instructions in hand. Pt was hesitant to allow pt to discharge home, but felt that the pt would have adequate coverage/care if discharged home with HH. Pt refused to dishcarge to a SNF, which closed the opportunity to DC to a SNF with Lucy and insurance. Pt glad to go home, and felt that she is ready. Denies any further questions, complaints or requests at time of discharge.
== END 2018-07-18 15:35 | disposition home or self-care (01) | DRG 4 ==
LOC: ER 09:34 → MEDS 12:43 → ICUE 12:43 → MEDS 14:34 → ICUE 06-09 08:22 → ICUW 07-11 07:20 → PCU 07-12 16:33
PROVIDERS: Family Medicine; Internal Medicine; Internal Medicine Cardiovascular Disease; Internal Medicine Critical Care Medicine; Internal Medicine Pulmonary Disease; Pharmacist; ADMIT Internal Medicine
PROC: 5A1955Z Respiratory Ventilation, Greater than 96 Consecutive Hours (ICD-10-PCS; 2018-06-08)
PROC: 5A09357 Assistance with Respiratory Ventilation, Less than 24 Consecutive Hours, Continuous Positive Airway Pressure (ICD-10-PCS; principal; 2018-06-09)
PROC: 0BH18EZ Insertion of Endotracheal Airway into Trachea, Via Natural or Artificial Opening Endoscopic (ICD-10-PCS; 2018-06-27)
PROC: 0B113F4 Bypass Trachea to Cutaneous with Tracheostomy Device, Percutaneous Approach (ICD-10-PCS; 2018-07-03)
PROC: 0BJ08ZZ Inspection of Tracheobronchial Tree, Via Natural or Artificial Opening Endoscopic (ICD-10-PCS; 2018-07-03)
PROC: 30233N1 Transfusion of Nonautologous Red Blood Cells into Peripheral Vein, Percutaneous Approach (ICD-10-PCS; 2018-07-09)
PROC: 0BH17EZ Insertion of Endotracheal Airway into Trachea, Via Natural or Artificial Opening (ICD-10-PCS; 2018-07-09)
DX: J10.00 Influenza due to other identified influenza virus with unspecified type of pneumonia (principal); J96.01 Acute respiratory failure with hypoxia; K72.00 Acute and subacute hepatic failure without coma; G92 Toxic encephalopathy; N17.0 Acute kidney failure with tubular necrosis; R65.21 Severe sepsis with septic shock; A41.02 Sepsis due to Methicillin resistant Staphylococcus aureus; E87.2 Acidosis; F10.231 Alcohol dependence with withdrawal delirium; E87.0 Hyperosmolality and hypernatremia; J15.211 Pneumonia due to Methicillin susceptible Staphylococcus aureus; Z79.82 Long term (current) use of aspirin; I10 Essential (primary) hypertension; F17.210 Nicotine dependence, cigarettes, uncomplicated; M81.0 Age-related osteoporosis without current pathological fracture; K58.9 Irritable bowel syndrome, unspecified; Z96.653 Presence of artificial knee joint, bilateral; E66.3 Overweight; Z68.29 Body mass index [BMI] 29.0-29.9, adult; Z86.73 Personal history of transient ischemic attack (TIA), and cerebral infarction without residual deficits; I49.8 Other specified cardiac arrhythmias; I95.9 Hypotension, unspecified; R00.1 Bradycardia, unspecified; G25.81 Restless legs syndrome; E83.39 Other disorders of phosphorus metabolism; D63.8 Anemia in other chronic diseases classified elsewhere
CPT/HCPCS: 31500; 31502; 31720; 36415; 36430; 36569; 36600; 51702; 71045; 71046; 80048; 80051; 80053; 80069; 80074; 80202; 81001; 82248; 82272; 82330; 82550; 82565; 82728; 82803; 82947; 83540; 83550; 83690; 83735; 83880; 84100; 84145; 84165; 85014; 85018; 85025; 85027; 85610; 85730; 86850; 86900; 86901; 86923; 87040; 87070; 87077; 87086; 87147; 87186; 87205; 87493; 87804; 90686; 92507; 92526; 92597; 92610; 93005; 93010; 93308; 93321; 94002; 94003; 94640; 94660; 94760; 94762; 96365; 96366; 96375; 97110; 97116; 97163; 97164; 97166; 97530; 97535; 99285-25; C1751; C1769; C9113; J0360; J0456; J0610; J0690; J0696; J0780; J1200; J1650; J1815; J1885; J1940; J2060; J2250; J2543; J2765; J2930; J3010; J3370; J3411; J3475; J7030; J7042; J7050; J7060; J7070; J7120; J7626; P9016

== ENCOUNTER 2018-10-17 23:29 | Inpatient (IN) | payer BC ==
[~2018-10-17] VITALS: Ht 157.5 cm; Wt 78.9 kg
[~2018-10-17 23:29] MED LIST changes: +ALBU90OI6 INH; +MELA3 PO; +METO25 PO; +PANT40 PO; +PRED10 PO; +PROBIOTIC1 EAC1 PO; +ROPI.25 PO; +Zoloft25 MG PO
[2018-10-17 23:54] LABS: BASOPHILS ABSOLUTE AUTO 0.04 K/mm3 (0.00-0.23); BASOPHILS PERCENT AUTO 0 % (0-2); EOSINOPHILS ABSOLUTE AUTO 0.04 K/mm3 (0.00-0.68); EOSINOPHILS PERCENT AUTO 0 % (0-6); Hematocrit 45.6 % (33.0-51.0); Hemoglobin 14.4 g/dL (11.5-16.0); IMMATURE GRAN ABSOLUTE AUTO 0.11 K/mm3 (0.00-0.10); IMMATURE GRAN PERCENT AUTO 1 % (0-1); LYMPHOCYTES ABSOLUTE AUTO 2.22 K/mm3 (0.84-5.20); LYMPHOCYTES PERCENT AUTO 20 % (21-46); MONOCYTES ABSOLUTE AUTO 0.21 K/mm3 (0.16-1.47); MONOCYTES PERCENT AUTO 2 % (4-13); Mean Corpuscular HGB 31.1 pg (26.0-34.0); Mean Corpuscular HGB Conc 31.6 g/dL (31.5-36.5); Mean Corpuscular Volume 99 fL (80-100); Mean Platelet Volume 11.1 fL (9.1-12.4); NEUTROPHILS ABSOLUTE AUTO 8.77 K/mm3 (1.96-9.15); NEUTROPHILS PERCENT AUTO 77 % (41-73); Platelet Count 242 K/mm3 (150-400); RDW Coefficient Variation 13.9 % (11.7-14.2); RDW Standard Deviation 50.5 fL (35.1-46.3); Red Blood Cell Count 4.63 M/mm3 (3.80-5.20); White Blood Cell Count 11.39 K/mm3 (4.00-11.30)
[2018-10-18 00:18] LABS: Salicylate 5.6 mg/dL (2.8-20.0)
[2018-10-18 00:19] LABS: Thyroid Stimulating Hormone 2.15 uIU/mL (0.360-4.800)
[2018-10-18 00:20] LABS: Source, Urine Catheter
[2018-10-18 00:23] LABS: Bilirubin, Urine Neg (Neg); Blood, Urine Neg (Neg); Glucose Qualitative, Urine Neg (Neg); Ketones, Urine Neg (Neg); Leukocyte Esterase, Urine Neg (Neg); Nitrite, Urine Neg (Neg); Protein, Urine Neg (Neg); Specific Gravity, Urine 1.005 (1.003-1.022); Urobilinogen, Urine NORM (Normal)
[2018-10-18 00:24] LABS: Appearance, Urine Clear (Clear); Color, Urine Pale Yellow (P-Yellow)
[2018-10-18 00:30] LABS: PCO2 Arterial 34.3 mmHg (35-45); PO2 Arterial 301 mmHg (80-100); pH Blood Arterial 7.09 (7.35-7.45)
[2018-10-18 00:30] LABS: Acetaminophen, Random 76.1 ug/mL (10.0-30.0); Albumin, Blood 3.3 g/dL (3.4-5.0); Albumin/Globulin Ratio 1.1 (0.8-1.8); Bilirubin, Total 0.2 mg/dL (0.1-1.0); Bun/Creatinine Ratio 16.2 (12.0-20.0); Calcium, Blood 8.9 mg/dL (8.5-10.1); Creatinine, Blood 1.36 mg/dL (0.40-1.00); Globulin, Blood 3.1 g/dL (2.2-4.0); Potassium, Blood 3.9 mmol/L (3.5-5.5); Total Protein, Blood 6.4 g/dL (6.4-8.2)
[2018-10-18 00:37] LABS: U Amphetamine Screen Not Detected; U Barbituate Screen Not Detected; U Benzodiazapine Screen Not Detected; U Buprenorphine Screen Not Detected; U Cannabinoids Screen Not Detected; U Cocaine Screen Not Detected; U Methadone Screen Not Detected; U Methamphetamine Screen Not Detected; U Opiates Screen Not Detected; U Oxycodone Screen Not Detected; U Phencyclidine Screen Not Detected; U Propoxyphene Screen Not Detected
--- NOTE | 2018-10-18 02:10 | NUR ---
ADMIT: PT WAS TRANSFERRED TO ICU 10 VIA GURNEY WITH HEART MONITOR ATTACHED AND RN, RT AND TECH AT BEDSIDE. PT TRANSFERRED TO BED WITHOUT ISSUES. PT UNRESPONSIVE TO VERBAL STIMULI AND PAINFUL STIMULI. PUPILS 7MM BILAT AND SLUGGISH TO RESPOND. NO GAG OR SWALLOW, BUT PT DOES INITIATE A COUGH ON HER OWN FROM TIME TO TIME. BILAT SOFT WRIST RESTRAINTS APPLIED TO PROTECT AIRWAY. LS CLEAR T/O WITH BIOX 92% ON VENT SETTING AC 16, VC 420/60, PEEP 5, FIO2 45%. 6.0 ETT 24 @ LIP. HEART SOUNDS S1 AND S2 AUSCULTATED WITH MONITOR SHOWING ST WITH HR 110. SKIN PINK, WARM AND DRY. BILAT HANDS ARE DUSKY. STRONG RADIAL PULSES BILAT. WEAK, BUT PALPABLE DOSALIS AND POST TIBIAL PULSES BILAT. 18G IV LAC WITH DOPAMINE RUNNIGN @ 20MCG/KG/MIN= 57.8CC/HR WITH LEVOPHED @ 30MCG/MIN= 113CC/HR. 18G IV L HAND WITH VERSED RUNNING @ 0.5MG/HR=1CC/HR. 18G IV RAC S/L. LIJ QUAD LUMEN CENTRAL LINE WITH D10 RUNNING @ 170CC/HR. INSULIN @ 36UNITS/HR=36CC/HR. NAC @ 130CC/HR. ABD R/S WITH HYPO BTX4. OG TO LIS AND DRAINING SCANT AMOUNT OF VELA LIQUID. TODD TEMP PROBE DRAINING CLEAR YELLOW URINE.
[2018-10-18 03:16] LABS: Glucose, Blood 387 mg/dL (70-99)
[2018-10-18 03:43] LABS: Hematocrit 43.3 % (33.0-51.0); Hemoglobin 13.8 g/dL (11.5-16.0); Mean Corpuscular HGB 31.2 pg (26.0-34.0); Mean Corpuscular HGB Conc 31.9 g/dL (31.5-36.5); Mean Corpuscular Volume 98 fL (80-100); Mean Platelet Volume 11.4 fL (9.1-12.4); Platelet Count 258 K/mm3 (150-400); RDW Coefficient Variation 13.7 % (11.7-14.2); RDW Standard Deviation 49.8 fL (35.1-46.3); Red Blood Cell Count 4.43 M/mm3 (3.80-5.20); White Blood Cell Count 21.44 K/mm3 (4.00-11.30)
[2018-10-18 03:55] LABS: Albumin, Blood 3.1 g/dL (3.4-5.0); Bilirubin, Total 0.4 mg/dL (0.1-1.0); Calcium, Blood 8.8 mg/dL (8.5-10.1); Globulin, Blood 3.2 g/dL (2.2-4.0); Potassium, Blood 3.2 mmol/L (3.5-5.5); Total Protein, Blood 6.3 g/dL (6.4-8.2)
[2018-10-18 04:18] LABS: International Normalized Ratio 1.15
[2018-10-18 04:23] LABS: Bun/Creatinine Ratio 20.6 (12.0-20.0); Calcium, Blood 8.8 mg/dL (8.5-10.1); Creatinine, Blood 1.02 mg/dL (0.40-1.00); Potassium, Blood 2.8 mmol/L (3.5-5.5)
--- NOTE | 2018-10-18 04:46 | NUR ---
UPDATE: PT HAS COUGH AND SWALLOW WHEN ORAL CARE DONE. PT ALSO GRIMACES WITH ORAL CARE. BITES HER TONGUE AND LIP ONCE ORAL CARE IS DONE; HAD TO PRY MOUTH OPEN WITH ORAL SUCTION TO GET TONGUE BACK IN MOUTH.
[2018-10-18 05:05] LABS: PCO2 Arterial 35.2 mmHg (35-45); PO2 Arterial 87.4 mmHg (80-100); pH Blood Arterial 7.16 (7.35-7.45)
--- NOTE | 2018-10-18 07:19 | NUR ---
ASSUMED CARE REPORT FROM HECTOR FLANNERY. INTUBATED OD PATIENT. 6.0 ETT D/T PRIOR TRACH SCARRING. 24 ATT. A/C 16 Vt 420 PEEP 5 FIO2 45% BIOX 97% RESTRAINED TO AVOID SELF EXTUBATION. BP AND HR BEING MAINTAIN WITH DOPAMINE AT 20 MCG/KG/MIN AND LEVOPHED AT 30 MCG/MIN. SEDATION BY VERSED AT 0.5 MG/HR. ANTEDOTES OF ACETYLCISTEINE 65 ML/HR, INSULIN 42 UNITS/HR, D10 W/2 AMPS BICARB AT 100/HR. ECHO AND CT OF HEAD SCHEDULAED FOR TODAY.
--- NOTE | 2018-10-18 07:42 | NUR ---
INSULIN GTT TO 43 UNITS/HR FOR CBG 302. VERSED GTT OFF FOR SEDATION VACATION. FIO2 TITRATED TO 40% BY RT KAMERON
--- NOTE | 2018-10-18 07:49 | NUR ---
SEDATION VACATION VERY SHORT PT IS GAGGING ON ETT. OPENS HER EYES TO NAME.
--- NOTE | 2018-10-18 08:33 | NUR ---
MD VISIT DR. LOREDO IN. DISCUSSED CT OF HEAD SCHEDULED. PATIENT IS RESPONDING. WILL CANCEL CT FOR NOW AND REORDER IF DEFICITS NOTED
--- NOTE | 2018-10-18 09:34 | NUR ---
BILL HERE TO COMPLETE ECHO. PATIENT TURNED TO LEFT SIDE. AWAKE, ONEAL. HR TO 126. DOPAMINE OFF. LEVOPHED AT 22
--- NOTE | 2018-10-18 10:23 | NUR ---
POISON CONTROL UPDATED RECOMMENDATIONS TO REPEAT ASPIRIN LEVEL AND TO REPEAT TYLENOL LEVEL, LFT AND INR EVERY [address] LOREDO RECEIVED AND IMPLEMENTED.
--- NOTE | 2018-10-18 10:38 | NUR ---
Echocardiogram completed.
--- NOTE | 2018-10-18 10:48 | NUR ---
PATIENT GAGGING ON ETT. DR. SUTHERLAND ASKED KAMERON, RT, TO PLACE ON SBT AND TEST FOR CUFF LEAK
--- NOTE | 2018-10-18 10:54 | NUR ---
MD VISIT DR. SUTHERLAND IN.
[2018-10-18 11:48] LABS: Bun/Creatinine Ratio 17.5 (12.0-20.0); Creatinine, Blood 1.2 mg/dL (0.40-1.00); Potassium, Blood 2.7 mmol/L (3.5-5.5)
[2018-10-18 11:50] LABS: Acetaminophen, Random 42.2 ug/mL (10.0-30.0); Bilirubin, Direct 0.2 mg/dL (0.0-0.3); Bilirubin, Indirect 0.4 mg/dL (0.1-0.7); Bilirubin, Total 0.6 mg/dL (0.1-1.0); International Normalized Ratio 1.27; Prothrombin Time Results 13.2 Sec (9.7-11.5); Salicylate 3.5 mg/dL (2.8-20.0)
--- NOTE | 2018-10-18 12:15 | NUR ---
EMESIS NOTED ON GOWN, EVEN THOUGH PT HAS OGT TO LIS
--- NOTE | 2018-10-18 13:20 | NUR ---
INSULIN GTT TURNED TO 5 UNITS/HR FOR CBG 87
[2018-10-18 13:36] LABS: PCO2 Arterial 32.8 mmHg (35-45); PO2 Arterial 182 mmHg (80-100); pH Blood Arterial 7.39 (7.35-7.45)
--- NOTE | 2018-10-18 13:58 | NUR ---
OGT KINKED OR BLOCKED. PT VOMITTED AROUND ETT, OGT. REPOSITIONED. BED BATH GIVEN. ABG COMPLETED. LOW POTASSIUM ACKNOWLEDGED
--- NOTE | 2018-10-18 16:53 | NUR ---
CONSULT WITH POISON CONTROL FOR INSULIN GTT. CBG'S 70'S. INSULIN OFF AT THIS TIME.
--- NOTE | 2018-10-18 19:19 | NUR ---
POISON CONTROL SPOOL WINDER RECOMMENDS TURNING INSULIN ON THE 35 UNITS/HR, GIVING MORE DEXTROSE AND TITRATING DOPAMINE DOWN WHILE USING LEVOPHED TO MANTAIN BP. DR. SUTHERLAND UPDATED. DOPAMINE TITRATED OFF. LEVOPHED AT 22. PATIENT IS ALERT AND ORIENTED, ASSISTED WITH TURNS. PROPOFOL AT 60 MCG/KG/MIN. REPORT GIVEN TO HECTOR FLANNERY.
[2018-10-18 19:21] LABS: Bun/Creatinine Ratio 17.1 (12.0-20.0); Calcium, Blood 8.1 mg/dL (8.5-10.1); Creatinine, Blood 1.11 mg/dL (0.40-1.00); Potassium, Blood 2.5 mmol/L (3.5-5.5)
--- NOTE | 2018-10-18 19:45 | NUR ---
ASSUMED CARE/ASSESSMENT: PT SEDATED AT JIMBO 3; OPENS EYES TO VERBAL, SQUEEZES BILAT HANDS TO COMMAND BUT WEAK. ATTEMPTS TO REACH TOWARD ETT WHEN ORAL CARE DONE. BILAT SOFT WRIST RESTRAINTS ON. PUPILS 5MM BILAT AND SLUGGISH TO REACT. PT HAS GAG, COUGH AND SWALLOW WITH ORAL CARE. LS COARSE WITH END INSPIRATORY WHEEZE IN RUL, RML , DIMINISHED BILAT BASES. COARSE KATHY. VENT SETTINGS AC 16, VC 420/60 PEEP 5, FIO2 35% WITH BIOX 100%. SUCTIONING SCANT, THIN FROTHY WHITE SPUTUM FROM ETT. ORAL CARE DONE. HEART SOUNDS S1 AND S2 AUSCULTATED WITH MONITOR SHOWING SR WITH HR 82. SKIN PINK, WARM AND DRY. PPP 1+ BILAT. BILAT RADIAL PULSES 2+. 18G IV RAC S/L. 18G IV LH S/L. 18G IV LAC WITH PROPOFOL @ 27CC/HR= 60MCG/KG/MIN. LIJ QUAD LUMEN CENTRAL LINE WITH LEVOPHED @ 82.5CC/HR= 22MCG/MIN, DOPAMIN ON STANDBY. NAC @ 65CC/HR. D20 @ 100CC/HR, D10 WITH 2 AMPS BICARB @ 100CC/HR AND INSULIN @ 35CC/HR=35 UNITS/HR. ABD R/S WITH HYPO BTX4. OG TO LIS AND DRAINING BROWNINSH GREEN LIQUID. TODD TEMP PROBE DRAINING YELLOW URINE. TEMP 100.6
[2018-10-18 23:47] LABS: International Normalized Ratio 1.39; Prothrombin Time Results 14.3 Sec (9.7-11.5)
[2018-10-18 23:51] LABS: Acetaminophen, Random 5.6 ug/mL (10.0-30.0); Albumin, Blood 2.3 g/dL (3.4-5.0); Bilirubin, Direct 0.6 mg/dL (0.0-0.3); Bilirubin, Indirect 0.2 mg/dL (0.1-0.7); Bilirubin, Total 0.8 mg/dL (0.1-1.0); Globulin, Blood 2.3 g/dL (2.2-4.0); Total Protein, Blood 4.6 g/dL (6.4-8.2)
[2018-10-18 23:53] LABS: Potassium, Blood 2.3 mmol/L (3.5-5.5)
--- NOTE | 2018-10-19 05:25 | NUR ---
SUMMARY: SEDATED AT JIMBO 3; OPENS EYES TO VERBAL STIMULI. ABLE TO FOLLOW COMMANDS. WEAK T/O. BILAT SOFT WRIST RESTRAINTS ON. LS CLEAR T/O AND DIMINISHED INTHE BASES. VOMITTED AROUND ETT ONCE THIS SHIFT. HAS BEEN MEDICATED A COUPLE OF TIME WITH FENTANYL FOR PAIN. CHECKING CBG Q1 HR AND TITRATING INSULIN AND D20 NEEDED.
[2018-10-19 05:53] LABS: Anion Gap 9 mmol/L (6-16); Blood Urea Nitrogen 15 mg/dL (8-24); Bun/Creatinine Ratio 16.4 (12.0-20.0); CO2, Blood 28 mmol/L (21-32); Chloride, Blood 99 mmol/L (98-108); Creatinine, Blood 0.91 mg/dL (0.40-1.00); Glomerular Filtration Rate >60 (60-); Glucose, Blood 134 mg/dL (70-99); Potassium, Blood 2.9 mmol/L (3.5-5.5); Sodium, Blood 136 mmol/L (136-145)
--- NOTE | 2018-10-19 07:09 | NUR ---
ASSUMED CARE REPORT FROM HECTOR FLANNERY. INSULIN OFF. DOPAMINE OFF. LEVOPHED AT 10 MCG/MIN. D20 AT 50 ML/HR. PATIENT IS LIGHTLY SEDATED ON PROPOFOL AT 60 MCG/KG/MIN. OGT TO LIS IS NOW DRAINING RED. INCREASED EDEMA T/O. FIO2 AT 30%
--- NOTE | 2018-10-19 07:32 | NUR ---
NAC CONTINUES AT 65 ML/HR.
--- NOTE | 2018-10-19 08:09 | NUR ---
MD VISIT DR. LOREDO IN. ORDERS FOR BID PPI AND GI CONSULT
--- NOTE | 2018-10-19 08:37 | NUR ---
MD VISIT DR. DONALDSON IN. PATIENT NODDED HEAD YES TO HAVING EGD, BUT BECAUSE OF SEDATION, INFORMED CONSENT WAS OBTAINED BY PHONE FROM HER SPOUSE, CATIE. PLAN IS FOR EGD LATER THIS AM.
--- NOTE | 2018-10-19 10:50 | NUR ---
DAY SURGERY HERE WITH DR. DONALDSON. SHITAL, RN AND HECTOR ALEVS MANAGING SEDATION AND LEVOPHED.
--- NOTE | 2018-10-19 10:51 | NUR ---
10/19/18 1051 Franco Cisneros History, Chart, Medications and Allergies reviewed before start of procedure.MONITOR INTACT WITH CONTINUOUS PULSE OXIMETRY AND INTERMITTENT BP.3-LEAD EKG REVIEWED WITH PHYSICIAN PRIOR TO START OF PROCEDURE.O2 VIA N/C INTACT THROUGHOUT SEDATION/PROCEDURE. Patient confirms NPO status and agrees with scheduled surgery.PATIENT VENTILATED ON PROPOFOL GTT. VERSED IVP WILL BE USED FOR ADDITIONAL SEDATION PER DR DONALDSON.
--- NOTE | 2018-10-19 12:14 | NUR ---
EGD COMPLETED. FAMILY IN. SEDATION LIGHTENED TO 50 MCG/KG/MIN
[2018-10-19 12:37] LABS: BASOPHILS ABSOLUTE AUTO 0.04 K/mm3 (0.00-0.23); BASOPHILS PERCENT AUTO 0 % (0-2); EOSINOPHILS ABSOLUTE AUTO 0.12 K/mm3 (0.00-0.68); EOSINOPHILS PERCENT AUTO 1 % (0-6); Hematocrit 32.2 % (33.0-51.0); Hemoglobin 11.5 g/dL (11.5-16.0); IMMATURE GRAN ABSOLUTE AUTO 0.04 K/mm3 (0.00-0.10); IMMATURE GRAN PERCENT AUTO 0 % (0-1); LYMPHOCYTES ABSOLUTE AUTO 1.57 K/mm3 (0.84-5.20); LYMPHOCYTES PERCENT AUTO 14 % (21-46); MONOCYTES ABSOLUTE AUTO 0.71 K/mm3 (0.16-1.47); MONOCYTES PERCENT AUTO 7 % (4-13); Mean Corpuscular HGB 31.9 pg (26.0-34.0); Mean Corpuscular HGB Conc 35.7 g/dL (31.5-36.5); Mean Platelet Volume 12.4 fL (9.1-12.4); NEUTROPHILS ABSOLUTE AUTO 8.39 K/mm3 (1.96-9.15); NEUTROPHILS PERCENT AUTO 77 % (41-73); Platelet Count 130 K/mm3 (150-400); RDW Coefficient Variation 13.2 % (11.7-14.2); RDW Standard Deviation 43.2 fL (35.1-46.3); Red Blood Cell Count 3.61 M/mm3 (3.80-5.20); White Blood Cell Count 10.87 K/mm3 (4.00-11.30)
[2018-10-19 12:41] LABS: International Normalized Ratio 1.26; Prothrombin Time Results 13.1 Sec (9.7-11.5)
[2018-10-19 12:48] LABS: Mean Corpuscular Volume 89 fL (80-100)
[2018-10-19 12:49] LABS: Albumin, Blood 2.3 g/dL (3.4-5.0); Bilirubin, Direct 0.3 mg/dL (0.0-0.3); Bilirubin, Indirect 0.4 mg/dL (0.1-0.7); Bilirubin, Total 0.7 mg/dL (0.1-1.0); Globulin, Blood 2.4 g/dL (2.2-4.0); Total Protein, Blood 4.7 g/dL (6.4-8.2)
[2018-10-19 13:05] LABS: Anion Gap 8 mmol/L (6-16); Blood Urea Nitrogen 13 mg/dL (8-24); Bun/Creatinine Ratio 14.9 (12.0-20.0); CO2, Blood 27 mmol/L (21-32); Chloride, Blood 97 mmol/L (98-108); Creatinine, Blood 0.87 mg/dL (0.40-1.00); Glomerular Filtration Rate >60 (60-); Glucose, Blood 191 mg/dL (70-99); Potassium, Blood 2.6 mmol/L (3.5-5.5); Sodium, Blood 132 mmol/L (136-145)
--- NOTE | 2018-10-19 13:39 | NUR ---
MD VISIT DR. SUTHERLAND IN. ROSS, RT PLACED ON SPONT WITH PS 7 PEEP 5. PROPOFOL OFF. PLAN IS TO EXTUBATE IN 15 MIN
--- NOTE | 2018-10-19 13:56 | NUR ---
EXTUBATED 1354
--- NOTE | 2018-10-19 14:21 | NUR ---
PT EXTUBATED AT 1354 POST SPO TRIAL AND LEAK TEST, PT ORALLY SX AND DEEP SX PRIOR TO EXTUBATION. PT EXTUBATED TO RA AND SPO REMAINS AT 98-99% ON RA. PT ALERT AND BREATHING WELL POST EXTUBATION. WILL CONTINUE TO MONITOR.
--- NOTE | 2018-10-19 15:05 | NUR ---
POISON CONTROL UPDATED. RECOMMENDS STOP THE NAC GTT
--- NOTE | 2018-10-19 18:58 | NUR ---
SUMMARY PATIENT EXTUBATED AT 1354 TO ROOM AIR. RESTRAINTS REMOVED AND SUICIDE PRECAUTIONS INITIATED WITH NOTIFICATION OF GRISEL SUN, NURSING SUPV TO IMPLEMENT CONTINOUS CAMERA MONITORING. TODD CATHETER REMOVED. PATIENT TO BSC X3. COOPERATIVE. SAYS SHE WISHES SHE WAS SUCCESSFUL IN HER SUICIDE ATTEMPT. D10 IS STILL ON AT 50 ML/HR. ORDERS TO START WITH SIPS OF WATER AND KEEP D10 ON UNTIL PT CAN TOLERATE CLEAR LIQUID. REPORT GIVEN TO HECTOR JIMENEZ
--- NOTE | 2018-10-19 19:45 | NUR ---
ASSUMED CARE BEDSIDE REPORT RECIEVED. PT IS DROWSEY, BUT AWAKENS TO VERBAL STIMULI AND IS ALERT AND ORIENTED. PT IS WITHDRAWN AND SOFT SPOKEN. PT CONTINUES TO REMAIN WITH SUICIDAL INTENTIONS. REMOTE MONITORING AND CAMERA ON IN ROOM. PT AWARE OF THIS AND 2MD HOLD. PT DENIES PAIN OR DISCOMFORT. VITAL SIGNS STABLE, PT ON ROOM AIR. CL TO LIJ C/D/I. NS TKO, AND D10 AT 50 ML/HR INFUSING. PT REPOSITIONING SELF IN BED INDEPENDENTLY. WILL CONTINUE TO MONITOR.
[2018-10-19 23:07] LABS: Anion Gap 10 mmol/L (6-16); Blood Urea Nitrogen 13 mg/dL (8-24); Bun/Creatinine Ratio 14.8 (12.0-20.0); CO2, Blood 27 mmol/L (21-32); Calcium, Blood 8.3 mg/dL (8.5-10.1); Chloride, Blood 96 mmol/L (98-108); Creatinine, Blood 0.88 mg/dL (0.40-1.00); Glomerular Filtration Rate >60 (60-); Glucose, Blood 196 mg/dL (70-99); Potassium, Blood 2.6 mmol/L (3.5-5.5); Sodium, Blood 133 mmol/L (136-145)
[2018-10-20 03:37] LABS: BASOPHILS ABSOLUTE AUTO 0.06 K/mm3 (0.00-0.23); BASOPHILS PERCENT AUTO 1 % (0-2); EOSINOPHILS ABSOLUTE AUTO 0.16 K/mm3 (0.00-0.68); EOSINOPHILS PERCENT AUTO 2 % (0-6); Hematocrit 30.2 % (33.0-51.0); Hemoglobin 10.5 g/dL (11.5-16.0); IMMATURE GRAN ABSOLUTE AUTO 0.04 K/mm3 (0.00-0.10); IMMATURE GRAN PERCENT AUTO 1 % (0-1); LYMPHOCYTES ABSOLUTE AUTO 0.68 K/mm3 (0.84-5.20); LYMPHOCYTES PERCENT AUTO 10 % (21-46); MONOCYTES ABSOLUTE AUTO 0.47 K/mm3 (0.16-1.47); MONOCYTES PERCENT AUTO 7 % (4-13); Mean Corpuscular HGB 31.6 pg (26.0-34.0); Mean Corpuscular HGB Conc 34.8 g/dL (31.5-36.5); Mean Corpuscular Volume 91 fL (80-100); Mean Platelet Volume 11.9 fL (9.1-12.4); NEUTROPHILS ABSOLUTE AUTO 5.52 K/mm3 (1.96-9.15); NEUTROPHILS PERCENT AUTO 80 % (41-73); Platelet Count 123 K/mm3 (150-400); RDW Coefficient Variation 13.5 % (11.7-14.2); RDW Standard Deviation 44.6 fL (35.1-46.3); Red Blood Cell Count 3.32 M/mm3 (3.80-5.20); White Blood Cell Count 6.93 K/mm3 (4.00-11.30)
[2018-10-20 03:49] LABS: International Normalized Ratio 1.05; Prothrombin Time Results 11.1 Sec (9.7-11.5)
[2018-10-20 03:56] LABS: Alanine Aminotransfer (ALT/SGP 76 U/L (12-78); Albumin, Blood 2.2 g/dL (3.4-5.0); Alk Phos 86 U/L (50-136); Anion Gap 4 mmol/L (6-16); Aspartate Aminotrans (AST/SGOT 60 U/L (12-37); Bilirubin, Total 0.7 mg/dL (0.1-1.0); Blood Urea Nitrogen 10 mg/dL (8-24); Bun/Creatinine Ratio 11.1 (12.0-20.0); CO2, Blood 32 mmol/L (21-32); Calcium, Blood 8.5 mg/dL (8.5-10.1); Chloride, Blood 110 mmol/L (98-108); Globulin, Blood 2.3 g/dL (2.2-4.0); Glomerular Filtration Rate >60 (60-); Glucose, Blood 98 mg/dL (70-99); Magnesium, Blood 0.9 mg/dL (1.6-2.4); Potassium, Blood 3.1 mmol/L (3.5-5.5); Sodium, Blood 146 mmol/L (136-145); Total Protein, Blood 4.5 g/dL (6.4-8.2)
[2018-10-20 04:36] LABS: PCO2 Arterial 42.3 mmHg (35-45); PO2 Arterial 112 mmHg (80-100); pH Blood Arterial 7.45 (7.35-7.45)
--- NOTE | 2018-10-20 05:34 | NUR ---
SHIFT SUMMARY NO ACUTE CHANGES THIS SHIFT. PT RESTING QUIETLY THROUGHOUT THE NIGHT. WHEN AWAKE PT IS ALERT AND ORIENTED, BUT REMAINS WITH FLAT/WITHDRAWN AFFECT. PT CONTINUES TO REMAIN WITH SUICIDAL THOUGHTS. 2MD HOLD REMAINS IN PLACE WITH CAMERA AND REMOTE MONITORING. PT HAS REPOSITIONED SELF IN BED INDEPENDENTLY AND HAS BEEN UP TO [facility] WITH STAND BY ASSIST. PT WITH GOOD URINE OUTPUT THIS SHIFT. CL TO LIJ REMAINS C/D/I WITH D10 INFUSING AT 50 ML/HR. CBG HAS REMAINED IN 90'S. NS TKO WITH MAG IVPB AND KPHOS IVPB INFUSING. PT PLACED ON 2L O2 NC WHILE SLEEPING. VSS. WILL CONTINUE TO MONITOR AND REPORT OFF TO ONCOMING RN.
--- NOTE | 2018-10-20 07:30 | NUR ---
ASSUMED CARE OF PATIENT; SEE ASSESSMENT CHARTING FOR DETAILS. LUNGS DIMINISHED IN BASES BUT CLEAR; OXYGEN AT 2L/MIN VIA NC; BIOX HIGH 90'S. ASSISTED IN/OUT OF BED TO BSC; GENERALIZED STIFFNESS OF JOINTS BUT NO ACUTE PAIN. VOIDING MODERATE AMOUNTS WITH MIXED/LOOSE STOOL. D10 INFUSING AT 50ML/HR; CBG READINGS LOW 100'S. ENCOURAGED FLUIDS BUT ONLY TAKING SMALL AMOUNTS; STATES SHE ISN'T HUNGRY. PATIENT WITH FLAT AFFECT AND RARELY MAKES EYE CONTACT. DID TELL RN THAT "LIFE SUCKS".
--- NOTE | 2018-10-20 08:30 | NUR ---
LABS DRAWN AFTER ELECTROLYTE REPLACEMENTS GIVEN; RN CHARIS FROM CENTRAL LINE. PATIENT REMAINS ON SUICIDE PRECAUTIONS AND CAMERA MONITORING IN PLACE, CONTINUOUSLY.
[2018-10-20 09:37] LABS: Magnesium, Blood 1.6 mg/dL (1.6-2.4); Phosphorus, Blood 2.9 mg/dL (2.5-4.9); Potassium, Blood 3.1 mmol/L (3.5-5.5)
--- NOTE | 2018-10-20 10:30 | NUR ---
PATIENTS' SIGNIFICANT OTHER IN TO VISIT; PATIENT AND HER VISITED FOR AWHILE; PATIENT WITH FLAT AFFECT T/O VISITATION.
--- NOTE | 2018-10-20 12:30 | NUR ---
NO ACUTE CHANGES; OXYGEN OFF AND BIOX. STAYING WNL. DRANK SMALL AMOUNTS OF FLUIDS FROM LUNCH TRAY AND THEN WENT TO SLEEP.
--- NOTE | 2018-10-20 18:07 | NUR ---
SUMMARY: PATIENT SLEPT MOST OF DAY; NO ACUTE DISCOMFORT; GROANS SOME WHEN GETTING OOB. UP TO BSC WITH SBA; HAD URINE AND STOOL MIXES THE FIRST 3 VOIDINGS; NO NOTED STOOL THIS AFTERNOON. URINE REMAINS DK YESSENIA COLORED. LUNGS CLEAR; DECREASED IN BASES; EXERTIONAL DYSPNEA NOTED. REMAINS ON D 10% IV AT 50/HR; CBG READINGS LOW 100'S. RN SPOKE WITH DR. SUTHERLAND RE: PATIENTS' LIMITED PO INTAKE AND SHE WANTS D-10% TO CONT. THROUGH THE NIGHT. RN GAVE PATIENT SOME YOGURT AT DINNERTIME AND SHE ATE THAT BETTER THAN THE CL'S. STATES SHE IS ALLERGIC TO "FAKE SUGARS" AND CAN'T EAT JELLO AND OTHER FLUIDS. EMBEDDED SOFTWARE MANAGER PATIENT TO FL DIET FOR AM. (NURSE ORDER GIVEN TO MANSI). TO CONT. Q 2HR CBG CHECKS UNLESS CBG'S BEGIN STAYING HIGHER, CONSISTENTLY; THAN CAN BE REDUCED TO EVERY 6 HOURS. WILL REPORT TO ONCOMING RN.
--- NOTE | 2018-10-20 19:30 | NUR ---
ASSUMED CARE BEDSIDE REPORT RECIEVED. PT IS LAYING IN BED, AWAKE, ALERT, AND ORIENTED. PT IS WITHDRAWN. SPOUSE AT BEDSIDE. PT DENIES PAIN AT THIS TIME, BUT COMPLAINS OF GENERAL FATIGUE AND WEAKNESS. PT WITH CL TO LIJ WITH D10 INFUSING AT 50 ML/HR AND NS TKO. PT TAKING SMALL BITES OF YOGURT AND SOME ICE CHIPS. PT WITH POOR APPETITE. PT REPOSITIONS SELF IN BED. PT CONTINUES TO BE ON 2MD HOLD WITH REMOTE MONITOR CAMERA ON. WILL CONTINUE TO MONITOR.
[2018-10-21 03:27] LABS: BASOPHILS ABSOLUTE AUTO 0.05 K/mm3 (0.00-0.23); BASOPHILS PERCENT AUTO 1 % (0-2); EOSINOPHILS ABSOLUTE AUTO 0.34 K/mm3 (0.00-0.68); EOSINOPHILS PERCENT AUTO 6 % (0-6); Hematocrit 30.8 % (33.0-51.0); Hemoglobin 10.4 g/dL (11.5-16.0); IMMATURE GRAN ABSOLUTE AUTO 0.03 K/mm3 (0.00-0.10); IMMATURE GRAN PERCENT AUTO 1 % (0-1); LYMPHOCYTES ABSOLUTE AUTO 1.14 K/mm3 (0.84-5.20); LYMPHOCYTES PERCENT AUTO 19 % (21-46); MONOCYTES ABSOLUTE AUTO 0.51 K/mm3 (0.16-1.47); MONOCYTES PERCENT AUTO 9 % (4-13); Mean Corpuscular HGB 31.3 pg (26.0-34.0); Mean Corpuscular HGB Conc 33.8 g/dL (31.5-36.5); Mean Corpuscular Volume 93 fL (80-100); Mean Platelet Volume 11.1 fL (9.1-12.4); NEUTROPHILS ABSOLUTE AUTO 3.91 K/mm3 (1.96-9.15); NEUTROPHILS PERCENT AUTO 65 % (41-73); Platelet Count 142 K/mm3 (150-400); RDW Coefficient Variation 14.1 % (11.7-14.2); RDW Standard Deviation 47.4 fL (35.1-46.3); Red Blood Cell Count 3.32 M/mm3 (3.80-5.20); White Blood Cell Count 5.98 K/mm3 (4.00-11.30)
[2018-10-21 03:41] LABS: Anion Gap 7 mmol/L (6-16); Blood Urea Nitrogen 8 mg/dL (8-24); Bun/Creatinine Ratio 9.4 (12.0-20.0); CO2, Blood 30 mmol/L (21-32); Calcium, Blood 8.9 mg/dL (8.5-10.1); Chloride, Blood 112 mmol/L (98-108); Creatinine, Blood 0.85 mg/dL (0.40-1.00); Glomerular Filtration Rate >60 (60-); Glucose, Blood 91 mg/dL (70-99); Magnesium, Blood 1.5 mg/dL (1.6-2.4); Phosphorus, Blood 2.2 mg/dL (2.5-4.9); Potassium, Blood 3.5 mmol/L (3.5-5.5); Sodium, Blood 149 mmol/L (136-145)
--- NOTE | 2018-10-21 06:06 | NUR ---
SHIFT SUMMARY PT DOING BETTER THIS SHIFT. PT HAS SLEPT OFF AND ON THROUGHOUT THE NIGHT. WHEN AWAKE PT IS ALERT AND ORIENTED. VITAL SIGNS HAVE REMAINED STABLE. PT ON ROOM AIR. CBG'S HAVE REMAINED STABLE AND D10 GTT HAS BEEN OFF SINCE 2200. PT WITH IMPROVING APPETITE. CL TO LIJ WITH NS TKO. PT UP TO BSC TO VOID WITH SBA. REMOTE MONITORING CAMERA REMAINS ON. WILL CONTINUE TO MONITOR AND REPORT OFF TO ONCOMING RN.
--- NOTE | 2018-10-21 07:05 | NUR ---
ASSUMED CARE: RECEIVED REPORT FROM NOC RN. PT APPEARS TO BE SLEEPING UPON ENTERING THE ROOM. NO ACUTE DISTRESS NOTED ON THE MONITOR OR IN THE ROOM AT THIS TIME. WILL REVIEW ORDERS, ASSESS FURTHER AND CONTINUE TO MONITOR.
--- NOTE | 2018-10-21 09:30 | NUR ---
PSYCH AT BEDSIDE: RALPH PACHECO OVEN WORKER OUT OF ROOM AFTER ASSESSING PT, STATES PT IS BEING RECOMENDED FOR HOLD TO BE DROPPED.
--- NOTE | 2018-10-21 11:11 | NUR ---
POISON CONTROL: RECEIVED A CALL TO CHECK UP ON PT. POISON CONTROL SIGHING OFF ON PT AT THIS TIME.
--- NOTE | 2018-10-21 14:48 | NUR ---
TRANSFER: REPORT GIVEN TO MED FLOOR RN CIRO Ramos PT OUT THE DOOR AT THIS TIME BY WHEELCHAIR. CENTRAL LINE REMOVED PRIOR TO TRANSFER. CLEAR DRESSING WITH GAUZE IN PLACE. PT EDUCATED ON S/S OF BLEEDING. SCANT RED DRAINAGE NOTED ON THE GAUZE DRESSING PRIOR TO TRANSFER. PT TO 324
--- NOTE | 2018-10-21 18:39 | NUR ---
SHIFT SUMMARY ICU TRANSFER THIS AFTERNOON. PATIENT SETTLED INTO ROOM. DENIES PAIN, NAUSEA, AND SHORTESS OF BREATH. SBA TO BATHROOM. SI PRECAUTIONS LIFTED. CALL LIGHT IN REACH, WILL CONTINUE TO MONITOR.
[2018-10-22 04:21] LABS: BASOPHILS ABSOLUTE AUTO 0.04 K/mm3 (0.00-0.23); BASOPHILS PERCENT AUTO 1 % (0-2); EOSINOPHILS ABSOLUTE AUTO 0.22 K/mm3 (0.00-0.68); EOSINOPHILS PERCENT AUTO 3 % (0-6); Hematocrit 31.2 % (33.0-51.0); Hemoglobin 10.3 g/dL (11.5-16.0); IMMATURE GRAN ABSOLUTE AUTO 0.05 K/mm3 (0.00-0.10); IMMATURE GRAN PERCENT AUTO 1 % (0-1); LYMPHOCYTES ABSOLUTE AUTO 1.68 K/mm3 (0.84-5.20); LYMPHOCYTES PERCENT AUTO 26 % (21-46); MONOCYTES ABSOLUTE AUTO 0.51 K/mm3 (0.16-1.47); MONOCYTES PERCENT AUTO 8 % (4-13); Mean Corpuscular HGB 30.8 pg (26.0-34.0); Mean Corpuscular Volume 93 fL (80-100); Mean Platelet Volume 10.9 fL (9.1-12.4); NEUTROPHILS ABSOLUTE AUTO 4.03 K/mm3 (1.96-9.15); NEUTROPHILS PERCENT AUTO 62 % (41-73); Platelet Count 161 K/mm3 (150-400); RDW Coefficient Variation 13.8 % (11.7-14.2); RDW Standard Deviation 46.6 fL (35.1-46.3); Red Blood Cell Count 3.34 M/mm3 (3.80-5.20); White Blood Cell Count 6.53 K/mm3 (4.00-11.30)
[2018-10-22] MEDS ORDERED: AMLO5 PO (09:39)
[2018-10-22] MEDS ORDERED: METR500 PO (09:40)
[2018-10-22] MEDS ORDERED: CEFU500T30 PO (09:40)
--- NOTE | 2018-10-22 11:01 | NUR ---
DISCHARGE DISCHARGE MEDICATIONS AND INSTRUCTIONS EXPLAINED TO PATIENT AND PATIENT'S PARTNER. THEY STATED UNDERSTANDING. FOLLOW UP APPPOINTMENT SCHEDULED WITH PATIENT'S PCP FOR 10AM TOMORROW. HOME MEDICATIONS RETRIEVED FROM PHARMACY AND RETURNED TO PATIENT. IV REMOVED WITHOUT DIFFICULTY. BELONGINGS WITH PATIENT. PATIENT AMBULATED TO PRIVATE VEHICLE.
== END 2018-10-22 11:04 | disposition home or self-care (01) | DRG 917 ==
LOC: ER 23:29 → ICUW 10-18 02:22 → MEDS 10-21 15:00 → ENPENDDIS 10-22 10:18 → MEDS 10-22 11:04
PROVIDERS: Emergency Medicine; Hospitalist; Internal Medicine Critical Care Medicine; ADMIT Internal Medicine
PROC: 0BH17EZ Insertion of Endotracheal Airway into Trachea, Via Natural or Artificial Opening (ICD-10-PCS; principal; 2018-10-18)
PROC: 5A1945Z Respiratory Ventilation, 24-96 Consecutive Hours (ICD-10-PCS; 2018-10-18)
PROC: 02HV33Z Insertion of Infusion Device into Superior Vena Cava, Percutaneous Approach (ICD-10-PCS; 2018-10-18)
PROC: B548ZZA Ultrasonography of Superior Vena Cava, Guidance (ICD-10-PCS; 2018-10-18)
PROC: 3E043XZ Introduction of Vasopressor into Central Vein, Percutaneous Approach (ICD-10-PCS; 2018-10-18)
PROC: 3E0G8GC Introduction of Other Therapeutic Substance into Upper GI, Via Natural or Artificial Opening Endoscopic (ICD-10-PCS; 2018-10-19)
PROC: 0W3P8ZZ Control Bleeding in Gastrointestinal Tract, Via Natural or Artificial Opening Endoscopic (ICD-10-PCS; 2018-10-19)
DX: T46.1X2A Poisoning by calcium-channel blockers, intentional self-harm, initial encounter (principal); G92 Toxic encephalopathy; R57.8 Other shock; K25.4 Chronic or unspecified gastric ulcer with hemorrhage; J69.0 Pneumonitis due to inhalation of food and vomit; J96.00 Acute respiratory failure, unspecified whether with hypoxia or hypercapnia; N17.9 Acute kidney failure, unspecified; E87.2 Acidosis; E87.1 Hypo-osmolality and hyponatremia; T40.2X2A Poisoning by other opioids, intentional self-harm, initial encounter; T39.1X2A Poisoning by 4-Aminophenol derivatives, intentional self-harm, initial encounter; R00.1 Bradycardia, unspecified; K20.9 Esophagitis, unspecified; K29.80 Duodenitis without bleeding; R73.9 Hyperglycemia, unspecified; F17.210 Nicotine dependence, cigarettes, uncomplicated; F32.9 Major depressive disorder, single episode, unspecified; I10 Essential (primary) hypertension; E83.42 Hypomagnesemia; F10.129 Alcohol abuse with intoxication, unspecified; E83.39 Other disorders of phosphorus metabolism; R13.10 Dysphagia, unspecified; D63.8 Anemia in other chronic diseases classified elsewhere; I48.91 Unspecified atrial fibrillation; R79.89 Other specified abnormal findings of blood chemistry; G47.00 Insomnia, unspecified; G25.81 Restless legs syndrome; E87.6 Hypokalemia; Z88.5 Allergy status to narcotic agent; Z91.040 Latex allergy status; Z79.82 Long term (current) use of aspirin; Z79.52 Long term (current) use of systemic steroids; Z79.899 Other long term (current) drug therapy
CPT/HCPCS: 31500; 31720; 36415; 36556; 36600; 51702; 71045; 80048; 80053; 80076; 81003; 81025; 82803; 82947; 83605; 83735; 84100; 84132; 84145; 84443; 84484; 85025; 85027; 85610; 87070; 87205; 93005; 93010; 93308; 93321; 94002; 94003; 96365-59; 96366-59; 96367-59; 96368; 96375-59; 99291-25; 99292; C1751; C9113; G0480; J0132; J0171; J0330; J0610; J1265; J1610; J1650; J1815; J2250; J2370; J2405; J2543; J2704; J3010; J3475; J3480; J7030; J7040; J7050; J7060; J7070

== ENCOUNTER → 2019-03-20 | Outpatient (CLI) | payer BC ==
[~2019-03-20] MED LIST changes: +AMLO5 PO; +CEFU500T30 PO; +METR500 PO
[2019-03-20 19:12] LABS: Influenza A Negative (NEGATIVE); Influenza B Negative (NEGATIVE)
== END | disposition home or self-care (01) ==
LOC: LAB SHORT 15:02 → LAB 15:02
PROVIDERS: Nurse Practitioner Family
DX: R05 Cough (principal)
CPT/HCPCS: 87804

== ENCOUNTER 2019-04-24 17:37 | Emergency (ER) | payer BC ==
[~2019-04-24] VITALS: Ht 162.6 cm; Wt 68.0 kg
[2019-04-24 17:54] LABS: Source, Urine Clean Catch
[2019-04-24 18:01] LABS: Bilirubin, Urine Neg (Neg); Blood, Urine 5+ (Neg); Glucose Qualitative, Urine Neg (Neg); Ketones, Urine 2+ (Neg); Leukocyte Esterase, Urine Neg (Neg); Nitrite, Urine Neg (Neg); Protein, Urine 4+ (Neg); Urobilinogen, Urine NORM (Normal); pH, Urine 6.5 (5.0-8.0)
[2019-04-24 18:03] LABS: BASOPHILS ABSOLUTE AUTO 0.06 K/mm3 (0.00-0.23); BASOPHILS PERCENT AUTO 0 % (0-2); EOSINOPHILS ABSOLUTE AUTO 0.12 K/mm3 (0.00-0.68); EOSINOPHILS PERCENT AUTO 1 % (0-6); Hematocrit 38.7 % (33.0-51.0); Hemoglobin 13.3 g/dL (11.5-16.0); IMMATURE GRAN ABSOLUTE AUTO 0.05 K/mm3 (0.00-0.10); IMMATURE GRAN PERCENT AUTO 0 % (0-1); LYMPHOCYTES ABSOLUTE AUTO 1.12 K/mm3 (0.84-5.20); LYMPHOCYTES PERCENT AUTO 8 % (21-46); MONOCYTES ABSOLUTE AUTO 0.82 K/mm3 (0.16-1.47); MONOCYTES PERCENT AUTO 6 % (4-13); Mean Corpuscular HGB 36.3 pg (26.0-34.0); Mean Corpuscular HGB Conc 34.4 g/dL (31.5-36.5); Mean Corpuscular Volume 106 fL (80-100); Mean Platelet Volume 11.5 fL (9.1-12.4); NEUTROPHILS ABSOLUTE AUTO 11.31 K/mm3 (1.96-9.15); NEUTROPHILS PERCENT AUTO 84 % (41-73); Platelet Count 266 K/mm3 (150-400); RDW Coefficient Variation 12.7 % (11.7-14.2); RDW Standard Deviation 50.2 fL (35.1-46.3); Red Blood Cell Count 3.66 M/mm3 (3.80-5.20); White Blood Cell Count 13.48 K/mm3 (4.00-11.30)
[2019-04-24 18:15] LABS: Appearance, Urine Bloody (Clear); Color, Urine Red (P-Yellow)
[2019-04-24 18:18] LABS: Red Blood Cells, Urine TNTC /hpf (0-2)
[2019-04-24 18:19] LABS: Bacteria Many /hpf; Squamous Epithelial Cells Few /hpf (Few)
[2019-04-24 18:26] LABS: Albumin, Blood 3.5 g/dL (3.4-5.0); Albumin/Globulin Ratio 1.1 (0.8-1.8); Bilirubin, Total 0.4 mg/dL (0.1-1.0); Bun/Creatinine Ratio 18.2 (12.0-20.0); Calcium, Blood 9.7 mg/dL (8.5-10.1); Creatinine, Blood 1.48 mg/dL (0.40-1.00); Globulin, Blood 3.3 g/dL (2.2-4.0); Potassium, Blood 3.7 mmol/L (3.5-5.5); Total Protein, Blood 6.8 g/dL (6.4-8.2)
[2019-04-24] MEDS ORDERED: CEPH500 PO (20:11)
== END 2019-04-24 20:45 | disposition home or self-care (01) ==
LOC: ER 17:37
PROVIDERS: Physician Assistant
DX: N13.2 Hydronephrosis with renal and ureteral calculous obstruction (principal); D72.829 Elevated white blood cell count, unspecified; F17.200 Nicotine dependence, unspecified, uncomplicated; Z91.040 Latex allergy status; Z88.5 Allergy status to narcotic agent; Z91.018 Allergy to other foods; Z79.899 Other long term (current) drug therapy; Z79.82 Long term (current) use of aspirin
CPT/HCPCS: 36415; 74176; 80053; 81001; 83690; 85025; 87077; 87086; 87186; 96361; 96365; 96375; 99284-25; A9270; A9270-GY; J0696; J1630; J1885; J2405; J3010; J7030

== ENCOUNTER 2020-10-26 22:13 | Emergency (ER) | payer BC ==
[~2020-10-26] VITALS: Ht 160 cm; Wt 68.0 kg
[~2020-10-26 22:13] MED LIST changes: +CEPH500 PO
[2020-10-27] MEDS ORDERED: MONT10T PO (01:31)
[2020-10-27] MEDS ORDERED: DOXA1 PO ×2 (01:31→01:32)
[2020-10-27] MEDS ORDERED: LISI20 PO (01:32)
[2020-10-27] MEDS ORDERED: ASPI81CH PO (01:34)
[2020-10-27] MEDS ORDERED: ZYRTEC10 M2 PO (01:34)
[2020-10-27] MEDS ORDERED: Bystolic2.5 MG PO (01:34)
[2020-10-27] MEDS ORDERED: TRAZ50 PO (01:35)
[2020-10-27] MEDS ORDERED: FOLI1 PO (01:35)
[2020-10-27] MEDS ORDERED: B-121000 MC7 PO (01:35)
[2020-10-27] MEDS ORDERED: PRAM.5 PO (01:36)
[2020-10-27] MEDS ORDERED: TIZA4 PO (01:36)
[2020-10-27] MEDS ORDERED: B-1100 M1 PO (01:37)
== END 2020-10-27 02:44 | disposition home or self-care (01) ==
LOC: ER 22:13
DX: M54.42 Lumbago with sciatica, left side (principal); M54.41 Lumbago with sciatica, right side; F17.210 Nicotine dependence, cigarettes, uncomplicated; Z79.899 Other long term (current) drug therapy; Z79.82 Long term (current) use of aspirin; Z88.5 Allergy status to narcotic agent; Z91.040 Latex allergy status
CPT/HCPCS: 72100; 96372; 99283-25; J1885

== ENCOUNTER 2021-04-11 12:25 | Emergency (ER) | payer BC ==
[~2021-04-11] VITALS: Ht 162.6 cm; Wt 70.3 kg
[~2021-04-11 12:25] MED LIST changes: +B-1100 M1 PO; +B-121000 MC7 PO; +Bystolic2.5 MG PO; +DOXA1 PO; +MONT10T PO; +PRAM.5 PO; +TIZA4 PO; +TRAZ50 PO; +ZYRTEC10 M2 PO
== END 2021-04-11 15:39 | disposition home or self-care (01) ==
LOC: ER 12:25
DX: U07.1 COVID-19 (principal); F17.210 Nicotine dependence, cigarettes, uncomplicated; Z88.5 Allergy status to narcotic agent; Z91.040 Latex allergy status; Z79.899 Other long term (current) drug therapy
CPT/HCPCS: 99284-25; Q0243

== ENCOUNTER 2021-05-08 11:38 | Emergency (ER) | payer BC ==
[~2021-05-08] VITALS: Ht 162.6 cm; Wt 70.3 kg
[2021-05-08 12:38] LABS: BASOPHILS ABSOLUTE AUTO 0.03 K/mm3 (0.00-0.23); BASOPHILS PERCENT AUTO 0 % (0-2); EOSINOPHILS ABSOLUTE AUTO 0.02 K/mm3 (0.00-0.68); EOSINOPHILS PERCENT AUTO 0 % (0-6); Hematocrit 39.8 % (33.0-51.0); Hemoglobin 13.3 g/dL (11.5-16.0); IMMATURE GRAN ABSOLUTE AUTO 0.05 K/mm3 (0.00-0.10); IMMATURE GRAN PERCENT AUTO 1 % (0-1); LYMPHOCYTES ABSOLUTE AUTO 0.53 K/mm3 (0.84-5.20); LYMPHOCYTES PERCENT AUTO 6 % (21-46); MONOCYTES ABSOLUTE AUTO 0.36 K/mm3 (0.16-1.47); MONOCYTES PERCENT AUTO 4 % (4-13); Mean Corpuscular HGB Conc 33.4 g/dL (31.5-36.5); Mean Corpuscular Volume 105 fL (80-100); Mean Platelet Volume 11.6 fL (9.1-12.4); NEUTROPHILS ABSOLUTE AUTO 7.89 K/mm3 (1.96-9.15); NEUTROPHILS PERCENT AUTO 89 % (41-73); Platelet Count 148 K/mm3 (150-400); RDW Coefficient Variation 13.2 % (11.7-14.2); RDW Standard Deviation 50.4 fL (35.1-46.3); White Blood Cell Count 8.88 K/mm3 (4.00-11.30)
[2021-05-08 13:07] LABS: Albumin, Blood 3.2 g/dL (3.4-5.0); Albumin/Globulin Ratio 0.9 (0.8-1.8); Bilirubin, Total 0.6 mg/dL (0.1-1.0); Bun/Creatinine Ratio 16.8 (12.0-20.0); Calcium, Blood 9.8 mg/dL (8.5-10.1); Creatinine, Blood 1.19 mg/dL (0.40-1.00); Globulin, Blood 3.5 g/dL (2.2-4.0); Potassium, Blood 4.3 mmol/L (3.5-5.5); Total Protein, Blood 6.7 g/dL (6.4-8.2)
[2021-05-08] MEDS ORDERED: ONDA4 PO (14:20)
[2021-05-08] MEDS ORDERED: Norco 5-325 Ta1 EACH PO (14:20)
[2021-05-08] MEDS ORDERED: BACTRIM DS TAB1 EAC3 PO (14:20)
== END 2021-05-08 14:40 | disposition home or self-care (01) ==
LOC: ER 11:38
PROVIDERS: Physician Assistant
DX: A09 Infectious gastroenteritis and colitis, unspecified (principal); Z91.040 Latex allergy status; Z88.5 Allergy status to narcotic agent; Z79.899 Other long term (current) drug therapy; Z79.82 Long term (current) use of aspirin; F17.210 Nicotine dependence, cigarettes, uncomplicated
CPT/HCPCS: 36415; 74176; 80053; 85025; 86850; 86900; 86901; 93005; 93010; 96374; 96375; 99284-25; A9270; J2270; J2405; J7030

== ENCOUNTER → 2021-05-10 | Outpatient (CLI) | payer BC ==
[~2021-05-10] MED LIST changes: +BACTRIM DS TAB1 EAC3 PO; +LYRICA75 M1 PO; +Norco 5-325 Ta1 EACH PO; +ONDA4 PO
[2021-05-11 00:02] LABS: Campylobacter Sp Not Detected (NOT DETECT)
[2021-05-11 00:03] LABS: Adenovirus F 40/41 Not Detected (NOT DETECT); Astrovirus Not Detected (NOT DETECT); Cryptosporidium Not Detected (NOT DETECT); Cyclospora Cayetanensis Not Detected (NOT DETECT); E. Coli O157 Not Detected (NOT DETECT); Entamoeba Histolytica Not Detected (NOT DETECT); Enteroaggregative E. coli-EAEC Not Detected (NOT DETECT); Enteropathogenic E. coli-EPEC Not Detected (NOT DETECT); Enterotoxigenic E. coli-ETEC Not Detected (NOT DETECT); Giardia Lamblia Not Detected (NOT DETECT); Norovirus GI/GII Not Detected (NOT DETECT); Plesiomonas Shigelloides Not Detected (NOT DETECT); Rotavirus A Not Detected (NOT DETECT); Salmonella Sp Not Detected (NOT DETECT); Sapovirus Not Detected (NOT DETECT); Shiga Toxin-prod E. coli-STEC Not Detected (NOT DETECT); Shigella/Enteroin E. coli-EIEC Not Detected (NOT DETECT); Vibrio Cholerae Not Detected (NOT DETECT); Vibrio Sp Not Detected (NOT DETECT); Yersinia Enterocolitica Not Detected (NOT DETECT)
== END | disposition home or self-care (01) ==
LOC: LAB SHORT 14:00 → LAB 14:00
PROVIDERS: Physician Assistant
DX: K62.5 Hemorrhage of anus and rectum (principal); R19.7 Diarrhea, unspecified
CPT/HCPCS: 0097U

== ENCOUNTER 2021-10-23 13:08 | Emergency (ER) | payer BC ==
[~2021-10-23] VITALS: Ht 162.6 cm; Wt 70.3 kg
[~2021-10-23 13:08] MED LIST changes: +Amoxicillin875 MG PO; +ONDA4ODT MM; +Zithromax250 MG PO
[2021-10-23 14:04] LABS: Source, Urine Clean Catch
[2021-10-23 14:09] LABS: Appearance, Urine Clear (Clear); Bilirubin, Urine Neg (Neg); Blood, Urine Neg (Neg); Color, Urine Yellow (P-Yellow); Glucose Qualitative, Urine Neg (Neg); Ketones, Urine Neg (Neg); Leukocyte Esterase, Urine 1+ (Neg); Nitrite, Urine Neg (Neg); Protein, Urine 1+ (Neg); Specific Gravity, Urine 1.025 (1.003-1.022); Urobilinogen, Urine NORM (Normal)
[2021-10-23 14:17] LABS: Red Blood Cells, Urine 0-2 /hpf (0-2); Squamous Epithelial Cells Mod /hpf (Few)
[2021-10-23 14:18] LABS: Bacteria Mod /hpf; Hyaline Casts 0-2 /lpf (0-2)
[2021-10-23 14:35] LABS: BASOPHILS ABSOLUTE AUTO 0.05 K/mm3 (0.00-0.23); BASOPHILS PERCENT AUTO 1 % (0-2); EOSINOPHILS ABSOLUTE AUTO 0.11 K/mm3 (0.00-0.68); EOSINOPHILS PERCENT AUTO 1 % (0-6); Hematocrit 37.1 % (33.0-51.0); IMMATURE GRAN ABSOLUTE AUTO 0.04 K/mm3 (0.00-0.10); IMMATURE GRAN PERCENT AUTO 1 % (0-1); LYMPHOCYTES ABSOLUTE AUTO 1.07 K/mm3 (0.84-5.20); LYMPHOCYTES PERCENT AUTO 13 % (21-46); MONOCYTES ABSOLUTE AUTO 0.81 K/mm3 (0.16-1.47); MONOCYTES PERCENT AUTO 10 % (4-13); Mean Corpuscular Volume 103 fL (80-100); Mean Platelet Volume 11.1 fL (9.1-12.4); NEUTROPHILS ABSOLUTE AUTO 6.45 K/mm3 (1.96-9.15); NEUTROPHILS PERCENT AUTO 76 % (41-73); Platelet Count 174 K/mm3 (150-400); RDW Coefficient Variation 12.3 % (11.7-14.2); RDW Standard Deviation 46.5 fL (35.1-46.3); Red Blood Cell Count 3.61 M/mm3 (3.80-5.20); White Blood Cell Count 8.53 K/mm3 (4.00-11.30)
[2021-10-23 15:17] LABS: Albumin, Blood 3.4 g/dL (3.4-5.0); Albumin/Globulin Ratio 1.1 (0.8-1.8); Bilirubin, Total 0.4 mg/dL (0.1-1.0); Bun/Creatinine Ratio 19.7 (12.0-20.0); Calcium, Blood 9.8 mg/dL (8.5-10.1); Creatinine, Blood 1.17 mg/dL (0.40-1.00); Globulin, Blood 3.1 g/dL (2.2-4.0); Potassium, Blood 4.2 mmol/L (3.5-5.5); Total Protein, Blood 6.5 g/dL (6.4-8.2)
[2021-10-23] MEDS ORDERED: HYDR1TAB94 PO (16:07)
[2021-10-23] MEDS ORDERED: SULTRIDS PO (16:07)
== END 2021-10-23 16:25 | disposition home or self-care (01) ==
LOC: ER 13:08
PROVIDERS: Emergency Medicine
DX: K52.9 Noninfective gastroenteritis and colitis, unspecified (principal); N18.30 Chronic kidney disease, stage 3 unspecified; F17.210 Nicotine dependence, cigarettes, uncomplicated; I48.91 Unspecified atrial fibrillation; Z79.899 Other long term (current) drug therapy; Z79.82 Long term (current) use of aspirin; Z88.5 Allergy status to narcotic agent; Z91.02 Food additives allergy status; Z91.040 Latex allergy status
CPT/HCPCS: 36415; 74177; 80053; 81001; 85025; A9270; J2270; J2405; Q9967

== ENCOUNTER 2021-11-02 14:11 | Emergency (ER) | payer BC ==
[~2021-11-02] VITALS: Ht 162.6 cm; Wt 70.3 kg
[~2021-11-02 14:11] MED LIST changes: +ACET500 PO; +HYDR1TAB94 PO; +Morphine Sulfat30 M1 PO; +PROM25 PO; +SULTRIDS PO
[2021-11-02 14:33] LABS: BASOPHILS ABSOLUTE AUTO 0.05 K/mm3 (0.00-0.23); BASOPHILS PERCENT AUTO 1 % (0-2); EOSINOPHILS PERCENT AUTO 2 % (0-6); Hematocrit 35.9 % (33.0-51.0); Hemoglobin 12.6 g/dL (11.5-16.0); IMMATURE GRAN ABSOLUTE AUTO 0.05 K/mm3 (0.00-0.10); IMMATURE GRAN PERCENT AUTO 1 % (0-1); LYMPHOCYTES ABSOLUTE AUTO 0.78 K/mm3 (0.84-5.20); LYMPHOCYTES PERCENT AUTO 12 % (21-46); MONOCYTES ABSOLUTE AUTO 0.39 K/mm3 (0.16-1.47); MONOCYTES PERCENT AUTO 6 % (4-13); Mean Corpuscular HGB 35.8 pg (26.0-34.0); Mean Corpuscular HGB Conc 35.1 g/dL (31.5-36.5); Mean Corpuscular Volume 102 fL (80-100); NEUTROPHILS ABSOLUTE AUTO 4.95 K/mm3 (1.96-9.15); NEUTROPHILS PERCENT AUTO 78 % (41-73); Platelet Count 192 K/mm3 (150-400); RDW Coefficient Variation 12.4 % (11.7-14.2); RDW Standard Deviation 46.1 fL (35.1-46.3); Red Blood Cell Count 3.52 M/mm3 (3.80-5.20); White Blood Cell Count 6.32 K/mm3 (4.00-11.30)
[2021-11-02 14:48] LABS: Albumin, Blood 3.1 g/dL (3.4-5.0); Albumin/Globulin Ratio 1.1 (0.8-1.8); Bilirubin, Total 0.3 mg/dL (0.1-1.0); Bun/Creatinine Ratio 14.3 (12.0-20.0); Calcium, Blood 9.6 mg/dL (8.5-10.1); Creatinine, Blood 2.38 mg/dL (0.40-1.00); Globulin, Blood 2.7 g/dL (2.2-4.0); Potassium, Blood 4.4 mmol/L (3.5-5.5); Total Protein, Blood 5.8 g/dL (6.4-8.2)
[2021-11-02 17:27] LABS: Source, Urine Clean Catch
[2021-11-02 17:34] LABS: Appearance, Urine Clear (Clear); Bilirubin, Urine Neg (Neg); Blood, Urine Neg (Neg); Color, Urine Amber (P-Yellow); Glucose Qualitative, Urine Neg (Neg); Ketones, Urine Neg (Neg); Leukocyte Esterase, Urine 1+ (Neg); Nitrite, Urine Neg (Neg); Protein, Urine Neg (Neg); Urobilinogen, Urine NORM (Normal)
[2021-11-02 18:03] LABS: Bacteria Many /hpf; Calcium Oxalate Crystals Rare /hpf; Red Blood Cells, Urine Not Seen /hpf (0-2); Squamous Epithelial Cells Mod /hpf (Few); White Blood Cells, Urine Rare /hpf (0-5)
[2021-11-02] MEDS ORDERED: ONDA4ODT MM (19:50)
== END 2021-11-02 20:09 | disposition home or self-care (01) ==
LOC: ER 14:11
PROVIDERS: Student in an Organized Health Care Education/Training Program
DX: N17.9 Acute kidney failure, unspecified (principal); N18.30 Chronic kidney disease, stage 3 unspecified; E86.0 Dehydration; K52.9 Noninfective gastroenteritis and colitis, unspecified; I95.9 Hypotension, unspecified; F17.210 Nicotine dependence, cigarettes, uncomplicated; Z91.040 Latex allergy status; Z88.5 Allergy status to narcotic agent; Z91.018 Allergy to other foods; Z79.82 Long term (current) use of aspirin; Z79.899 Other long term (current) drug therapy; Z96.653 Presence of artificial knee joint, bilateral
CPT/HCPCS: 80053; 81001; 83735; 83880; 84484; 85025; 93005; 93010; 96374; 96375; 99284-25; J1170; J2765; J3475; J7120; P9612

== ENCOUNTER 2021-12-21 10:16 | Emergency (ER) | payer BC ==
[~2021-12-21] VITALS: Ht 162.6 cm; Wt 70.3 kg
== END 2021-12-21 10:30 | disposition home or self-care (01) ==
LOC: ER 10:16
DX: U07.1 COVID-19 (principal); N18.30 Chronic kidney disease, stage 3 unspecified; F17.210 Nicotine dependence, cigarettes, uncomplicated; Z88.5 Allergy status to narcotic agent; Z91.02 Food additives allergy status; Z91.040 Latex allergy status; Z79.899 Other long term (current) drug therapy
CPT/HCPCS: 99283

== ENCOUNTER 2022-01-01 18:36 | Emergency (ER) | payer BC ==
[~2022-01-01] VITALS: Ht 162.6 cm; Wt 70.3 kg
[2022-01-01 19:03] LABS: BASOPHILS ABSOLUTE AUTO 0.02 K/mm3 (0.00-0.23); BASOPHILS PERCENT AUTO 0 % (0-2); EOSINOPHILS ABSOLUTE AUTO 0.11 K/mm3 (0.00-0.68); EOSINOPHILS PERCENT AUTO 1 % (0-6); Hematocrit 39.1 % (33.0-51.0); Hemoglobin 14.1 g/dL (11.5-16.0); IMMATURE GRAN ABSOLUTE AUTO 0.22 K/mm3 (0.00-0.10); IMMATURE GRAN PERCENT AUTO 2 % (0-1); LYMPHOCYTES ABSOLUTE AUTO 3.06 K/mm3 (0.84-5.20); LYMPHOCYTES PERCENT AUTO 29 % (21-46); MONOCYTES ABSOLUTE AUTO 0.84 K/mm3 (0.16-1.47); MONOCYTES PERCENT AUTO 8 % (4-13); Mean Corpuscular HGB Conc 36.1 g/dL (31.5-36.5); Mean Corpuscular Volume 100 fL (80-100); Mean Platelet Volume 11.2 fL (9.1-12.4); NEUTROPHILS ABSOLUTE AUTO 6.31 K/mm3 (1.96-9.15); NEUTROPHILS PERCENT AUTO 60 % (41-73); Platelet Count 309 K/mm3 (150-400); RDW Coefficient Variation 12.4 % (11.7-14.2); RDW Standard Deviation 45.1 fL (35.1-46.3); Red Blood Cell Count 3.92 M/mm3 (3.80-5.20); White Blood Cell Count 10.56 K/mm3 (4.00-11.30)
[2022-01-01 19:22] LABS: Albumin, Blood 3.4 g/dL (3.4-5.0); Albumin/Globulin Ratio 0.9 (0.8-1.8); Bilirubin, Total 0.3 mg/dL (0.1-1.0); Bun/Creatinine Ratio 36.2 (12.0-20.0); Calcium, Blood 9.1 mg/dL (8.5-10.1); Creatinine, Blood 1.27 mg/dL (0.40-1.00); Globulin, Blood 3.6 g/dL (2.2-4.0)
[2022-01-01 20:15] LABS: Influenza A, PCR NEGATIVE (NEGATIVE); Influenza B, PCR NEGATIVE (NEGATIVE); Resp Syncytial Virus, PCR NEGATIVE (NEGATIVE)
[2022-01-01 20:16] LABS: SARS-Cov-2 (COVID-19) PCR, MMC POSITIVE (NEGATIVE)
== END 2022-01-02 00:02 | disposition home or self-care (01) ==
LOC: ER 18:36
PROVIDERS: Emergency Medicine
DX: U07.1 COVID-19 (principal); F41.9 Anxiety disorder, unspecified; I12.9 Hypertensive chronic kidney disease with stage 1 through stage 4 chronic kidney disease, or unspecified chronic kidney disease; N18.30 Chronic kidney disease, stage 3 unspecified; I48.91 Unspecified atrial fibrillation; F17.210 Nicotine dependence, cigarettes, uncomplicated; Z88.5 Allergy status to narcotic agent; Z91.040 Latex allergy status; Z88.6 Allergy status to analgesic agent; Z88.8 Allergy status to other drugs, medicaments and biological substances; Z79.82 Long term (current) use of aspirin; Z79.899 Other long term (current) drug therapy
CPT/HCPCS: 0241U; 36415; 71045; 71260; 80053; 84484; 85025; 93005; 93010; 99285-25; J1885; Q9967

== ENCOUNTER 2022-01-26 18:37 | Observation (INO) | payer BC ==
[~2022-01-26] VITALS: Ht 162.6 cm; Wt 75.7 kg
[2022-01-26 18:58] LABS: BASOPHILS ABSOLUTE AUTO 0.03 K/mm3 (0.00-0.23); BASOPHILS PERCENT AUTO 1 % (0-2); EOSINOPHILS ABSOLUTE AUTO 0.12 K/mm3 (0.00-0.68); EOSINOPHILS PERCENT AUTO 2 % (0-6); Hematocrit 27.6 % (33.0-51.0); Hemoglobin 9.4 g/dL (11.5-16.0); IMMATURE GRAN ABSOLUTE AUTO 0.09 K/mm3 (0.00-0.10); IMMATURE GRAN PERCENT AUTO 2 % (0-1); LYMPHOCYTES ABSOLUTE AUTO 1.43 K/mm3 (0.84-5.20); LYMPHOCYTES PERCENT AUTO 25 % (21-46); MONOCYTES ABSOLUTE AUTO 0.63 K/mm3 (0.16-1.47); MONOCYTES PERCENT AUTO 11 % (4-13); Mean Corpuscular HGB 36.2 pg (26.0-34.0); Mean Corpuscular HGB Conc 34.1 g/dL (31.5-36.5); Mean Corpuscular Volume 106 fL (80-100); Mean Platelet Volume 11.1 fL (9.1-12.4); NEUTROPHILS ABSOLUTE AUTO 3.32 K/mm3 (1.96-9.15); NEUTROPHILS PERCENT AUTO 59 % (41-73); Platelet Count 188 K/mm3 (150-400); RDW Coefficient Variation 14.4 % (11.7-14.2); RDW Standard Deviation 55.8 fL (35.1-46.3); White Blood Cell Count 5.62 K/mm3 (4.00-11.30)
[2022-01-26 19:07] LABS: Albumin, Blood 2.8 g/dL (3.4-5.0); Bilirubin, Total 0.3 mg/dL (0.1-1.0); Bun/Creatinine Ratio 17.1 (12.0-20.0); Calcium, Blood 8.9 mg/dL (8.5-10.1); Creatinine, Blood 2.1 mg/dL (0.40-1.00); Globulin, Blood 2.8 g/dL (2.2-4.0); Magnesium, Blood 1.8 mg/dL (1.6-2.4); Potassium, Blood 3.9 mmol/L (3.5-5.5); Total Protein, Blood 5.6 g/dL (6.4-8.2)
[2022-01-26 20:39] LABS: Source, Urine Foley catheter
[2022-01-26 20:44] LABS: Bilirubin, Urine Neg (Neg); Blood, Urine Neg (Neg); Glucose Qualitative, Urine Neg (Neg); Ketones, Urine Neg (Neg); Leukocyte Esterase, Urine Neg (Neg); Nitrite, Urine Neg (Neg); Protein, Urine 1+ (Neg); Urobilinogen, Urine NORM (Normal)
[2022-01-26 20:50] LABS: Color, Urine Pale Yellow (P-Yellow)
[2022-01-26 20:51] LABS: Appearance, Urine Clear (Clear)
[2022-01-27 00:34] LABS: U Amphetamine Screen Not Detected; U Barbituate Screen Not Detected; U Benzodiazapine Screen Not Detected; U Buprenorphine Screen Not Detected; U Cannabinoids Screen Not Detected; U Cocaine Screen Not Detected; U Methadone Screen Not Detected; U Methamphetamine Screen Not Detected; U Opiates Screen Not Detected; U Oxycodone Screen Not Detected; U Phencyclidine Screen Not Detected; U Propoxyphene Screen Not Detected
--- NOTE | 2022-01-27 00:45 | NUR ---
ARRIVAL TO ICU PT ARRIVED VIA GURNEY. SHE IS RECEIVING LEVOPHED AT 5MCG/MIN. BP ON ARRIVAL 117/75 WITH MAP 89. LEVOPHED TITRATED TO 3MCG/MIN. PT IS A&OX4 AND PROVIDES MEDICAL HISTORY. SHE STS SHE WAS SITTING IN A CHAIR AT WORK AND "PASSED OUT". SHE REMEMBERS WAKING UP STILL SITTING IN THE CHAIR AND FEELING DISORIENTED. SHE REPORTS PREVIOUS SYNCOPAL EPISODE APPROX 1 MONTH AGO BUT STS "THIS ONE FELT WORSE". SHE DENIES CP, SOB, DIZZINESS AND NAUSEA AT THIS TIME. L FEMORAL CENTRAL LINE SUTURED IN PLACE, DRESSING C/D/I. WHITE PORT INFUSES BUT DOES NOT DRAW BACK BLOOD. KILN HEAD HOUSE OPERATOR AWARE. PERIPHERAL IV TO LFA. TODD PATENT AND DRAINING CLEAR/YELLOW URINE TO GRAVITY. PT PROVIDED WARM BLANKETS. BED IN LOW POSITION AND CALL LIGHT WITHIN REACH. SEE SHIFT ASSESSMENT.
[2022-01-27 04:56] LABS: BASOPHILS ABSOLUTE AUTO 0.03 K/mm3 (0.00-0.23); BASOPHILS PERCENT AUTO 1 % (0-2); EOSINOPHILS ABSOLUTE AUTO 0.08 K/mm3 (0.00-0.68); EOSINOPHILS PERCENT AUTO 1 % (0-6); Hematocrit 29.4 % (33.0-51.0); Hemoglobin 10.2 g/dL (11.5-16.0); IMMATURE GRAN ABSOLUTE AUTO 0.07 K/mm3 (0.00-0.10); IMMATURE GRAN PERCENT AUTO 1 % (0-1); LYMPHOCYTES ABSOLUTE AUTO 1.16 K/mm3 (0.84-5.20); LYMPHOCYTES PERCENT AUTO 20 % (21-46); MONOCYTES ABSOLUTE AUTO 0.53 K/mm3 (0.16-1.47); MONOCYTES PERCENT AUTO 9 % (4-13); Mean Corpuscular HGB 36.7 pg (26.0-34.0); Mean Corpuscular HGB Conc 34.7 g/dL (31.5-36.5); Mean Corpuscular Volume 106 fL (80-100); Mean Platelet Volume 10.9 fL (9.1-12.4); NEUTROPHILS ABSOLUTE AUTO 3.86 K/mm3 (1.96-9.15); NEUTROPHILS PERCENT AUTO 68 % (41-73); Platelet Count 174 K/mm3 (150-400); RDW Coefficient Variation 14.6 % (11.7-14.2); RDW Standard Deviation 56.5 fL (35.1-46.3); Red Blood Cell Count 2.78 M/mm3 (3.80-5.20); White Blood Cell Count 5.73 K/mm3 (4.00-11.30)
[2022-01-27 05:19] LABS: Albumin, Blood 2.7 g/dL (3.4-5.0); Bilirubin, Total 0.3 mg/dL (0.1-1.0); Bun/Creatinine Ratio 22.3 (12.0-20.0); Calcium, Blood 8.5 mg/dL (8.5-10.1); Creatinine, Blood 1.21 mg/dL (0.40-1.00); Globulin, Blood 2.8 g/dL (2.2-4.0); Potassium, Blood 4.1 mmol/L (3.5-5.5); Total Protein, Blood 5.5 g/dL (6.4-8.2)
--- NOTE | 2022-01-27 06:01 | NUR ---
SHIFT SUMMARY PT HAS BEEN MOSTLY SLEEPING SINCE ADMISSION. LEVOPHED ON STANDBY AT 0240. MAP HAS REMAINED >65. SINUS RHYTHM WITH RATE 50S-60S. SHE DENIES CP OR SOB. NS INFUSING AT 100ML/HR VIA L FEM CENTRAL LINE. DRESSING C/D/I. WHITE PORT INFUSES BUT DOES NOT DRAW BACK BLOOD, PEDIATRIC SURGEON AWARE. TODD PATENT AND DRAINING TO GRAVITY WITH SHIFT OUTPUT OF 2300ML. PT REMAINS A&OX4. CIWA SCORE 0. BED IN LOW POSITION, CALL LIGHT WITHIN REACH. WILL REPORT TO ONCOMING RN.
--- NOTE | 2022-01-27 15:38 | NUR ---
UPDATE: Provider called and notifed of lab results.
--- NOTE | 2022-01-27 17:10 | NUR ---
DISCHARGE: pt discharged home with spouse. Discharge teaching and paperwork provided to pt. She verbalized understanding and agreement. She was walked out by RN.
== END 2022-01-27 17:25 | disposition home or self-care (01) ==
LOC: ER 18:37 → ICUE 23:31 → ICUW 23:31 → ICUE 23:31
PROVIDERS: Student in an Organized Health Care Education/Training Program; ADMIT Internal Medicine
DX: I95.1 Orthostatic hypotension (principal); I12.9 Hypertensive chronic kidney disease with stage 1 through stage 4 chronic kidney disease, or unspecified chronic kidney disease; N18.30 Chronic kidney disease, stage 3 unspecified; R09.02 Hypoxemia; E87.2 Acidosis; E87.1 Hypo-osmolality and hyponatremia; D63.1 Anemia in chronic kidney disease; K21.9 Gastro-esophageal reflux disease without esophagitis; G62.89 Other specified polyneuropathies; F17.210 Nicotine dependence, cigarettes, uncomplicated; Z91.040 Latex allergy status; Z88.5 Allergy status to narcotic agent; Z79.899 Other long term (current) drug therapy; Z79.82 Long term (current) use of aspirin; Z96.653 Presence of artificial knee joint, bilateral; Z86.16 Personal history of COVID-19
CPT/HCPCS: 36415; 36556; 51702; 71045; 80053; 80400; 82533; 83605; 83735; 84484; 85025; 93005; 93010; 93306; 96361-59; 96365-59; 96366-59; 96375-59; 99285-25; A9270; C1751; J0696; J0834; J7030; J7060

== ENCOUNTER 2022-05-25 13:36 | Inpatient (IN) | payer MEDICARE, BC ==
[~2022-05-25] VITALS: Ht 162.6 cm; Wt 79.6 kg
[2022-05-25 14:00] LABS: Calcium, Ionized (POC) 1.07 mmol/L (1.10-1.46); Chloride (POC) 111 mmol/L (98-108); Creatinine (POC) 1.4 mg/dL (0.6-1.0); Glucose (ISTAT POC) 100 mg/dL (70-99); Hemoglobin (POC) 10.2 g/dL (12.0-16.0); Potassium (POC) 3.4 mmol/L (3.5-5.5); Sodium (POC) 143 mmol/L (135-148); Total CO2 (POC) 18 mmol/L (21-32)
[2022-05-25 14:10] LABS: BASOPHILS ABSOLUTE AUTO 0.03 K/mm3 (0.00-0.23); BASOPHILS PERCENT AUTO 1 % (0-2); EOSINOPHILS ABSOLUTE AUTO 0.08 K/mm3 (0.00-0.68); EOSINOPHILS PERCENT AUTO 2 % (0-6); Hemoglobin 9.6 g/dL (11.5-16.0); IMMATURE GRAN ABSOLUTE AUTO 0.02 K/mm3 (0.00-0.10); IMMATURE GRAN PERCENT AUTO 0 % (0-1); LYMPHOCYTES ABSOLUTE AUTO 1.07 K/mm3 (0.84-5.20); LYMPHOCYTES PERCENT AUTO 22 % (21-46); MONOCYTES ABSOLUTE AUTO 0.33 K/mm3 (0.16-1.47); MONOCYTES PERCENT AUTO 7 % (4-13); Mean Corpuscular HGB 37.2 pg (26.0-34.0); Mean Corpuscular HGB Conc 34.3 g/dL (31.5-36.5); Mean Corpuscular Volume 109 fL (80-100); Mean Platelet Volume 11.4 fL (9.1-12.4); NEUTROPHILS ABSOLUTE AUTO 3.35 K/mm3 (1.96-9.15); NEUTROPHILS PERCENT AUTO 69 % (41-73); Platelet Count 147 K/mm3 (150-400); RDW Coefficient Variation 14.3 % (11.7-14.2); RDW Standard Deviation 56.7 fL (35.1-46.3); Red Blood Cell Count 2.58 M/mm3 (3.80-5.20); White Blood Cell Count 4.88 K/mm3 (4.00-11.30)
[2022-05-25 14:22] LABS: Base Excess Venous -9.4 mmol/L; Bicarbonate Venous 17.4 mmol/L (24.0-30.0); PCO2 Venous 41.3 mmHg (38-42); pH Blood Venous 7.25 (7.34-7.37)
[2022-05-25 14:34] LABS: Magnesium, Blood 1.2 mg/dL (1.6-2.4)
[2022-05-25 14:54] LABS: Thyroid Stimulating Hormone 0.898 uIU/mL (0.360-4.800)
[2022-05-25 14:55] LABS: Albumin, Blood 2.7 g/dL (3.4-5.0); Albumin/Globulin Ratio 1.2 (0.8-1.8); Bilirubin, Total 0.2 mg/dL (0.1-1.0); Bun/Creatinine Ratio 15.9 (12.0-20.0); Calcium, Blood 7.6 mg/dL (8.5-10.1); Creatinine, Blood 0.94 mg/dL (0.40-1.00); Globulin, Blood 2.3 g/dL (2.2-4.0); Potassium, Blood 3.4 mmol/L (3.5-5.5)
[2022-05-25] MEDS ORDERED: TRAZ50 PO (15:36)
--- NOTE | 2022-05-25 17:43 | NUR ---
ARRIVAL TO ICU PT BROUGHT TO ICU 16 VIA GURNEY. PT A&OX4 AT THIS TIME. OCCASIONAL SLURRING DURING CONVERSATION BUT PT ABLE TO ANSWER QUESTIONS APPROPRIATELY. PT REPORTS DRINKING "2 DOUBLE WHISKEYS WHICH IS MY NORMAL". SINUS RHYTHM ON MONITOR WITH RATE IN 60S. SBP 110S WITH MAP >65. NEOSYNEPHRINE ON STANDBY. PT REPORTS 4/10 L CHEST PAIN THAT IS CHRONIC AND SHARP. DR LUDWIG AT BEDSIDE FOR EVAL. LUNGS ARE CLEAR THROUGHOUT, ON 2L NC WITH SPO2 >97%. ABDOMEN SOFT, PT DENIES GI UPSET. PT UNABLE TO VOID AT THIS TIME. SPOUSE JASON UPDATED ON PT CONDITION. BED IN LOW POSITION AND CALL LIGHT WITHIN REACH.
[2022-05-25 18:08] LABS: Base Excess Venous -6.6 mmol/L; Bicarbonate Venous 18.5 mmol/L (24.0-30.0); pH Blood Venous 7.23 (7.34-7.37)
[2022-05-25 21:16] LABS: U Amphetamine Screen Not Detected; U Barbituate Screen Not Detected; U Benzodiazapine Screen Not Detected; U Buprenorphine Screen Not Detected; U Cannabinoids Screen Not Detected; U Cocaine Screen Not Detected; U Methadone Screen Not Detected; U Methamphetamine Screen Not Detected; U Opiates Screen Not Detected; U Oxycodone Screen Not Detected; U Phencyclidine Screen Not Detected; U Propoxyphene Screen Not Detected
[2022-05-25 21:18] LABS: Source, Urine Foley catheter
[2022-05-25 21:28] LABS: Appearance, Urine Clear (Clear); Bilirubin, Urine Neg (Neg); Color, Urine Yellow (P-Yellow); Glucose Qualitative, Urine Neg (Neg); Ketones, Urine Neg (Neg); Leukocyte Esterase, Urine Neg (Neg); Nitrite, Urine Neg (Neg); Protein, Urine 2+ (Neg); Specific Gravity, Urine 1.015 (1.003-1.022); Urobilinogen, Urine NORM (Normal)
[2022-05-25 22:37] LABS: SARS-Cov-2 (COVID-19) PCR, MMC NEGATIVE (NEGATIVE)
[2022-05-26 05:28] LABS: BASOPHILS ABSOLUTE AUTO 0.03 K/mm3 (0.00-0.23); BASOPHILS PERCENT AUTO 1 % (0-2); EOSINOPHILS PERCENT AUTO 2 % (0-6); Hematocrit 28.4 % (33.0-51.0); Hemoglobin 9.6 g/dL (11.5-16.0); IMMATURE GRAN ABSOLUTE AUTO 0.03 K/mm3 (0.00-0.10); IMMATURE GRAN PERCENT AUTO 1 % (0-1); LYMPHOCYTES ABSOLUTE AUTO 0.89 K/mm3 (0.84-5.20); LYMPHOCYTES PERCENT AUTO 18 % (21-46); MONOCYTES ABSOLUTE AUTO 0.26 K/mm3 (0.16-1.47); MONOCYTES PERCENT AUTO 5 % (4-13); Mean Corpuscular HGB 36.9 pg (26.0-34.0); Mean Corpuscular HGB Conc 33.8 g/dL (31.5-36.5); Mean Corpuscular Volume 109 fL (80-100); Mean Platelet Volume 11.4 fL (9.1-12.4); NEUTROPHILS ABSOLUTE AUTO 3.53 K/mm3 (1.96-9.15); NEUTROPHILS PERCENT AUTO 73 % (41-73); Platelet Count 124 K/mm3 (150-400); RDW Coefficient Variation 14.3 % (11.7-14.2); RDW Standard Deviation 57.1 fL (35.1-46.3); White Blood Cell Count 4.84 K/mm3 (4.00-11.30)
[2022-05-26 05:32] LABS: International Normalized Ratio 1.08; Prothrombin Time Results 11.3 Sec (9.7-11.5)
[2022-05-26 05:43] LABS: Alanine Aminotransfer (ALT/SGP 104 U/L (12-78); Albumin, Blood 2.4 g/dL (3.4-5.0); Albumin/Globulin Ratio 1.1 (0.8-1.8); Alk Phos 135 U/L (50-136); Anion Gap 12 mmol/L (6-16); Aspartate Aminotrans (AST/SGOT 265 U/L (12-37); Bilirubin, Total 0.5 mg/dL (0.1-1.0); Blood Urea Nitrogen 11 mg/dL (8-24); Bun/Creatinine Ratio 18.3 (12.0-20.0); CHOL/HDL RATIO 1.5; CO2, Blood 18 mmol/L (21-32); Calcium, Blood 8.1 mg/dL (8.5-10.1); Chloride, Blood 111 mmol/L (98-108); Cholesterol 206 mg/dL (50-200); Globulin, Blood 2.1 g/dL (2.2-4.0); Glomerular Filtration Rate 100 (60-); Glucose, Blood 83 mg/dL (70-99); HDL Cholesterol 137 mg/dL (>39); LDL/HDL RATIO 0.4; Low Density Lipoprotein Chol 60 mg/dL (0-110); Magnesium, Blood 2.1 mg/dL (1.6-2.4); Potassium, Blood 4.8 mmol/L (3.5-5.5); Sodium, Blood 141 mmol/L (136-145); Total Protein, Blood 4.5 g/dL (6.4-8.2); Triglycerides 45 mg/dL (30-160); Very Low Density Lipoprot Chol 9 mg/dL (6-32)
--- NOTE | 2022-05-26 06:32 | NUR ---
END OF SHIFT SUMMARY PT HAS BEEN HEMODYNAMICAL STABLE THROUGH OUT SHIFT. PT HR RATE HAS FLUCTUATED BETWEEN 60-100 SHE IS CURRENTLY SINUS BUT IT HAS BEEN IRREGULAR AT TIME SHE ALSO HAD A PERIOD WHERE SHE HAD SOME BIGEMNY. IT SEEMS LIKE PT IS ALSO STARTING TO WITHDRAW FROM ETOH SHE HAS BEEN COMPLAINING OF HEAD ACH SHE HAS MODERATE TREMERS AND HAD A BOUT OF NAUSEA. THE PLAN IS PACER PLACEMENT THIS AM. WILL CONTINUE TO MONITOR AND REPORT OF TO ONCOMING RN
--- NOTE | 2022-05-26 11:27 | NUR ---
THIS RN CONTACTED DR AT [address] OF PT ELEVATED BP'S. DR INFORMED THAT PT RECIEVED HYDRALAZINE ACCORDING TO ORDER AT 1059 AND PT SBP STILL 160-170'S. DR INFORMED THIS RN THAT HE WILL LOOK AT THE CHARTS AND SEE WHAT HE CAN GIVE. AWAITING ORDES.
--- NOTE | 2022-05-26 13:27 | NUR ---
UPDATE PT LEFT FOR PACEMAKER PLACEMENT AT 1328 [facility] BED AND ON RA.
--- NOTE | 2022-05-26 16:57 | NUR ---
PT ARRIVE FROM PROCEDURE AT 164[facility] BED AND ON RA. PACERSITE ON RIGHT CHEST WALL C/D/I. NO PAIN OR TENDERNESS REPORTED UPON ARRIVAL. REPORT RECIEVED FROM ALLERGIST/IMMUNOLOGIST PHYSICIAN AT BEDSIDE.
--- NOTE | 2022-05-26 17:39 | NUR ---
SHIFT SUMMARY PT A/OX4 AND COOPERATIVE OF CARE. PT SBP ELEVATED THIS MORNING, HYDRALAZINE GIVEN PER EMAR. SBP REMAINED HIGH, DR NOTIFIED, SEE NOTES. OTHER VSS THROUGHOUT SHIFT WITH O2 SATS IN THE 90'S ON RA. PT REPORTED LEFT CHEST PRESSURE DURING SHIFT BUT STATES "I ALWAYS HAVE THIS PRESSURE." NO REPORT OF SOB/DYSPNEA THROUGHOUT SHIFT. PT WAS TO ENROLLMENT NURSE FOR PACEMAKER PLACEMENT, DUAL CHAMBER PLACED IN RIGHT SIDE CHEST, SITE C/D/I. TODD WAS IN PLACE THIS MORNING, TODD DC'D FOR PROCEDURE. PT ABLE TO EXPRESS NEEDS. PT AT BEDSIDE, GHAS BEEN ANXIOUS AND NAUSEOUS DUE TO ANXIETY. ICE PACK ON PACER SITE FOR SWELLING AND PAIN MANAGEMENT, PT REPORTS SOME DISCOMFORT.
--- NOTE | 2022-05-26 19:30 | NUR ---
ASSUMED CARE OF PT AT 1900 PT AWAKE IN ROOM WITH REQUEST FOR COFFEE. NO VISITORS IN ROOM AT THIS TIME. LR RUNNING AT 200 MLS/HR. A/O X4 PT IS GENO TO USE TOILET WITH STAND BY ASSIST. BP 126/82 HR 70'S. SEE FULL ASSESSMENT FOR FURTHER DETAILS.
[2022-05-27 04:56] LABS: Bun/Creatinine Ratio 16.7 (12.0-20.0); Calcium, Blood 9.1 mg/dL (8.5-10.1); Creatinine, Blood 0.84 mg/dL (0.40-1.00); Magnesium, Blood 1.6 mg/dL (1.6-2.4); Potassium, Blood 4.4 mmol/L (3.5-5.5)
--- NOTE | 2022-05-27 06:05 | NUR ---
SHIFT SUMMARY A/OX4, SBA TO BATHROOM. S/P DC PACEMAKER PLACEMENT, TRANSPARENT DRESSING TO RCW C/D/I. C/O DISCOMOFRT TO AREA, MEDICATED WITH PRN IV TORADOL. HYPERTENSIVE, MEDICATED WITH PRN HYDRALAZINE. VSS, NO ACUTE CHANGES AT THIS TIME. BED IN LOWEST POSITION WITH CALL LIGHT IN REACH. WILL CONTINUE TO MONITOR AND REPORT TO ONCOMING RN.
--- NOTE | 2022-05-27 10:17 | NUR ---
CARE ASSUMPTION THIS RN ASSUMED CARE AT 0700. VSS. NEURO INTACT. PATIENT REPORTS MILD PAIN AT PACER SITE. PATIENT REPORTS NO CHEST PAIN/PRESSURE AND NO SHORTNESS OF BREATH. TELE PACED AT 60. SEE SHIFT ASSESSMENT FOR FURTHER DETAILS. PATIENT EDUCATED ON POST PACER RESTRICTIONS BY THIS RN. PATIENT INDEPDENT AND CALLS IF NEEDING ASSITANCE. PLAN OF CARE IS UP TO DATE. CALL LIGHT WITHIN REACH AND BED IN LOWEST POSITION.
[2022-05-27] MEDS ORDERED: METO50ER PO (13:25)
[2022-05-27] MEDS ORDERED: ELIQUIS5 M2 PO (13:28)
[2022-05-27] MEDS ORDERED: LOSA25 PO (13:29)
--- NOTE | 2022-05-27 13:54 | NUR ---
DISCHARGE THIS RN EDUCATED THE PATIENT AND AFTER CARE OF PACER. PATIENT AND PATIENT FRIEND VERBALIZED UNDERSTANDING. PATIENT AND PATIENT FRIEND EDUCATED ON NEW MEDICATION, SEE DISCHARGE INFO. MEDICATIONS FAXED TO [facility] [place]. ALL OF PATIENT BELONGINGS WITH PATIENT AND PATIENT DISCHARGE PAPERS WITH PATIENT. PATIENT LEFT IN NO DISTRESS.
== END 2022-05-27 13:53 | disposition home or self-care (01) | DRG 242 ==
LOC: ER 13:36 → ERHOLD 13:37 → ICUW 13:37 → PCU 05-26 21:46
PROVIDERS: Emergency Medicine; Internal Medicine; Internal Medicine Cardiovascular Disease; Nurse Practitioner Acute Care; Student in an Organized Health Care Education/Training Program; ADMIT Internal Medicine
PROC: 0JH606Z Insertion of Pacemaker, Dual Chamber into Chest Subcutaneous Tissue and Fascia, Open Approach (ICD-10-PCS; principal; 2022-05-26)
PROC: 02H63JZ Insertion of Pacemaker Lead into Right Atrium, Percutaneous Approach (ICD-10-PCS; 2022-05-26)
PROC: 02HK3JZ Insertion of Pacemaker Lead into Right Ventricle, Percutaneous Approach (ICD-10-PCS; 2022-05-26)
PROC: 3E033XZ Introduction of Vasopressor into Peripheral Vein, Percutaneous Approach (ICD-10-PCS; 2022-05-26)
DX: I48.0 Paroxysmal atrial fibrillation (principal); R57.0 Cardiogenic shock; R57.1 Hypovolemic shock; E87.21 Acute metabolic acidosis; Z28.21 Immunization not carried out because of patient refusal; Z20.822 Contact with and (suspected) exposure to COVID-19; F17.210 Nicotine dependence, cigarettes, uncomplicated; I11.9 Hypertensive heart disease without heart failure; E83.42 Hypomagnesemia; K21.9 Gastro-esophageal reflux disease without esophagitis; G62.9 Polyneuropathy, unspecified; D64.9 Anemia, unspecified; F10.229 Alcohol dependence with intoxication, unspecified; E87.6 Hypokalemia; F41.8 Other specified anxiety disorders; Z86.73 Personal history of transient ischemic attack (TIA), and cerebral infarction without residual deficits; Z90.49 Acquired absence of other specified parts of digestive tract; Z90.89 Acquired absence of other organs; Z90.710 Acquired absence of both cervix and uterus; Z98.890 Other specified postprocedural states; Z88.5 Allergy status to narcotic agent; Z88.6 Allergy status to analgesic agent; Z88.8 Allergy status to other drugs, medicaments and biological substances; Z91.040 Latex allergy status; Z79.82 Long term (current) use of aspirin; Z79.899 Other long term (current) drug therapy; Y90.8 Blood alcohol level of 240 mg/100 ml or more
CPT/HCPCS: 33208; 36415; 51701; 51702; 70450; 71045; 71046; 80047; 80048; 80053; 80061; 81001; 82010; 82272; 82330; 82803; 83605; 83735; 83880; 84443; 84484; 85014; 85025; 85610; 85730; 93005; 93010; 96365-59; 96366-59; 96368; 96375; 96375-59; 96376; 99152; 99153; 99291-25; A9270; C1785; C1894; C1898; C9113; G0378; G0480; J0360; J0461; J0690; J1265; J1644; J1885; J2060; J2250; J2370; J2405; J3010; J3475; J3480; J7030; J7040; J7120; Q9967; U0004

== ENCOUNTER → 2022-07-26 | Outpatient (CLI) | payer MEDICARE, BC ==
[~2022-07-26] MED LIST changes: +ELIQUIS5 M2 PO; +LOSA25 PO; +METO50ER PO
[2022-07-26 12:32] LABS: BASOPHILS ABSOLUTE AUTO 0.05 K/mm3 (0.00-0.23); BASOPHILS PERCENT AUTO 1 % (0-2); EOSINOPHILS ABSOLUTE AUTO 0.03 K/mm3 (0.00-0.68); EOSINOPHILS PERCENT AUTO 0 % (0-6); Hematocrit 40.9 % (33.0-51.0); Hemoglobin 14.5 g/dL (11.5-16.0); IMMATURE GRAN ABSOLUTE AUTO 0.05 K/mm3 (0.00-0.10); IMMATURE GRAN PERCENT AUTO 1 % (0-1); LYMPHOCYTES ABSOLUTE AUTO 0.62 K/mm3 (0.84-5.20); LYMPHOCYTES PERCENT AUTO 9 % (21-46); MONOCYTES ABSOLUTE AUTO 0.45 K/mm3 (0.16-1.47); MONOCYTES PERCENT AUTO 7 % (4-13); Mean Corpuscular HGB Conc 35.5 g/dL (31.5-36.5); Mean Corpuscular Volume 107 fL (80-100); Mean Platelet Volume 11.9 fL (9.1-12.4); NEUTROPHILS ABSOLUTE AUTO 5.57 K/mm3 (1.96-9.15); NEUTROPHILS PERCENT AUTO 82 % (41-73); Platelet Count 196 K/mm3 (150-400); RDW Coefficient Variation 12.8 % (11.7-14.2); RDW Standard Deviation 50.3 fL (35.1-46.3); Red Blood Cell Count 3.82 M/mm3 (3.80-5.20); White Blood Cell Count 6.77 K/mm3 (4.00-11.30)
[2022-07-26 15:06] LABS: Albumin, Blood 3.6 g/dL (3.4-5.0); Albumin/Globulin Ratio 1.2 (0.8-1.8); Bilirubin, Total 0.5 mg/dL (0.1-1.0); Bun/Creatinine Ratio 16.1 (12.0-20.0); Calcium, Blood 9.2 mg/dL (8.5-10.1); Creatinine, Blood 0.81 mg/dL (0.40-1.00); Magnesium, Blood 1.2 mg/dL (1.6-2.4); Percent Saturation 60.3 % (15.0-50.0); Potassium, Blood 4.1 mmol/L (3.5-5.5); Total Protein, Blood 6.6 g/dL (6.4-8.2)
== END | disposition home or self-care (01) ==
LOC: LAB SHORT 11:40 → LAB 11:40 → LAB FUT 12-31 12:40
PROVIDERS: Family Medicine
DX: D75.89 Other specified diseases of blood and blood-forming organs (principal); D64.9 Anemia, unspecified; E61.2 Magnesium deficiency; R74.01 Elevation of levels of liver transaminase levels
CPT/HCPCS: 36415; 80053; 82607; 82728; 82746; 83540; 83550; 83735; 85025

== ENCOUNTER 2022-09-22 09:22 | Emergency (ER) | payer MEDICARE, BC ==
[~2022-09-22] VITALS: Ht 162.6 cm; Wt 67.6 kg
[2022-09-22] MEDS ORDERED: SERT50 PO (09:42)
[2022-09-22] MEDS ORDERED: ZANAFLEX413 PO (09:43)
[2022-09-22] MEDS ORDERED: FOLI1 PO (09:43)
[2022-09-22] MEDS ORDERED: PREGABALIN75 MG PO (09:44)
[2022-09-22] MEDS ORDERED: ONDA4ODT MM (09:45)
[2022-09-22] MEDS ORDERED: PRAM.5 PO (09:45)
[2022-09-22] MEDS ORDERED: ALBU90OI (09:47)
[2022-09-22 09:50] LABS: BASOPHILS ABSOLUTE AUTO 0.03 K/mm3 (0.00-0.23); BASOPHILS PERCENT AUTO 1 % (0-2); EOSINOPHILS ABSOLUTE AUTO 0.13 K/mm3 (0.00-0.68); EOSINOPHILS PERCENT AUTO 2 % (0-6); Hematocrit 30.5 % (33.0-51.0); Hemoglobin 10.5 g/dL (11.5-16.0); IMMATURE GRAN ABSOLUTE AUTO 0.07 K/mm3 (0.00-0.10); IMMATURE GRAN PERCENT AUTO 1 % (0-1); LYMPHOCYTES PERCENT AUTO 20 % (21-46); MONOCYTES ABSOLUTE AUTO 0.47 K/mm3 (0.16-1.47); MONOCYTES PERCENT AUTO 9 % (4-13); Mean Corpuscular HGB 37.4 pg (26.0-34.0); Mean Corpuscular HGB Conc 34.4 g/dL (31.5-36.5); Mean Corpuscular Volume 109 fL (80-100); Mean Platelet Volume 11.5 fL (9.1-12.4); NEUTROPHILS ABSOLUTE AUTO 3.63 K/mm3 (1.96-9.15); NEUTROPHILS PERCENT AUTO 67 % (41-73); Platelet Count 128 K/mm3 (150-400); RDW Coefficient Variation 13.3 % (11.7-14.2); RDW Standard Deviation 53.9 fL (35.1-46.3); Red Blood Cell Count 2.81 M/mm3 (3.80-5.20); White Blood Cell Count 5.43 K/mm3 (4.00-11.30)
[2022-09-22 10:12] LABS: Albumin/Globulin Ratio 1.2 (0.8-1.8); Bilirubin, Total 0.3 mg/dL (0.1-1.0); Bun/Creatinine Ratio 14.9 (12.0-20.0); Calcium, Blood 8.4 mg/dL (8.5-10.1); Creatinine, Blood 2.01 mg/dL (0.40-1.00); Globulin, Blood 2.6 g/dL (2.2-4.0); Potassium, Blood 4.3 mmol/L (3.5-5.5); Total Protein, Blood 5.6 g/dL (6.4-8.2)
[2022-09-22 10:20] LABS: Ethanol (Alcohol), Blood, Med <3 mg/dL; Magnesium, Blood 1.2 mg/dL (1.6-2.4)
[2022-09-22] MEDS ORDERED: CEPH250A PO (10:22)
[2022-09-22 11:30] VITALS: BP 136/78
== END 2022-09-22 11:48 | disposition home or self-care (01) ==
LOC: ER 09:22
PROVIDERS: Emergency Medicine
DX: I95.9 Hypotension, unspecified (principal); D64.9 Anemia, unspecified; N17.9 Acute kidney failure, unspecified; F17.210 Nicotine dependence, cigarettes, uncomplicated; Z79.899 Other long term (current) drug therapy; Z79.01 Long term (current) use of anticoagulants
CPT/HCPCS: 80053; 83605; 83735; 84484; 85025; 93005; 93010; 96360; 99284-25; G0480; J7030

== ENCOUNTER 2022-10-08 13:05 | Emergency (ER) | payer MEDICARE, BC ==
[~2022-10-08] VITALS: Ht 162.6 cm; Wt 67.6 kg
[~2022-10-08 13:05] MED LIST changes: +ALBU90OI; +CEPH250A PO; +PREGABALIN75 MG PO; +SERT50 PO; +ZANAFLEX413 PO
[2022-10-08 13:40] LABS: BASOPHILS ABSOLUTE AUTO 0.06 K/mm3 (0.00-0.23); BASOPHILS PERCENT AUTO 1 % (0-2); EOSINOPHILS ABSOLUTE AUTO 0.17 K/mm3 (0.00-0.68); EOSINOPHILS PERCENT AUTO 4 % (0-6); Hematocrit 32.7 % (33.0-51.0); Hemoglobin 11.2 g/dL (11.5-16.0); IMMATURE GRAN ABSOLUTE AUTO 0.05 K/mm3 (0.00-0.10); IMMATURE GRAN PERCENT AUTO 1 % (0-1); LYMPHOCYTES ABSOLUTE AUTO 0.84 K/mm3 (0.84-5.20); LYMPHOCYTES PERCENT AUTO 18 % (21-46); MONOCYTES ABSOLUTE AUTO 0.36 K/mm3 (0.16-1.47); MONOCYTES PERCENT AUTO 8 % (4-13); Mean Corpuscular HGB 36.7 pg (26.0-34.0); Mean Corpuscular HGB Conc 34.3 g/dL (31.5-36.5); Mean Corpuscular Volume 107 fL (80-100); Mean Platelet Volume 12.1 fL (9.1-12.4); NEUTROPHILS ABSOLUTE AUTO 3.25 K/mm3 (1.96-9.15); NEUTROPHILS PERCENT AUTO 69 % (41-73); Platelet Count 135 K/mm3 (150-400); RDW Coefficient Variation 12.4 % (11.7-14.2); RDW Standard Deviation 48.5 fL (35.1-46.3); Red Blood Cell Count 3.05 M/mm3 (3.80-5.20); White Blood Cell Count 4.73 K/mm3 (4.00-11.30)
[2022-10-08 13:57] LABS: Albumin, Blood 3.5 g/dL (3.4-5.0); Albumin/Globulin Ratio 1.3 (0.8-1.8); Bilirubin, Total 0.4 mg/dL (0.1-1.0); Bun/Creatinine Ratio 17.1 (12.0-20.0); Calcium, Blood 9.2 mg/dL (8.5-10.1); Creatinine, Blood 1.17 mg/dL (0.40-1.00); Globulin, Blood 2.6 g/dL (2.2-4.0); Potassium, Blood 4.3 mmol/L (3.5-5.5); Total Protein, Blood 6.1 g/dL (6.4-8.2)
[2022-10-08] MEDS ORDERED: KAPSPARGO SPRIN50 MG PO (15:00)
[2022-10-08] MEDS ORDERED: TRAZ50 PO (15:02)
[2022-10-08] MEDS ORDERED: ASPI81CH PO (15:02)
[2022-10-08] MEDS ORDERED: B-1100 M1 PO (15:02)
[2022-10-08 16:30] VITALS: BP 150/93
== END 2022-10-08 16:56 | disposition home or self-care (01) ==
LOC: ER 13:05
PROVIDERS: Student in an Organized Health Care Education/Training Program
DX: R55 Syncope and collapse (principal); S06.9X9A Unspecified intracranial injury with loss of consciousness of unspecified duration, initial encounter; S00.83XA Contusion of other part of head, initial encounter; I48.91 Unspecified atrial fibrillation; D64.9 Anemia, unspecified; F17.210 Nicotine dependence, cigarettes, uncomplicated; Z91.040 Latex allergy status; Z88.5 Allergy status to narcotic agent; Z91.02 Food additives allergy status; Z88.8 Allergy status to other drugs, medicaments and biological substances; Z79.82 Long term (current) use of aspirin; Z79.01 Long term (current) use of anticoagulants; Z79.899 Other long term (current) drug therapy; W19.XXXA Unspecified fall, initial encounter
CPT/HCPCS: 36415; 70450; 71045; 80053; 84484; 85025; 93005; 93010; 99284-25; A9270; J7030

== ENCOUNTER 2023-03-22 16:43 | Emergency (ER) | payer MEDICARE, BC ==
[~2023-03-22] VITALS: Ht 162.6 cm; Wt 73.9 kg
[~2023-03-22 16:43] MED LIST changes: +KAPSPARGO SPRIN50 MG PO; +Keflex250 MG; +OXYM.05NI; +Vitamin B Comple1 EA; +Vitamin D1000 UNI1
[2023-03-22 17:24] LABS: BASOPHILS ABSOLUTE AUTO 0.05 K/mm3 (0.00-0.23); BASOPHILS PERCENT AUTO 0 % (0-2); EOSINOPHILS ABSOLUTE AUTO 0.38 K/mm3 (0.00-0.68); EOSINOPHILS PERCENT AUTO 3 % (0-6); Hematocrit 36.7 % (33.0-51.0); Hemoglobin 12.3 g/dL (11.5-16.0); IMMATURE GRAN PERCENT AUTO 1 % (0-1); LYMPHOCYTES ABSOLUTE AUTO 1.25 K/mm3 (0.84-5.20); LYMPHOCYTES PERCENT AUTO 11 % (21-46); MONOCYTES ABSOLUTE AUTO 0.68 K/mm3 (0.16-1.47); MONOCYTES PERCENT AUTO 6 % (4-13); Mean Corpuscular HGB 33.6 pg (26.0-34.0); Mean Corpuscular HGB Conc 33.5 g/dL (31.5-36.5); Mean Corpuscular Volume 100 fL (80-100); Mean Platelet Volume 11.7 fL (9.1-12.4); NEUTROPHILS ABSOLUTE AUTO 9.08 K/mm3 (1.96-9.15); NEUTROPHILS PERCENT AUTO 79 % (41-73); Platelet Count 194 K/mm3 (150-400); RDW Coefficient Variation 13.6 % (11.7-14.2); RDW Standard Deviation 49.3 fL (35.1-46.3); Red Blood Cell Count 3.66 M/mm3 (3.80-5.20); White Blood Cell Count 11.54 K/mm3 (4.00-11.30)
[2023-03-22 18:10] LABS: Albumin, Blood 3.5 g/dL (3.4-5.0); Albumin/Globulin Ratio 1.1 (0.8-1.8); Bilirubin, Total 0.3 mg/dL (0.1-1.0); Bun/Creatinine Ratio 48.7 (12.0-20.0); Calcium, Blood 9.6 mg/dL (8.5-10.1); Creatinine, Blood 1.54 mg/dL (0.40-1.00); Globulin, Blood 3.1 g/dL (2.2-4.0); Total Protein, Blood 6.6 g/dL (6.4-8.2)
[2023-03-22] MEDS ORDERED: MONT10T (19:16)
[2023-03-22] MEDS ORDERED: LOSA50 PO (19:17)
[2023-03-22] MEDS ORDERED: METO50ER PO (19:17)
[2023-03-22 19:38] LABS: Source, Urine Voided
[2023-03-22 19:47] LABS: Appearance, Urine Clear (Clear); Bilirubin, Urine Neg (Neg); Blood, Urine Neg (Neg); Color, Urine Yellow (P-Yellow); Glucose Qualitative, Urine Neg (Neg); Ketones, Urine Neg (Neg); Leukocyte Esterase, Urine Neg (Neg); Nitrite, Urine Neg (Neg); Protein, Urine Neg (Neg); Specific Gravity, Urine 1.015 (1.003-1.022); Urobilinogen, Urine NORM (Normal)
[2023-03-22] MEDS ORDERED: LOKELMA10 GM PO (22:55)
[2023-03-22 23:30] VITALS: BP 158/88
[2023-03-23] MEDS ORDERED: Pepcid40 MG PO (16:09)
[2023-03-23] MEDS ORDERED: Ativan1 MG SL (16:09)
== END 2023-03-22 23:30 | disposition home or self-care (01) ==
LOC: ER 16:43
PROVIDERS: Emergency Medicine; Physician Assistant
DX: E87.5 Hyperkalemia (principal); I48.91 Unspecified atrial fibrillation; F17.210 Nicotine dependence, cigarettes, uncomplicated; Z91.040 Latex allergy status; Z88.5 Allergy status to narcotic agent; Z88.7 Allergy status to serum and vaccine; Z88.8 Allergy status to other drugs, medicaments and biological substances; Z91.018 Allergy to other foods; Z79.01 Long term (current) use of anticoagulants
CPT/HCPCS: 71046; 80053; 81003; 83690; 84132; 84484; 85025; 93005; 93010; 96374; 99285-25; A9270; J0360

== ENCOUNTER 2023-03-23 13:45 | Emergency (ER) | payer MEDICARE, BC ==
[~2023-03-23] VITALS: Ht 162.6 cm; Wt 73.9 kg
[~2023-03-23 13:45] MED LIST changes: +LOKELMA10 GM PO; +LOSA50 PO; +MONT10T
[2023-03-23 14:08] VITALS: BP 164/98
[2023-03-23 14:36] LABS: BASOPHILS ABSOLUTE AUTO 0.04 K/mm3 (0.00-0.23); BASOPHILS PERCENT AUTO 0 % (0-2); EOSINOPHILS ABSOLUTE AUTO 0.15 K/mm3 (0.00-0.68); EOSINOPHILS PERCENT AUTO 2 % (0-6); Hematocrit 35.6 % (33.0-51.0); Hemoglobin 11.9 g/dL (11.5-16.0); IMMATURE GRAN PERCENT AUTO 1 % (0-1); LYMPHOCYTES ABSOLUTE AUTO 0.94 K/mm3 (0.84-5.20); LYMPHOCYTES PERCENT AUTO 10 % (21-46); MONOCYTES ABSOLUTE AUTO 0.43 K/mm3 (0.16-1.47); MONOCYTES PERCENT AUTO 5 % (4-13); Mean Corpuscular HGB 33.2 pg (26.0-34.0); Mean Corpuscular HGB Conc 33.4 g/dL (31.5-36.5); Mean Corpuscular Volume 99 fL (80-100); Mean Platelet Volume 11.8 fL (9.1-12.4); NEUTROPHILS ABSOLUTE AUTO 7.73 K/mm3 (1.96-9.15); NEUTROPHILS PERCENT AUTO 82 % (41-73); Platelet Count 179 K/mm3 (150-400); RDW Coefficient Variation 13.6 % (11.7-14.2); RDW Standard Deviation 49.4 fL (35.1-46.3); Red Blood Cell Count 3.58 M/mm3 (3.80-5.20); White Blood Cell Count 9.39 K/mm3 (4.00-11.30)
[2023-03-23 14:52] LABS: Albumin, Blood 3.4 g/dL (3.4-5.0); Albumin/Globulin Ratio 1.1 (0.8-1.8); Bilirubin, Total 0.4 mg/dL (0.1-1.0); Bun/Creatinine Ratio 42.7 (12.0-20.0); Calcium, Blood 9.8 mg/dL (8.5-10.1); Creatinine, Blood 1.31 mg/dL (0.40-1.00); Globulin, Blood 3.1 g/dL (2.2-4.0); Potassium, Blood 5.3 mmol/L (3.5-5.5); Total Protein, Blood 6.5 g/dL (6.4-8.2)
[2023-03-23] MEDS ORDERED: Pepcid40 MG PO (16:09)
[2023-03-23] MEDS ORDERED: Ativan1 MG SL (16:09)
== END 2023-03-23 17:05 | disposition home or self-care (01) ==
LOC: ER 13:45
PROVIDERS: Physician Assistant
DX: K92.1 Melena (principal); R07.89 Other chest pain; I48.91 Unspecified atrial fibrillation; F17.210 Nicotine dependence, cigarettes, uncomplicated; Z91.040 Latex allergy status; Z88.5 Allergy status to narcotic agent; Z88.7 Allergy status to serum and vaccine; Z91.048 Other nonmedicinal substance allergy status; Z79.01 Long term (current) use of anticoagulants; Z86.73 Personal history of transient ischemic attack (TIA), and cerebral infarction without residual deficits
CPT/HCPCS: 80053; 83690; 84484; 85025; 86850; 86900; 86901; 93005; 93010; 96374; 99285-25; C9113

== ENCOUNTER 2023-07-05 06:49 | Day surgery (SDC) | payer MEDICARE, BC ==
[~2023-07-05] VITALS: Ht 162.6 cm; Wt 80.7 kg
[~2023-07-05 06:49] MED LIST changes: -ALBU90OI; +ALBU90OI INH; +Aspir 8181 MG PO; +Ativan1 MG SL; +ELIQUIS2.5 MG PO; -ELIQUIS5 M2 PO; -Keflex250 MG; +Keflex250 MG PO; +METO25ER PO; -MONT10T; +OMEPRAZOLE PO; +PREG100 PO; -PREGABALIN75 MG PO; +Pepcid40 MG PO; +SERT100 PO; -SERT50 PO; +VITAMIN B-1100 M1 PO; -ZANAFLEX413 PO
[2023-07-05] MEDS ORDERED: Ativan1 MG PO (07:09)
[2023-07-05 08:25] VITALS: BP 124/70
== END 2023-07-05 08:40 | disposition home or self-care (01) ==
LOC: ORSCSDS 06:49
PROVIDERS: Ophthalmology
PROC: 08RJ3JZ Replacement of Right Lens with Synthetic Substitute, Percutaneous Approach (ICD-10-PCS; principal; 2023-07-05 08:00)
DX: H25.13 Age-related nuclear cataract, bilateral (principal); I12.9 Hypertensive chronic kidney disease with stage 1 through stage 4 chronic kidney disease, or unspecified chronic kidney disease; N18.9 Chronic kidney disease, unspecified; J44.9 Chronic obstructive pulmonary disease, unspecified; I95.89 Other hypotension; Z95.0 Presence of cardiac pacemaker; K21.9 Gastro-esophageal reflux disease without esophagitis; Z68.30 Body mass index [BMI] 30.0-30.9, adult; R00.1 Bradycardia, unspecified; E66.9 Obesity, unspecified; E78.5 Hyperlipidemia, unspecified; K58.9 Irritable bowel syndrome, unspecified; Z79.01 Long term (current) use of anticoagulants; Z79.899 Other long term (current) drug therapy
CPT/HCPCS: J2001; J2250; J3010; J3301; J7040; V2632

== ENCOUNTER 2023-07-11 20:34 | Emergency (ER) | payer MEDICARE, BC ==
[~2023-07-11] VITALS: Ht 162.6 cm; Wt 77.1 kg
[~2023-07-11 20:34] MED LIST changes: +Ativan1 MG PO
[2023-07-11 21:18] LABS: BASOPHILS ABSOLUTE AUTO 0.07 K/mm3 (0.00-0.23); BASOPHILS PERCENT AUTO 1 % (0-2); EOSINOPHILS ABSOLUTE AUTO 0.14 K/mm3 (0.00-0.68); EOSINOPHILS PERCENT AUTO 2 % (0-6); Hematocrit 37.2 % (33.0-51.0); Hemoglobin 12.4 g/dL (11.5-16.0); IMMATURE GRAN ABSOLUTE AUTO 0.15 K/mm3 (0.00-0.10); IMMATURE GRAN PERCENT AUTO 2 % (0-1); LYMPHOCYTES ABSOLUTE AUTO 1.28 K/mm3 (0.84-5.20); LYMPHOCYTES PERCENT AUTO 15 % (21-46); MONOCYTES ABSOLUTE AUTO 0.57 K/mm3 (0.16-1.47); MONOCYTES PERCENT AUTO 7 % (4-13); Mean Corpuscular HGB 33.9 pg (26.0-34.0); Mean Corpuscular HGB Conc 33.3 g/dL (31.5-36.5); Mean Corpuscular Volume 102 fL (80-100); Mean Platelet Volume 11.5 fL (9.1-12.4); NEUTROPHILS ABSOLUTE AUTO 6.54 K/mm3 (1.96-9.15); NEUTROPHILS PERCENT AUTO 75 % (41-73); Platelet Count 209 K/mm3 (150-400); RDW Coefficient Variation 14.7 % (11.7-14.2); RDW Standard Deviation 54.9 fL (35.1-46.3); Red Blood Cell Count 3.66 M/mm3 (3.80-5.20); White Blood Cell Count 8.75 K/mm3 (4.00-11.30)
[2023-07-11 21:38] LABS: Albumin, Blood 3.2 g/dL (3.4-5.0); Bilirubin, Total 0.3 mg/dL (0.1-1.0); Bun/Creatinine Ratio 26.6 (12.0-20.0); Calcium, Blood 9.4 mg/dL (8.5-10.1); Creatinine, Blood 1.43 mg/dL (0.40-1.00); Globulin, Blood 3.3 g/dL (2.2-4.0); Potassium, Blood 4.6 mmol/L (3.5-5.5); Total Protein, Blood 6.5 g/dL (6.4-8.2)
[2023-07-12 00:35] VITALS: BP 112/67
== END 2023-07-12 00:35 | disposition home or self-care (01) ==
LOC: ER 20:34
PROVIDERS: Emergency Medicine
DX: R55 Syncope and collapse (principal); S00.81XA Abrasion of other part of head, initial encounter; S50.811A Abrasion of right forearm, initial encounter; I48.91 Unspecified atrial fibrillation; F32.A Depression, unspecified; G62.9 Polyneuropathy, unspecified; F17.210 Nicotine dependence, cigarettes, uncomplicated; W18.30XA Fall on same level, unspecified, initial encounter; Y93.K9 Activity, other involving animal care; Y92.009 Unspecified place in unspecified non-institutional (private) residence as the place of occurrence of the external cause; Z95.0 Presence of cardiac pacemaker; Z91.040 Latex allergy status; Z88.8 Allergy status to other drugs, medicaments and biological substances; Z88.5 Allergy status to narcotic agent; Z88.7 Allergy status to serum and vaccine; Z91.02 Food additives allergy status; Z79.01 Long term (current) use of anticoagulants; Z79.899 Other long term (current) drug therapy; Z86.73 Personal history of transient ischemic attack (TIA), and cerebral infarction without residual deficits
CPT/HCPCS: 70450; 71045; 72125; 80053; 84484; 85025; 90714; 93005; 93010; 96374-59; 99285-25; J1885

== ENCOUNTER 2023-07-12 06:46 | Day surgery (SDC) | payer MEDICARE, BC ==
[~2023-07-12] VITALS: Ht 162.6 cm; Wt 81.1 kg
--- NOTE | 2023-07-12 07:28 | NUR ---
07/12/23 0728 Iman Frausto TETRACAINE PLACED IN LEFT EYE AT 0713. PLEDGET PLACED IN LEFT EYE AT 0716. PT TOLERATED WELL.
--- NOTE | 2023-07-12 08:20 | NUR ---
07/12/23 0312 MEHRDAD MASSEY PT FALLS BACK TO SLEEP EASILY. ANSWERS QUESTIONS APPROPRIATELY
[2023-07-12 10:22] VITALS: BP 132/80
== END 2023-07-12 08:34 | disposition home or self-care (01) ==
LOC: ORSCSDS 06:46
PROVIDERS: Ophthalmology
PROC: 08RK3JZ Replacement of Left Lens with Synthetic Substitute, Percutaneous Approach (ICD-10-PCS; principal; 2023-07-12 08:00)
DX: H25.12 Age-related nuclear cataract, left eye (principal); Z96.1 Presence of intraocular lens; K58.9 Irritable bowel syndrome, unspecified; I12.9 Hypertensive chronic kidney disease with stage 1 through stage 4 chronic kidney disease, or unspecified chronic kidney disease; N18.2 Chronic kidney disease, stage 2 (mild); E78.5 Hyperlipidemia, unspecified; K21.9 Gastro-esophageal reflux disease without esophagitis; E66.9 Obesity, unspecified; Z68.30 Body mass index [BMI] 30.0-30.9, adult; F17.210 Nicotine dependence, cigarettes, uncomplicated; Z79.01 Long term (current) use of anticoagulants; Z79.899 Other long term (current) drug therapy
CPT/HCPCS: J2001; J2250; J3010; J3301; J7040; V2632

== ENCOUNTER 2023-12-08 17:45 | Observation (INO) | payer MEDICARE, BC ==
[~2023-12-08] VITALS: Ht 162.6 cm; Wt 82.5 kg
[~2023-12-08 17:45] MED LIST changes: +ELIQUIS2.5 M1 PO; +EPIPEN0.3 MG/0.1 IM; +FLUT.05NI; +METPRE4DP PO; +SUCRALFATE114 PO
[2023-12-08 18:39] LABS: BASOPHILS ABSOLUTE AUTO 0.04 K/mm3 (0.00-0.23); BASOPHILS PERCENT AUTO 1 % (0-2); EOSINOPHILS ABSOLUTE AUTO 0.07 K/mm3 (0.00-0.68); EOSINOPHILS PERCENT AUTO 1 % (0-6); Hematocrit 32.6 % (33.0-51.0); Hemoglobin 10.5 g/dL (11.5-16.0); IMMATURE GRAN ABSOLUTE AUTO 0.06 K/mm3 (0.00-0.10); IMMATURE GRAN PERCENT AUTO 1 % (0-1); LYMPHOCYTES ABSOLUTE AUTO 0.71 K/mm3 (0.84-5.20); LYMPHOCYTES PERCENT AUTO 11 % (21-46); MONOCYTES ABSOLUTE AUTO 0.52 K/mm3 (0.16-1.47); MONOCYTES PERCENT AUTO 8 % (4-13); Mean Corpuscular HGB 32.9 pg (26.0-34.0); Mean Corpuscular HGB Conc 32.2 g/dL (31.5-36.5); Mean Corpuscular Volume 102 fL (80-100); Mean Platelet Volume 11.7 fL (9.1-12.4); NEUTROPHILS ABSOLUTE AUTO 5.29 K/mm3 (1.96-9.15); NEUTROPHILS PERCENT AUTO 79 % (41-73); Platelet Count 203 K/mm3 (150-400); RDW Coefficient Variation 15.2 % (11.7-14.2); RDW Standard Deviation 56.8 fL (35.1-46.3); Red Blood Cell Count 3.19 M/mm3 (3.80-5.20); White Blood Cell Count 6.69 K/mm3 (4.00-11.30)
[2023-12-08 19:01] LABS: Albumin, Blood 3.2 g/dL (3.4-5.0); Albumin/Globulin Ratio 1.1 (0.8-1.8); Bilirubin, Total 0.3 mg/dL (0.1-1.0); Bun/Creatinine Ratio 20.6 (12.0-20.0); Calcium, Blood 9.1 mg/dL (8.5-10.1); Creatinine, Blood 1.7 mg/dL (0.40-1.00); Total Protein, Blood 6.2 g/dL (6.4-8.2)
[2023-12-08] MEDS ORDERED: Nitroglycerin 0.4 MG SUBL SL ONE (20:10)
[2023-12-08] MEDS ORDERED: Acetaminophen 325 MG TABLET PO PRN (22:05)
[2023-12-08] MEDS ORDERED: Ondansetron HCl 2 MG / ML 2ML Vial IV PRN (22:10)
[2023-12-08] MEDS ORDERED: Nitroglycerin 0.4 MG SUBL SL PRN (22:10)
[2023-12-08] MEDS ORDERED: TiZANidine HCl 4 MG Tab PO PRN (22:15)
[2023-12-08] MEDS ORDERED: Metoprolol Succinate 50 MG TABCR PO SCH (23:00)
[2023-12-08] MEDS ORDERED: Pramipexole DI-HCL 0.25 MG Tab PO SCH (23:01)
[2023-12-08 23:25] VITALS: BP 180/94
[2023-12-08] MEDS ORDERED: Pregabalin 50 MG Capsule PO SCH (23:30)
[2023-12-09] VITALS (10 sets, daily range): BP systolic 125–194; BP diastolic 74–113
[2023-12-09 02:00] LABS: BASOPHILS ABSOLUTE AUTO 0.06 K/mm3 (0.00-0.23); BASOPHILS PERCENT AUTO 1 % (0-2); EOSINOPHILS ABSOLUTE AUTO 0.08 K/mm3 (0.00-0.68); EOSINOPHILS PERCENT AUTO 2 % (0-6); Hematocrit 29.5 % (33.0-51.0); Hemoglobin 9.6 g/dL (11.5-16.0); IMMATURE GRAN ABSOLUTE AUTO 0.08 K/mm3 (0.00-0.10); IMMATURE GRAN PERCENT AUTO 2 % (0-1); LYMPHOCYTES ABSOLUTE AUTO 0.72 K/mm3 (0.84-5.20); LYMPHOCYTES PERCENT AUTO 15 % (21-46); MONOCYTES ABSOLUTE AUTO 0.47 K/mm3 (0.16-1.47); MONOCYTES PERCENT AUTO 10 % (4-13); Mean Corpuscular HGB 32.5 pg (26.0-34.0); Mean Corpuscular HGB Conc 32.5 g/dL (31.5-36.5); Mean Corpuscular Volume 100 fL (80-100); NEUTROPHILS ABSOLUTE AUTO 3.44 K/mm3 (1.96-9.15); NEUTROPHILS PERCENT AUTO 71 % (41-73); Platelet Count 177 K/mm3 (150-400); RDW Coefficient Variation 14.9 % (11.7-14.2); RDW Standard Deviation 54.7 fL (35.1-46.3); Red Blood Cell Count 2.95 M/mm3 (3.80-5.20); White Blood Cell Count 4.85 K/mm3 (4.00-11.30)
[2023-12-09 02:12] LABS: Magnesium, Blood 1.4 mg/dL (1.6-2.4)
[2023-12-09 02:13] LABS: Alanine Aminotransfer (ALT/SGP 17 U/L (12-78); Albumin, Blood 2.9 g/dL (3.4-5.0); Alk Phos 104 U/L (50-136); Anion Gap 10 mmol/L (3-11); Aspartate Aminotrans (AST/SGOT 15 U/L (12-37); Bilirubin, Total 0.4 mg/dL (0.1-1.0); Blood Urea Nitrogen 35 mg/dL (8-24); Bun/Creatinine Ratio 25.7 (12.0-20.0); CHOL/HDL RATIO 2.1; CO2, Blood 20 mmol/L (21-32); Chloride, Blood 117 mmol/L (98-108); Cholesterol 310 mg/dL (50-200); Creatinine, Blood 1.36 mg/dL (0.40-1.00); Globulin, Blood 2.8 g/dL (2.2-4.0); Glomerular Filtration Rate 43 (60-); Glucose, Blood 89 mg/dL (70-99); HDL Cholesterol 147 mg/dL (>39); Low Density Lipoprotein Chol 149 mg/dL (0-110); Potassium, Blood 4.9 mmol/L (3.5-5.5); Sodium, Blood 142 mmol/L (136-145); Total Protein, Blood 5.7 g/dL (6.4-8.2); Triglycerides 69 mg/dL (30-160); Very Low Density Lipoprot Chol 13 mg/dL (6-32)
[2023-12-09] MEDS ORDERED: Mag Sulfate 1 GM/D5% 100ML 100 ML IV STA (03:50)
[2023-12-09] MEDS ORDERED: HydrALAZINE HCl 20 MG / ML 1ML Vial IV ONE (05:45)
[2023-12-09] MEDS ORDERED: HydrALAZINE HCl 20 MG / ML 1ML Vial IV PRN (05:45)
[2023-12-09] MEDS ORDERED: Omeprazole 20 MG CapCR PO SCH (06:00)
--- NOTE | 2023-12-09 06:22 | NUR ---
SHIFT SUMMARY PT ADMITTED UNDER OBS FOR CHEST PAIN. MAGNESIUM LOW, REPLACED WITH IV FLUIDS. PT HAD BP OF 188/113. DR. HUNTER MADE AWARE, AND ORDERED HYDRALAZINE 10MG IV NOW, AND ADDED PRN TO EMAR. PT SLEPT AFTER ADMIT. SHE HAS BEEN PLEASANT AND COOPERATIVE WITH HER CARE THUS FAR. POSSIBLE DC HOME TODAY.
--- NOTE | 2023-12-09 07:44 | NUR ---
CALL FROM [facility] WITH CARDIOLYTE TESTING ASKING QUESTIONS. ANSWERED. PT WITHOUT NITRO PATCH OR PASTE BUT HAVING HIGH BP AND C/O CP AND SOB. OK TO ADMINISTER NITRO AT THIS TIME.
[2023-12-09] MEDS ORDERED: Apixaban 5 MG Tab PO SCH (09:00)
[2023-12-09] MEDS ORDERED: Losartan Potassium 50 MG Tab PO SCH (09:00)
[2023-12-09] MEDS ORDERED: Fluticasone 0.05% Nasal Spray SCH (09:00)
[2023-12-09] MEDS ORDERED: Sertraline HCl 100 MG Tab PO SCH (09:00)
[2023-12-09] MEDS ORDERED: Aspirin 81 MG Chew PO SCH (09:00)
[2023-12-09] MEDS ORDERED: AmLODIPine Besylate 5 MG Tab PO SCH (09:00)
[2023-12-09] MEDS ORDERED: Polyethylene Glycol 3350 17 gm PO PRN (12:05)
[2023-12-09] MEDS ORDERED: HydroCHLOROthiazide 25 mg Tab PO SCH (13:00)
--- NOTE | 2023-12-09 16:20 | NUR ---
PER DR WING: PT ALLERGIC TO MOST PAIN MEDS. HAS NOT HAD MORPHINE, BUT SHE IS ALLERGIC TO HYDROCODONE, OXYCODONE AND CODEINE, THIS MAY NOT BE A GOOD OPTION FOR HER. PT EATING, NOW, AND WILL DISCUSS POSSIBLE ANALGESIC OPTIONS IF NEEDED.
--- NOTE | 2023-12-09 18:49 | NUR ---
A&Ox4. PLEASANT AND COOPERATIVE WITH CARE. CALLS APPROPRIATELY AND IS ABLE TO ADVOCATE NEEDS EFFECTIVELY. AMBULATES INDEPENDENTLY TO BATHROOM AND BACK. MEDS WHOLE WITH FLUIDS. TELE: ATRIAL PACED WITH PVCs. EPISODE OF CHEST PAIN THIS MORNING NOT RELIEVED WITH PRN NITRO, EVENTUALLY RELIEVED WITH ROUTINE BP MEDS. EPISODE OF NITRO THIS AFTERNOON REPORTEDLY UNRELIEVED WITH NITRO. SOME C/O SOB AND DYSPNEA WITH ELEVATED BP. DID HAVE HEADACHE FOLLOWING NITRO ADMINISTRATIONS. PLAN FOR SECOND HALF OF STRESS TEST TO BE DONE TOMORROW MORNING. NPO AFTER MIDNIGHT. LABS ORDERED FOR AM. FAMILY AT BEDSIDE MUCH OF DAY. PATIENT SEEMINLY MORE ANXIOUS WHEN FAMILY AROUND THEY ASK A LOT OF QUESTIONS. BP ELEVATED MUCH OF DAY; TWO DOSES OF HYDRALAZINE ADMINISTERED. DR. WING MADE AWARE. BED IN LOWEST POSITION. CALL LIGHT WITHIN REACH. ALL NEEDS MET. REPORT TO ONCMANJULA RN.
[2023-12-09] MEDS ORDERED: Docusate Sodium/Senna 1 Tab PO SCH (21:00)
[2023-12-09] MEDS ORDERED: Montelukast Sodium 10 MG Tab PO SCH (21:00)
[2023-12-10 04:40] VITALS: BP 158/90
[2023-12-10 04:56] LABS: Hematocrit 31.4 % (33.0-51.0); Hemoglobin 10.2 g/dL (11.5-16.0); Mean Corpuscular HGB 32.2 pg (26.0-34.0); Mean Corpuscular HGB Conc 32.5 g/dL (31.5-36.5); Mean Corpuscular Volume 99 fL (80-100); Mean Platelet Volume 11.5 fL (9.1-12.4); Platelet Count 168 K/mm3 (150-400); RDW Coefficient Variation 14.9 % (11.7-14.2); Red Blood Cell Count 3.17 M/mm3 (3.80-5.20); White Blood Cell Count 4.48 K/mm3 (4.00-11.30)
[2023-12-10 05:21] LABS: Albumin, Blood 2.9 g/dL (3.4-5.0); Anion Gap 9 mmol/L (3-11); Blood Urea Nitrogen 24 mg/dL (8-24); Bun/Creatinine Ratio 24.1 (12.0-20.0); CO2, Blood 23 mmol/L (21-32); Calcium, Blood 9.6 mg/dL (8.5-10.1); Chloride, Blood 112 mmol/L (98-108); Glomerular Filtration Rate 62 (60-); Glucose, Blood 97 mg/dL (70-99); Magnesium, Blood 1.3 mg/dL (1.6-2.4); Phosphorus, Blood 2.5 mg/dL (2.5-4.9); Sodium, Blood 140 mmol/L (136-145)
[2023-12-10] MEDS ORDERED: NS 250 ML IV PRN (05:50)
[2023-12-10] MEDS ORDERED: Magnesium Sulf 2 GM/Water 50ML 50 ML IV ONE (05:50)
--- NOTE | 2023-12-10 05:51 | NUR ---
SHIFT SUMMARY NOC PT A/O X 4. PLEASANT AND COOPERATIVE WITH CARE. BP STABLE. STILL HAS VERY MILD CP, BUT NON RADIATING AND NO PRESSURE. PT PAIN 5/10 AND MEDICATED WITH TYLENOL WHICH RELIEVED PAIN. PT ON TELE ATRIAL PACED @ 64 BPM. PT EXHIBITING NO S/S OF ALCOHOL WITHDRAWAL. PT HAS BEEN NO CAFFEINE AND NPO SINCE MIDNIGHT IN PREPARATION FOR SECOND PART OF STRESS TEST TODAY. PT MG 1.3 AND 2G MG SULFATE REPLACEMENT ORDERED. PT CURRENTLY RESTING WITH BED IN LOWEST POSITION, AND CALL LIGHT WITHIN REACH.
[2023-12-10 07:33] VITALS: BP 182/96
[2023-12-10] MEDS ORDERED: Losartan Potassium 50 MG Tab PO SCH (09:00)
[2023-12-10] MEDS ORDERED: Multivitamins 1 Tab PO SCH (09:00)
[2023-12-10 09:21] VITALS: BP 128/86
[2023-12-10] MEDS ORDERED: Regadenoson 0.4 MG/5 ML SYRINGE ONE (13:24)
[2023-12-10] MEDS ORDERED: Caffeine Citrated 60 MG/3 ML Vial ONE (13:24)
[2023-12-10 16:01] VITALS: BP 159/88
[2023-12-10] MEDS ORDERED: LOSARTAN-HCTZ1 EAC5 PO (17:20)
[2023-12-10] MEDS ORDERED: ASPI81CH PO (17:20)
[2023-12-10] MEDS ORDERED: METO100ER PO (17:20)
[2023-12-10] MEDS ORDERED: MONT10T PO (17:20)
[2023-12-10] MEDS ORDERED: PRAMIPEXOLE DI0.5 M1 PO (17:21)
[2023-12-10] MEDS ORDERED: Isosorbide Mono30 MG PO (17:21)
--- NOTE | 2023-12-10 18:13 | NUR ---
PT DISCHARGED HOME. DISCHARGE INSTRUCTIONS DISCUSSED WITH PT. DISCUSSED MEDICATION CHANGES. PT VERBALIZED UNDERSTANDING. PHARMACY CALLED TO CLARIFY MEDICATION. PER DR. MONTIEL. PLEASE FILL LOSARTAN/ HYDROCLOTHIOZIDE 100/25.
[2023-12-10] MEDS ORDERED: Apixaban 5 MG Tab PO SCH (21:00)
== END 2023-12-10 17:30 | disposition home or self-care (01) ==
LOC: ER 17:45 → MEDS 17:46
PROVIDERS: Emergency Medicine; Internal Medicine; ADMIT Student in an Organized Health Care Education/Training Program
DX: R07.89 Other chest pain (principal); I48.0 Paroxysmal atrial fibrillation; I12.9 Hypertensive chronic kidney disease with stage 1 through stage 4 chronic kidney disease, or unspecified chronic kidney disease; N18.32 Chronic kidney disease, stage 3b; E83.42 Hypomagnesemia; F10.90 Alcohol use, unspecified, uncomplicated; G62.9 Polyneuropathy, unspecified; D53.9 Nutritional anemia, unspecified; Z88.5 Allergy status to narcotic agent; Z88.8 Allergy status to other drugs, medicaments and biological substances; Z91.040 Latex allergy status; Z79.01 Long term (current) use of anticoagulants; Z72.0 Tobacco use
CPT/HCPCS: 36415; 71045; 78452; 80053; 80061; 80069; 83735; 84443; 84484; 85025; 85027; 93005; 93010; 93017; 94760; 94762; 96365; 96375; 96376; 99285-25; A9270; A9500; G0378; J0360; J0706; J2785; J3475; J7050